=== PATIENT | female | born 1990 | race Caucasian/White ===

== ENCOUNTER 2020-04-03 21:16 | Emergency (ER) | payer OTHER, SELFPAY ==
[2020-04-03 21:38] VITALS: PULSE 126; RESP 16; TEMP 37.7; O2SAT 100; BMI 24.7
[2020-04-03] MEDS: Acetaminophen 325 MG TABLET 650 MG PO (23:06)
--- NOTE | 2020-04-03 23:13 | ED_ITS ---
HPI - Fever General Chief Complaint: Fever <VICTOR HUGO Shepherd Last Filed: 04/04/20 00:25> Stated Complaint: FLU LIKE SYMPTOMS <VICTOR HUGO Shepherd Last Filed: 04/04/20 00:25> Time Seen by Provider: 04/03/20 22:46 <VICTOR HUGO Shepherd Last Filed: 04/04/20 00:25> Source: patient <VICTOR HUGO Shepherd Last Filed: 04/04/20 00:25> Mode of arrival: ambulatory <VICTOR HUGO Shepherd Last Filed: 04/04/20 00:25> History of Present Illness HPI Narrative: 37-year-old female with past medical history of kidney stones presenting to ED complaining of fever T-max 101?, rhinorrhea, mild sore throat, myalgias, and nausea times few days. Denies CP /SOB, cough, vomiting, diarrhea, recent travel, sick contacts <VICTOR HUGO Shepherd Last Filed: 04/04/20 00:25> MD elicited complaint: fever and malaise <VICTOR HUGO Shepherd Last Filed: 04/04/20 00:25> Related Data Allergies/Adverse Reactions: Allergies Allergy/AdvReac Type Severity Reaction Status Date / Time hydrocodone [From VICODIN] Allergy Intermediate ITCHINESS Verified 04/03/20 23:05 morphine [MORPHINE] Allergy Intermediate BURNING IN Verified 04/03/20 23:05 CHEST, shortness of breath oxycodone [From PERCOCET] Allergy Intermediate ITCHINESS Verified 04/03/20 23:05 Vicodin Allergy Unknown rash, hives Verified 04/03/20 21:47 ibuprofen AdvReac Stomach Verified 04/03/20 21:47 Upset Morphine Allergy Unknown rash Uncoded 01/28/20 00:00 pumpkin Allergy Unknown itching Uncoded 02/21/20 00:00 <VICTOR HUGO Shepherd Last Filed: 04/04/20 00:25> Review of Systems Review of Systems: Constitutional: No Weight loss, + Fever, No Chills, +myalgias ENT/Mouth: No Ear Pain, + Nasal Congestion, No Sinus Pain, No Hoarseness, + sore throat, + Rhinorrhea Cardiovascular: No Chest Pain, No SOB Respiratory: No Cough, No Sputum, No Wheezing Gastrointestinal: + Nausea, No Vomiting, No Diarrhea, No Constipation, No Abdominal pain Musculoskeletal: No joint pain, +Myalgias, No Joint Swelling Skin: No Skin Lesions, No rash <VICTOR HUGO Shepherd - Last Filed: 04/04/20 00:25> Yes all other systems are reviewed and are negative <VICTOR HUGO Shepherd - Last Filed: 04/04/20 00:25> [facility] Past Medical History Attestation statement: The following information was validated with the patient. <VICTOR HUGO Shepherd - Last Filed: 04/04/20 00:25> Medical History: Medical History (Updated 04/03/20 @ 23:17 by VICTOR HUGO Shepherd) Kidney stones <VICTOR HUGO Shepherd - Last Filed: 04/04/20 00:25> Surgical History: Surgical History (Updated 04/03/20 @ 21:44 by Dolores Medina) Gastric bypass status for obesity <VICTOR HUGO Shepherd - Last Filed: 04/04/20 00:25> Social History Social History: Social History Advance Directives: No <VICTOR HUGO Shepherd - Last Filed: 04/04/20 00:25> Physical Exam Vital Signs: Vital Signs: Vital Signs Temp Pulse Resp Pulse Ox 04/04/20 00:41 113 H 100 04/04/20 00:22 99.8 F 104 H 20 99 04/03/20 23:48 99.9 F 115 H 20 100 04/03/20 21:38 99.8 F 126 H 16 100 Body Mass Index 24.7 <VICTOR HUGO Shepherd - Last Filed: 04/04/20 00:25> Vital Signs: Vital Signs Temp Pulse Resp Pulse Ox 04/04/20 00:41 113 H 100 04/04/20 00:22 99.8 F 104 H 20 99 04/03/20 23:48 99.9 F 115 H 20 100 04/03/20 21:38 99.8 F 126 H 16 100 Body Mass Index 24.7 <Marlena Medina MD - Last Filed: 04/04/20 21:00> Const: General: cooperative and healthy appearing <VICTOR HUGO Shepherd - Last Filed: 04/04/20 00:25> Orientation/consciousness: patient oriented x3 <VICTOR HUGO Shepherd - Last Filed: 04/04/20 00:25> Limitations: no limitations <Nichol Avilez CO - Last Filed: 04/04/20 00:25> HENMT: Head: Yes normal to inspection <VICTOR HUGO Shepherd - Last Filed: 04/04/20 00:25> Ears: hearing grossly normal bilaterally <VICTOR HUGO Shepherd - Last Filed: 04/04/20 00:25> General nose exam: Normal external nose present <VICTOR HUGO Shepherd - Last Filed: 04/04/20 00:25> Face and sinus: Yes normal facial exam <VICTOR HUGO Shepherd - Last Filed: 04/04/20 00:25> Eyes: General: appearance normal, both eyes and all related structures <VICTOR HUGO Shepherd - Last Filed: 04/04/20 00:25> EOM: EOMs intact bilaterally <VICTOR HUGO Shepherd - Last Filed: 04/04/20 00:25> Neck: Neck: Yes normal visual inspection <VICTOR HUGO Shepherd - Last Filed: 04/04/20 00:25> Resp: Effort & Inspection: normal respiratory effort <Nichol Avilez CO - Last Filed: 04/04/20 00:25> Auscultation: clear to auscultation bilaterally <VICTOR HUGO Shepherd - Last Filed: 04/04/20 00:25> Cardio: Rate: regular rate <VICTOR HUGO Shepherd - Last Filed: 04/04/20 00:25> Heart sounds: S1 normal heart sound present and S2 normal heart sound present <VICTOR HUGO Shepherd - Last Filed: 04/04/20 00:25> Skin: Rashes: no rashes <VICTOR HUGO Shepherd - Last Filed: 04/04/20 00:25> Wounds: no wounds <VICTOR HUGO Shepherd - Last Filed: 04/04/20 00:25> Neuro: General: patient oriented x3 <VICTOR HUGO Shepherd - Last Filed: 04/04/20 00:25> Extrem: General: Yes normal to inspection <VICTOR HUGO Shepherd - Last Filed: 04/04/20 00:25> Course Course Course Narrative: -0024-- tachycardia improved to 104 after Tylenol. Patient still with low-grade temp worrisome signs and symptoms and strict return precautions discussed. Patient verbalized understanding feel safe for discharge to follow-up with PCP <VICTOR HUGO Shepherd - Last Filed: 04/04/20 00:25> MDM - Fever MDM Narrative Medical decision making narrative: on exam low-grade temp 99.8?, tachycardic likely from fever, NAD/ nontoxic-appearing, lungs CTA. Concern for COVID-19/viral syndrome. Low concern for pneumonia/ACS <VICTOR HUGO Shepherd - Last Filed: 04/04/20 00:25> Discharge Plan Discharge Clinical Impression: Viral infection <VICTOR HUGO Shepherd Last Filed: 04/04/20 00:25> Patient Disposition: Home, Self-Care <VICTOR HUGO Shepherd Last Filed: 04/04/20 00:25> Instructions: Viral Syndrome (ED) <VICTOR HUGO Shepherd - Last Filed: 04/04/20 00:25> Additional Instructions: Based on your symptoms and history we have sent a COVID-19. Although your RESULT IS PENDING at this time. RESULTS should return within 72 hours. At this time you will be contacted with either NEGATIVE OR POSITIVE results. -Please wait until we contact you for your results. At this time you will be okay for discharge. Please plan for self quarantine for up to 14 days. Do not expose yourself to others. You may not go to work. If testing does come back negative you may return to activities as long as you are no longer having any symptoms for at least 3 days. Please continue to follow cold instructions and wash your hands frequently. You may take Tylenol as directed on the bottle for pain or fever. Patient seen in the emergency department on 12/13/2019 and should be excused from work until negative test results AND until 72 hours without any symptoms AND at least 10 days have passed since symptoms first appeared or since last exposure to COVID-19 positive patient CDC Guidelines for home isolation: - Stay away from others - WEAR A MASK if you are sick AND STAY HOME - Cover your mouth and nose with a tissue when you cough or sneeze. Dispose of tissues in a lined trash can and wash your hands immediately with soap and water for at least 20 seconds. If soap and water are not available, clean hands with alcohol-based hand critical care educator that contains at least 60% alcohol. - Clean your hands often with soap and water for at least 20 seconds - Avoid touching your eyes, nose and mouth with unwashed hands - Do not share dishes, drinking glasses, cups, eating utensils, towels, or bedd ing with other people in your home. After using these items, wash them thoroughly with soap and water or put in the perennial house manager. - Clean high-touch surfaces in your isolation area ( sick room and bathroom) every day; let a caregiver clean and disinfect high-touch surfaces in other areas of the home. Clean the area or item with soap and water or another detergent if it is dirty. Then, use a household disinfectant. - Limit contact with pets and animals: If you must care for a pet, wash your hands before and after interacting with them) <VICTOR HUGO Shepherd - Last Filed: 04/04/20 00:25> Stand Alone Forms: Work/School Release <VICTOR HUGO Shepherd - Last Filed: 04/04/20 00:25> Interventions: ED Discharge Assessment Last Done: 04/04/20 00:43 <VICTOR HUGO Shepherd - Last Filed: 04/04/20 00:25> Discharge Date/Time: 04/04/20 00:54 <VICTOR HUGO Shepherd - Last Filed: 04/04/20 00:25>
--- NOTE | 2020-04-03 23:31 | PC.NURSE ---
PT GIVEN TO CONSTANTIN LUCAS DO TO END OF SHIFT. PT AWARE VS WILL BE RECHECK IN 20N MINS.
[2020-04-03 23:48] VITALS: PULSE 115; RESP 20; TEMP 37.7; O2SAT 100
[2020-04-04 00:22] VITALS: PULSE 104; RESP 20; TEMP 37.7; O2SAT 99
[2020-04-04 00:41] VITALS: PULSE 113; O2SAT 100
== END 2020-04-04 00:54 | disposition home or self-care (01) ==
PROVIDERS: Emergency Provider Student in an Organized Health Care Education/Training Program
DX: B34.9 Viral infection, unspecified (principal); R11.0 Nausea; R05 Cough; Z20.828 Contact with and (suspected) exposure to other viral communicable diseases
CPT/HCPCS: 87635; 99283

== ENCOUNTER 2020-05-21 15:54 | Outpatient (REF) | payer OTHER, SELFPAY | END 2020-05-21 15:55 | disposition home or self-care (01) | LOC: HO.LAB 15:54 | PROVIDERS: Visit Provider Internal Medicine | DX: Z20.828 Contact with and (suspected) exposure to other viral communicable diseases (principal) | CPT/HCPCS: C9803; U0003 ==

== ENCOUNTER 2020-07-03 11:36 | Outpatient (REF) | payer OTHER, SELFPAY ==
[2020-07-03 13:36] LABS: MANUAL DIFF FLAG NO
[2020-07-03 13:48] LABS: Basophils Percent Auto 0.5 % (0-2); Eosinophils Absolute Auto 0.1 X10*3/uL (0.0-0.4); Eosinophils Percent Auto 1.4 % (0-4); Hematocrit 31.3 % (37-47); Hemoglobin 9.6 g/dl (12.0-16.0); Imm Gran Abs Auto 0.01 X10*3/uL (0.00-0.03); Imm Gran Pct Auto 0.2 % (0.0-0.4); Lymphocytes Absolute Auto 2.1 X10*3/uL (1.2-4.9); Lymphocytes Percent Auto 36.3 % (20-40); Mean Corpuscular HGB Conc 30.7 g/dl (31.0-35.0); Mean Corpuscular Hemoglobin 26.3 pg (27.0-33.0); Mean Corpuscular Volume 85.8 fL (80-98); Monocytes Absolute Auto 0.5 X10*3/uL (0.1-1.2); Monocytes Percent Auto 8.7 % (2-11); Neutrophils Absolute Auto 3.1 X10*3/uL (2.0-8.3); Neutrophils Percent Auto 52.9 % (45-73); Platelet Count 244 X10*3/uL (160-400); Red Blood Count 3.65 X10*6/uL (4.20-5.50); Red Cell Distribution Width 13.6 % (11.0-16.0); White Blood Count 5.8 X10*3/uL (4.8-10.8)
[2020-07-03 14:17] LABS: Iron 64 mcg/dL (30-160); Percent Iron Saturation 14 % (15-50); Total Iron Binding Capacity 446 mcg/dL (228-428); Unsaturated Iron Binding 382 ug/dL
[2020-07-03 14:41] LABS: Ferritin 5 ng/mL (10-122); TSH reflex Free T4 0.66 mIU/mL (0.32-4.0); Vitamin D 25-OH Total 12.5 ng/mL (>30)
[2020-07-03 14:44] LABS: Folate 13.1 ng/mL (> or = 4.0); Vitamin B12 147 pg/mL (200-900)
[2020-07-08 13:06] LABS: Vitamin B1 11 nmol/L (8-30)
[2020-07-08 22:08] LABS: Vitamin A 32 mcg/dL (38-98)
== END 2020-07-03 11:37 | disposition home or self-care (01) ==
LOC: HO.10HDL 11:36
PROVIDERS: Visit Provider Internal Medicine
DX: R53.82 Chronic fatigue, unspecified (principal); E53.8 Deficiency of other specified B group vitamins; E50.9 Vitamin A deficiency, unspecified; E51.9 Thiamine deficiency, unspecified; E55.9 Vitamin D deficiency, unspecified
CPT/HCPCS: 36415; 82306; 82607; 82728; 82746; 83540; 84425; 84443; 84590; 85025

== ENCOUNTER 2020-08-06 06:10 | Emergency (ER) | payer OTHER, SELFPAY ==
--- NOTE | ~2020-08-06 | CT_ITS ---
EXAMINATION: CT ABDOMEN AND PELVIS WITH CONTRAST CLINICAL INFORMATION: Right lower quadrant pain. COMPARISON: 06/28/2017 CT scan of the abdomen and pelvis. TECHNIQUE: Multidetector volumetric images were obtained from the superior aspect of the liver through the pubic symphysis following administration 85 mL of Omnipaque 350 intravenous contrast. Sagittal and coronal reformatted images were obtained on the technologist's workstation. Oral contrast: No This CT examination was performed using dose optimization techniques as appropriate, variously including the following: *Automated exposure control *Adjustment of mA and/or kV according to patient size (this includes techniques or standardized protocols for targeted exams where dose is matched to indication/reason for exam; i.e. extremities or head) *Use of iterative reconstruction technique DLP: 524 mGy-cm FINDINGS: LUNG BASES: The visualized lung bases are unremarkable. LIVER, GALLBLADDER, AND BILIARY TREE: Unremarkable. PANCREAS: Unremarkable. SPLEEN: Unremarkable. ADRENAL GLANDS: Unremarkable. KIDNEYS AND URETERS: Nonobstructing intrarenal calculi are seen bilaterally. An interpolar right intrarenal calculus measures 0.3 cm. A 0.3 cm calculus in the upper pole left kidney is seen as well. No hydroureteronephrosis. BLADDER: Unremarkable. GASTROINTESTINAL TRACT: Gastric and proximal small bowel post surgical changes are seen without abnormality. The remainder the small bowel, appendix and large bowel are unremarkable. ABDOMINAL WALL: No significant hernia is appreciated. LYMPH NODES: No lymphadenopathy. VASCULAR: Unremarkable. PELVIC VISCERA: An intramural uterine fibroid in the fundus measures 4.7 cm (image 33, series 7). An intramural/subserosal in the right inferior body measures 3.8 cm (image 66, series 3). A right ovarian cyst measures up to 4.2 cm (image 68, series 3). Mild adjacent fluid is seen. Small follicles are seen in the left ovary. OSSEOUS STRUCTURES: Unremarkable. CT/CT abdomen pelvis w con IMPRESSION: 1. Enlarged right ovarian cyst demonstrates overall benign features and is likely physiologic. Adjacent right adnexal fluid is likely physiologic as well suggesting cyst in evolution. If the patient's symptoms persist or worsen, short-term follow-up with pelvic ultrasound is recommended. 2. Enlarged fibroid uterus appears increased compared to the 2018 study. 3. Gastric/proximal small bowel bypass changes without associated abnormality.
--- NOTE | ~2020-08-06 | US_ITS ---
EXAMINATION: US PELVIS TRANSVAGINAL CLINICAL INFORMATION: Right pelvic pain with ovarian cyst. COMPARISON: CT scan of same day as well as pelvic ultrasound of January 21, 2020 TECHNIQUE: Transcutaneous and transvaginal pelvic ultrasound. Transvaginal scanning was performed after voiding to better evaluate the endometrium and adnexa. Real-time ultrasound and Doppler techniques (integrating B-mode 2D vascular images, Doppler spectral analysis and color flow Doppler imaging) were utilized to interrogate the ovarian vessels. FINDINGS: The uterus measures 10.2 x 4.1 x 5.1 cm. The uterus is anteverted. No suspicious abnormalities region of the cervix. Nabothian cysts present. The uterine contour is lobulated. The endometrium measures 1.3 cm. There are heterogeneous echotexture mass is present consistent with fibroids. Within the anterior lower uterine segment there is a 1.7 x 1.3 x 2.0 cm which is larger than on prior study where it measured 1.2 x 1.0 x 1.1 cm in size. About the right body of the uterus posteriorly there is a 4.1 x 3.0 x 3.4 cm fibroid which is essentially stable in size. About the fundus and upper uterine body there is again noted to be a 4.3 x 2.9 x 3.6 cm fibroid which previously measured 3.3 x 2.8 x 2.9 cm in size. The right ovary measures approximately 5.4 x 3.9 x 4.9 cm. The calculated right ovarian volume is approximately 53.2 mL. Normal vascular flow present. Within the right ovary there is a 4.2 x 3.1 x 4.1 cm heterogeneous echotexture mass without internal vascularity and with some rim vascularity present which may represent a hemorrhagic corpus luteal cyst. Follow-up study in 6 weeks would be of help in further evaluation. The left ovary measures 3.8 x 2.0 x 2.7 cm. The calculated left ovarian volume is approximately 10.7 mL. No abnormal left adnexal findings. Normal vascular flow present. No significant free pelvic fluid. US/US pelvic ovarian doppler IMPRESSION: Fibroid uterus. Right ovarian heterogeneous echotexture 4.2 cm in maximum dimension mass without internal vascular flow and with some peripheral vascularity consistent with corpus luteal cyst. Normal ovarian vascular flow bilaterally without evidence of ovarian torsion..
[2020-08-06 07:53] LABS: Appearance Urine HAZY; Color Urine YELLOW; Glucose Urine UA NEG (NEG); Leukocyte Esterase Urine 1+ (NEG); Nitrite Urine NEG (NEG); Specific Gravity - Urine 1.025 (1.005-1.025); UACC Culture Trigger YES; Urine Blood NEG (NEG); Urine Ketones NEG (NEG); Urine Protein NEG (NEG-TRACE)
[2020-08-06 07:54] LABS: UPreg QC Valid YES; Urine Pregnancy NEGATIVE (NEGATIVE)
[2020-08-06 08:01] LABS: Bacteria Urine 1+ /LPF; Mucus Urine 2+ /LPF; RBC Urine 0-2 /HPF (0); Squamous Epithelial Cell Urine 1+ /LPF
[2020-08-06 08:10] VITALS: BP 111/72; PULSE 76; RESP 18; TEMP 36.9; O2SAT 100; BMI 25.7
--- NOTE | 2020-08-06 08:20 | ED_ITS ---
HPI - Abdominal Pain General Chief Complaint: Abdominal Pain Stated Complaint: right flank pain Time Seen by Provider: 08/06/20 07:58 Source: patient Mode of arrival: ambulatory Limitations: no limitations History of Present Illness HPI narrative: 30 y/o female with history of left sided kidney stones, carpal tunnel syndrome, anemia who presents to the ED c/o worsening RLQ pain for the last 2-3 days and difficulty urinating. She contacted her PCP yesterday who was planning on doing urine and blood tests today but she woke up with worsening pain and nausea so she came to the ED for evaluation. She denies fever, chills, vomiting, diarrhea. LMP 07/20/2020. No vaginal discharge or bleeding. She reports having a hard time voiding fully and that she has to push it out. MD elicited complaint: abdominal pain Pertinent past history: kidney stones Onset (ago): day(s) (3) Pain Consistency: constant Location: RLQ Severity: severe Pain scale (0-10): 9 Quality: stabbing Radiation: R flank Migration to: R flank Exacerbating factors: movement Relieving factors: nothing Context: history of similar episodes Associated symptoms: nausea and dysuria Related Data Home Medications Medication Instructions Recorded Confirmed pantoprazole 40 mg tablet,delayed 40 mg PO DAILY 04/24/20 07/08/20 release Previous Rx's Medication Instructions Recorded sucralfate 100 mg/mL oral 10 ml PO BID #600 ml 04/28/20 suspension cyanocobalamin (vitamin B-12) 1,000 mcg IM DAILY 7 Days #7 ml 07/08/20 1,000 mcg/mL injection solution ergocalciferol (vitamin D2) 1,250 1,250 mcg PO QWEEK 30 Days #5 cap 07/08/20 mcg (50,000 unit) capsule ferrous sulfate 325 mg (65 mg 325 mg PO BID 30 Days #60 tab 07/08/20 iron) tablet,delayed release syringe with needle, safety 3 mL #1 ea 07/08/20 21 gauge x 1 1/2 cefuroxime axetil 250 mg PO BID 7 Days #14 tab 08/06/20 tramadol 50 mg PO Q6H PRN #10 tab 08/06/20 Allergies Allergy/AdvReac Type Severity Reaction Status Date / Time morphine [MORPHINE] Allergy Intermediate BURNING IN Verified 07/08/20 18:12 CHEST, shortness of breath oxycodone [From PERCOCET] Allergy Intermediate ITCHINESS Verified 07/08/20 18:12 Vicodin Allergy Unknown rash, hives Verified 07/08/20 18:12 ibuprofen AdvReac Stomach Verified 07/08/20 18:12 Upset pumpkin Allergy Unknown itching Uncoded 07/08/20 18:12 Review of Systems Review of Systems Constitutional: No Fever, No Chills ENT/Mouth: No sore throat, No Rhinorrhea, No Swallowing Difficulty Eyes: No Eye Pain, No Swelling, No Redness Cardiovascular: No Chest Pain, No SOB, No Orthopnea, No Edema Respiratory: No Cough, No Sputum, No Wheezing, No dyspnea Gastrointestinal: No Nausea, No Vomiting, No Diarrhea, No abdominal Pain, No Hematochezia, No Melena Genitourinary: No Dysuria, No Urinary Frequency, No Hematuria Musculoskeletal: No joint pain, No Myalgias Skin: No Skin Lesions, No rash Neuro: No Weakness, No Numbness, No Dizziness, No Headache Psych: No Anxiety/Panic, No Depression Heme/Lymph: No Bruising, No Lymphadenopathy Endocrine: No Polyuria, No Polydipsia Physical Exam Vital Signs: Vital Signs: Last Vital Signs Temp 98.4 F 08/06/20 08:10 Pulse 76 08/06/20 08:10 Resp 18 08/06/20 08:10 BP 111/72 08/06/20 08:10 Pulse Ox 100 08/06/20 08:10 Body Mass Index 25.7 Appearance: Alert. Oriented X3. No acute distress. Eyes: Pupils equal, round and reactive to light. ENT: Pharynx normal. Neck: Normal inspection. Neck supple. CVS: Normal heart rate and rhythm. Pulses normal. Respiratory: No respiratory distress. Breath sounds normal. Abdomen: Soft, flat with RLQ tenderness. +guarding but no rebound. normal +BS x4. Pelvic exam deferred. Skin: Skin warm and dry. Normal skin color. Normal skin turgor. No rashes. Extremities: No lower extremity edema. Neuro: Oriented X 3. No motor deficit. No sensory deficit. Course Course Course Narrative: 30 y/o female presenting with RLQ abdominal pain. LMP 2 weeks ago. No vaginal bleeding or discharge. +nausea today. +urinary symptoms. Concern for acute UTI, possible pyelonephritis and will need to r/o appendicitis as well. No history of ovarian cysts, doubt torsion. Will check urine test, ectopic remains a consideration as well however she reports recent menses. Will get labs and CT. Tramadol and tylenol ordered for pain. Will reassess. Reevaluation(s) Reevaluation #1: test is negative. UA shows + leukocyte esterase with some WBC. Will treat with IV rocephin. Labs are within normal limits. Not septic at this time. Afebrile without tachycardia. CT scan pending. Pain is improving. Reevaluation #2: CT scan showing enlarged right ovarian cyst, likely physiologic. Will get pelvic U/S to rule out torsion. Reevaluation #3: Pelvic U/S showing 4.2 cm right sided corpeus luteum cyst. No evidence of torsion. 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 Stable for d/c, patient agrees with plan. MDM - Abdominal Pain Lab Data Result diagrams: 08/06/20 08:21 08/06/20 08:22 Labs: Lab Results 08/06/20 08/06/20 08/06/20 Range/Units 07:42 08:21 08:21 WBC 5.1 (4.8-10.8) X10*3/uL RBC 3.72 L (4.20-5.50) X10*6/uL Hgb 9.9 L (12.0-16.0) g/dl Hct 31.4 L (37-47) % MCV 84.4 (80-98) fL MCH 26.6 L (27.0-33.0) pg MCHC 31.5 (31.0-35.0) g/dl RDW 13.7 (11.0-16.0) % Plt Count 238 (160-400) X10*3/uL MPV 9.9 (9.4-12.3) fL Immature Gran % (Auto) 0.2 (0.0-0.4) % Neut % (Auto) 44.0 L (45-73) % Lymph % (Auto) 40.8 H (20-40) % [place] % (Auto) 11.9 H (2-11) % Eos % (Auto) 2.1 (0-4) % Baso % (Auto) 1.0 (0-2) % Lymph # (Auto) 2.1 (1.2-4.9) X10*3/uL [place] # (Auto) 0.6 (0.1-1.2) X10*3/uL Eos # (Auto) 0.1 (0.0-0.4) X10*3/uL Baso # (Auto) 0.1 (0.0-0.2) X10*3/uL Abs Immat Gran (auto) 0.01 (0.00-0.03) X10*3/uL Absolute Neuts (auto) 2.3 (2.0-8.3) X10*3/uL Absolute Nucleated RBC 0.000 (0.0-0.012) X10*3/uL Nucleated RBC % (auto) 0.0 (0.0-0.2) /100WBC Hold Blue Top SEE NOTE Sodium (135-145) mmol/L Potassium (3.3-5.1) mmol/L Chloride (96-108) mmol/L Carbon Dioxide (22-29) mmol/L Anion Gap (12-20) BUN (9-16) mg/dL Creatinine (0.5-1.4) mg/dL Estim Creat Clear Calc Estimated GFR Random Glucose (60-115) mg/dL Lactic Acid (0.5-2.0) mmol/L Calcium (8.4-10.2) mg/dL Magnesium (1.6-2.6) mg/dL Total Bilirubin (0.0-1.0) mg/dL Direct Bilirubin (0.0-0.5) mg/dL AST (5-31) U/L ALT (0-31) U/L Alkaline Phosphatase (39-117) U/L Total Protein (6.5-8.0) g/dL Albumin (3.5-5.0) g/dL Urine Color YELLOW Urine Appearance HAZY Urine pH 6.0 (5.0-8.0) Ur Specific [place] 1.025 (1.005-1.025) Urine Protein NEG (NEG-TRACE) MG/DL Urine Glucose (UA) NEG (NEG) MG/DL Urine Ketones NEG (NEG) MG/DL Urine Blood NEG (NEG) Urine Nitrite NEG (NEG) Ur Leukocyte Esterase 1+ H (NEG) Urine RBC 0-2 (0) /HPF Urine WBC 5-9 H (0-4) /HPF Ur Squamous Epith Cells 1+ /LPF Urine Bacteria 1+ /LPF Urine Mucus 2+ /LPF Urine Test NEGATIVE (NEGATIVE) 08/06/20 08/06/20 Range/Units 08:21 08:22 WBC (4.8-10.8) X10*3/uL RBC (4.20-5.50) X10*6/uL Hgb (12.0-16.0) g/dl Hct (37-47) % MCV (80-98) fL MCH (27.0-33.0) pg MCHC (31.0-35.0) g/dl RDW (11.0-16.0) % Plt Count (160-400) X10*3/uL MPV (9.4-12.3) fL Immature Gran % (Auto) (0.0-0.4) % Neut % (Auto) (45-73) % Lymph % (Auto) (20-40) % [place] % (Auto) (2-11) % Eos % (Auto) (0-4) % Baso % (Auto) (0-2) % Lymph # (Auto) (1.2-4.9) X10*3/uL [place] # (Auto) (0.1-1.2) X10*3/uL Eos # (Auto) (0.0-0.4) X10*3/uL Baso # (Auto) (0.0-0.2) X10*3/uL Abs Immat Gran (auto) (0.00-0.03) X10*3/uL Absolute Neuts (auto) (2.0-8.3) X10*3/uL Absolute Nucleated RBC (0.0-0.012) X10*3/uL Nucleated RBC % (auto) (0.0-0.2) /100WBC Hold Blue Top Sodium 138 (135-145) mmol/L Potassium 4.4 (3.3-5.1) mmol/L Chloride 107 (96-108) mmol/L Carbon Dioxide 23 (22-29) mmol/L Anion Gap 12 (12-20) BUN 10 (9-16) mg/dL Creatinine 0.65 (0.5-1.4) mg/dL Estim Creat Clear Calc 114.5 Estimated GFR > 60 Random Glucose 90 (60-115) mg/dL Lactic Acid 1.4 (0.5-2.0) mmol/L Calcium 8.3 L (8.4-10.2) mg/dL Magnesium 2.1 (1.6-2.6) mg/dL Total Bilirubin 0.3 (0.0-1.0) mg/dL Direct Bilirubin < 0.2 (0.0-0.5) mg/dL AST 17 (5-31) U/L ALT 8 (0-31) U/L Alkaline Phosphatase 69 (39-117) U/L Total Protein 6.9 (6.5-8.0) g/dL Albumin 3.9 (3.5-5.0) g/dL Urine Color Urine Appearance Urine pH (5.0-8.0) Ur Specific [place] (1.005-1.025) Urine Protein (NEG-TRACE) MG/DL Urine Glucose (UA) (NEG) MG/DL Urine Ketones (NEG) MG/DL Urine Blood (NEG) Urine Nitrite (NEG) Ur Leukocyte Esterase (NEG) Urine RBC (0) /HPF Urine WBC (0-4) /HPF Ur Squamous Epith Cells /LPF Urine Bacteria /LPF Urine Mucus /LPF Urine Test (NEGATIVE) Discharge Plan Discharge Clinical Impression: UTI (urinary tract infection) Qualifiers: Urinary tract infection type: acute cystitis Hematuria presence: without hematuria Qualified Code(s): N30.00 - Acute cystitis without hematuria Ovarian cyst Qualifiers: Laterality: right Qualified Code(s): N83.201 - Unspecified ovarian cyst, right side Fibroid uterus Qualifiers: Uterine leiomyoma location: unspecified location Qualified Code(s): D25.9 - Leiomyoma of uterus, unspecified Patient Disposition: Home, Self-Care Instructions: Ovarian Cyst (ED), Urinary Tract Infection in Women (ED) Additional Instructions: Your urine test showed evidence of infection - take the prescribed antibiotic as directed. No sexual activity until all of your symptoms are completely resolved. Your CT scan showed an ovarian cyst on the right side. Ultrasound did not show any abnormal blood flow to your ovary. Pain is likely worsened from ovulation. Take the prescribed medication as needed for pain. Follow up with your Shoe Cutter for further management. If you have worsening pain come back to the ER for further evaluation. Prescriptions: New cefuroxime axetil 250 mg tablet 250 mg PO BID 7 Days Qty: 14 RF: 0 tramadol 50 mg tablet 50 mg PO Q6H PRN (Reason: pain) Qty: 10 RF: 0 No Action pantoprazole 40 mg tablet,delayed release (DR/EC) 40 mg PO DAILY RF: 0 sucralfate [Carafate] 100 mg/mL suspension 10 ml PO BID Qty: 600 RF: 9 ergocalciferol (vitamin D2) 1,250 mcg (50,000 unit) capsule 1,250 mcg PO QWEEK 30 Days Qty: 5 RF: 3 cyanocobalamin (vitamin B-12) 1,000 mcg/mL solution 1,000 mcg IM DAILY 7 Days Qty: 7 RF: 0 ferrous sulfate 325 mg (65 mg iron) tablet,delayed release (DR/EC) 325 mg PO BID 30 Days Qty: 60 RF: 6 (DME) BD Safety-Janee Detachable Needl 3 mL 21 gauge x 1 1/2 syringe See Rx Instructions .ROUTE .MEDSUPPLY Qty: 1 RF: 0 Referrals: Kwan Lauren MD [Physician] - 1 week (ovarian cyst) Stand Alone Forms: Work/School Release [facility] Past Medical History Medical History (Updated 08/06/20 @ 13:32 by VICTOR HUGO Ge) Anemia B12 deficiency Carpal tunnel syndrome Hypovitaminosis D Kidney stones Surgical History (Updated 06/26/20 @ 07:45 by JANICE Wallace) Gastric bypass status for obesity History of nasal surgery History of surgery History of wisdom tooth extraction Family History Family History (Updated 06/26/20 @ 08:00 by JANICE Wallace) Father High cholesterol Diabetes Mother Migraine Obesity Maternal Grandfather Stroke Sister In good health Brother In good health Social History Social History (Updated 07/08/20 @ 18:14 by Mariela Pathak MD) Smoking Status: Never smoker Tobacco Type: Cigarette Advance Directives: No Advance Directives Information Provided: Yes
[2020-08-06 08:39] LABS: MANUAL DIFF FLAG NO
[2020-08-06 08:41] LABS: Basophils Absolute Auto 0.1 X10*3/uL (0.0-0.2); Eosinophils Absolute Auto 0.1 X10*3/uL (0.0-0.4); Eosinophils Percent Auto 2.1 % (0-4); Hematocrit 31.4 % (37-47); Hemoglobin 9.9 g/dl (12.0-16.0); Imm Gran Abs Auto 0.01 X10*3/uL (0.00-0.03); Imm Gran Pct Auto 0.2 % (0.0-0.4); Lymphocytes Absolute Auto 2.1 X10*3/uL (1.2-4.9); Lymphocytes Percent Auto 40.8 % (20-40); Mean Corpuscular HGB Conc 31.5 g/dl (31.0-35.0); Mean Corpuscular Hemoglobin 26.6 pg (27.0-33.0); Mean Corpuscular Volume 84.4 fL (80-98); Mean Platelet Volume 9.9 fL (9.4-12.3); Monocytes Absolute Auto 0.6 X10*3/uL (0.1-1.2); Monocytes Percent Auto 11.9 % (2-11); Neutrophils Absolute Auto 2.3 X10*3/uL (2.0-8.3); Platelet Count 238 X10*3/uL (160-400); Red Blood Count 3.72 X10*6/uL (4.20-5.50); Red Cell Distribution Width 13.7 % (11.0-16.0); White Blood Count 5.1 X10*3/uL (4.8-10.8)
[2020-08-06] MEDS: cefTRIAXone sodium 1 GM in 0.9 % Sodium Chloride 50 ML IV (08:41)
[2020-08-06] MEDS: 0.9 % Sodium Chloride 1,000 ML 999 ML IVCONT (08:41)
[2020-08-06 09:01] LABS: Lactic Acid 1.4 mmol/L (0.5-2.0)
[2020-08-06 09:07] LABS: Alanine Aminotransferase 8 U/L (0-31); Albumin Level 3.9 g/dL (3.5-5.0); Alkaline Phosphatase 69 U/L (39-117); Anion Gap 12 (12-20); Aspartate Amino Transferase 17 U/L (5-31); Bilirubin Direct < 0.2 mg/dL (0.0-0.5); Bilirubin Total 0.3 mg/dL (0.0-1.0); Blood Urea Nitrogen 10 mg/dL (9-16); Calcium 8.3 mg/dL (8.4-10.2); Carbon Dioxide 23 mmol/L (22-29); Chloride 107 mmol/L (96-108); Creatinine Clr Calc Pharmacy 114.5; Estimated Glomerular Filt Rate > 60; Glucose Random 90 mg/dL (60-115); Magnesium 2.1 mg/dL (1.6-2.6); Potassium 4.4 mmol/L (3.3-5.1); Sodium 138 mmol/L (135-145); Total Protein 6.9 g/dL (6.5-8.0)
[2020-08-06] MEDS: traMADoL HCL 50 MG TABLET 25 MG PO ×2 (09:11→13:51)
[2020-08-06] MEDS: ondansetron HCL 4 MG/2 ML VIAL IVPUSH (09:11)
[2020-08-06] MEDS: Acetaminophen 325 MG TABLET 650 MG PO (09:12)
[2020-08-06] MEDS: iohexoL 350 MG/ML 100 ML INFUS..BTL 85 ML IV (09:50)
[2020-08-06] MEDS: Phenazopyridine HCL 200 MG TABLET PO (13:51)
== END 2020-08-06 13:55 | disposition home or self-care (01) ==
PROVIDERS: Physician Assistant; Emergency Provider Emergency Medicine; PCP Internal Medicine
DX: N30.00 Acute cystitis without hematuria (principal); D25.9 Leiomyoma of uterus, unspecified; N83.11 Corpus luteum cyst of right ovary; Z87.442 Personal history of urinary calculi
CPT/HCPCS: 36415; 51798; 74177; 76830; 76856; 80048; 80076; 81001; 81003; 81025; 83605; 83735; 85025; 87086; 93975; 96361; 96365; 96375; 99283; 99284; J0696; J2405; Q9967

== ENCOUNTER → 2020-08-07 12:47 | Outpatient (BNV) | payer OTHER, SELFPAY | PROVIDERS: PCP Internal Medicine; Referring Provider Internal Medicine; Visit Provider Internal Medicine | DX: D64.9 Anemia, unspecified (principal) | CPT/HCPCS: 99203; 99213; 99214 ==

== ENCOUNTER 2020-08-10 14:30 | Outpatient (REF) | payer OTHER, SELFPAY ==
[2020-08-11 08:21] LABS: CA-125 10 U/mL (<35)
[2020-08-11 15:32] LABS: C. trachomatis RNA TMA NOT DETECTED (NOT DETECTED); N. gonorrhoeae RNA TMA NOT DETECTED (NOT DETECTED)
== END 2020-08-10 14:31 | disposition home or self-care (01) ==
LOC: HO.LAB 14:30
PROVIDERS: PCP Internal Medicine; Visit Provider Obstetrics & Gynecology
DX: N92.0 Excessive and frequent menstruation with regular cycle (principal); D21.9 Benign neoplasm of connective and other soft tissue, unspecified; N83.299 Other ovarian cyst, unspecified side; D64.9 Anemia, unspecified; E53.8 Deficiency of other specified B group vitamins; E55.9 Vitamin D deficiency, unspecified; Z11.8 Encounter for screening for other infectious and parasitic diseases; Z11.3 Encounter for screening for infections with a predominantly sexual mode of transmission; Z88.5 Allergy status to narcotic agent; Z91.018 Allergy to other foods; Z98.84 Bariatric surgery status
CPT/HCPCS: 36415; 81025; 86304; 87491; 87591; 99212

== ENCOUNTER 2020-08-19 10:10 | Outpatient (REF) | payer OTHER, SELFPAY ==
--- NOTE | 2020-08-19 10:13 | EMG_ITS ---
HISTORY OF PRESENT ILLNESS: This is a 30-year-old woman with 8-year history of bilateral upper extremity pain, numbness, and tingling with the right being worse than the left. She is currently on no medications. PHYSICAL EXAMINATION: NEUROLOGICAL EXAMINATION: Cranial nerves II through XII normal. Muscle tone and strength are normal in all 4 extremities. Deep tendon reflexes symmetrical. Plantar responses are flexor. No Tinel or Phalen sign. IMPRESSION: Rule out carpal tunnel syndrome. Nerve conduction EMG study: Normal electrodiagnostic study of both upper extremities with no evidence of carpal tunnel syndrome. Normal EMG of the right C5 through T1 innervated muscles. MD CHANTALE Shine/ELIO / [id number]
== END 2020-08-19 10:11 | disposition home or self-care (01) ==
LOC: HO.NEURO 10:10
PROVIDERS: Visit Provider Internal Medicine
DX: G56.00 Carpal tunnel syndrome, unspecified upper limb (principal)
CPT/HCPCS: 95885; 95913

== ENCOUNTER 2020-08-24 13:49 | Outpatient (REF) | payer OTHER, SELFPAY ==
--- NOTE | ~2020-08-24 | XR_ITS ---
EXAMINATION: XR ABDOMEN KUB CLINICAL INDICATION: Nephrolithiasis. COMPARISON: CT 08/06/2020 TECHNIQUE: AP view of the abdomen. FINDINGS: Left sacroiliac joint fixation. No suspicious calcifications are seen overlying the expected position of either kidney or ureter. Surgical clips overlie the abdomen with multiple suture lines. Nonobstructive bowel gas pattern. The lung bases are clear. XR/XR KUB IMPRESSION: No suspicious calcifications overlying the expected position of either kidney or ureter.
== END 2020-08-24 13:50 | disposition home or self-care (01) ==
LOC: HO.XRAY 13:49
PROVIDERS: PCP Internal Medicine; Visit Provider Urology
DX: N20.0 Calculus of kidney (principal)
CPT/HCPCS: 74018

== ENCOUNTER → 2020-08-26 13:33 | Outpatient (BNVA) | payer OTHER, SELFPAY | PROVIDERS: Visit Provider Urology ==

== ENCOUNTER 2020-10-14 08:58 | Outpatient (REF) | payer OTHER, SELFPAY ==
--- NOTE | ~2020-10-14 | MM_ITS ---
EXAMINATION: BONE DENSITOMETRY CLINICAL INDICATION: Vitamin D deficiency, unspecified. COMPARISON: This is the patient's baseline examination. TECHNIQUE: Using a [employer] DXA System (software version: 13.1) manufactured by [employer], dual-energy x-ray absorptiometry was performed of the lumbar spine and left hip. The images are of good technical quality. Based on ISCD (International Society for Clinical Densitometry) standards of reporting, Z-scores instead of T-scores are reported in this premenopausal woman. Summary results are attached. FINDINGS: AP SPINE L1-L3 (excluding L4): The data of L1-L4 has been changed to exclude the L4 vertebral body, because belly button ring at this level may cause overestimation of lumbar spine density. BMD 1.190 g/cm2, T-score 0.2, Z-score 0.1, Z-score within expected range for age. LEFT FEMUR, NECK: BMD 0.838 g/cm2, T-score -1.4, Z-score -1.3, Z-score within expected range for age. LEFT FEMUR, TOTAL: BMD 0.834 g/cm2, T-score -1.4, Z-score -1.3, Z-score within expected range for age. IDENTIFIED RISK FACTORS: Low calcium intake, secondary osteoporosis. HISTORY OF FRACTURE: None listed. MEDICATIONS: Calcium supplements or multivitamin, vitamin D. MM/XR DEXA axial skeleton IMPRESSION: 1. DIAGNOSIS: Based on the lowest Z-score value of -1.3 in the femoral neck and total femur, the patient's bone density is within the expected range for age. 2. 10-YEAR FRACTURE RISK PREDICTION, FRAX: Not performed in this patient outside the age range of 40-90 years. 3. Treatment Recommendations: NOF guidelines recommend consideration for treatment in postmenopausal women and men age 50 and older presenting with the following: -A hip or vertebral (clinical or morphometric) fracture. -T-score less than or equal to -2.5 at the femoral neck or spine after appropriate evaluation to exclude secondary causes. -Low bone mass at the hip or spine and a 10-year fracture probability by FRAX of greater than or equal to 3% for hip fracture or greater than or equal to 20% for major osteoporotic fracture based on the [place] adapted WHO algorithm. 4. Other Recommendations: All treatment decisions require clinical judgment and consideration of individual patient factors, including patient preferences, comorbidities, previous drug use, risk factors not captured in the FRAX model (e.g. frailty, falls, vitamin D deficiency, increased bone turnover, interval significant decline in bone density) and possible under or overestimation of fracture risk by FRAX. FUTURE SCAN RECOMMENDATION: People with diagnosed cases of osteoporosis or at high risk for fracture should have regular bone mineral density tests. For patients eligible for Medicare, routine testing is allowed once every 2 years. The testing frequency can be increased to one year for patients who have rapidly progressing disease, those who are receiving or discontinuing medical therapy to restore bone mass, or have additional risk factors.
== END 2020-10-14 08:59 | disposition home or self-care (01) ==
LOC: HO.MAMMO 08:58
PROVIDERS: PCP Internal Medicine; Visit Provider Internal Medicine
DX: M81.0 Age-related osteoporosis without current pathological fracture (principal); E55.9 Vitamin D deficiency, unspecified; E58 Dietary calcium deficiency
CPT/HCPCS: 77080

== ENCOUNTER 2020-10-21 08:09 | Outpatient (REF) | payer OTHER, SELFPAY | END 2020-10-21 08:10 | disposition home or self-care (01) | LOC: HO.MDS 08:09 | PROVIDERS: PCP Internal Medicine; Visit Provider Internal Medicine | DX: D50.9 Iron deficiency anemia, unspecified (principal) | CPT/HCPCS: 96365; 96366; J1200; J1750; Q0163 ==

== ENCOUNTER → 2020-11-18 14:06 | Outpatient (BNVA) | payer OTHER, SELFPAY | PROVIDERS: PCP Internal Medicine; Visit Provider Obstetrics & Gynecology | DX: Z34.90 Encounter for supervision of normal pregnancy, unspecified, unspecified trimester (principal); N83.299 Other ovarian cyst, unspecified side; D21.9 Benign neoplasm of connective and other soft tissue, unspecified; D50.0 Iron deficiency anemia secondary to blood loss (chronic); Q74.2 Other congenital malformations of lower limb(s), including pelvic girdle | CPT/HCPCS: 81025; 99212 ==

== ENCOUNTER 2020-11-20 09:54 | Outpatient (REF) | payer OTHER, SELFPAY ==
--- NOTE | ~2020-11-20 | US_ITS ---
EXAMINATION: US OBSTETRICAL ULTRASOUND CLINICAL INFORMATION: Dating. COMPARISON: None during this . Pelvic ultrasound dated 08/06/2020. LMP: 10/13/2020. Gestational age by maternal dates is 5 weeks, 3 days. Estimated date of delivery by maternal dates is 07/20/2021. TECHNIQUE: Ultrasound of the maternal pelvis is performed using transabdominal and transvaginal transducers. Transvaginal imaging is performed due to inadequate visualization transabdominally. M-mode Doppler is also performed. FINDINGS: There is a single intrauterine gestational sac with visible yolk sac. Mean sac diameter 4.5 mm corresponds to gestational age of 5 weeks, 0 days. No pole or cardiac activity detected. There is no significant subchorionic hemorrhage or hematoma. ASAEL (estimated date of delivery): 07/23/2021 +/- 4 days. Multiple uterine fibroids redemonstrated, as fully characterized on the previous ultrasound. MATERNAL ADNEXA: The right maternal ovary measures 2.6 x 1.9 x 2.0 cm. The left maternal ovary measures 3.8 x 2.5 x 3.6 cm. There is no significant maternal adnexal mass. No maternal pelvic ascites. US/US OB <= 14 weeks fetus IMPRESSION: 1. Single intrauterine gestation with ultrasound gestational age of 5 weeks, 0 days +/- 4 days. 2. Estimated date of delivery is 07/23/2021 +/- 4 days. 3. No maternal adnexal mass or pelvic ascites. 4. Multiple uterine fibroids.
--- NOTE | ~2020-11-20 | US_ITS ---
EXAMINATION: US OBSTETRICAL ULTRASOUND CLINICAL INFORMATION: Dating. COMPARISON: None during this . Pelvic ultrasound dated 08/06/2020. LMP: 10/13/2020. Gestational age by maternal dates is 5 weeks, 3 days. Estimated date of delivery by maternal dates is 07/20/2021. TECHNIQUE: Ultrasound of the maternal pelvis is performed using transabdominal and transvaginal transducers. Transvaginal imaging is performed due to inadequate visualization transabdominally. M-mode Doppler is also performed. FINDINGS: There is a single intrauterine gestational sac with visible yolk sac. Mean sac diameter 4.5 mm corresponds to gestational age of 5 weeks, 0 days. No pole or cardiac activity detected. There is no significant subchorionic hemorrhage or hematoma. ASAEL (estimated date of delivery): 07/23/2021 +/- 4 days. Multiple uterine fibroids redemonstrated, as fully characterized on the previous ultrasound. MATERNAL ADNEXA: The right maternal ovary measures 2.6 x 1.9 x 2.0 cm. The left maternal ovary measures 3.8 x 2.5 x 3.6 cm. There is no significant maternal adnexal mass. No maternal pelvic ascites. US/US OB transvaginal IMPRESSION: 1. Single intrauterine gestation with ultrasound gestational age of 5 weeks, 0 days +/- 4 days. 2. Estimated date of delivery is 07/23/2021 +/- 4 days. 3. No maternal adnexal mass or pelvic ascites. 4. Multiple uterine fibroids.
== END 2020-11-20 09:55 | disposition home or self-care (01) ==
LOC: HO.US 09:54
PROVIDERS: PCP Internal Medicine; Visit Provider Obstetrics & Gynecology
DX: Z34.91 Encounter for supervision of normal pregnancy, unspecified, first trimester (principal); Z36.87 Encounter for antenatal screening for uncertain dates
CPT/HCPCS: 76801; 76817

== ENCOUNTER 2020-11-27 10:18 | Outpatient (REF) | payer OTHER, SELFPAY ==
[2020-11-27 11:04] LABS: MANUAL DIFF FLAG NO
[2020-11-27 11:19] LABS: Basophils Percent Auto 0.7 % (0-2); Eosinophils Absolute Auto 0.1 X10*3/uL (0.0-0.4); Eosinophils Percent Auto 1.4 % (0-4); Hematocrit 33.3 % (37-47); Hemoglobin 10.6 g/dl (12.0-16.0); Imm Gran Abs Auto 0.01 X10*3/uL (0.00-0.03); Imm Gran Pct Auto 0.2 % (0.0-0.4); Lymphocytes Absolute Auto 1.7 X10*3/uL (1.2-4.9); Lymphocytes Percent Auto 29.3 % (20-40); Mean Corpuscular HGB Conc 31.8 g/dl (31.0-35.0); Mean Corpuscular Hemoglobin 27.8 pg (27.0-33.0); Mean Corpuscular Volume 87.4 fL (80-98); Mean Platelet Volume 9.5 fL (9.4-12.3); Monocytes Absolute Auto 0.6 X10*3/uL (0.1-1.2); Monocytes Percent Auto 9.6 % (2-11); Neutrophils Absolute Auto 3.4 X10*3/uL (2.0-8.3); Neutrophils Percent Auto 58.8 % (45-73); Platelet Count 220 X10*3/uL (160-400); Red Blood Count 3.81 X10*6/uL (4.20-5.50); Red Cell Distribution Width 16.6 % (11.0-16.0); White Blood Count 5.7 X10*3/uL (4.8-10.8)
[2020-11-27 11:40] LABS: Glucose Urine UA NEG (NEG); Leukocyte Esterase Urine NEG (NEG); Nitrite Urine NEG (NEG); Specific Gravity - Urine 1.015 (1.005-1.025); Urine Blood NEG (NEG); Urine Ketones NEG (NEG); Urine Protein NEG (NEG-TRACE)
[2020-11-27 11:44] LABS: Appearance Urine CLEAR; Color Urine YELLOW
[2020-11-27 12:19] LABS: Alanine Aminotransferase < 6 U/L (0-31); Albumin Level 3.9 g/dL (3.5-5.0); Alkaline Phosphatase 65 U/L (39-117); Anion Gap 11 (12-20); Aspartate Amino Transferase 13 U/L (5-31); Bilirubin Total 0.4 mg/dL (0.0-1.0); Blood Urea Nitrogen 7 mg/dL (9-16); C Reactive Protein 0.05 mg/dL (< or = 0.50); Calcium 8.5 mg/dL (8.4-10.2); Carbon Dioxide 23 mmol/L (22-29); Chloride 106 mmol/L (96-108); Estimated Glomerular Filt Rate > 60; Glucose Random 107 mg/dL (60-115); Potassium 4.2 mmol/L (3.3-5.1); Sodium 136 mmol/L (135-145); Total Protein 6.3 g/dL (6.5-8.0)
[2020-12-01 12:01] LABS: Parietal Cell Antibody <=20.0 Unit (<=20.0)
[2020-12-02 16:22] LABS: Methylmalonic Acid 107 nmol/L (87-318)
[2020-12-05 18:57] LABS: Intrinsic Factor Antibodies Positive (Negative)
== END 2020-11-27 10:19 | disposition home or self-care (01) ==
LOC: HO.LAB 10:18
PROVIDERS: Internal Medicine; Surgery; PCP Internal Medicine; Visit Provider Internal Medicine
DX: R10.9 Unspecified abdominal pain (principal); R30.0 Dysuria; D64.9 Anemia, unspecified
CPT/HCPCS: 36415; 80053; 81003; 83516; 83921; 85025; 86140; 86340

== ENCOUNTER 2020-12-02 12:25 | Outpatient (REF) | payer OTHER, SELFPAY ==
--- NOTE | ~2020-12-02 | US_ITS ---
EXAMINATION: US OBSTETRICAL ULTRASOUND CLINICAL INFORMATION: Encounter for supervision. Vision abnormal COMPARISON: Previous exam 11/20/2020. LMP: 10/13/2020. Gestational age by maternal dates is 7 weeks 1 day. Estimated date of delivery by maternal dates is 07/20/2021. TECHNIQUE: Transabdominal first trimester OB ultrasound FINDINGS: There is a single intrauterine gestational sac with visible yolk sac, embryo/fetus, and cardiac activity. There is no significant subchorionic hemorrhage or hematoma. HR: 133 beats per minute. CRL (crown rump length): 0.4 cm (6 weeks 1 day +/- 4 days). ASAEL (estimated date of delivery): 07/27/2021 +/- 4 days. There are multiple uterine fibroids. The largest measures approximately 4 x 5 cm right uterine body. MATERNAL ADNEXA: The right maternal ovary is not seen. The left maternal ovary measures 3.2 x 1.9 x 3 cm. There is no significant maternal adnexal mass. No maternal pelvic ascites. US/US OB <= 14 weeks fetus IMPRESSION: 1. Single intrauterine gestation with ultrasound gestational age of 6 weeks 1 day +/- 4 days. 2. Estimated date of delivery is 07/27/2021 +/- 4 days. 3. Multiple uterine fibroids.
== END 2020-12-02 12:26 | disposition home or self-care (01) ==
LOC: HO.US 12:25
PROVIDERS: Visit Provider Obstetrics & Gynecology
DX: Z34.91 Encounter for supervision of normal pregnancy, unspecified, first trimester (principal)
CPT/HCPCS: 76801

== ENCOUNTER → 2020-12-07 12:00 | Outpatient (BNVA) | payer OTHER, SELFPAY | PROVIDERS: PCP Internal Medicine; Visit Provider Obstetrics & Gynecology ==

== ENCOUNTER 2020-12-23 17:52 | Emergency (ER) | payer OTHER, SELFPAY ==
--- NOTE | ~2020-12-23 | US_ITS ---
EXAMINATION: US OBSTETRICAL ULTRASOUND CLINICAL INFORMATION: Vaginal spotting. Nausea and vomiting. Lower abdominal pain. 10 weeks . COMPARISON: 12/02/2020. LMP: 10/13/2020. Gestational age by maternal dates is 10 weeks 1 day. Estimated date of delivery by maternal dates is 07/20/2021. TECHNIQUE: Transabdominal sonographic evaluation of the pelvis. FINDINGS: There is a single intrauterine gestational sac with visible yolk sac, embryo/fetus, and cardiac activity. There is no significant subchorionic hemorrhage or hematoma. HR: 185 beats per minute. CRL (crown rump length): 2.44 cm (9 weeks 2 days +/- 4 days). ASAEL (estimated date of delivery): 07/26/2021 +/- 4 days. MATERNAL ADNEXA: The right maternal ovary measures 2.1 x 1.4 x 1.2 cm. The left maternal ovary measures 3.7 x 2 x 3.7 cm. Corpus luteal cyst measures 1.4 cm. There is no significant maternal adnexal mass. No maternal pelvic ascites. Multiple uterine fibroids are again noted. The dominant fibroid measures up to 4.7 cm. This is in the body region. There are also myometrial fibroids measuring up to 2.8 cm and 2.4 cm. There is a uterine body myometrial fibroid measuring up to 1.8 cm. US/US OB <= 14 weeks fetus IMPRESSION: 1. Single intrauterine gestation with ultrasound gestational age of 9 weeks 2 days +/- 4 days. 2. Estimated date of delivery is 07/26/2021 +/- 4 days. 3. Multiple uterine fibroids are noted.
[2020-12-23 18:33] VITALS: BP 108/56; PULSE 68; RESP 18; TEMP 36.9; O2SAT 100; BMI 25.5
--- NOTE | 2020-12-23 19:45 | PC.NURSE ---
IV PLACED, LABS DRAWN TO LAB AND PT MEDICATED PER EMAR. PT AWAITING FOR PELVIC EXAM. WILL CONTINUE TO MONITOR PT.
[2020-12-23 20:00] VITALS: BP 102/49; PULSE 69; RESP 16; TEMP 37; O2SAT 99
[2020-12-23 20:24] LABS: MANUAL DIFF FLAG NO
[2020-12-23 20:26] LABS: Glucose Urine UA NEG (NEG); Leukocyte Esterase Urine TRACE (NEG); Nitrite Urine NEG (NEG); UACC Culture Trigger YES; Urine Blood NEG (NEG); Urine Ketones >=80 MG/DL (NEG); Urine Protein NEG (NEG-TRACE)
[2020-12-23 20:26] LABS: Basophils Absolute Auto 0.1 X10*3/uL (0.0-0.2); Basophils Percent Auto 0.5 % (0-2); Eosinophils Absolute Auto 0.1 X10*3/uL (0.0-0.4); Eosinophils Percent Auto 0.5 % (0-4); Hematocrit 32.3 % (37-47); Hemoglobin 10.9 g/dl (12.0-16.0); Imm Gran Abs Auto 0.03 X10*3/uL (0.00-0.03); Imm Gran Pct Auto 0.3 % (0.0-0.4); Lymphocytes Absolute Auto 2.5 X10*3/uL (1.2-4.9); Lymphocytes Percent Auto 22.8 % (20-40); Mean Corpuscular HGB Conc 33.7 g/dl (31.0-35.0); Mean Corpuscular Hemoglobin 29.3 pg (27.0-33.0); Mean Corpuscular Volume 86.8 fL (80-98); Mean Platelet Volume 9.2 fL (9.4-12.3); Monocytes Absolute Auto 1.1 X10*3/uL (0.1-1.2); Monocytes Percent Auto 9.7 % (2-11); Neutrophils Absolute Auto 7.3 X10*3/uL (2.0-8.3); Neutrophils Percent Auto 66.2 % (45-73); Platelet Count 271 X10*3/uL (160-400); Red Blood Count 3.72 X10*6/uL (4.20-5.50)
[2020-12-23 20:28] LABS: Appearance Urine CLEAR; Color Urine YELLOW
[2020-12-23] MEDS: diphenhydrAMINE HCL 50 MG/ML VIAL 12.5 MG IVPUSH (20:32)
[2020-12-23] MEDS: 0.9 % Sodium Chloride 1,000 ML 999 ML IVCONT ×2 (20:32→20:33)
[2020-12-23] MEDS: Pyridoxine HCl (Vitamin B6) 50 MG TABLET 25 MG PO (20:35)
[2020-12-23 20:38] LABS: Bacteria Urine TRACE /LPF; Mucus Urine 1+ /LPF; Squamous Epithelial Cell Urine 1+ /LPF
[2020-12-23 20:51] LABS: Alanine Aminotransferase 7 U/L (0-31); Albumin Level 4.3 g/dL (3.5-5.0); Alkaline Phosphatase 50 U/L (39-117); Anion Gap 13 (12-20); Aspartate Amino Transferase 11 U/L (5-31); Bilirubin Direct 0.2 mg/dL (0.0-0.5); Bilirubin Total 0.4 mg/dL (0.0-1.0); Blood Urea Nitrogen 7 mg/dL (9-16); Calcium 9.3 mg/dL (8.4-10.2); Carbon Dioxide 22 mmol/L (22-29); Chloride 106 mmol/L (96-108); Creatinine Clr Calc Pharmacy 124.2; Estimated Glomerular Filt Rate > 60; Glucose Random 86 mg/dL (60-115); Lipase 27 U/L (8-78); Magnesium 1.9 mg/dL (1.6-2.6); Potassium 4.2 mmol/L (3.3-5.1); Sodium 137 mmol/L (135-145); Total Protein 7.1 g/dL (6.5-8.0)
--- NOTE | 2020-12-23 21:30 | ED_ITS ---
HPI - Female Genitourinary General Chief complaint: Vaginal Bleeding Stated complaint: 10 Weeks cramping, spotting, n/v Time Seen by Provider: 12/23/20 19:37 Source: patient Mode of arrival: ambulatory History of Present Illness HPI Narrative: 30-year-old female with a past medical history of anemia, B12 deficiency, gastric bypass, renal stones, at about 10 weeks gestation, presenting to the ED complaining of epigastric /LLQ abdominal pain, nausea, vomiting, and slight vaginal spotting x today. Admits has been unable to tolerate p.o. since 9:00 a.m. Denies fever, chills, diarrhea/constipation, vaginal discharge, concern for STI, dysuria, hematuria Related Data Home Medications Medication Instructions Recorded Confirmed pantoprazole 40 mg tablet,delayed 40 mg PO DAILY PRN 04/24/20 08/07/20 release sucralfate [Carafate] 10 ml PO BID PRN 08/07/20 08/07/20 ferrous sulfate 325 mg (65 mg 325 mg PO BID 08/26/20 10/07/20 iron) tablet vit 55-iron fum,bisgly 28 1 tab PO DAILY 11/18/20 mg iron-folic acid 1 mg chew tablet Previous Rx's Medication Instructions Recorded ergocalciferol (vitamin D2) 1,250 1,250 mcg PO QWEEK 30 Days #5 cap 07/08/20 mcg (50,000 unit) capsule ferrous sulfate 325 mg (65 mg 325 mg PO BID 30 Days #60 tab 07/08/20 iron) tablet,delayed release syringe with needle, safety 3 mL #1 ea 07/08/20 21 gauge x 1 1/2 cyanocobalamin (vitamin B-12) 1,000 mcg IM DAILY 30 Days #3 vial 08/24/20 1,000 mcg/mL injection solution doxylamine succinate 25 mg tablet 12.5 mg PO BEDTIME 30 Days #15 tab 12/01/20 pyridoxine (vitamin B6) 25 mg 25 mg PO TID 30 Days #90 tab 12/01/20 tablet cephalexin 500 mg PO QID 5 Days #20 cap 12/23/20 Allergies Allergy/AdvReac Type Severity Reaction Status Date / Time morphine [MORPHINE] Allergy Intermediate BURNING IN Verified 12/23/20 18:33 CHEST, shortness of breath oxycodone [From PERCOCET] Allergy Intermediate ITCHINESS Verified 12/23/20 18:33 Vicodin Allergy Intermediate rash, hives Verified 12/23/20 18:33 ibuprofen AdvReac Intermediate Stomach Verified 12/23/20 18:33 Upset pumpkin Allergy Unknown itching Uncoded 11/18/20 14:34 Review of Systems Review of Systems: Constitutional: No Fever, No Chills, No Night Sweats, No Fatigue, No Malaise Cardiovascular: No Chest Pain, No SOB Respiratory: No Cough, No Dyspnea Gastrointestinal: + Nausea, + Vomiting, No Diarrhea, No Constipation, + Abdominal pain, Genitourinary: + irregular bleeding, No Dysuria, No Hematuria, No Flank Pain, No discharge Musculoskeletal: No joint pain, No Myalgias, No Joint Swelling Skin: No Skin Lesions, No rash Neuro: No Weakness, No Dizziness, No Headache Yes all other systems are reviewed and are negative [facility] Past Medical History Attestation statement: The following information was validated with the patient. Medical History Anemia B12 deficiency Carpal tunnel syndrome Hypovitaminosis D Kidney stones Surgical History Gastric bypass status for obesity History of nasal surgery History of surgery History of wisdom tooth extraction Family History Family History Father High cholesterol Diabetes Mother Migraine Obesity Maternal Grandfather Stroke Sister In good health Brother In good health Social History Social History Alcohol intake: current Alcohol intake frequency: holidays/special occasions only Advance Directives: No Advance Directives Information Provided: No Patient : Yes Physical Exam Vital Signs: Vital Signs: Last Vital Signs Temp 98.6 F 12/23/20 20:00 Pulse 69 12/23/20 20:00 Resp 16 12/23/20 20:00 BP 102/49 L 12/23/20 20:00 Pulse Ox 99 12/23/20 20:00 Body Mass Index 25.5 Const: General: cooperative, healthy appearing and no acute distress Orientation/consciousness: patient oriented x3 Limitations: no limitations HENMT: Head: Yes normal to inspection Ears: hearing grossly normal bilaterally General nose exam: Normal external nose present Face and sinus: Yes normal facial exam Eyes: General: appearance normal, both eyes and all related structures EOM: EOMs intact bilaterally Neck: Neck: Yes normal visual inspection and Yes no meningeal signs Resp: Effort & Inspection: normal respiratory effort Auscultation: clear to auscultation bilaterally Cardio: Rate: regular rate Heart sounds: S1 normal heart sound present and S2 normal heart sound present GI: Inspection: Yes normal to inspection Palpation (GI): Soft to palpation, Tenderness to palpation present (GI) (suprapubic region) in the LLQ; with no rebound tenderness, no guarding and not rigid : Other: Slight clear/whitish vaginal discharge noted on exam. No appreciable vaginal bleeding. +L adnexal ttp. +Palpable uterine fibroid. No CMT tenderness General: Yes no CVA tenderness Back/Spine/Pelvis: Back: no CVA tenderness Skin: Rashes: no rashes Wounds: no wounds Neuro: General: patient oriented x3 and no meningeal signs Gait exam (Neuro): Normal gait present Extrem: General: Yes normal to inspection Course Course Course Narrative: - mild leukocytosis of 11 likely from nausea/vomiting, H&H stable, labs otherwise unremarkable - Beta quant greater than 149,000 - UA with trace leuk esterase and bacteria will treat for UTI >> 1st dose p.o. Keflex given in the ED US OB <= 14 weeks fetus IMPRESSION: 1. Single intrauterine gestation with ultrasound gestational age of 9 weeks 2 days +/- 4 days. 2. Estimated date of delivery is 07/26/2021 +/- 4 days. 3. Multiple uterine fibroids are noted. >> case discussed with OBGYN doctors are be after pelvic performed with notable left adnexal tenderness /discharge who recommended waiting for culture results prior to treatment for STIs and OBGYN follow-up I would wait for the culture results -[id number]-- patient was able to tolerate p.o. ice chips, Lavonne Loida, and crackers in the ED without nausea or vomiting. Worrisome signs and symptoms and strict return precautions discussed including abdominal pain, vaginal bleeding, vaginal discharge, persistent nausea or vomiting to return to the ED immediately, discussed close follow-up with OBGYN, she verbalized understanding feel safe for discharge MDM - Female Genitourinary MDM Narrative Medical decision making narrative: 30-year-old female with a past medical history of anemia, B12 deficiency, gastric bypass, renal stones, at about 10 weeks gestation, presenting to the ED complaining of epigastric /LLQ abdominal pain, nausea, vomiting, and slight vaginal spotting x today. On exam VSS, NAD, nontoxic appearing, abdomen soft with LLQ/ suprapubic TTP, exam as above with notable discharge/left adnexal tenderness, No CMT. No appreciable vaginal bleeding. Concern for uterine fibroids/cyst vs ectopic vs SAB/threatened vs ?STI vs dehydration/hyperemesis plan: Labs, UA, STI testing, IVF, symptomatic treatment, p.o. challenge from reassess Medical Records Attestation: I reviewed the patient's medical records. Lab Data Attestation: I reviewed the patient's lab results. Result diagrams: 12/23/20 20:07 12/23/20 20:07 Labs: Lab Results 12/23/20 12/23/20 12/23/20 Range/Units 20:07 20:07 20:07 WBC 11.0 H (4.8-10.8) X10*3/uL RBC 3.72 L (4.20-5.50) X10*6/uL Hgb 10.9 L (12.0-16.0) g/dl Hct 32.3 L (37-47) % MCV 86.8 (80-98) fL MCH 29.3 (27.0-33.0) pg MCHC 33.7 (31.0-35.0) g/dl RDW 16.0 (11.0-16.0) % Plt Count 271 (160-400) X10*3/uL MPV 9.2 L (9.4-12.3) fL Immature Gran % (Auto) 0.3 (0.0-0.4) % Neut % (Auto) 66.2 (45-73) % Lymph % (Auto) 22.8 (20-40) % [place] % (Auto) 9.7 (2-11) % Eos % (Auto) 0.5 (0-4) % Baso % (Auto) 0.5 (0-2) % Lymph # (Auto) 2.5 (1.2-4.9) X10*3/uL [place] # (Auto) 1.1 (0.1-1.2) X10*3/uL Eos # (Auto) 0.1 (0.0-0.4) X10*3/uL Baso # (Auto) 0.1 (0.0-0.2) X10*3/uL Abs Immat Gran (auto) 0.03 (0.00-0.03) X10*3/uL Absolute Neuts (auto) 7.3 (2.0-8.3) X10*3/uL Absolute Nucleated RBC 0.000 (0.0-0.012) X10*3/uL Nucleated RBC % (auto) 0.0 (0.0-0.2) /100WBC Sodium 137 (135-145) mmol/L Potassium 4.2 (3.3-5.1) mmol/L Chloride 106 (96-108) mmol/L Carbon Dioxide 22 (22-29) mmol/L Anion Gap 13 (12-20) BUN 7 L (9-16) mg/dL Creatinine 0.62 (0.5-1.4) mg/dL Estim Creat Clear Calc 124.2 Estimated GFR > 60 Random Glucose 86 (60-115) mg/dL Calcium 9.3 D (8.4-10.2) mg/dL Magnesium 1.9 (1.6-2.6) mg/dL Total Bilirubin 0.4 (0.0-1.0) mg/dL Direct Bilirubin 0.2 (0.0-0.5) mg/dL AST 11 (5-31) U/L ALT 7 (0-31) U/L Alkaline Phosphatase 50 D (39-117) U/L Total Protein 7.1 (6.5-8.0) g/dL Albumin 4.3 (3.5-5.0) g/dL Lipase 27 (8-78) U/L Beta HCG, Quant [id number] mIU/mL Urine Color Urine Appearance Urine pH (5.0-8.0) Ur Specific [place] (1.005-1.025) Urine Protein (NEG-TRACE) MG/DL Urine Glucose (UA) (NEG) MG/DL Urine Ketones (NEG) MG/DL Urine Blood (NEG) Urine Nitrite (NEG) Ur Leukocyte Esterase (NEG) Urine RBC (0) /HPF Urine WBC (0-4) /HPF Ur Squamous Epith Cells /LPF Urine Bacteria /LPF Urine Mucus /LPF Blood Type 12/23/20 12/23/20 Range/Units 20:18 20:18 WBC (4.8-10.8) X10*3/uL RBC (4.20-5.50) X10*6/uL Hgb (12.0-16.0) g/dl Hct (37-47) % MCV (80-98) fL MCH (27.0-33.0) pg MCHC (31.0-35.0) g/dl RDW (11.0-16.0) % Plt Count (160-400) X10*3/uL MPV (9.4-12.3) fL Immature Gran % (Auto) (0.0-0.4) % Neut % (Auto) (45-73) % Lymph % (Auto) (20-40) % [place] % (Auto) (2-11) % Eos % (Auto) (0-4) % Baso % (Auto) (0-2) % Lymph # (Auto) (1.2-4.9) X10*3/uL [place] # (Auto) (0.1-1.2) X10*3/uL Eos # (Auto) (0.0-0.4) X10*3/uL Baso # (Auto) (0.0-0.2) X10*3/uL Abs Immat Gran (auto) (0.00-0.03) X10*3/uL Absolute Neuts (auto) (2.0-8.3) X10*3/uL Absolute Nucleated RBC (0.0-0.012) X10*3/uL Nucleated RBC % (auto) (0.0-0.2) /100WBC Sodium (135-145) mmol/L Potassium (3.3-5.1) mmol/L Chloride (96-108) mmol/L Carbon Dioxide (22-29) mmol/L Anion Gap (12-20) BUN (9-16) mg/dL Creatinine (0.5-1.4) mg/dL Estim Creat Clear Calc Estimated GFR Random Glucose (60-115) mg/dL Calcium (8.4-10.2) mg/dL Magnesium (1.6-2.6) mg/dL Total Bilirubin (0.0-1.0) mg/dL Direct Bilirubin (0.0-0.5) mg/dL AST (5-31) U/L ALT (0-31) U/L Alkaline Phosphatase (39-117) U/L Total Protein (6.5-8.0) g/dL Albumin (3.5-5.0) g/dL Lipase (8-78) U/L Beta HCG, Quant mIU/mL Urine Color YELLOW Urine Appearance CLEAR Urine pH 6.0 (5.0-8.0) Ur Specific [place] 1.020 (1.005-1.025) Urine Protein NEG (NEG-TRACE) MG/DL Urine Glucose (UA) NEG (NEG) MG/DL Urine Ketones >=80 (NEG) MG/DL Urine Blood NEG (NEG) Urine Nitrite NEG (NEG) Ur Leukocyte Esterase TRACE H (NEG) Urine RBC 1-4 (0) /HPF Urine WBC 1-4 (0-4) /HPF Ur Squamous Epith Cells 1+ /LPF Urine Bacteria TRACE /LPF Urine Mucus 1+ /LPF Blood Type A Positive Discharge Plan Discharge Clinical Impression: UTI (urinary tract infection) during Abdominal pain during Qualifiers: Trimester: first trimester Qualified Code(s): O26.891 - Other specified related conditions, first trimester Patient Disposition: Home, Self-Care Instructions: Abdominal Pain in (ED), Urinary Tract Infection in (ED) Additional Instructions: your ultrasound showed a single intrauterine gestation at 9 weeks 2 days, however due to your symptoms you are at risk / this could possibly be an early miscarriage. You should follow-up with your OBGYN in 2 days your blood work was reassuring however you do have a urinary tract infection, Keflex as an antibiotic, take as prescribed Continue taking previously prescribed antibiotics given by your OBGYN It is important that youre staying hydrated If your symptoms persist or worsen, you develop constant worsening abdominal pain, vaginal bleeding, vaginal discharge, persistent nausea or vomiting please return to the ED immediately Please call your OBGYN for close follow-up Prescriptions: New cephalexin 500 mg capsule 500 mg PO QID 5 Days Qty: 20 RF: 0 No Action pantoprazole 40 mg tablet,delayed release (DR/EC) 40 mg PO DAILY PRN (Reason: indegstion) RF: 0 pyridoxine (vitamin B6) 25 mg tablet 25 mg PO TID 30 Days Qty: 90 RF: 1 Unisom (doxylamine) 25 mg tablet 12.5 mg PO BEDTIME 30 Days Qty: 15 RF: 1 sucralfate [Carafate] 100 mg/mL suspension 10 ml PO BID PRN (Reason: Indigestion) RF: 0 ergocalciferol (vitamin D2) 1,250 mcg (50,000 unit) capsule 1,250 mcg PO QWEEK 30 Days Qty: 5 RF: 3 ferrous sulfate 325 mg (65 mg iron) tablet,delayed release (DR/EC) 325 mg PO BID 30 Days Qty: 60 RF: 6 (DME) BD Safety-Janee Detachable Needl 3 mL 21 gauge x 1 1/2 syringe See Rx Instructions .ROUTE .MEDSUPPLY Qty: 1 RF: 0 cyanocobalamin (vitamin B-12) 1,000 mcg/mL solution 1,000 mcg IM DAILY 30 Days Qty: 3 RF: 3 PNV 55-iron fum,b-g-folic acid 28 mg iron -1 mg tablet,chewable 1 tab PO DAILY RF: 0 Referrals: Kwan Lauren MD [Physician] - 2 days Interventions: ED Discharge Assessment Last Done: 12/24/20 00:11 Discharge Date/Time: 12/24/20 00:20
[2020-12-23] MEDS: Metoclopramide HCl 10 MG/2 ML VIAL IVPUSH (22:50)
[2020-12-23] MEDS: Famotidine/PF 20 MG/2 ML VIAL IVPUSH (22:50)
[2020-12-24] MEDS: cephALEXin 500 MG CAPSULE PO (00:20)
[2020-12-24 02:32] LABS: CT PCR NOT DETECTED (Not Detect.); NG PCR NOT DETECTED (Not Detect.)
[2020-12-24 08:51] LABS: BV Int Neg Control Negative (Negative); BV Int Pos Control Positive (Positive)
== END 2020-12-24 00:20 | disposition home or self-care (01) ==
PROVIDERS: Physician Assistant; Emergency Provider Emergency Medicine; PCP Internal Medicine
DX: O23.41 Unspecified infection of urinary tract in pregnancy, first trimester (principal); O99.011 Anemia complicating pregnancy, first trimester; D64.9 Anemia, unspecified; O99.841 Bariatric surgery status complicating pregnancy, first trimester; Z3A.10 10 weeks gestation of pregnancy; Z79.899 Other long term (current) drug therapy; Z87.442 Personal history of urinary calculi
CPT/HCPCS: 36415; 76801; 80048; 80076; 81001; 81003; 83690; 83735; 84702; 85025; 86900; 86901; 87086; 87480; 87491; 87510; 87591; 87660; 96361; 96374; 96375; 99283; 99284; J1200; J2765

== ENCOUNTER 2021-01-16 19:45 | Emergency (ER) | payer OTHER, SELFPAY ==
[2021-01-16 19:47] VITALS: BP 112/69; PULSE 86; RESP 18; TEMP 37.1; O2SAT 98; BMI 25.9
--- NOTE | 2021-01-16 20:57 | ED.GENADULT ---
HPI - General Adult General Chief complaint: General Medical Stated complaint: mouthsores, vomiting Time Seen by Provider: 01/16/21 20:48 Source: patient Mode of arrival: ambulatory Limitations: no limitations History of Present Illness HPI narrative: Patient comes to emergency room complaining mouth sores, nausea and vomiting. Patient states that she saw her PCP for the source, she was given mouthwash for 5 days, states that the mouth sores have not gone away. They are on the inside of her oral mucosa. Patient states she has been vomiting for last 4 days and unable to keep anything down. Patient has tried david and vitamin B6. Patient complaining of fever chills, denies fever, denies UTI symptoms. Patient is currently at 13 weeks of gestational age, denies abdominal cramping, no vaginal bleeding, spotting, or fluid leakage. Related Data Home Medications Medication Instructions Recorded Confirmed ferrous sulfate 325 mg (65 mg 325 mg PO BID 08/26/20 01/12/21 iron) tablet vit 55-iron fum,bisgly 28 1 tab PO DAILY 11/18/20 01/12/21 mg iron-folic acid 1 mg chew tablet cyanocobalamin (vitamin B-12) 1,000 mcg IM .monthly ml 01/12/21 01/12/21 1,000 mcg/mL injection solution famotidine 20 mg tablet (Pepcid) 20 mg PO DAILY 01/12/21 01/12/21 metoclopramide HCl 5 mg tablet 5 mg PO QID PRN tab 01/12/21 01/12/21 (Reglan) Previous Rx's Medication Instructions Recorded ergocalciferol (vitamin D2) 1,250 1,250 mcg PO QWEEK 30 Days #5 cap 07/08/20 mcg (50,000 unit) capsule syringe with needle, safety 3 mL #1 ea 07/08/20 21 gauge x 1 1/2 (BD Safety-Janee Detachable Needle syringe) pyridoxine (vitamin B6) 25 mg 25 mg PO TID 30 Days #90 tab 12/01/20 tablet Magic Mouthwash 5 ml PO .q6hrs PRN 5 Days #240 ml 01/12/21 Diphen/Lido/Antacid 1:1:1 240 mL suspension metoclopramide HCl 5 mg tablet 5 mg PO DAILY PRN #10 tab 01/16/21 (Reglan) Allergies Allergy/AdvReac Type Severity Reaction Status Date / Time morphine [MORPHINE] Allergy Intermediate BURNING IN Verified 01/16/21 19:47 CHEST, shortness of breath oxycodone [From PERCOCET] Allergy Intermediate ITCHINESS Verified 01/16/21 19:47 Vicodin Allergy Intermediate rash, hives Verified 01/16/21 19:47 ibuprofen AdvReac Intermediate Stomach Verified 01/16/21 19:47 Upset pumpkin Allergy Unknown itching Uncoded 01/12/21 16:37 Review of Systems Review of Systems: Constitutional : No Weight loss, No Fever, complaining of chills, generalized malaise ENT/Mouth : No Hearing loss, No Ear Pain, No Nasal Congestion, No Sinus Pain, No Hoarseness, complaining of sores in the oral mucosa, No Rhinorrhea, No Swallowing Difficulty Eyes: No Eye Pain, No Swelling, No Redness, No Foreign Body, No Discharge, No Vision Changes Cardiovascular : No Chest Pain, No SOB, No Dyspnea on Exertion, No Orthopnea, No Edema, No Palpitations Respiratory : No Cough, No Sputum, No Wheezing, No Smoke Exposure, No Dyspnea Gastrointestinal : Blunting of nausea vomiting, No Diarrhea, No Constipation, No abdominal Pain, No Hematochezia, No Melena Genitourinary : no irregular bleeding, No Dysuria, No Urinary Frequency, No Hematuria, No Urinary Incontinence, No Urgency, No Flank Pain, No Urinary Flow Changes, No Hesitancy Musculoskeletal : No joint pain, No Myalgias, No Joint Swelling Skin : No Skin Lesions, No rash Neuro : No Weakness, No Numbness, No Paresthesias, No Loss of Consciousness, No Dizziness, No Headache Psych : No Anxiety/Panic, No Depression, No SI/HI/AH/VH, No Social Issues, Heme/Lymph: No Bruising, No Bleeding,No Lymphadenopathy Endocrine : No Polyuria, No Polydipsia, No Temperature Intolerance [facility] Past Medical History Medical History Anemia B12 deficiency Carpal tunnel syndrome Hypovitaminosis D Kidney stones Surgical History Gastric bypass status for obesity History of nasal surgery History of surgery History of wisdom tooth extraction Family History Family History Father High cholesterol Diabetes Mother Migraine Obesity Maternal Grandfather Stroke Sister In good health Brother In good health Social History Social History Housing: House Alcohol intake: never Patient Tobacco Use Status: Never used Tobacco Use of substances other than those prescribed or required for medical reasons: No Advance Directives: No Advance Directives Information Provided: Yes Patient : Yes (pt 13 wks ) service: No Current occupational status: employed Physical Exam Vital Signs: Vital Signs: Last Vital Signs Temp 98.7 F 01/16/21 22:00 Pulse 85 01/16/21 22:00 Resp 18 01/16/21 22:00 BP 101/62 01/16/21 22:00 Pulse Ox 100 01/16/21 22:00 Body Mass Index 25.9 Const: Other: Appearance: Alert. Oriented X3. No acute distress. Eyes: Pupils equal, round and reactive to light. ENT: Patient has multiple sores in the oral mucosa, no visible absceces Neck: Normal inspection. Neck supple. No lymph nodes noted. No crepitus CVS: Normal heart rate and rhythm. Pulses normal. Normal S1 and S2 Respiratory: No respiratory distress. Breath sounds normal. No Wheezing. No rales Abdomen: Soft and nontender. No rigidity. No distention. good BS x4 Skin: Skin warm and dry. Normal skin color. Normal skin turgor. No vesicles or skin lesions in hands or feet Extremities: No lower extremity edema. No lower extremity edema. No Lacerations. No Rash Neuro: Oriented X 3. No motor deficit. No sensory deficit. Moving all extermities. No slurred speech. Course Course Course Narrative: I discussed with patient that her oral sores are consistent with herpangina. , I discussed with the patient that her hCG levels on December 23 were 149,809, today the levels were 86,098. Patient instructed to follow-up with her OBGYN, needs an hCG level in 2 days Patient no longer vomiting or nauseous. Medical Decision Making Lab Data Result diagrams: 01/16/21 21:25 01/16/21 21:25 Labs: Lab Results 01/16/21 01/16/21 01/16/21 Range/Units 21:25 21:25 21:25 WBC 9.2 (4.8-10.8) X10*3/uL RBC 3.27 L (4.20-5.50) X10*6/uL Hgb 9.7 L (12.0-16.0) g/dl Hct 28.4 L (37-47) % MCV 86.9 (80-98) fL MCH 29.7 (27.0-33.0) pg MCHC 34.2 (31.0-35.0) g/dl RDW 14.6 (11.0-16.0) % Plt Count 204 (160-400) X10*3/uL MPV 8.8 L (9.4-12.3) fL Immature Gran % (Auto) 0.4 (0.0-0.4) % Neut % (Auto) 68.6 (45-73) % Lymph % (Auto) 19.2 L (20-40) % [place] % (Auto) 11.2 H (2-11) % Eos % (Auto) 0.5 (0-4) % Baso % (Auto) 0.1 (0-2) % Lymph # (Auto) 1.8 (1.2-4.9) X10*3/uL [place] # (Auto) 1.0 (0.1-1.2) X10*3/uL Eos # (Auto) 0.1 (0.0-0.4) X10*3/uL Baso # (Auto) 0.0 (0.0-0.2) X10*3/uL Abs Immat Gran (auto) 0.04 H (0.00-0.03) X10*3/uL Absolute Neuts (auto) 6.3 (2.0-8.3) X10*3/uL Absolute Nucleated RBC 0.000 (0.0-0.012) X10*3/uL Nucleated RBC % (auto) 0.0 (0.0-0.2) /100WBC Sodium 135 (135-145) mmol/L Potassium 4.0 (3.3-5.1) mmol/L Chloride 106 (96-108) mmol/L Carbon Dioxide 20 L (22-29) mmol/L Anion Gap 13 (12-20) BUN 10 (9-16) mg/dL Creatinine 0.60 (0.5-1.4) mg/dL Estim Creat Clear Calc 129.1 Estimated GFR > 60 Random Glucose 84 (60-115) mg/dL Calcium 8.4 D (8.4-10.2) mg/dL Total Bilirubin 0.2 (0.0-1.0) mg/dL Direct Bilirubin < 0.2 (0.0-0.5) mg/dL AST 12 (5-31) U/L ALT 7 (0-31) U/L Alkaline Phosphatase 52 (39-117) U/L Total Protein 6.3 L (6.5-8.0) g/dL Albumin 3.6 (3.5-5.0) g/dL Beta HCG, Quant 32608 mIU/mL Urine Color YELLOW Urine Appearance CLEAR Urine pH 6.0 (5.0-8.0) Ur Specific [place] 1.020 (1.005-1.025) Urine Protein NEG (NEG-TRACE) MG/DL Urine Glucose (UA) NEG (NEG) MG/DL Urine Ketones NEG (NEG) MG/DL Urine Blood NEG (NEG) Urine Nitrite NEG (NEG) Ur Leukocyte Esterase NEG (NEG) Discharge Plan Discharge Clinical Impression: Herpangina Vomiting Qualifiers: Vomiting type: unspecified Vomiting Intractability: unspecified Nausea presence: unspecified Qualified Code(s): R11.10 - Vomiting, unspecified Patient Disposition: Home, Self-Care Instructions: Nausea and Vomiting in (ED) Additional Instructions: your hormone level (hCG) on December 23 was 149,809, today the levels was 86,098. Please call your primary care physician tomorrow or your OBGYN, you may need to have labs repeated in 2 days Prescriptions: New metoclopramide HCl [Reglan] 5 mg tablet 5 mg PO DAILY PRN (Reason: nausea and vomiting) Qty: 10 RF: 0 No Action pyridoxine (vitamin B6) 25 mg tablet 25 mg PO TID 30 Days Qty: 90 RF: 1 ergocalciferol (vitamin D2) 1,250 mcg (50,000 unit) capsule 1,250 mcg PO QWEEK 30 Days Qty: 5 RF: 3 (DME) BD Safety-Janee Detachable Needl 3 mL 21 gauge x 1 1/2 syringe See Rx Instructions .ROUTE .MEDSUPPLY Qty: 1 RF: 0 cyanocobalamin (vitamin B-12) 1,000 mcg/mL solution 1,000 mcg IM .monthly RF: 0 famotidine [Pepcid] 20 mg tablet 20 mg PO DAILY RF: 0 metoclopramide HCl [Reglan] 5 mg tablet 5 mg PO QID PRN (Reason: nausea and vomiting) RF: 0 Magic Mouthwash Diphen/Lido/Antacid 1:1:1 240 mL suspension 5 ml PO .q6hrs PRN (Reason: mouth irritation) 5 Days Qty: 240 RF: 0 ferrous sulfate 325 mg (65 mg iron) tablet 325 mg PO BID RF: 0 PNV 55-iron fum,b-g-folic acid 28 mg iron -1 mg tablet,chewable 1 tab PO DAILY RF: 0
[2021-01-16 21:26] VITALS: BP 118/62; PULSE 87; RESP 18; O2SAT 100
[2021-01-16] MEDS: Mag&Al/Sim/Diphenhyd/Lidocaine 10 ML ORAL.SUSP PO (21:28)
[2021-01-16] MEDS: 0.9 % Sodium Chloride 1,000 ML 999 ML IVCONT (21:29)
[2021-01-16 21:38] LABS: MANUAL DIFF FLAG NO
[2021-01-16 21:43] LABS: Basophils Percent Auto 0.1 % (0-2); Eosinophils Absolute Auto 0.1 X10*3/uL (0.0-0.4); Eosinophils Percent Auto 0.5 % (0-4); Hematocrit 28.4 % (37-47); Hemoglobin 9.7 g/dl (12.0-16.0); Imm Gran Abs Auto 0.04 X10*3/uL (0.00-0.03); Imm Gran Pct Auto 0.4 % (0.0-0.4); Lymphocytes Absolute Auto 1.8 X10*3/uL (1.2-4.9); Lymphocytes Percent Auto 19.2 % (20-40); Mean Corpuscular HGB Conc 34.2 g/dl (31.0-35.0); Mean Corpuscular Hemoglobin 29.7 pg (27.0-33.0); Mean Corpuscular Volume 86.9 fL (80-98); Mean Platelet Volume 8.8 fL (9.4-12.3); Monocytes Percent Auto 11.2 % (2-11); Neutrophils Absolute Auto 6.3 X10*3/uL (2.0-8.3); Neutrophils Percent Auto 68.6 % (45-73); Platelet Count 204 X10*3/uL (160-400); Red Blood Count 3.27 X10*6/uL (4.20-5.50); Red Cell Distribution Width 14.6 % (11.0-16.0); White Blood Count 9.2 X10*3/uL (4.8-10.8)
[2021-01-16 21:44] LABS: Glucose Urine UA NEG (NEG); Leukocyte Esterase Urine NEG (NEG); Nitrite Urine NEG (NEG); Urine Blood NEG (NEG); Urine Ketones NEG (NEG); Urine Protein NEG (NEG-TRACE)
[2021-01-16 21:53] LABS: Appearance Urine CLEAR; Color Urine YELLOW
[2021-01-16 22:00] VITALS: BP 101/62; PULSE 85; RESP 18; TEMP 37.1; O2SAT 100
[2021-01-16 22:12] LABS: Alanine Aminotransferase 7 U/L (0-31); Albumin Level 3.6 g/dL (3.5-5.0); Alkaline Phosphatase 52 U/L (39-117); Anion Gap 13 (12-20); Aspartate Amino Transferase 12 U/L (5-31); Bilirubin Direct < 0.2 mg/dL (0.0-0.5); Bilirubin Total 0.2 mg/dL (0.0-1.0); Blood Urea Nitrogen 10 mg/dL (9-16); Calcium 8.4 mg/dL (8.4-10.2); Carbon Dioxide 20 mmol/L (22-29); Chloride 106 mmol/L (96-108); Creatinine Clr Calc Pharmacy 129.1; Estimated Glomerular Filt Rate > 60; Glucose Random 84 mg/dL (60-115); Sodium 135 mmol/L (135-145); Total Protein 6.3 g/dL (6.5-8.0)
[2021-01-16 22:51] LABS: HCG Quantitative 86098 mIU/mL
== END 2021-01-16 23:19 | disposition home or self-care (01) ==
PROVIDERS: Emergency Provider Emergency Medicine; PCP Internal Medicine
DX: O26.891 Other specified pregnancy related conditions, first trimester (principal); B08.5 Enteroviral vesicular pharyngitis; R11.10 Vomiting, unspecified; Z3A.13 13 weeks gestation of pregnancy
CPT/HCPCS: 36415; 80048; 80076; 81003; 84702; 85025; 96361; 96374; 99284; J2550

== ENCOUNTER 2021-02-04 11:55 | Emergency (ER) | payer OTHER, SELFPAY ==
--- NOTE | ~2021-02-04 | US_ITS ---
EXAMINATION: US RETROPERITONEAL LIMITED (RENAL ONLY) CLINICAL INFORMATION: Right flank pain.. COMPARISON: CT abdomen and pelvis dated 08/06/2020. TECHNIQUE: Real-time imaging of the kidneys. FINDINGS: RIGHT KIDNEY: 11.1 x 5.6 x 6.9 cm (SAG x AP x TRV). The kidney is normal in size, contour, and echogenicity. Renal cortical thickness is normal. No calculi or focal parenchymal lesions. There is mild hydronephrosis. Of note, no right ureteric jet is seen. LEFT KIDNEY: 11.2 x 5.8 x 6.0 cm (SAG x AP x TRV). The kidney is normal in size, contour, and echogenicity. Renal cortical thickness is normal. No focal parenchymal lesions. A 2 mm hyperechoic focus is seen at the left renal lower pole, which does not meet formal ultrasound criteria for a calculus. No hydronephrosis. OTHER: A single, viable intrauterine is seen with heart rate of 152 bpm. US/US renal BI IMPRESSION: 1. There is mild right hydronephrosis. No right ureteric jet is seen. There is no left hydronephrosis. 2. No definite renal calculus is seen bilaterally. 3. A single, viable intrauterine is redemonstrated, incompletely evaluated.
[2021-02-04 12:14] VITALS: BP 111/44; PULSE 75; RESP 22; TEMP 36.8; O2SAT 100; BMI 25.7
[2021-02-04 14:23] LABS: MANUAL DIFF FLAG NO
[2021-02-04 14:28] LABS: Glucose Urine UA NEG (NEG); Leukocyte Esterase Urine NEG (NEG); Nitrite Urine NEG (NEG); Specific Gravity - Urine 1.025 (1.005-1.025); Urine Blood 3+ (NEG); Urine Ketones 40 MG/DL (NEG); Urine Protein TRACE MG/DL (NEG-TRACE)
[2021-02-04 14:31] LABS: Basophils Absolute Auto 0.1 X10*3/uL (0.0-0.2); Basophils Percent Auto 0.4 % (0-2); Eosinophils Percent Auto 0.1 % (0-4); Hematocrit 30.4 % (37-47); Hemoglobin 10.3 g/dl (12.0-16.0); Imm Gran Abs Auto 0.09 X10*3/uL (0.00-0.03); Imm Gran Pct Auto 0.7 % (0.0-0.4); Lymphocytes Absolute Auto 0.9 X10*3/uL (1.2-4.9); Lymphocytes Percent Auto 6.6 % (20-40); Mean Corpuscular HGB Conc 33.9 g/dl (31.0-35.0); Mean Corpuscular Hemoglobin 30.4 pg (27.0-33.0); Mean Corpuscular Volume 89.7 fL (80-98); Mean Platelet Volume 9.2 fL (9.4-12.3); Monocytes Absolute Auto 0.8 X10*3/uL (0.1-1.2); Neutrophils Absolute Auto 11.7 X10*3/uL (2.0-8.3); Neutrophils Percent Auto 86.2 % (45-73); Platelet Count 286 X10*3/uL (160-400); Red Blood Count 3.39 X10*6/uL (4.20-5.50); Red Cell Distribution Width 13.4 % (11.0-16.0); White Blood Count 13.6 X10*3/uL (4.8-10.8)
[2021-02-04 14:32] LABS: Appearance Urine CLEAR; Color Urine YELLOW
[2021-02-04 14:42] LABS: RBC Urine 50-75 /HPF (0); Squamous Epithelial Cell Urine TRACE /LPF; WBC Urine 0-2 /HPF (0-4)
[2021-02-04 14:57] LABS: Anion Gap 13 (12-20); Blood Urea Nitrogen 11 mg/dL (9-16); Calcium 9.2 mg/dL (8.4-10.2); Carbon Dioxide 21 mmol/L (22-29); Chloride 106 mmol/L (96-108); Creatinine Clr Calc Pharmacy 95.4; Estimated Glomerular Filt Rate > 60; Glucose Random 101 mg/dL (60-115); Potassium 4.6 mmol/L (3.3-5.1); Sodium 135 mmol/L (135-145)
--- NOTE | 2021-02-04 15:14 | ED.ABDPAIN ---
HPI - Abdominal Pain General Chief Complaint: Abdominal Pain Stated Complaint: 16 wks , excruciating pain Time Seen by Provider: 02/04/21 15:14 Source: patient Mode of arrival: ambulatory Limitations: no limitations History of Present Illness HPI narrative: Patient states at 9am she had flank pain radiating to the front with nausea and vomiting. States she is having difficulty urinating but has noticed no blood. Patient is 16 weeks denies vaginal bleeding. MD elicited complaint: flank pain Pertinent past history: kidney stones Onset (ago): hour(s) Pain Consistency: constant Location: R flank Severity: severe Quality: stabbing Radiation: RLQ Exacerbating factors: nothing Relieving factors: nothing Associated symptoms: nausea and vomiting Related Data Home Medications Medication Instructions Recorded Confirmed ferrous sulfate 325 mg (65 mg 325 mg PO BID 08/26/20 01/12/21 iron) tablet vit 55-iron fum,bisgly 28 1 tab PO DAILY 11/18/20 01/12/21 mg iron-folic acid 1 mg chew tablet cyanocobalamin (vitamin B-12) 1,000 mcg IM .monthly ml 01/12/21 01/12/21 1,000 mcg/mL injection solution famotidine 20 mg tablet (Pepcid) 20 mg PO DAILY 01/12/21 01/12/21 metoclopramide HCl 5 mg tablet 5 mg PO QID PRN tab 01/12/21 01/12/21 (Reglan) Previous Rx's Medication Instructions Recorded ergocalciferol (vitamin D2) 1,250 1,250 mcg PO QWEEK 30 Days #5 cap 07/08/20 mcg (50,000 unit) capsule syringe with needle, safety 3 mL #1 ea 07/08/20 21 gauge x 1 1/2 (BD Safety-Janee Detachable Needle syringe) Magic Mouthwash 5 ml PO .q6hrs PRN 5 Days #240 ml 01/12/21 Diphen/Lido/Antacid 1:1:1 240 mL suspension metoclopramide HCl 5 mg tablet 5 mg PO DAILY PRN #10 tab 01/16/21 (Reglan) pyridoxine (vitamin B6) 25 mg 25 mg PO TID #90 tab 01/25/21 tablet (Vitamin B-6) hydromorphone 2 mg tablet 2 mg PO Q6H PRN #10 tab 02/04/21 (Dilaudid) Allergies Allergy/AdvReac Type Severity Reaction Status Date / Time morphine [MORPHINE] Allergy Intermediate BURNING IN Verified 02/04/21 12:20 CHEST, shortness of breath oxycodone [From PERCOCET] Allergy Intermediate ITCHINESS Verified 02/04/21 12:20 Vicodin Allergy Intermediate rash, hives Verified 02/04/21 12:20 ibuprofen AdvReac Intermediate Stomach Verified 02/04/21 12:20 Upset pumpkin Allergy Unknown itching Uncoded 02/04/21 12:20 Review of Systems Constitutional: Reports no additional constitutional complaints Eyes: Reports no additional eye complaints Denies dizziness Cardiovascular: Reports no additional cardiovascular complaints Respiratory: Reports as per HPI Gastrointestinal: Reports no additional gastrointestinal complaints Genitourinary: Reports no additional female genitourinary complaints Musculoskeletal: Reports no additional musculoskeletal complaints Skin/Breast: Denies rash Reports system reviewed and no additional complaints, except as documented, Denies dizziness and Denies Sensory deficit (Neuro) Psychiatric: Denies anxiety Physical Exam Vital Signs: Vital Signs: Last Vital Signs Temp 98.6 F 02/04/21 16:49 Pulse 81 02/04/21 16:49 Resp 16 02/04/21 16:49 BP 118/52 L 02/04/21 16:49 Pulse Ox 100 02/04/21 16:49 Body Mass Index 25.7 Const: General: healthy appearing Nutritional Appearance: average body habitus Orientation/consciousness: oriented to person and patient oriented x3 Limitations: no limitations HENMT: Head: Yes normal to inspection Ears: external ears normal General nose exam: Normal external nose present Mouth: Normal oral and palatal mucosa present and oropharynx normal Throat: Yes posterior oropharynx normal Eyes: General: appearance normal, both eyes and all related structures Neck: Other: supple Neck: Yes normal visual inspection Chest: Chest palpation & inspection: normal inspection of the chest Resp: Auscultation: clear to auscultation bilaterally Cardio: Jugular venous distension: no JVD Rate: regular rate Rhythm: regular rhythm Heart sounds: S1 normal heart sound present and S2 normal heart sound present GI: Inspection: Yes normal to inspection Palpation (GI): Soft to palpation, nontender and No hepatosplenomegaly present Auscultation: normal bowel sounds Back/Spine/Pelvis: Other: right CVAT Skin: General skin exam: no rashes or lesions noted Neuro: General: oriented to person and patient oriented x3 Cranial nerves: Yes CN's II-XII intact bilaterally Motor exam (neuro): 5/5 motor strength present throughout Sensory Exam: No Sensory deficit (Neuro) Extrem: General: Yes normal to inspection Psych: Appearance: grossly normal Course Course Course Narrative: bedside ultrasound shows good heart Reevaluation(s) Reevaluation #1: patient with history and physical consistent with renal colic, Ua with blood, Renal US with right sided hydro and not ureteral jet will dc with renal colic Time: 17:35 MDM - Abdominal Pain Lab Data Result diagrams: 02/04/21 14:18 02/04/21 14:18 Labs: Lab Results 02/04/21 02/04/21 02/04/21 Range/Units 14:18 14:18 14:18 WBC 13.6 H (4.8-10.8) X10*3/uL RBC 3.39 L (4.20-5.50) X10*6/uL Hgb 10.3 L (12.0-16.0) g/dl Hct 30.4 L (37-47) % MCV 89.7 (80-98) fL MCH 30.4 (27.0-33.0) pg MCHC 33.9 (31.0-35.0) g/dl RDW 13.4 (11.0-16.0) % Plt Count 286 D (160-400) X10*3/uL MPV 9.2 L (9.4-12.3) fL Immature Gran % (Auto) 0.7 H (0.0-0.4) % Neut % (Auto) 86.2 H (45-73) % Lymph % (Auto) 6.6 L (20-40) % [place] % (Auto) 6.0 (2-11) % Eos % (Auto) 0.1 (0-4) % Baso % (Auto) 0.4 (0-2) % Lymph # (Auto) 0.9 L (1.2-4.9) X10*3/uL [place] # (Auto) 0.8 (0.1-1.2) X10*3/uL Eos # (Auto) 0.0 (0.0-0.4) X10*3/uL Baso # (Auto) 0.1 (0.0-0.2) X10*3/uL Abs Immat Gran (auto) 0.09 H (0.00-0.03) X10*3/uL Absolute Neuts (auto) 11.7 H (2.0-8.3) X10*3/uL Absolute Nucleated RBC 0.000 (0.0-0.012) X10*3/uL Nucleated RBC % (auto) 0.0 (0.0-0.2) /100WBC Sodium 135 (135-145) mmol/L Potassium 4.6 (3.3-5.1) mmol/L Chloride 106 (96-108) mmol/L Carbon Dioxide 21 L (22-29) mmol/L Anion Gap 13 (12-20) BUN 11 (9-16) mg/dL Creatinine 0.81 (0.5-1.4) mg/dL Estim Creat Clear Calc 95.4 Estimated GFR > 60 Random Glucose 101 (60-115) mg/dL Calcium 9.2 D (8.4-10.2) mg/dL Beta HCG, Quant 60985 mIU/mL Urine Color Urine Appearance Urine pH (5.0-8.0) Ur Specific [place] (1.005-1.025) Urine Protein (NEG-TRACE) MG/DL Urine Glucose (UA) (NEG) MG/DL Urine Ketones (NEG) MG/DL Urine Blood (NEG) Urine Nitrite (NEG) Ur Leukocyte Esterase (NEG) Urine RBC (0) /HPF Urine WBC (0-4) /HPF Ur Squamous Epith Cells /LPF Urine Bacteria /LPF 02/04/21 Range/Units 14:18 WBC (4.8-10.8) X10*3/uL RBC (4.20-5.50) X10*6/uL Hgb (12.0-16.0) g/dl Hct (37-47) % MCV (80-98) fL MCH (27.0-33.0) pg MCHC (31.0-35.0) g/dl RDW (11.0-16.0) % Plt Count (160-400) X10*3/uL MPV (9.4-12.3) fL Immature Gran % (Auto) (0.0-0.4) % Neut % (Auto) (45-73) % Lymph % (Auto) (20-40) % [place] % (Auto) (2-11) % Eos % (Auto) (0-4) % Baso % (Auto) (0-2) % Lymph # (Auto) (1.2-4.9) X10*3/uL [place] # (Auto) (0.1-1.2) X10*3/uL Eos # (Auto) (0.0-0.4) X10*3/uL Baso # (Auto) (0.0-0.2) X10*3/uL Abs Immat Gran (auto) (0.00-0.03) X10*3/uL Absolute Neuts (auto) (2.0-8.3) X10*3/uL Absolute Nucleated RBC (0.0-0.012) X10*3/uL Nucleated RBC % (auto) (0.0-0.2) /100WBC Sodium (135-145) mmol/L Potassium (3.3-5.1) mmol/L Chloride (96-108) mmol/L Carbon Dioxide (22-29) mmol/L Anion Gap (12-20) BUN (9-16) mg/dL Creatinine (0.5-1.4) mg/dL Estim Creat Clear Calc Estimated GFR Random Glucose (60-115) mg/dL Calcium (8.4-10.2) mg/dL Beta HCG, Quant mIU/mL Urine Color YELLOW Urine Appearance CLEAR Urine pH 6.0 (5.0-8.0) Ur Specific [place] 1.025 (1.005-1.025) Urine Protein TRACE (NEG-TRACE) MG/DL Urine Glucose (UA) NEG (NEG) MG/DL Urine Ketones 40 (NEG) MG/DL Urine Blood 3+ H (NEG) Urine Nitrite NEG (NEG) Ur Leukocyte Esterase NEG (NEG) Urine RBC 50-75 H (0) /HPF Urine WBC 0-2 (0-4) /HPF Ur Squamous Epith Cells TRACE /LPF Urine Bacteria NONE /LPF Imaging Data renal US: Radiologist's impression: IMPRESSION: ? 1. There is mild right hydronephrosis. No right ureteric jet is seen. There is no left hydronephrosis. ? 2. No definite renal calculus is seen bilaterally. ? 3. A single, viable intrauterine is redemonstrated, incompletely evaluated. Discharge Plan Discharge Clinical Impression: Renal calculus, right, Renal colic on right side Patient Disposition: Home, Self-Care Instructions: Renal Colic (ED) Additional Instructions: strain urine for stone, follow up with your OB Prescriptions: New hydromorphone [Dilaudid] 2 mg tablet 2 mg PO Q6H PRN (Reason: pain) Qty: 10 RF: 0 No Action pyridoxine (vitamin B6) [Vitamin B-6] 25 mg tablet 25 mg PO TID Qty: 90 RF: 0 metoclopramide HCl [Reglan] 5 mg tablet 5 mg PO DAILY PRN (Reason: nausea and vomiting) Qty: 10 RF: 0 ergocalciferol (vitamin D2) 1,250 mcg (50,000 unit) capsule 1,250 mcg PO QWEEK 30 Days Qty: 5 RF: 3 (DME) BD Safety-Janee Detachable Needl 3 mL 21 gauge x 1 1/2 syringe See Rx Instructions .ROUTE .MEDSUPPLY Qty: 1 RF: 0 cyanocobalamin (vitamin B-12) 1,000 mcg/mL solution 1,000 mcg IM .monthly RF: 0 famotidine [Pepcid] 20 mg tablet 20 mg PO DAILY RF: 0 metoclopramide HCl [Reglan] 5 mg tablet 5 mg PO QID PRN (Reason: nausea and vomiting) RF: 0 Magic Mouthwash Diphen/Lido/Antacid 1:1:1 240 mL suspension 5 ml PO .q6hrs PRN (Reason: mouth irritation) 5 Days Qty: 240 RF: 0 ferrous sulfate 325 mg (65 mg iron) tablet 325 mg PO BID RF: 0 PNV 55-iron fum,b-g-folic acid 28 mg iron -1 mg tablet,chewable 1 tab PO DAILY RF: 0 Referrals: Mariela Peralta MD [Primary Care Provider] - 5 days PMF Past Medical History Medical History Anemia B12 deficiency Carpal tunnel syndrome Hypovitaminosis D Kidney stones Surgical History Gastric bypass status for obesity History of nasal surgery History of surgery History of wisdom tooth extraction Family History Family History Father High cholesterol Diabetes Mother Migraine Obesity Maternal Grandfather Stroke Sister In good health Brother In good health Social History Social History Housing: House Alcohol intake: never Patient Tobacco Use Status: Never used Tobacco Use of substances other than those prescribed or required for medical reasons: No Advance Directives: Yes Advance Directives Information Provided: Yes Advance Directives on File: No Patient : Yes service: No Current occupational status: employed
[2021-02-04] MEDS: diphenhydrAMINE HCL 50 MG/ML VIAL 25 MG IVPUSH (15:34)
[2021-02-04] MEDS: ondansetron HCL 4 MG/2 ML VIAL IVPUSH (15:34)
[2021-02-04] MEDS: 0.9 % Sodium Chloride 1,000 ML 999 ML IVCONT ×2 (15:34→17:05)
[2021-02-04] MEDS: Morphine Sulfate 4 MG/ML CARTRIDGE IVPUSH (15:34)
[2021-02-04 15:41] VITALS: BP 108/60; PULSE 72; RESP 20; O2SAT 100
--- NOTE | 2021-02-04 15:43 | PC.NURSE ---
Addendum entered by Tamika Coe 02/04/21 16:56: correction right flank Original Note: pt alert and oriented, skin appropriate for ethnicity, respirations even and unlabored, pt reports left flank pain with nausea, hx of kidney stones. pt is also 16 weeks preg, no bleeding at this time.
[2021-02-04 16:49] VITALS: BP 118/52; PULSE 81; RESP 16; TEMP 37; O2SAT 100
--- NOTE | 2021-02-04 16:57 | PC.NURSE ---
pt reports feeling a little better after the morphine, pain at 8/10
== END 2021-02-04 18:06 | disposition home or self-care (01) ==
PROVIDERS: Emergency Provider Emergency Medicine; PCP Internal Medicine
DX: O26.92 Pregnancy related conditions, unspecified, second trimester (principal); N20.0 Calculus of kidney; Z3A.16 16 weeks gestation of pregnancy
CPT/HCPCS: 36415; 76775; 80048; 81001; 84702; 85025; 96361; 96374; 96375; 99284; J1200; J2270; J2405

== ENCOUNTER 2021-02-08 10:44 | Outpatient (REF) | payer OTHER, SELFPAY | END 2021-02-08 10:45 | disposition home or self-care (01) | LOC: HO.HMGCLDS 10:44 | PROVIDERS: PCP Internal Medicine; Visit Provider Internal Medicine | DX: Z20.822 Contact with and (suspected) exposure to COVID-19 (principal) | CPT/HCPCS: C9803; U0003; U0005 ==

== ENCOUNTER → 2021-03-11 13:48 | Outpatient (BNVA) | payer OTHER, SELFPAY | PROVIDERS: PCP Internal Medicine; Visit Provider Urology ==

== ENCOUNTER → 2021-06-10 11:12 | Outpatient (BNVA) | payer SELFPAY | PROVIDERS: PCP Internal Medicine | DX: Z02.1 Encounter for pre-employment examination (principal) ==

== ENCOUNTER 2021-09-15 10:19 | Outpatient (REF) | payer OTHER, SELFPAY ==
--- NOTE | ~2021-09-15 | US_ITS ---
EXAMINATION: US RETROPERITONEAL LIMITED (RENAL ONLY) CLINICAL INFORMATION: Calculus of kidney. COMPARISON: Ultrasound kidneys 02/04/2021. TECHNIQUE: Routine retroperitoneal imaging of kidneys is performed. FINDINGS: RIGHT KIDNEY: 10.3 x 4.3 x 6.0 cm (SAG x AP x TRV). The kidney is normal in size, contour, and echogenicity. Renal cortical thickness is normal. No calculi or focal parenchymal lesions. No hydronephrosis. LEFT KIDNEY: 10.9 x 6.2 x 5.4 cm (SAG x AP x TRV). The kidney is normal in size, contour, and echogenicity. Renal cortical thickness is normal. There is an echogenic stone in the upper pole measuring 0.4 cm and midpole measuring 0.3 cm. There is no caliectasis or hydronephrosis. US/US renal BI IMPRESSION: Nonobstructive echogenic left renal calculi. Unremarkable right kidney. Previously seen right hydronephrosis is not visualized at this time.
== END 2021-09-15 10:20 | disposition home or self-care (01) ==
LOC: HO.US 10:19
PROVIDERS: Visit Provider Urology
DX: N20.0 Calculus of kidney (principal)
CPT/HCPCS: 76775

== ENCOUNTER → 2021-09-21 12:19 | Outpatient (BNVA) | payer OTHER, SELFPAY | PROVIDERS: PCP Internal Medicine; Visit Provider Urology | DX: N20.0 Calculus of kidney (principal) | CPT/HCPCS: Q3014 ==

== ENCOUNTER 2021-11-25 08:31 | Outpatient (REF) | payer OTHER, SELFPAY | END 2021-11-25 08:32 | disposition home or self-care (01) | LOC: HO.MDS 08:31 | PROVIDERS: Visit Provider Internal Medicine | DX: D50.9 Iron deficiency anemia, unspecified (principal); E53.8 Deficiency of other specified B group vitamins | CPT/HCPCS: 96365; 96366; J1200; J1750; Q0163 ==

== ENCOUNTER 2021-12-16 11:39 | Outpatient (REF) | payer OTHER, SELFPAY ==
[2021-12-16 12:36] LABS: Anion Gap 11 (12-20); Blood Urea Nitrogen 10 mg/dL (9-16); Calcium 8.8 mg/dL (8.4-10.2); Carbon Dioxide 25 mmol/L (22-29); Chloride 106 mmol/L (96-108); Estimated Glomerular Filt Rate > 60; Glucose Random 102 mg/dL (60-115); Potassium 4.1 mmol/L (3.3-5.1); Sodium 138 mmol/L (135-145)
[2021-12-16 13:21] LABS: Appearance Urine HAZY; Color Urine YELLOW; Glucose Urine UA NEG (NEG); Leukocyte Esterase Urine NEG (NEG); Nitrite Urine NEG (NEG); Specific Gravity - Urine 1.025 (1.005-1.025); Urine Blood NEG (NEG); Urine Ketones NEG (NEG); Urine Protein NEG (NEG-TRACE)
== END 2021-12-16 11:40 | disposition home or self-care (01) ==
LOC: HO.LAB 11:39
PROVIDERS: PCP Internal Medicine; Visit Provider Nurse Practitioner Family
DX: R10.9 Unspecified abdominal pain (principal)
CPT/HCPCS: 36415; 80048; 81003

== ENCOUNTER 2022-03-16 15:04 | Outpatient (REF) | payer OTHER, SELFPAY ==
[2022-03-16 15:30] LABS: Appearance Urine Clear; Color Urine Yellow; Glucose Urine UA Negative (Negative); Leukocyte Esterase Urine Moderate (2+) (Negative); Nitrite Urine Positive (Negative); Specific Gravity - Urine 1.015 (1.005-1.025); UMIC TRIGGER UACC YES; Urine Blood Moderate (2+) (Negative); Urine Ketones Negative (Negative); Urine Protein Negative (Neg-Trace)
[2022-03-16 15:38] LABS: Bacteria Urine 4+ (None Seen); Hyaline Casts Urine 0-2 /LPF (0-2); Squamous Epithelial Cell Urine 0-2 /HPF (0-2); UACC Culture Trigger YES; WBC Urine 21-50 /HPF (0-5)
== END 2022-03-16 15:05 | disposition home or self-care (01) ==
LOC: HO.LAB 15:04
PROVIDERS: PCP Internal Medicine; Visit Provider Internal Medicine
DX: R30.0 Dysuria (principal)
CPT/HCPCS: 81001; 87086; 87088; 87186

== ENCOUNTER 2022-05-20 14:51 | Outpatient (REF) | payer OTHER, SELFPAY ==
--- NOTE | ~2022-05-20 | US_ITS ---
EXAMINATION: US RETROPERITONEAL LIMITED (RENAL ONLY) CLINICAL INFORMATION: Hematuria. COMPARISON: Previous renal ultrasound most recent August 2021, K[facility] August [address] of the abdomen and pelvis July 2020 TECHNIQUE: Grayscale and color imaging of the kidneys FINDINGS: RIGHT KIDNEY: 11 x 6 x 6 cm (SAG x AP x TRV). The kidney is normal in size, contour, and echogenicity. Renal cortical thickness is normal. There is a 2 mm echogenic focus in the midpole questionable for a stone. No focal parenchymal lesions. No hydronephrosis. LEFT KIDNEY: 11 x 5 x 5 cm (SAG x AP x TRV). The kidney is normal in size, contour, and echogenicity. Renal cortical thickness is normal. There are 2 mm echogenic foci in the upper and lower pole questionable for small stones. No focal parenchymal lesions. No hydronephrosis. US/US renal BI IMPRESSION: Question small bilateral renal stones. No hydronephrosis.
== END 2022-05-20 14:52 | disposition home or self-care (01) ==
LOC: HO.US 14:51
PROVIDERS: Visit Provider Internal Medicine
DX: R31.9 Hematuria, unspecified (principal)
CPT/HCPCS: 76775

== ENCOUNTER 2022-07-21 12:12 | Outpatient (REF) | payer OTHER, SELFPAY ==
[2022-07-21 14:56] LABS: Influenza A PCR NEGATIVE (Negative); Influenza B PCR NEGATIVE (Negative); Resp Syncy Virus RNA Qual PCR NEGATIVE (Negative); SARS COV2 PCR INHOUSE NEGATIVE (Negative)
== END 2022-07-21 12:13 | disposition home or self-care (01) ==
LOC: HO.LNP 12:12
PROVIDERS: Visit Provider Nurse Practitioner Family
DX: Z20.822 Contact with and (suspected) exposure to COVID-19 (principal); R09.89 Other specified symptoms and signs involving the circulatory and respiratory systems
CPT/HCPCS: 0241U

== ENCOUNTER 2022-08-04 16:26 | Outpatient (REF) | payer OTHER, SELFPAY ==
[2022-08-04 17:40] LABS: Influenza A PCR NEGATIVE (Negative); Influenza B PCR NEGATIVE (Negative); Resp Syncy Virus RNA Qual PCR NEGATIVE (Negative); SARS COV2 PCR INHOUSE NEGATIVE (Negative)
== END 2022-08-04 16:27 | disposition home or self-care (01) ==
LOC: HO.LNP 16:26
PROVIDERS: Visit Provider Physician Assistant Medical
DX: J02.9 Acute pharyngitis, unspecified (principal); R05.9 Cough, unspecified; Z20.822 Contact with and (suspected) exposure to COVID-19
CPT/HCPCS: 0241U; 87070; 87147

== ENCOUNTER → 2022-08-09 14:52 | Outpatient (BNVA) | payer OTHER, SELFPAY | PROVIDERS: PCP Internal Medicine; Visit Provider Orthopaedic Surgery | DX: R20.0 Anesthesia of skin (principal) | CPT/HCPCS: 99202 ==

== ENCOUNTER 2022-09-05 15:15 | Outpatient (REF) | payer OTHER, SELFPAY ==
--- NOTE | ~2022-09-05 | US_ITS ---
EXAMINATION: US RETROPERITONEAL LIMITED (RENAL ONLY) CLINICAL INFORMATION: Kidney stone follow up. COMPARISON: Ultrasound retroperitoneal limited (renal only) 05/20/2022 and 09/15/2021. X-ray abdomen KUB 08/24/2020. CT abdomen and pelvis with contrast 08/06/2020. TECHNIQUE: Real-time imaging of the kidneys. FINDINGS: RIGHT KIDNEY: 10.3 x 6.2 x 6.6 cm (SAG x AP x TRV). The kidney is normal in size, contour, and echogenicity. Renal cortical thickness is normal. No focal parenchymal lesions or hydronephrosis. Multiple sub-3 mm echogenic foci with no twinkle or shadowing. LEFT KIDNEY: 11.0 x 6.5 x 5.7 cm (SAG x AP x TRV). The kidney is normal in size, contour, and echogenicity. Renal cortical thickness is normal. No focal parenchymal lesions or hydronephrosis. Multiple sub-3 mm echogenic foci with no twinkle or shadowing. US/US renal BI IMPRESSION: 1. Multiple sub-3 mm echogenic foci in both kidneys without twinkle or shadowing. These could represent tiny calculi versus vascular calcifications. 2. No hydronephrosis.
== END 2022-09-05 15:16 | disposition home or self-care (01) ==
LOC: HO.US 15:15
PROVIDERS: PCP Internal Medicine; Visit Provider Urology
DX: N20.0 Calculus of kidney (principal)
CPT/HCPCS: 76775

== ENCOUNTER → 2022-09-21 13:26 | Outpatient (BNVA) | payer OTHER, SELFPAY | PROVIDERS: PCP Internal Medicine; Visit Provider Urology | DX: N20.0 Calculus of kidney (principal) | CPT/HCPCS: 99212 ==

== ENCOUNTER 2022-10-03 07:48 | Outpatient (REF) | payer OTHER, SELFPAY ==
[2022-10-03 08:43] LABS: Alanine Aminotransferase 8 U/L (0-31); Albumin Level 3.8 g/dL (3.5-5.0); Alkaline Phosphatase 98 U/L (39-117); Anion Gap 9 (12-20); Aspartate Amino Transferase 13 U/L (5-31); Bilirubin Total 0.4 mg/dL (0.0-1.0); Blood Urea Nitrogen 10 mg/dL (9-16); Calcium 8.7 mg/dL (8.4-10.2); Carbon Dioxide 25 mmol/L (22-29); Chloride 110 mmol/L (96-108); Cholesterol 166 mg/dL; Estimated Glomerular Filt Rate > 60; Glucose Fasting 96 mg/dL (60-99); HDL Cholesterol 64 mg/dL; LDL Cholesterol Calculated 94 mg/dl; Potassium 4.4 mmol/L (3.3-5.1); Sodium 140 mmol/L (135-145); Total Protein 6.4 g/dL (6.5-8.0); Triglycerides 42 mg/dL
[2022-10-03 08:57] LABS: HBS Num1 33.85 mIU/mL (0-7.99); ~Hepatitis B Surface Antibody REACTIVE (Nonreactive)
[2022-10-03 08:58] LABS: Vitamin D 25-OH Total 6.2 ng/mL (>30)
[2022-10-03 09:28] LABS: Appearance Urine Clear; Color Urine Dark Yellow; Glucose Urine UA Negative (Negative); Leukocyte Esterase Urine Negative (Negative); Nitrite Urine Negative (Negative); Specific Gravity - Urine 1.025 (1.005-1.025); Urine Blood Negative (Negative); Urine Ketones Negative (Negative); Urine Protein Negative (Neg-Trace)
== END 2022-10-03 07:49 | disposition home or self-care (01) ==
LOC: HO.LAB 07:48
PROVIDERS: PCP Internal Medicine; Visit Provider Internal Medicine
DX: Z00.00 Encounter for general adult medical examination without abnormal findings (principal); R30.0 Dysuria; E55.9 Vitamin D deficiency, unspecified; J06.9 Acute upper respiratory infection, unspecified
CPT/HCPCS: 36415; 80053; 80061; 81003; 82306; 86706

== ENCOUNTER 2022-10-13 12:03 | Outpatient (REF) | payer OTHER, SELFPAY ==
--- NOTE | 2022-10-13 09:30 | EMG_ITS ---
Bilateral median and ulnar motor and sensory studies were performed. Bilateral radial sensory studies were performed and paraspinal muscles were tested with a needle. 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 Otherwise no significant abnormality was noted. MD LUCIANA Green/ELIO / [phone]
== END 2022-10-13 12:04 | disposition home or self-care (01) ==
LOC: HO.NEURO 12:03
PROVIDERS: PCP Internal Medicine; Visit Provider Orthopaedic Surgery
DX: R20.2 Paresthesia of skin (principal); R20.0 Anesthesia of skin
CPT/HCPCS: 95886; 95911

== ENCOUNTER 2022-11-07 14:12 | Outpatient (REF) | payer OTHER, SELFPAY ==
[2022-11-07 15:53] LABS: Appearance Urine Clear; Color Urine Yellow; Glucose Urine UA Negative (Negative); Leukocyte Esterase Urine Negative (Negative); Nitrite Urine Negative (Negative); PH 5.5 (5.0-9.0); Specific Gravity - Urine 1.025 (1.005-1.025); Urine Blood Negative (Negative); Urine Ketones Negative (Negative); Urine Protein Negative (Neg-Trace)
== END 2022-11-07 14:13 | disposition home or self-care (01) ==
LOC: HO.LAB 14:12
PROVIDERS: PCP Internal Medicine; Visit Provider Internal Medicine
DX: R30.0 Dysuria (principal)
CPT/HCPCS: 81003

== ENCOUNTER → 2022-12-13 08:42 | Outpatient (BNVA) | payer OTHER, SELFPAY | PROVIDERS: Visit Provider Orthopaedic Surgery | DX: M79.644 Pain in right finger(s) (principal); R20.0 Anesthesia of skin; R20.2 Paresthesia of skin; G56.01 Carpal tunnel syndrome, right upper limb | CPT/HCPCS: 99212 ==

== ENCOUNTER → 2023-01-17 11:11 | Outpatient (BNVA) | payer SELFPAY | PROVIDERS: PCP Internal Medicine | DX: Z04.9 Encounter for examination and observation for unspecified reason (principal) ==

== ENCOUNTER 2023-01-20 13:05 | Outpatient (AMB) | payer OTHER, SELFPAY ==
--- NOTE | 2023-01-20 13:15 | A.OFFVIS_ITS ---
Intake VS Expanded 01/20/23 13:23 Height 5 ft 4 in Weight 186 lb 12.8 oz BMI 32.1 BP 133/62 Blood Pressure Location Rt brachial Blood Pressure Position Sitting Pulse 85 Pulse Source Pulse Oximeter Temp 98.4 F Temperature Source Temporal Artery Scan Pulse Oximetry 100 Oxygen Delivery Method Room Air Body Fat 73.8 Body Fat Percentage 39.6 Free Fat Mass 112.8 Muscle Mass 107.2 Visceral Mass 7.0 Water Mass 81.0 Intake Visit Reasons: (OV) PO GBP 09/17/15 Television Picture Tube Rebuilder Required: No Allergies acetaminophen [From Vicodin] Allergy (Intermediate, Verified 01/20/23 13:21) Rash, Hives hydrocodone [From Vicodin] Allergy (Intermediate, Verified 01/20/23 13:21) Rash, Hives morphine [MORPHINE] Allergy (Intermediate, Verified 01/20/23 13:21) BURNING IN CHEST, shortness of breath oxycodone [From PERCOCET] Allergy (Intermediate, Verified 01/20/23 13:21) ITCHINESS pumpkin Allergy (Intermediate, Verified 01/20/23 13:21) Itching ibuprofen Adverse Reaction (Intermediate, Verified 01/20/23 13:21) Stomach Upset Medication List - Last Reconciled 01/20/23 by VICTOR HUGO Ortiz cyanocobalamin (vitamin B-12) 1,000 mcg subcut QWEEK [Multi Vitamin ] syringe with needle (Syringe) As Directed HPI HPI Comments History of Present Illness Details 32 yo female s/p GBP by Dr Bobo on 09/17/15, presents for follow up. Not seen in the office since EGD 01/06/20 for complaints of abdominal pain, N, V She states she has not followed up in several years due to covid and then having a baby. She had gained 30 pounds during her and then lost 20. She states over the last 2-3 weeks she has had persistent vomiting. She vomits both solids and liquids 2-3 x per week. 4-5 x per week, positive nausea but no vomiting. She is unable to identify a pattern She states she has been eating later at night and drinking soda and eating once per day, not eating until later in the day or evening and then binge eating, constantly picking at things thoughout the night. Junk food (chips, crackers, cheese). Only taking tylenol if needed, no smoking, etoh, nsaids. At her meal she is eating a dinner size plate and eating 1/4 of it and then go back for more 45 minutes later, another 1/4. She would then vomit during or after her second portion. She would not eat until later in the day 4 days out of the week. On the days she eats during the day she could have a sandwich or scrambled eggs without vomiting. Drinking 64 oz of water daily. Exercise plan: nothing PFSH Medical History Anemia B12 deficiency Carpal tunnel syndrome GERD (gastroesophageal reflux disease) Hypovitaminosis D Kidney stones Surgical History Gastric bypass status for obesity History of delivery History of nasal surgery History of surgery History of wisdom tooth extraction Family History Father High cholesterol Diabetes Mother Migraine Obesity Maternal Grandfather Stroke Sister In good health Brother In good health Social History Household Members: Spouse Housing: House Alcohol intake: current Alcohol intake frequency: holidays/special occasions only Patient Tobacco Use Status: Never used Tobacco e-Cigarette/Vaping Use: Never Used Second Hand Smoke Exposure: No service: No Current occupational status: employed 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 Current occupational exposures/hazards: No Cognitive needs: No Hearing needs: No Vision needs: Yes (glasses) Female Reproductive History Menstrual Age of Menarche: 8 Physical Exam Const General: cooperative and no acute distress Orientation/consciousness: patient oriented x3 Resp Effort & Inspection: normal respiratory effort Auscultation: clear to auscultation bilaterally Cardio Rate: regular rate Rhythm: regular rhythm GI Inspection: Yes normal to inspection and Yes incision (well healed) Palpation (GI): Soft to palpation and no masses Neuro General: patient oriented x3 Assessment & Plan Assessment & Plan (1) Gastric bypass status for obesity: Comment: 08/2015 Code(s): Z98.84 - Bariatric surgery status Plan: N/V is behavorial BH f/u meal plan: Pure protein shake 1 scoop in 8 oz unsweetened almond milk over 2 hours 3 small meals 4 forks protein and 2-4 forks veg no soda continue MVI no Tomy due to calcimosis of the kidney per urology exercise daily 300 calories scheduled for EGD w Dr Ramirez 02/02/23 then f/u with him check yearly labs Orders: Orders Vitamin B12 and Folate Today Z98.84 - Bariatric surgery status Comprehensive Met. Panel Today Z98.84 - Bariatric surgery status C Reactive Protein Today Z98.84 - Bariatric surgery status Ferritin Today Z98.84 - Bariatric surgery status Hemoglobin A1c Today Z98.84 - Bariatric surgery status Insulin Today Z98.84 - Bariatric surgery status IRON PROFILE Today Z98.84 - Bariatric surgery status Lipid Panel Today Z98.84 - Bariatric surgery status PTHI Today Z98.84 - Bariatric surgery status TSH reflex Free T4 Today Z98.84 - Bariatric surgery status Vitamin A Today Z98.84 - Bariatric surgery status Vitamin B1 Today Z98.84 - Bariatric surgery status Vitamin D 25-OH Total Today Z98.84 - Bariatric surgery status Zinc Today Z98.84 - Bariatric surgery status Complete Blood Count Auto Diff Today Z98.84 - Bariatric surgery status Coding Level of Care Code Est Pt Level 4 (30293) Diagnoses Gastric bypass status for obesity Z98.84 Time Spent (min) 40
[2023-01-20 13:23] VITALS: BP 133/62; PULSE 85; TEMP 36.9; O2SAT 100; BMI 32.1
== END 2023-01-20 13:57 | disposition home or self-care (01) ==
PROVIDERS: PCP Internal Medicine; Visit Provider Physician Assistant Surgical
DX: E66.3 Overweight (principal); Z68.23 Body mass index [BMI] 23.0-23.9, adult; Z90.3 Acquired absence of stomach [part of]; Z98.84 Bariatric surgery status
CPT/HCPCS: 99214

== ENCOUNTER → 2023-01-20 13:05 | Outpatient (BNVA) | payer OTHER, SELFPAY | PROVIDERS: PCP Internal Medicine; Visit Provider Physician Assistant Surgical | DX: Z98.84 Bariatric surgery status (principal) | CPT/HCPCS: 99212 ==

== ENCOUNTER 2023-01-31 16:05 | Outpatient (AMB) | payer OTHER, SELFPAY ==
--- NOTE | 2023-01-31 16:42 | A.OFFWM_ITS ---
Intake Intake Visit Reasons: VIDEO PO GBP 09/17/15 Allergies acetaminophen [From Vicodin] Allergy (Intermediate, Verified 01/20/23 13:21) Rash, Hives hydrocodone [From Vicodin] Allergy (Intermediate, Verified 01/20/23 13:21) Rash, Hives morphine [MORPHINE] Allergy (Intermediate, Verified 01/20/23 13:21) BURNING IN CHEST, shortness of breath oxycodone [From PERCOCET] Allergy (Intermediate, Verified 01/20/23 13:21) ITCHINESS pumpkin Allergy (Intermediate, Verified 01/20/23 13:21) Itching ibuprofen Adverse Reaction (Intermediate, Verified 01/20/23 13:21) Stomach Upset PFSH Medical History Anemia B12 deficiency Carpal tunnel syndrome GERD (gastroesophageal reflux disease) Hypovitaminosis D Kidney stones Surgical History Gastric bypass status for obesity History of delivery History of nasal surgery History of surgery History of wisdom tooth extraction Family History Father High cholesterol Diabetes Mother Migraine Obesity Maternal Grandfather Stroke Sister In good health Brother In good health Social History Household Members: Spouse Housing: House Alcohol intake: current Alcohol intake frequency: holidays/special occasions only Patient Tobacco Use Status: Never used Tobacco e-Cigarette/Vaping Use: Never Used Second Hand Smoke Exposure: No service: No Current occupational status: employed 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 She reported some weight g ain since having her daughter who is now 1/5 years old. Pt reported she sees some old habits returning such as skipping meals during the day and then snacking/grazing throughout the evening. Also having some vomiting. She reported negative thoughts about her body and how she looks. Presenting Concerns Referral Source self/provider Reason for referral anxiety Precipitating Event emotional eating/skipping meals Assessment & Plan Assessment & Plan (1) Adjustment disorder, unspecified: Code(s): F43.20 - Adjustment disorder, unspecified (2) Gastric bypass status for obesity: Comment: 08/2015 Code(s): Z98.84 - Bariatric surgery status Plan Pt is 7 years post GBP. She is recently experiencing some negative thoughts about herself and her body. Also skipping meals, vomiting, and some weight gain. Also grazes into the evening. Pt will work on cognitive restructuring, coping skills training, mindfulness, and other lifestyle changes in therapy. Also group therapy would be beneficial for her. Telehealth Telehealth Location of provider rendering services: other Location of patient: address on file Patient Identification confirmed using: Name, : Yes Telehealth method: video Patient verbally consented to treatment: Yes Patient verbally consented to billing insurance company: Yes Patient informed of any privacy concerns related to visit: Yes Minutes spent on Phone/Video with Pt.: 40 Coding Level of Care Code Tele Psytx 45 mins (88145) Diagnoses Adjustment disorder, unspecified F43.20 Gastric bypass status for obesity Z98.84 Time Spent (min) 40
== END 2023-01-31 16:41 | disposition home or self-care (01) ==
LOC: HO.HBST 16:05
PROVIDERS: PCP Internal Medicine; Visit Provider Counselor Mental Health
DX: F43.20 Adjustment disorder, unspecified (principal); Z98.84 Bariatric surgery status
CPT/HCPCS: 90834

== ENCOUNTER → 2023-01-31 16:05 | Outpatient (BNVA) | payer OTHER, SELFPAY | PROVIDERS: PCP Internal Medicine; Visit Provider Counselor Mental Health ==

== ENCOUNTER 2023-02-02 06:05 | Day surgery (SDC) | payer OTHER, SELFPAY ==
[2023-01-30 16:31] VITALS: BMI 32.1
--- NOTE | 2023-02-01 08:24 | P.CONAN_ITS ---
Documented by User: Leilani Herrera NP 02/01/23 08:25 HPI - Anesthesia Eval Consult details Narrative: 32yo F for Upper Endoscopy PMFSH Active Problems Active Problems: All Active Problems (Updated 01/31/23 @ 16:45 by Carina Dominguez) Adjustment disorder, unspecified (Acute) Gastric bypass status for obesity (Acute) Carpal tunnel syndrome of right wrist (Acute) Numbness and tingling of right arm (Acute) Numbness and tingling in left arm (Acute) Pain in right finger(s) (Acute) Coccyalgia (Acute) Immunization due (Acute) Bilateral hand numbness (Acute) Physical exam (Acute) URI (upper respiratory infection) (Acute) Earache on left (Acute) Hematuria (Acute) Left flank pain (Acute) Anemia (Acute) B12 deficiency (Acute) Physical exam (Acute ~06/17/21) GERD (gastroesophageal reflux disease) (Acute) Mouth ulcers (Acute) Fusion congenital, sacroiliac joint (Acute) Early stage of (Acute) Kidney stones (Acute) Complex ovarian cyst (Acute) Myoma (Acute) Menorrhagia (Acute) Right flank pain (Acute) Carpal tunnel syndrome (Acute) Hypovitaminosis D (Acute) B12 deficiency (Acute) Anemia (Chronic) Past Medical History Medical History Anemia B12 deficiency Carpal tunnel syndrome GERD (gastroesophageal reflux disease) Hypovitaminosis D Kidney stones Family History Family History Father High cholesterol Diabetes Mother Migraine Obesity Maternal Grandfather Stroke Sister In good health Brother In good health Surgical History Surgical History Gastric bypass status for obesity History of delivery History of nasal surgery History of surgery History of wisdom tooth extraction Social History Household Members: Spouse Housing: House Alcohol intake: current Alcohol intake frequency: holidays/special occasions only Patient Tobacco Use Status: Never used Tobacco e-Cigarette/Vaping Use: Never Used Second Hand Smoke Exposure: No Advance Directives: No Advance Directives Information Provided: No service: No Current occupational status: employed 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 Current occupational exposures/hazards: No Cognitive needs: No Hearing needs: No Vision needs: Yes (glasses) Meds Allergies Allergy/AdvReac Type Severity Reaction Status Date / Time acetaminophen [From Vicodin] Allergy Intermediate Rash, Hives Verified 01/20/23 13:21 hydrocodone [From Vicodin] Allergy Intermediate Rash, Hives Verified 01/20/23 13:21 morphine [MORPHINE] Allergy Intermediate BURNING IN Verified 01/20/23 13:21 CHEST, shortness of breath oxycodone [From PERCOCET] Allergy Intermediate ITCHINESS Verified 01/20/23 13:21 pumpkin Allergy Intermediate Itching Verified 01/20/23 13:21 ibuprofen AdvReac Intermediate Stomach Verified 01/20/23 13:21 Upset Home Medications Medication Instructions Recorded Confirmed Last Taken Type Multi Vitamin 1 tab PO DAILY 11/16/21 01/20/23 Unknown History cyanocobalamin (vitamin B-12) 1,000 mcg subcut QMONTH 02/02/23 02/02/23 Unknown History 1,000 mcg/mL injection solution Exam Exam Date and Time: February 01, 2023 0824 Height,Weight and Vital Signs: Height 5 ft 4 in Weight 84.708 kg Assessment and Plan Assessment Anesthesia Assessment: Chart Reviewed Documented by User: Allen Bhatti MD 05/11/23 23:13 [facility] Past Medical History Medical History Anemia B12 deficiency Carpal tunnel syndrome GERD (gastroesophageal reflux disease) Hypovitaminosis D Kidney stones Functional capacity: independent ambulation Family History Family History Father High cholesterol Diabetes Mother Migraine Obesity Maternal Grandfather Stroke Sister In good health Brother In good health Family history of problems with anesthesia: No Surgical History Surgical History Gastric bypass status for obesity History of delivery History of nasal surgery History of surgery History of wisdom tooth extraction History of Problems with Anesthesia: No Social History Household Members: Spouse Housing: House Alcohol intake: current Alcohol intake frequency: holidays/special occasions only Patient Tobacco Use Status: Never used Tobacco e-Cigarette/Vaping Use: Never Used Second Hand Smoke Exposure: No Advance Directives: No Advance Directives Information Provided: No service: No Current occupational status: employed 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 Current occupational exposures/hazards: No Cognitive needs: No Hearing needs: No Vision needs: Yes (glasses) Meds Allergies Allergy/AdvReac Type Severity Reaction Status Date / Time acetaminophen [From Vicodin] Allergy Intermediate Rash, Hives Verified 01/20/23 13:21 hydrocodone [From Vicodin] Allergy Intermediate Rash, Hives Verified 01/20/23 13:21 morphine [MORPHINE] Allergy Intermediate BURNING IN Verified 01/20/23 13:21 CHEST, shortness of breath oxycodone [From PERCOCET] Allergy Intermediate ITCHINESS Verified 01/20/23 13:21 pumpkin Allergy Intermediate Itching Verified 01/20/23 13:21 ibuprofen AdvReac Intermediate Stomach Verified 01/20/23 13:21 Upset Home Medications Medication Instructions Recorded Confirmed Last Taken Type Multi Vitamin 1 tab PO DAILY 11/16/21 01/20/23 Unknown History cyanocobalamin (vitamin B-12) 1,000 mcg subcut QMONTH 02/02/23 02/02/23 Unknown History 1,000 mcg/mL injection solution Exam Airway Mallampati Class: III Neck ROM: Full Loose/Missing/Broken Teeth: Yes (crowns ) Assessment and Plan Assessment Anesthesia Assessment: Anesthesia Plan Discussed Final Anesthetic Review Family History of Problems with Anesthesia: No History of Problems with Anesthesia: No NPO: Yes ASA Class: III Final Preanesthetic Review: Meds/Allgs Chart Reviewed, Consent Obtained/Reviewed and Anes Risks/Benef Reviewed Patient Risk: Intermediate Procedure Risk: Intermediate Anesthetic Plan Anesthetic Plan: MAC: and Agree w/ Assess. and Plan Disposition: Standard PACU
--- NOTE | 2023-02-01 20:42 | MHC.SHP ---
Pre-Procedural Eval Section A Date of Service: 02/01/23 The patient is an INPATIENT: No The History & Physical has been completed within 30 days and I have reviewed it.: Yes Section B Chief Complaint: abdominal pain Relevant Family History (Specify if Yes): No Relevant Social History: None Present Medications: None Medical History: No relevant PMH History of Previous Operations: Relevant previous surgery/procedure and date(s) (laparoscopic gastric bypass) Allergies: Allergies Allergy/AdvReac Type Severity Reaction Status Date / Time acetaminophen [From Vicodin] Allergy Intermediate Rash, Hives Verified 01/20/23 13:21 hydrocodone [From Vicodin] Allergy Intermediate Rash, Hives Verified 01/20/23 13:21 morphine [MORPHINE] Allergy Intermediate BURNING IN Verified 01/20/23 13:21 CHEST, shortness of breath oxycodone [From PERCOCET] Allergy Intermediate ITCHINESS Verified 01/20/23 13:21 pumpkin Allergy Intermediate Itching Verified 01/20/23 13:21 ibuprofen AdvReac Intermediate Stomach Verified 01/20/23 13:21 Upset Review of Systems Sugical H&P ROS: Negative: Constitution, Cardiovascular, Respiratory, Neurological, Psychiatric, Hem-Onc, Allergic/Immunologic, Gastrointestinal, Genitourinary, Musculoskeletal, Integumentary, Endocrine and Eyes/Ears/Nose/Throat Exam Surgical H&P Exam: Normal: HEENT, Normal: Heart, Normal: Lungs, Normal: Extremities, Normal: Abdomen, Normal: Skin and Normal: Neurological Plan Diagnosis/Plan: Unchanged (EGD to assess for abdominal pain. Risks for perforation and bleeding were discussed with patient. She is in agreement with the plan) I have reviewed the history and physical and performed a pertinent physical examination on my patient. No changes have occurred unless specified. Time Spent With Patient Time: Total time managing care of this patient today ____ minutes.
[2023-02-02 06:21] VITALS: BMI 31.9
[2023-02-02 06:23] LABS: UPreg QC Valid YES; Urine Pregnancy NEGATIVE (NEGATIVE)
[2023-02-02 06:30] VITALS: BP 122/71; PULSE 83; RESP 18; TEMP 36.9; O2SAT 100; BMI 23.5
[2023-02-02] MEDS: Lactated Ringers 1,000 ML 100 ML IVCONT (07:39)
--- NOTE | 2023-02-02 07:58 | PC.NURSE ---
pt reported poor stick, iv attempt x 2 rn's without success. anesthesi[address]. Winters x2 attempt with ultrasound with success.
--- NOTE | 2023-02-02 08:11 | PM.OP ---
Brief Operative Note Date of Service: 02/02/23 Pre-op diagnosis: Abdominal pain Post-op diagnosis: same (Normal post gastric bypass endoscopy) Procedure: PROCEDURE DATE: ?02/02/2023 PREOPERATIVE DIAGNOSIS: Abdominal pain, s/p gastric bypass POSTOPERATIVE DIAGNOSIS: Olive; PROCEDURE: [id number] with biopsy Surgeon: ?Jean Paul Bobo M.D.. Ph.D. Quality Technician Fiberglass: ?None ? Anesthesia: IV sedation Estimated blood loss: ?Minimal FINDINGS AND PROCEDURE: ? OPERATIVE INDICATIONS: ?The patient is a 32 year old female known to me who underwent a laparoscopic gastric bypass by me. The patient had very good weight loss. Patient has been recently experiencing an epigastric abdominal pain. Based on this information I recommended an upper endoscopy to evaluate the patient's symptoms.? Risks and complications of the surgery were discussed with the patient in advance particularly the possibility of perforation or bleeding that may require surgical intervention. The patient understood the risks and was in agreement with the plan. ? PROCEDURE: After informed consent was obtained by the patient, the patient was ?transferred to the Operating Room and was placed in the supine position.? After successful induction of IV sedation, a mouth block was placed and the patient was placed in the left lateral decubitus position. An upper endoscopy was performed next, the oropharynx and esophagus appeared within the normal limits. There was no hiatal hernia.? The z-line was smooth. The small pouch was entered, appeared to be of normal size. There was no gastritis and the gastrojejunostomy was patent. A biopsy was obtained from the gastric pouch. No significant bleeding was noted from any of the biopsy sites. There was no anastomotic ulcer.? At that point the scope was advanced into the proximal small intestine (proximal Beth limb) which appeared to be normal as well. The Beth limb and the pouch were decompressed and the scope was withdrawn from the patient's mouth. The patient was awaken and was transferred in stable condition to the Recovery Room for further care. I was present and performed all steps of the procedure. There were no residents to assist with this case. Jean Paul Bobo M.D., Ph.D. Surgeon: Neto Bobo MD Anesthesia: MAC Was an Quality Technician Fiberglass used for this Procedure?: No Estimated blood loss (mL): 0 IV fluids (mL): 400 Urine output (mL): 0 (No Dunn to record output) Pathology: other (Gastric pouch x1) Condition: stable Disposition: PACU
[2023-02-02 08:14] VITALS: BP 98/62; PULSE 85; RESP 16; TEMP 36.6; O2SAT 100
[2023-02-02 08:29] VITALS: BP 108/70; PULSE 83; RESP 16; TEMP 36.6; O2SAT 100
== END 2023-02-02 08:48 | disposition home or self-care (01) ==
PROVIDERS: Nurse Practitioner; PCP Internal Medicine; Visit Provider Surgery
PROC: 0DJ08ZZ Inspection of Upper Intestinal Tract, Via Natural or Artificial Opening Endoscopic (ICD-10-PCS; CPT 43235; principal; 2023-02-02 07:30)
DX: R10.13 Epigastric pain (principal); R11.2 Nausea with vomiting, unspecified; Z98.84 Bariatric surgery status; D64.9 Anemia, unspecified; E53.8 Deficiency of other specified B group vitamins; E55.9 Vitamin D deficiency, unspecified; K21.9 Gastro-esophageal reflux disease without esophagitis; N20.0 Calculus of kidney; Z88.8 Allergy status to other drugs, medicaments and biological substances; Z79.899 Other long term (current) drug therapy
CPT/HCPCS: 43239; 81025; 88305; 88342; J2250

== ENCOUNTER → 2023-02-02 06:05 | Outpatient (BNV) | payer OTHER, SELFPAY | PROVIDERS: PCP Internal Medicine; Visit Provider Surgery | DX: R10.9 Unspecified abdominal pain (principal); Z90.3 Acquired absence of stomach [part of]; Z98.84 Bariatric surgery status | CPT/HCPCS: 43239 ==

== ENCOUNTER 2023-02-13 08:36 | Outpatient (AMB) | payer OTHER, SELFPAY ==
--- NOTE | 2023-02-13 14:11 | A.OFFVIS_ITS ---
Intake VS Expanded 02/13/23 14:14 Height 5 ft 4 in Weight 184 lb BMI 31.6 Intake Visit Reasons: TV EGD Results Allergies acetaminophen [From Vicodin] Allergy (Intermediate, Verified 01/20/23 13:21) Rash, Hives hydrocodone [From Vicodin] Allergy (Intermediate, Verified 01/20/23 13:21) Rash, Hives morphine [MORPHINE] Allergy (Intermediate, Verified 01/20/23 13:21) BURNING IN CHEST, shortness of breath oxycodone [From PERCOCET] Allergy (Intermediate, Verified 01/20/23 13:21) ITCHINESS pumpkin Allergy (Intermediate, Verified 01/20/23 13:21) Itching ibuprofen Adverse Reaction (Intermediate, Verified 01/20/23 13:21) Stomach Upset HPI TV EGD Results HPI Details Start time: 2.07pm, End time: 2.27pm ?I spent 15 minutes speaking with the patient on the phone plus an additional 5 minutes reviewing and updating records for a total of 20 minutes HPI Comments History of Present Illness Details Feels better with new nutritional plan and by discontinuiung the regular coke EGD was normal. Path: mild chronic inflammation with H pylori negative Is doing one powdered Premier protein shake (1 scoop in 8oz 1 % milk) and 2 meals (no portions) Exercise: none due to a toe fracture [facility] Medical History Anemia B12 deficiency Carpal tunnel syndrome GERD (gastroesophageal reflux disease) Hypovitaminosis D Kidney stones Surgical History Gastric bypass status for obesity History of delivery History of nasal surgery History of surgery History of wisdom tooth extraction Family History Father High cholesterol Diabetes Mother Migraine Obesity Maternal Grandfather Stroke Sister In good health Brother In good health Social History Household Members: Spouse Housing: House Alcohol intake: current Alcohol intake frequency: holidays/special occasions only Patient Tobacco Use Status: Never used Tobacco e-Cigarette/Vaping Use: Never Used Second Hand Smoke Exposure: No service: No Current occupational status: employed 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 Change nutritional plan to one powdered Premier protein shake (HALF scoop in 8oz 1 % milk) at 9am-11am, lunch at 12-1pm (6 forks of meat and 6 forks of salad or vegetables), dinner at 6pm (6 forks of meat and 6 forks of salad or vegetables) and one more powdered Premier protein shake (HALF scoop in 8oz 1 % milk)at 9pm-11pm 2. Continue to follow in the practice regularly 3. Start stationary bike when your toe fracture heals with a goal of burning 2000 calories per week 4. Please let me know if pain recurs or no weight loss is achieved (2) BMI 31.0-31.9,adult: Code(s): Z68.31 - Body mass index [BMI] 31.0-31.9, adult Medications: Discontinued cyanocobalamin (vitamin B-12) 1,000 mcg subcut QWEEK 10 mL 0RF Telehealth Telehealth Location of provider rendering services: practice address Location of patient: address on file Patient Identification confirmed using: Name, : Yes Telehealth method: voice only Patient verbally consented to treatment: Yes Patient verbally consented to billing insurance company: Yes Patient informed of any privacy concerns related to visit: Yes Minutes spent on Phone/Video with Pt.: 20 Coding Level of Care Code Tele Est Pt Level 3 (68517) Diagnoses Obesity E66.9 BMI 31.0-31.9,adult Z68.31 Time Spent (min) 20
[2023-02-13 14:14] VITALS: BMI 31.6
== END 2023-02-13 14:28 | disposition home or self-care (01) ==
LOC: HO.HBS 08:36
PROVIDERS: PCP Internal Medicine; Visit Provider Surgery
DX: E66.9 Obesity, unspecified (principal); Z68.31 Body mass index [BMI] 31.0-31.9, adult
CPT/HCPCS: 99213

== ENCOUNTER → 2023-02-13 08:36 | Outpatient (BNVA) | payer OTHER, SELFPAY | PROVIDERS: PCP Internal Medicine; Visit Provider Surgery ==

== ENCOUNTER 2023-02-16 15:22 | Outpatient (AMB) | payer OTHER, SELFPAY ==
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
== END 2023-02-28 15:10 | disposition home or self-care (01) ==
LOC: HO.HBST 15:22
PROVIDERS: PCP Internal Medicine; Visit Provider Counselor Mental Health
DX: F43.20 Adjustment disorder, unspecified (principal); Z98.84 Bariatric surgery status
CPT/HCPCS: 90834

== ENCOUNTER → 2023-02-16 15:22 | Outpatient (BNVA) | payer OTHER, SELFPAY | PROVIDERS: PCP Internal Medicine; Visit Provider Counselor Mental Health ==

== ENCOUNTER → 2023-03-09 16:12 | Outpatient (BNVA) | payer OTHER, SELFPAY | PROVIDERS: PCP Internal Medicine; Visit Provider Counselor Mental Health ==

== ENCOUNTER 2023-04-04 08:40 | Emergency (ER) | payer OTHER, SELFPAY ==
--- NOTE | ~2023-04-04 | XR_ITS ---
EXAMINATION: XR CHEST CLINICAL INFORMATION: Cough COMPARISON: 09/09/2018 TECHNIQUE: 2 views of the chest were obtained. FINDINGS: No significant abnormality is noted involving the heart, lungs, mediastinum, bony thorax or soft tissues. XR/XR chest 2V IMPRESSION: Unremarkable examination.
[2023-04-04 08:48] VITALS: BP 126/78; PULSE 91; RESP 18; TEMP 36.8; O2SAT 100; BMI 33.6
--- NOTE | 2023-04-04 09:19 | ED_ITS ---
HPI - URI/Sore Throat General Chief Complaint: Upper Respiratory Symptoms Stated Complaint: Chest pain/SOB/Cough 1 week Time Seen by Provider: 04/04/23 09:03 Source: patient Mode of arrival: ambulatory Limitations: no limitations History of Present Illness HPI Narrative: 32yo female with a PMH of GERD presents to the ED with a 1 week history of MCCABE, cough, nasal congestion, and chills not relieved by OTC robitussin. She saw urgent care 5 days ago who confirmed no fever and clear lungs. Since then her cough has been progressively worsening and is exacerbated with deep inspirations. The cough causes slight burning of the chest and mild SOB, also has been causing sleep difficulty. Patient denies N/V, dizziness, abdominal pain, diarrhea. 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 MD elicited complaint: cough and nasal congestion Onset (ago): week(s) (1) Consistency: constant Severity: mild Description of mucous: clear Able to tolerate fluids by mouth: Yes Exacerbating factors: speaking, deep breaths and supine positioning Relieving factors: nothing Associated symptoms: chills and nasal congestion Treatments prior to arrival: none Related Data Home Medications Medication Instructions Recorded Confirmed Multi Vitamin 1 tab PO DAILY 11/16/21 01/20/23 cyanocobalamin (vitamin B-12) 1,000 mcg subcut QMONTH 02/02/23 02/02/23 1,000 mcg/mL injection solution Previous Rx's Medication Instructions Recorded syringe with needle 3 mL 25 gauge #90 ea 05/20/22 x 1 (Syringe) albuterol sulfate 90 mcg/actuation 2 puff inhalation QID PRN 04/04/23 aerosol inhaler shortness of breath or wheezing #6.7 grams benzonatate 100 mg capsule 100 mg PO TID PRN cough #30 caps 04/04/23 prednisone 20 mg tablet 40 mg (2 x 20 mg) PO DAILY #10 tabs 04/04/23 Allergies Allergy/AdvReac Type Severity Reaction Status Date / Time acetaminophen [From Vicodin] Allergy Intermediate Rash, Hives Verified 01/20/23 13:21 hydrocodone [From Vicodin] Allergy Intermediate Rash, Hives Verified 01/20/23 13:21 morphine [MORPHINE] Allergy Intermediate BURNING IN Verified 01/20/23 13:21 CHEST, shortness of breath oxycodone [From PERCOCET] Allergy Intermediate ITCHINESS Verified 01/20/23 13:21 pumpkin Allergy Intermediate Itching Verified 01/20/23 13:21 ibuprofen AdvReac Intermediate Stomach Verified 01/20/23 13:21 Upset Review of Systems Review of Systems: Constitutional: No Fever, +Chills ENT/Mouth: No sore throat, +Rhinorrhea, No Swallowing Difficulty Eyes: No Eye Pain, No Swelling, No Redness Cardiovascular: +burning chest pain secondary to cough, +SOB secondary to cough, No Orthopnea, No Edema Respiratory: +worsening cough, No Sputum, No Wheezing, No dyspnea Gastrointestinal: No Nausea, No Vomiting, No Diarrhea, No abdominal Pain, No Hematochezia, No Melena Genitourinary: No Dysuria, No Urinary Frequency, No Hematuria Musculoskeletal: No joint pain, +Myalgias Skin: No Skin Lesions, No rash Neuro: No Weakness, No Numbness, No Dizziness, +Headache Psych: No Anxiety/Panic, No Depression Heme/Lymph: No Bruising, No Lymphadenopathy Endocrine: No Polyuria, No Polydipsia PMFSH Past Medical History Medical History Anemia B12 deficiency Carpal tunnel syndrome GERD (gastroesophageal reflux disease) Hypovitaminosis D Kidney stones Surgical History Gastric bypass status for obesity History of delivery History of nasal surgery History of surgery History of wisdom tooth extraction Family History Family History Father High cholesterol Diabetes Mother Migraine Obesity Maternal Grandfather Stroke Sister In good health Brother In good health Social History Social History Household Members: Spouse Housing: House Alcohol intake: current Alcohol intake frequency: holidays/special occasions only Patient Tobacco Use Status: Never used Tobacco e-Cigarette/Vaping Use: Never Used Second Hand Smoke Exposure: No Advance Directives: No Advance Directives Information Provided: No service: No Current occupational status: employed 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 Oriented X3. No acute distress. Head: normocephalic, atraumatic. Eyes: Pupils equal, round and reactive to light. ENT: Pharynx normal. No tonsillar swelling or exudate. Patient exhibiting frequent dry cough during exam, exacerbated with deep inspiration. Neck: Normal inspection. Neck supple. CVS: Normal heart rate and rhythm. Pulses normal. Respiratory: No respiratory distress. Very mild expiratory wheezing appreciated in the upper/middle lung field. No rales, rhonchi, or crackles on auscultation. Abdomen: Soft and nontender. +BS x4 Skin: Skin warm and dry. Normal skin color. Normal skin turgor. No rashes. Extremities: No lower extremity edema. No joint swelling. Neuro/psych: Oriented X 3. No motor deficit. No sensory deficit. CN II-XII intact. Normal speech and cognition. Medications Administered Discontinued Medications Generic Name Dose Route Start Last Admin Trade Name Freq PRN Reason Stop Dose Admin Benzonatate 200 mg 04/04/23 09:32 04/04/23 09:57 Benzonatate 100 Mg Capsule PO 04/04/23 09:33 200 mg ONCE ONE Administration Medical Decision Making Medical Decision Making [facility] Narrative: 32yo female with a PMH of GERD presents to the ED with a 1 week history of MCCABE, cough, nasal congestion, and chills not relieved by OTC robitussin. She saw urgent care 5 days ago who confirmed no fever and lungs CTA. Vitals are stable. Some mild expiratory wheezing of the upper/middle lung field on PE w/o rales, rhonchi, or crackles. Patient exhibited frequent dry cough exacerbated by deep inspirations. Chest Xray unremarkable. Covid and influenza negative. Patient's clinical presentation, labs, and unremarkable xray are consistent with a viral bronchitis. Patient was given 200mg Tessalon at the ED. Patient will be discharged on Prednisone x5 days and Tessalon and was encourages to rest and hydrate. Patient was instructed to return to the ED if symptoms persist or get worse. Differential Diagnosis Differential Diagnoses: The differential diagnosis associated with the presentation includes COVID, RSV, Influenza, acute bronchitis, other viral URI. Less concern for pneumonia, acute respiratory distress syndrome. Lab Data MDM Lab Attestation statement: I reviewed the patient's lab results. Labs: Lab Results 04/04/23 Range/Units 08:58 COVID-19 (KATARZYNA) Negative (Negative) COVID-19 Clin Com See Note Influenza Type A (ELIZABETH) Negative (Negative) Influenza Type B (ELIZABETH) Negative (Negative) Influenza A & B Note See Note Independent Interpretation I performed an independent interpretation of an: Plain X-Ray Interpretation: clear lungs, no focal infiltrate to suggest PNA Radiology Impression Discussion of test interpretation with radiology: I have reviewed the radiologist's reading. Radiologist Impression: EXAMINATION: XR CHEST CLINICAL INFORMATION: Cough COMPARISON: 09/09/2018 TECHNIQUE: 2 views of the chest were obtained. FINDINGS: No significant abnormality is noted involving the heart, lungs, mediastinum, bony thorax or soft tissues. XR/XR chest 2V IMPRESSION: Unremarkable examination. External Record Review External record reviewed: Prior outpatient labs and Prior outpatient radiology Prescription Management I considered prescription management with: Antibiotic and Other (antitussive) Critical Care Time Critical Care Time Critical Care Time: No Discharge Plan Discharge Clinical Impression: Bronchitis Patient Disposition: Home, Self-Care Instructions: Acute Bronchitis (ED) Additional Instructions: You tested negative for COVID and Flu Your chest x-ray was normal Take the prescribed prednisone to help with cough and inflammation in your lungs Recommend over the counter Mucinex 49183 mg two times per day for the next 4-5 days Rest and drink plenty of fluids Take the prescribed cough medication as needed Use the inhaler as needed for wheezing and shortness of breath If you develop new or worsening symptoms call 911 or come back to the ER for further evaluation. Prescriptions: New prednisone 20 mg tablet 40 mg PO DAILY Qty: 10 0RF benzonatate 100 mg capsule 100 mg PO TID PRN (Reason: cough) Qty: 30 0RF albuterol sulfate 90 mcg/actuation HFA aerosol inhaler 2 puff inhalation QID PRN (Reason: shortness of breath or wheezing) Qty: 6.7 0RF No Action Multi Vitamin 1 tab PO DAILY (DME) Syringe 3cc/25Gx1 3 mL 25 gauge x 1 Syringe Qty: 90 3RF Rx Instructions: As Directed cyanocobalamin (vitamin B-12) 1,000 mcg/mL solution 1,000 mcg SUBCUT QMONTH Referrals: Mariela Peralta MD [Primary Care Provider] - Stand Alone Forms: Work/School Release
[2023-04-04 09:51] LABS: COVID-19 Test Negative (Negative); IDNOW Serial# 08D9AD1C; IDNOW Serial# BCCEAD1C; Influenza A Negative (Negative); Influenza B2 Negative (Negative)
[2023-04-04] MEDS: Benzonatate 100 MG CAPSULE 200 MG PO (09:57)
== END 2023-04-04 10:06 | disposition home or self-care (01) ==
PROVIDERS: Emergency Provider Emergency Medicine Emergency Medical Services; PCP Internal Medicine
DX: J40 Bronchitis, not specified as acute or chronic (principal); Z11.52 Encounter for screening for COVID-19
CPT/HCPCS: 71046; 87502; 87635; 99282; 99283

== ENCOUNTER 2023-07-06 08:48 | Outpatient (AMB) | payer OTHER, SELFPAY ==
--- NOTE | 2023-07-06 08:50 | MHC.OFFVIS ---
Intake Vital Signs 07/06/23 09:03 Height 5 ft 4 in Weight 194 lb 8 oz BMI 33.4 BP 126/78 Blood Pressure Location Rt brachial Position Sitting Respiration 17 Pulse 102 H Pulse Source Pulse Oximeter Pulse Oximetry (%) 100 Oxygen Delivery Method Room Air Intake Visit Reasons: Sacrococcygeal disorders Allergies acetaminophen [From Vicodin] Allergy (Intermediate, Verified 07/06/23 09:04) Rash, Hives hydrocodone [From Vicodin] Allergy (Intermediate, Verified 07/06/23 09:04) Rash, Hives morphine [MORPHINE] Allergy (Intermediate, Verified 07/06/23 09:04) BURNING IN CHEST, shortness of breath oxycodone [From PERCOCET] Allergy (Intermediate, Verified 07/06/23 09:04) ITCHINESS pumpkin Allergy (Intermediate, Verified 07/06/23 09:04) Itching ibuprofen Adverse Reaction (Intermediate, Verified 07/06/23 09:04) Stomach Upset HPI HPI Comments History of Present Illness Details Farshad is a very pleasant 32 year old female who presents to the office today for evaluation and management of her left lower back pain. Patient had diagnostic left SIJ injection with Dr Lewis at [facility] 06/2022 with at least 80% pain relief in the hours after the procedure, she was referred here for further treatment. HX of Ifusion for left sacroiliitis 11/2019, states pain resolved for 1 year but returned after childbirth. Pain today is rated as 5/10, constant but worse in the evenings. Pain over left PSIS with radiation to left groin and into left thigh, burning pain. At times pain to the left ankle. Pain is worse with sitting or standing for extended periods of time, she is unable to lie on her left side. Unable to take NSAIDs d/t history of gastric bypass surgery, she has been taking Tylenol for the pain with minimal relief. Patient has completed PT in the past but pain persists. Patient denies recent imaging of her SIJ. Her original surgery was performed in [place] but she was told the only place that does revisions is in [place] and her insurance does not cover out of states providers. In terms of muscle damage condition is described as aching, shooting, hot, burning, stabbing and sharp. Pain is negatively impacting patient's general activity, normal work, sleep, walking [facility] Medical History (Updated 07/06/23 @ 09:27 by Wendy Castillo APRN, ENGINEERING PATTERNMAKER) GERD (gastroesophageal reflux disease) Carpal tunnel syndrome Hypovitaminosis D B12 deficiency Anemia Kidney stones Surgical History (Updated 07/06/23 @ 09:27 by Wendy Castillo APRN, ENGINEERING PATTERNMAKER) S/P fusion of sacroiliac joint History of delivery History of surgery History of nasal surgery History of wisdom tooth extraction Gastric bypass status for obesity Family History Father High cholesterol Diabetes Mother Migraine Obesity Maternal Grandfather Stroke Sister In good health Brother In good health Social History Household Members: Spouse Housing: House Alcohol intake: current Alcohol intake frequency: holidays/special occasions only Patient Tobacco Use Status: Never used Tobacco e-Cigarette/Vaping Use: Never Used Second Hand Smoke Exposure: No service: No Current occupational status: employed 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 Answers questions appropriately. Fully engaged in examination. Skin: warm, dry, intact HEENT: Normocephalic. Hearing intact. Cardiac: External chest normal in appearance. Respiratory: No cough, audible wheezing or stridor. Abdomen: without gross distension. MS: No obvious swelling or deformities. Able to stand on bilateral tiptoes and bilateral heels.? Able to transition from sit to stand unassisted. Ambulates with bilaterally normal heel strike and toe off tender to palpation over left PSIS Douglas positive left SLR neg bilaterally Thigh thrust positive left Gaenslen positive left Neurological: Oriented to person, place, time and situation. Thought process intact. No gait abnormalities appreciated. Psychiatric: Appropriate mood and affect. Good judgment and insight. Assessment & Plan Assessment & Plan (1) Sacroiliac joint dysfunction of left side: Code(s): M53.3 - Sacrococcygeal disorders, not elsewhere classified Plan Farshad is a very pleasant 32 year old female who presented to the office today for evaluation and management of her left sacroiliac joint dysfunction. MRI SI bilateral WO contrast ordered, patient 3 years s/p fusion, concern for hardware disruption after childbirth. Amitriptyline 25mg po qhs Diclofenac 3% topical, apply twice daily as needed Lidocaine 5% patches, apply to most painful area once daily. on for 12 hours, off for 12 hours. Patient will follow up in the office after MRI to review results and discuss care plan. All questions and concerns were addressed, patient agrees to the plan. Follow up sooner if needed. Orders: Orders MR sacroiliac joint MENDEZ wo con Today M53.3 - Sacrococcygeal disorders, not elsewhere classified, Z98.1 - Arthrodesis status Medications: New amitriptyline 25 mg PO BEDTIME 30 tabs 1RF diclofenac sodium 3% apply to most painful area twice daily as needed for pain 1 appl topical BID PRN 100 grams 0RF pain, moderate lidocaine 5% leave on most painful area for up to 12 hrs 1 patch topical DAILY 30 ea 3RF Coding Level of Care Code New Pt Level 4 (93046) Diagnoses Sacroiliac joint dysfunction of left side M53.3
[2023-07-06 09:03] VITALS: BP 126/78; PULSE 102; RESP 17; O2SAT 100; BMI 33.4
== END 2023-07-06 09:21 | disposition home or self-care (01) ==
PROVIDERS: PCP Internal Medicine; Visit Provider Registered Nurse Emergency
DX: M46.1 Sacroiliitis, not elsewhere classified (principal); M51.36 Other intervertebral disc degeneration, lumbar region; M47.816 Spondylosis without myelopathy or radiculopathy, lumbar region; M54.16 Radiculopathy, lumbar region
CPT/HCPCS: 99204; 99214

== ENCOUNTER → 2023-07-06 08:48 | Outpatient (BNVA) | payer OTHER, SELFPAY | PROVIDERS: PCP Internal Medicine; Visit Provider Registered Nurse Emergency | DX: M53.3 Sacrococcygeal disorders, not elsewhere classified (principal) | CPT/HCPCS: 99202; 99212 ==

== ENCOUNTER 2023-07-28 12:53 | Outpatient (REF) | payer OTHER, SELFPAY ==
--- NOTE | ~2023-07-28 | XR_ITS ---
EXAMINATION: XR SACROILIAC JOINTS CLINICAL INFORMATION: Arthrodesis status. COMPARISON: KUB of 08/24/2020. TECHNIQUE: 3 views of the sacroiliac joints FINDINGS: Redemonstration of hardware overlying the left sacroiliac joint. Hardware appears intact. Mild degenerative changes with hypertrophic change in the right sacroiliac joint. Visualization of the sacrum is limited due to overlying bowel. XR/XR sacroiliac joint min 3V IMPRESSION: Redemonstration of hardware overlying the left sacroiliac joint. Hardware appears intact. Mild degenerative changes with hypertrophic change in the right sacroiliac joint.
== END 2023-07-28 12:54 | disposition home or self-care (01) ==
LOC: HO.XRAY 12:53
PROVIDERS: PCP Internal Medicine; Visit Provider Registered Nurse Emergency
DX: M53.3 Sacrococcygeal disorders, not elsewhere classified (principal); Z98.1 Arthrodesis status
CPT/HCPCS: 72202

== ENCOUNTER 2023-08-03 14:14 | Outpatient (AMB) | payer OTHER, SELFPAY ==
[2023-08-03 14:23] VITALS: BP 112/68; BMI 34.7
--- NOTE | 2023-08-03 14:23 | A.OFFPC_ITS ---
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 Accompanied by: Self / Same As Patient Allergies acetaminophen [From Vicodin] Allergy (Intermediate, Verified 08/03/23 14:48) Rash, Hives hydrocodone [From Vicodin] Allergy (Intermediate, Verified 08/03/23 14:48) Rash, Hives morphine [MORPHINE] Allergy (Intermediate, Verified 08/03/23 14:48) BURNING IN CHEST, shortness of breath oxycodone [From PERCOCET] Allergy (Intermediate, Verified 08/03/23 14:48) ITCHINESS pumpkin Allergy (Intermediate, Verified 08/03/23 14:48) Itching ibuprofen Adverse Reaction (Intermediate, Verified 08/03/23 14:48) Stomach Upset Medication List - Last Reconciled 08/03/23 by Mariela Pathak MD amitriptyline 25 mg PO BEDTIME cyanocobalamin (vitamin B-12) 1,000 mcg subcut QMONTH 30 days diclofenac sodium 3% 1 appl topical BID PRN lidocaine 5% 1 patch topical DAILY [Multi Vitamin 1 tab PO DAILY] syringe with needle (Syringe) As Directed Tobacco use date assessed: 08/03/23 Dental Screening Dental Screen Date: 08/03/23 Did you have a dental visit in the last 12 months?: Yes Did you have a dental problem in the last 6 months where you did not have access to dental care?: No Was dental information given to patient?: Patient has dentist HPI HPI Comments History of Present Illness Details This is a 33-year-old female that comes for her physical exam. Last Pap smear was 2020. No chest pain or shortness of breath. [facility] Medical History GERD (gastroesophageal reflux disease) Carpal tunnel syndrome Hypovitaminosis D B12 deficiency Anemia Kidney stones Surgical History S/P fusion of sacroiliac joint History of delivery History of surgery History of nasal surgery History of wisdom tooth extraction Gastric bypass status for obesity Family History (Updated 08/03/23 @ 14:53 by Mariela Pathak MD) Father High cholesterol Diabetes Mother Migraine Obesity Bipolar disorder Mental health disorder Maternal Grandfather Stroke Sister In good health Brother In good health Social History Household Members: Spouse Housing: House Alcohol intake: current Alcohol intake frequency: holidays/special occasions only Patient Tobacco Use Status: Never used Tobacco e-Cigarette/Vaping Use: Never Used Second Hand Smoke Exposure: No service: No Current occupational status: employed 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 1. Little interest or pleasure in doing things: not at all 2. Feeling down, depressed, or hopeless: not at all 3. Trouble falling or staying asleep, or sleeping too much: not at all 4. Feeling tired or having little energy: not at all 5. Poor appetite or overeating: not at all 6. Feeling bad about yourself - or that you are a failure or have let yourself or your family down: not at all 7. Trouble concentrating on things, such as reading the newspaper or watching television: not at all 8. Moving or speaking so slowly that other people could have noticed. Or the opposite - being so fidgety or restless that you have been moving around a lot more than usual: not at all 9. Thoughts that you would be better off or of hurting yourself in some way: not at all Total score: 0 Depression Screening Interpretation: Negative Depression Screening Done: Yes 17757 - PHQ-9 Billing: Yes Source: Developed by Drs. Bassam Feldman, Steph Nichole, Rian Nunez and colleagues, with an educational christian from [employer]. Thrive Questionnaire Date Thrive assessed: 08/03/23 I am a: Patient What is your living situation today?: I have a steady place to live Within the past 12 months, did the food you bought not last and you didn't have the money to get more?: Never true Within the past 12 months, did you worry whether your food would run out before you got money to buy more?: Never true Do you have trouble paying for medicines?: No Do you have trouble getting transportation to medical appointments?: No Do you have trouble paying your heating and electricity bill?: No Do you have trouble taking care of your child, family member or friend?: No Do you have trouble with day-to-day activities such as bathing, preparing meals, shopping, managing finances, etc.?: No Are you currently unemployed and looking for a job?: No Are you interested in more education?: No Please select the resources that you would like help with: None Currently or been in a relationship where the following occur: no concerns reported THRIVE Score: 0 AUDIT C Alcohol Use Questionnaire (AUDIT-C) 1. How often do you have a drink containing alcohol?: Monthly or less 2. How many drinks containing alcohol do you have on a typical day when you are drinking?: 1 or 2 3. How often do you have six or more drinks on one occasion?: Never Total Score: 1 Score Reviewed/Action Taken: No ESME-7 AMB Questionnaire ESME-7 Date ESME - 7 assessed: 08/03/23 Feeling nervous, anxious, or on edge: 0 = Not at all Not being able to stop or control worryin = Not at all Worrying too much about different things: 0 = Not at all Trouble relaxin = Not at all Being so restless that it is hard to sit still: 0 = Not at all Becoming easily annoyed or irritable: 0 = Not at all Feeling afraid as if something awful might happen: 0 = Not at all Total ESME-7 score (0-4 normal; 5-9 mild; 10-14 moderate; 15-21 severe): 0 Source: Developed by Drs. Bassam Feldman, Steph Nichole, Rian Nunez and colleagues, with an educational christian from [employer]. ESME-7 Assessment Billing ESME-7 Assessment Tool: ESME-7 Assessment 70693 Review of Systems Const All systems reviewed & are unremarkable except as noted in HPI and below Eyes Reports no additional complaints, Denies change in vision and Denies other visual disturbances Card Denies chest pain at rest, Denies chest pain with activity, Denies edema, Denies irregular heart rhythm, Denies claudication, Denies dyspnea, Denies dyspnea on exertion, Denies orthopnea, Denies paroxysmal nocturnal dyspnea and Denies slow heart rate Resp Denies cough, Denies dyspnea and Denies dyspnea on exertion GI Denies abdominal pain, Denies change in bowel habits, Denies excessive flatus, Denies nausea and Denies vomiting Denies urinary incontinence, Denies urinary hesitancy and Denies urinary urgency Musc Denies abnormal gait, Denies atrophy, Denies deformity and Denies limited range of motion Skin/Breast Denies bleeding lesions, Denies changing lesions and Denies rash Neuro Denies abnormal gait, Denies behavioral changes, Denies confusion and Denies lack of coordination Psych Denies behavioral changes and Denies confusion Physical exam (Primary Care) Vital Signs: Last Vital Signs BP 112/68 08/03/23 14:23 BMI result Body Mass Index 34.7 Tobacco/Smoking Status: Tobacco use Status Tobacco use date assessed 08/03/23 08/03/23 14:29 Patient Tobacco Use Status Never used Tobacco 08/03/23 14:29 e-Cigarette/Vaping Use Never Used 08/03/23 14:29 PHQ-9: PHQ-9 Score PHQ-9: Total score 0 08/03/23 14:55 Depression Screening Interpretation: Negative Thrive Assessment: Date of Thrive Assessment Date Thrive assessed 08/03/23 08/03/23 14:32 Currently or been in a relationship where the following occur: no concerns reported Const General: No confusion Orientation/consciousness: patient oriented x3 and No confusion HENMT Head: Yes normal to inspection, Yes normocephalic and Yes atraumatic Ears: external ears normal Eyes General: appearance normal, both eyes and all related structures Eyelids: Yes eyelids normal Conjunctivae: conjunctivae normal Neck Neck: Yes normal visual inspection and Yes supple Resp Effort & Inspection: normal respiratory effort Auscultation: clear to auscultation bilaterally Cardio Jugular venous distension: no JVD Rate: regular rate Rhythm: regular rhythm Heart sounds: S1 normal heart sound present and S2 normal heart sound present GI Inspection: Yes normal to inspection Palpation (GI): Soft to palpation and nontender Auscultation: normal bowel sounds Skin General skin exam: no rashes or lesions noted Neuro General: patient oriented x3, no focal motor deficits and No confusion Extrem General: Yes full ROM Psych Appearance: grossly normal Assessment and Plan Assessment & Plan (1) Physical exam: Code(s): Z00.00 - Encounter for general adult medical examination without abnormal findings Plan: Repeat in a year Orders: Orders Comprehensive [place]. Panel Fast Today Z00.00 - Encounter for general adult medical examination without abnormal findings Vitamin D 25-OH Total Today E55.9 - Vitamin D deficiency, unspecified Lipid Panel Today Z00.00 - Encounter for general adult medical examination without abnormal findings Coding Level of Care Code Est Pt Prev Care 18-39y(86477) Diagnoses Physical exam Z00.00 Additional Codes ESME-7 Assessment Billing - ESME-7 Assessment Tool: ESME-7 Assessment 52787 ([id number]) Time Spent (min) 33
== END 2023-08-03 15:32 | disposition home or self-care (01) ==
PROVIDERS: Visit Provider Internal Medicine
DX: Z00.00 Encounter for general adult medical examination without abnormal findings (principal)
CPT/HCPCS: 99395

== ENCOUNTER 2023-09-08 11:08 | Outpatient (REF) | payer OTHER, SELFPAY ==
--- NOTE | ~2023-09-08 | XR_ITS ---
EXAMINATION: XR THORACOLUMBAR SPINE CLINICAL INFORMATION: Mid back pain, history of scoliosis. COMPARISON: Chest radiograph of 04/04/2023. TECHNIQUE: 4 views of the thoracic spine. 3 views of the cervical spine. FINDINGS: Thoracic Spine: Surgical clips in the upper abdomen. Mild multilevel degenerative changes in the thoracic spine. Slight leftward curvature of the thoracic spine. Slight rightward curvature of the imaged upper lumbar spine Mild anterior loss of height of several lower thoracic vertebral bodies possibly present on the prior exam. Degenerative changes on very limited images of the cervical spine could be evaluated with dedicated cervical spine radiographs. XR/XR thoracic spine 2V IMPRESSION: 1. Mild multilevel degenerative changes in the thoracic spine. 2. Mild anterior loss of height of several lower thoracic vertebral bodies possibly present on the prior exam. 3. Slight thoracolumbar scoliosis.
[2023-09-08 13:42] LABS: Alanine Aminotransferase 10 U/L (0-31); Albumin Level 3.8 g/dL (3.5-5.0); Alkaline Phosphatase 94 U/L (39-117); Anion Gap 11 (12-20); Aspartate Amino Transferase 13 U/L (5-31); Bilirubin Total 0.5 mg/dL (0.0-1.0); Blood Urea Nitrogen 9 mg/dL (9-16); Calcium 8.5 mg/dL (8.4-10.2); Carbon Dioxide 23 mmol/L (22-29); Chloride 108 mmol/L (96-108); Cholesterol 144 mg/dL (<200); Estimated Glomerular Filt Rate > 60; Glucose Fasting 77 mg/dL (60-99); HDL Cholesterol 59 mg/dL (>40); LDL Cholesterol Calculated 75 mg/dL (<100); Potassium 3.9 mmol/L (3.3-5.1); Sodium 138 mmol/L (135-145); Triglycerides 50 mg/dL (<150)
[2023-09-08 13:56] LABS: Vitamin D 25-OH Total 6.7 ng/mL (>30)
== END 2023-09-08 11:09 | disposition home or self-care (01) ==
LOC: HO.LAB 11:08
PROVIDERS: PCP Internal Medicine; Visit Provider Internal Medicine
DX: Z00.00 Encounter for general adult medical examination without abnormal findings (principal); M54.6 Pain in thoracic spine; E55.9 Vitamin D deficiency, unspecified
CPT/HCPCS: 36415; 72070; 80053; 80061; 82306

== ENCOUNTER 2023-09-25 14:55 | Outpatient (REF) | payer OTHER, SELFPAY ==
--- NOTE | ~2023-09-25 | US_ITS ---
EXAMINATION: US RETROPERITONEAL LIMITED (RENAL ONLY) CLINICAL INFORMATION: Calculus of kidney. COMPARISON: Renal ultrasound 09/05/2022 and 05/20/2022. X-ray abdomen KUB 08/24/2020. CT abdomen and pelvis 08/06/2020. TECHNIQUE: Real-time imaging of the kidneys. FINDINGS: RIGHT KIDNEY: 9.9 x 4.6 x 6.0 cm (SAG x AP x TRV). The kidney is normal in size, contour, and echogenicity. Renal cortical thickness is normal. No calculi or focal parenchymal lesions. No hydronephrosis. LEFT KIDNEY: 10.8 x 4.9 x 5.1 cm (SAG x AP x TRV). The kidney is normal in size, contour, and echogenicity. Renal cortical thickness is normal. No calculi or focal parenchymal lesions. No hydronephrosis. US/US renal BI IMPRESSION: Normal renal ultrasound. No stone seen.
== END 2023-09-25 14:56 | disposition home or self-care (01) ==
LOC: HO.US 14:55
PROVIDERS: PCP Internal Medicine; Visit Provider Urology
DX: N20.0 Calculus of kidney (principal)
CPT/HCPCS: 76775

== ENCOUNTER 2023-09-26 10:01 | Outpatient (REF) | payer OTHER, SELFPAY ==
[2023-09-26 11:58] LABS: Appearance Urine Cloudy; Color Urine Yellow; Glucose Urine UA Negative (Negative); Leukocyte Esterase Urine Trace (Negative); Nitrite Urine Positive (Negative); UMIC TRIGGER UACC YES; Urine Blood Negative (Negative); Urine Ketones Negative (Negative); Urine Protein Negative (Neg-Trace)
[2023-09-26 12:03] LABS: Bacteria Urine 4+ (None Seen); RBC Urine 0-2 /HPF (0-2); Squamous Epithelial Cell Urine 0-2 /HPF (0-2); UACC Culture Trigger YES
== END 2023-09-26 10:02 | disposition home or self-care (01) ==
LOC: HO.LAB 10:01
PROVIDERS: PCP Internal Medicine; Visit Provider Internal Medicine
DX: R30.0 Dysuria (principal)
CPT/HCPCS: 81001; 87086; 87088; 87186

== ENCOUNTER 2023-10-12 10:03 | Outpatient (REF) | payer OTHER, SELFPAY ==
[2023-10-12 10:42] LABS: Appearance Urine Clear; Color Urine Yellow; Glucose Urine UA Negative (Negative); Leukocyte Esterase Urine Moderate (2+) (Negative); Nitrite Urine Negative (Negative); PH 6.5 (5.0-9.0); Specific Gravity - Urine 1.015 (1.005-1.025); UMIC TRIGGER UACC YES; Urine Blood Small (1+) (Negative); Urine Ketones Negative (Negative); Urine Protein Negative (Neg-Trace)
[2023-10-12 10:47] LABS: Bacteria Urine None Seen (None Seen); Hyaline Casts Urine 0-2 /LPF (0-2); UACC Culture Trigger YES; WBC Urine >50 /HPF (0-5)
== END 2023-10-12 10:04 | disposition home or self-care (01) ==
LOC: HO.LAB 10:03
PROVIDERS: Visit Provider Internal Medicine
DX: R30.0 Dysuria (principal)
CPT/HCPCS: 81001; 87086; 87088; 87186

== ENCOUNTER 2023-10-13 15:02 | Outpatient (AMB) | payer OTHER, SELFPAY ==
--- NOTE | 2023-10-13 15:05 | A.OFFVIS_ITS ---
Intake Visit Reasons: 1Y US(09/24)Confirmed Allergies acetaminophen [From Vicodin] Allergy (Intermediate, Verified 08/03/23 14:48) Rash, Hives hydrocodone [From Vicodin] Allergy (Intermediate, Verified 08/03/23 14:48) Rash, Hives morphine [MORPHINE] Allergy (Intermediate, Verified 08/03/23 14:48) BURNING IN CHEST, shortness of breath oxycodone [From PERCOCET] Allergy (Intermediate, Verified 08/03/23 14:48) ITCHINESS pumpkin Allergy (Intermediate, Verified 08/03/23 14:48) Itching ibuprofen Adverse Reaction (Intermediate, Verified 08/03/23 14:48) Stomach Upset Medication List - Last Reconciled 10/13/23 by Salty Gerard MD amitriptyline 25 mg PO BEDTIME cyanocobalamin (vitamin B-12) 1,000 mcg subcut QMONTH 30 days diclofenac sodium 3% 1 appl topical BID PRN lidocaine 5% 1 patch topical DAILY [Multi Vitamin 1 tab PO DAILY] sulfamethoxazole-trimethoprim 800-160 mg (Bactrim DS) 1 tab PO BID 5 days syringe with needle (Syringe) As Directed HPI Comments Details: Farshad GARIBAY is a very pleasant female. She is a patient of Dr Pathak. She is seen for the following urologic conditions. 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 Urolithiasis was diagnosed 06/2017 - had gastric bypass 2015. The patient previously had kidney stones whose composition w unknown. Laboratory investigations include no recent labs. 24 Hour urine evaluation none on file. 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 03/06 , a renal ultrasound, showing no evidence of stones 03/07 , a renal ultrasound, showing no evidence of stones 03/08 , a renal ultrasound 3mm left lower pole - 09/07 renal ultrasound 3 mm left lower pole stone - 09/08 renal ultrasound small bilateral twinkling calcifications - 09/09 Current therapeutic plan will be - yearly imaging [facility] Medical History GERD (gastroesophageal reflux disease) Carpal tunnel syndrome Hypovitaminosis D B12 deficiency Anemia Kidney stones Surgical History S/P fusion of sacroiliac joint History of delivery History of surgery History of nasal surgery History of wisdom tooth extraction Gastric bypass status for obesity Family History Father High cholesterol Diabetes Mother Migraine Obesity Bipolar disorder Mental health disorder Maternal Grandfather Stroke Sister In good health Brother In good health Social History Household Members: Spouse Housing: House Alcohol intake: current Alcohol intake frequency: holidays/special occasions only Patient Tobacco Use Status: Never used Tobacco e-Cigarette/Vaping Use: Never Used Second Hand Smoke Exposure: No service: No Current occupational status: employed 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 Current occupational exposures/hazards: No Cognitive needs: No Hearing needs: No Vision needs: Yes (glasses) Female Reproductive History Menstrual Age of Menarche: 8 Review of Systems Const All systems reviewed & are unremarkable except as noted in HPI and below Reports no additional complaints Resp Reports no additional complaints GI Reports no additional complaints Reports as per HPI Musc Reports no additional complaints Physical Exam Telemedicine evaluation Appropriate responses Regular breathing rate and rhythm HEENT Head: Yes normal to inspection Ears: hearing grossly normal bilaterally Eyes General: appearance normal, both eyes and all related structures Neck Neck: Yes normal visual inspection Chest Chest palpation & inspection: normal inspection of the chest Resp Effort & Inspection: normal respiratory effort and able to speak in complete sentences Telehealth Telehealth Location of provider rendering services: practice address Location of patient: address on file Patient Identification confirmed using: Name, : Yes Telehealth method: voice only Patient verbally consented to treatment: Yes Patient verbally consented to billing insurance company: Yes Patient informed of any privacy concerns related to visit: Yes Assessment & Plan Assessment & Plan (1) Kidney stones: Code(s): N20.0 - Calculus of kidney Category: Medical Plan Twelve month follow-up ultrasound Orders: Orders US renal BI 12 Months N20.0 - Calculus of kidney Medications: Changed From sulfamethoxazole-trimethoprim 800-160 mg 1 tab PO BID 3 days 6 tabs 0RF To sulfamethoxazole-trimethoprim 800-160 mg (Bactrim DS) 1 tab PO BID 10 tabs 0RF 5 days Patient Instructions: Imaging studies, laboratory and physical exam results were discussed and reviewed in detail. No major barriers to patient understanding were identified. An opportunity to ask questions regarding the treatment plan was provided. All questions were answered. The patient expressed understanding and agreement with the above treatment plan. The patient is aware they should contact our office by phone for worsening of their current condition or the appearance of new urologic symptoms. Compliance is encouraged with any medications and followup testing that is ordered. It is a privilege to participate in the urologic care of your patient. If you have any questions or concerns regarding treatment for the above conditions, or other urologic issues, please do not hesitate to contact me. The office teleph one contact is [phone]. This note is constructed using voice recognition software. While every effort has been made to ensure accuracy patient relations representative errors may have been included. Yours sincerely, Dr Salty Gerard MD, [facility] - Urology Providers of Expert, Compassionate Care for the Genitourinary System Coding Level of Care Code Tele Est Pt Level 4 (72449) Diagnoses Kidney stones N20.0
== END 2023-10-13 15:40 | disposition home or self-care (01) ==
LOC: HO.HUSH 15:02
PROVIDERS: PCP Internal Medicine; Visit Provider Urology
DX: N20.0 Calculus of kidney (principal)
CPT/HCPCS: 99213

== ENCOUNTER → 2023-10-13 15:02 | Outpatient (BNVA) | payer OTHER, SELFPAY | PROVIDERS: PCP Internal Medicine; Visit Provider Urology ==

== ENCOUNTER 2023-11-15 14:23 | Outpatient (AMB) | payer OTHER, SELFPAY ==
--- NOTE | 2023-11-15 14:48 | AM.OFFVISNUR ---
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 Allergies acetaminophen [From Vicodin] Allergy (Intermediate, Verified 08/03/23 14:48) Rash, Hives hydrocodone [From Vicodin] Allergy (Intermediate, Verified 08/03/23 14:48) Rash, Hives morphine [MORPHINE] Allergy (Intermediate, Verified 08/03/23 14:48) BURNING IN CHEST, shortness of breath oxycodone [From PERCOCET] Allergy (Intermediate, Verified 08/03/23 14:48) ITCHINESS pumpkin Allergy (Intermediate, Verified 08/03/23 14:48) Itching ibuprofen Adverse Reaction (Intermediate, Verified 08/03/23 14:48) Stomach Upset Coding Assessment & Plan Assessment & Plan Orders: Orders AMB PPD Planted Today Z11.1 - Encounter for screening for respiratory tuberculosis Medications: New tuberculin PPD 0.1 mL intradermal ONCE 0.1 mL 0RF Z11.1 - Encounter for screening for respiratory tuberculosis
--- NOTE | 2023-11-15 14:48 | AM.OFFVISNUR ---
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 unit/0.1 mL intradermal injection solution Performing Provider: Mariela Pathak MD [facility] Administered by: Dawn Jennings RN on 11/15/23 14:49 Dose Route Admin Location Dispensed Lot Number Expiration Date NDC [employer] Consultant 0.1 mL intradermal left RA 0.1 mL [id number] 10/14/26 Coding Assessment & Plan Assessment & Plan Orders: Orders AMB PPD Planted Today Z11.1 - Encounter for screening for respiratory tuberculosis Medications: New tuberculin PPD 0.1 mL intradermal ONCE 0.1 mL 0RF Z11.1 - Encounter for screening for respiratory tuberculosis
== END 2023-11-15 14:54 | disposition home or self-care (01) ==
PROVIDERS: PCP Internal Medicine; Visit Provider Internal Medicine
DX: Z11.1 Encounter for screening for respiratory tuberculosis (principal)
CPT/HCPCS: 86580

== ENCOUNTER 2023-11-24 15:27 | Outpatient (AMB) | payer OTHER, SELFPAY ==
--- NOTE | 2023-11-24 15:28 | MHC.OFFVIS ---
Vital Signs 11/24/23 15:33 Height 5 ft 4 in Weight 213 lb BMI 36.6 BP 134/65 Blood Pressure Location Lt brachial Position Sitting Respiration 16 Pulse 111 H Pulse Source Pulse Oximeter Pulse Oximetry (%) 96 Oxygen Delivery Method Room Air Intake Visit Reasons: MRI FOLLOW UP/RESULTS Allergies acetaminophen [From Vicodin] Allergy (Intermediate, Verified 08/03/23 14:48) Rash, Hives hydrocodone [From Vicodin] Allergy (Intermediate, Verified 08/03/23 14:48) Rash, Hives morphine [MORPHINE] Allergy (Intermediate, Verified 08/03/23 14:48) BURNING IN CHEST, shortness of breath oxycodone [From PERCOCET] Allergy (Intermediate, Verified 08/03/23 14:48) ITCHINESS pumpkin Allergy (Intermediate, Verified 08/03/23 14:48) Itching ibuprofen Adverse Reaction (Intermediate, Verified 08/03/23 14:48) Stomach Upset HPI Comments Details: Patient presents back to the office today for follow-up, review recent MRI MRI reviewed, results as per below Patient continues with left sacroiliac joint pain worse with standing and sitting. Worse with lying on the affected side. Taking tizanidine at bedtime with some improvement. Unable to take during the day as it makes her sleepy. She is taking baclofen during the day. Prior: Farshad is a very pleasant 32 year old female who presents to the office today for evaluation and management of her left lower back pain. Patient had diagnostic left SIJ injection with Dr Lewis at [facility] 06/2022 with at least 80% pain relief in the hours after the procedure, she was referred here for further treatment. HX of Ifusion for left sacroiliitis 11/2019, states pain resolved for 1 year but returned after childbirth. Pain today is rated as 5/10, constant but worse in the evenings. Pain over left PSIS with radiation to left groin and into left thigh, burning pain. At times pain to the left ankle. Pain is worse with sitting or standing for extended periods of time, she is unable to lie on her left side. Unable to take NSAIDs d/t history of gastric bypass surgery, she has been taking Tylenol for the pain with minimal relief. Patient has completed PT in the past but pain persists. Patient denies recent imaging of her SIJ. Her original surgery was performed in [place] but she was told the only place that does revisions is in [place] and her insurance does not [place] providers. In terms of muscle damage condition is described as aching, shooting, hot, burning, stabbing and sharp. Pain is negatively impacting patient's general activity, normal work, sleep, walking [facility] Medical History GERD (gastroesophageal reflux disease) Carpal tunnel syndrome Hypovitaminosis D B12 deficiency Anemia Kidney stones Surgical History S/P fusion of sacroiliac joint History of delivery History of surgery History of nasal surgery History of wisdom tooth extraction Gastric bypass status for obesity Family History Father High cholesterol Diabetes Mother Migraine Obesity Bipolar disorder Mental health disorder Maternal Grandfather Stroke Sister In good health Brother In good health Social History Household Members: Spouse Housing: House Alcohol intake: current Alcohol intake frequency: holidays/special occasions only Patient Tobacco Use Status: Never used Tobacco e-Cigarette/Vaping Use: Never Used Second Hand Smoke Exposure: No service: No Current occupational status: employed 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 Answers questions appropriately. Fully engaged in examination. Skin: warm, dry, intact HEENT: Normocephalic. Hearing intact. Cardiac: External chest normal in appearance. Respiratory: No cough, audible wheezing or stridor. Abdomen: without gross distension. MS: No obvious swelling or deformities. Able to stand on bilateral tiptoes and bilateral heels.? Able to transition from sit to stand unassisted. Ambulates with bilaterally normal heel strike and toe off tender to palpation over left PSIS Douglas positive left SLR neg bilaterally Thigh thrust positive left Gaenslen positive left SI compression positive on the left Neurological: Oriented to person, place, time and situation. Thought process intact. No gait abnormalities appreciated. Psychiatric: Appropriate mood and affect. Good judgment and insight. Results Reviewed Results Reviewed: 10/31/2023 Assessment & Plan Assessment & Plan (1) Sacroiliac joint dysfunction of left side: Code(s): M53.3 - Sacrococcygeal disorders, not elsewhere classified Category: Medical Plan Farshad is a very pleasant 33 year old female who presented to the office today for follow-up left sacroiliac joint dysfunction. MRI reviewed, results as per above Amitriptyline 25mg po qhs, refill sent today Tizanidine 2 mg p.o. as needed. Refill sent today. Patient has greater than 6 months exhausted conservative therapy including PT, NSAIDs, prescription medications, topical medications, steroid injections, SI fusion all without improvement of her pain. Discussed at length the patient's diagnosis and options for treatment including diagnostic interventional testing, epidural steroid injections, peripheral nerve stimulation with Sprint, RFA and more permanent neuromodulation. Informational pamphlets provided. Patient would like to proceed with Curonix PNS trial, she is aware that this would require mental health evaluation. All questions and concerns have been answered and patient agrees with the plan. Follow up after PNS trial, sooner if needed. Medications: Changed From tizanidine Discontinue use methocarbamol. May cause drowsiness, do not drive while taking this medication. Do not take with alcohol or other EVP OPERATIONS depressants. 2 mg PO TID PRN 30 tabs 0RF muscle spasticity To tizanidine May cause drowsiness, do not drive while taking this medication. Do not take with alcohol or other EVP OPERATIONS depressants. 2 mg PO TID PRN 30 tabs 3RF muscle spasticity Refilled amitriptyline 25 mg PO BEDTIME 30 tabs 1RF Coding Level of Care Code Est Pt Level 3 (03230) Diagnoses Sacroiliac joint dysfunction of left side M53.3
[2023-11-24 15:33] VITALS: BP 134/65; PULSE 111; RESP 16; O2SAT 96; BMI 36.6
== END 2023-11-24 15:50 | disposition home or self-care (01) ==
PROVIDERS: PCP Internal Medicine; Visit Provider Registered Nurse Emergency
DX: M53.3 Sacrococcygeal disorders, not elsewhere classified (principal)
CPT/HCPCS: 99213

== ENCOUNTER → 2023-11-24 15:27 | Outpatient (BNVA) | payer OTHER, SELFPAY | PROVIDERS: PCP Internal Medicine; Visit Provider Registered Nurse Emergency | DX: M53.3 Sacrococcygeal disorders, not elsewhere classified (principal) | CPT/HCPCS: 99212 ==

== ENCOUNTER → 2024-01-16 14:54 | Outpatient (BNVA) | payer SELFPAY | PROVIDERS: PCP Internal Medicine | DX: Z02.83 Encounter for blood-alcohol and blood-drug test (principal) ==

== ENCOUNTER 2024-01-24 17:11 | Outpatient (AMB) | payer OTHER, SELFPAY ==
[2024-01-24 17:18] VITALS: BP 120/80; BMI 36.7
--- NOTE | 2024-01-24 17:18 | A.OFFPC_ITS ---
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 Accompanied by: Self / Same As Patient Allergies acetaminophen [From Vicodin] Allergy (Intermediate, Verified 01/24/24 17:25) Rash, Hives hydrocodone [From Vicodin] Allergy (Intermediate, Verified 01/24/24 17:25) Rash, Hives morphine [MORPHINE] Allergy (Intermediate, Verified 01/24/24 17:25) BURNING IN CHEST, shortness of breath oxycodone [From PERCOCET] Allergy (Intermediate, Verified 01/24/24 17:25) ITCHINESS pumpkin Allergy (Intermediate, Verified 01/24/24 17:25) Itching ibuprofen Adverse Reaction (Intermediate, Verified 01/24/24 17:25) Stomach Upset Medication List - Last Reconciled 01/24/24 by Mariela Pathak MD amitriptyline 25 mg PO BEDTIME cyanocobalamin (vitamin B-12) 1,000 mcg subcut QMONTH 30 days diclofenac sodium 3% 0.1 grams topical BID PRN lidocaine 5% 1 patch topical DAILY [Multi Vitamin 1 tab PO DAILY] semaglutide (weight loss) (Wegovy) 0.25 mg (0.5 mL) subcut QWEEK 4 weeks syringe with needle (Syringe) As Directed tizanidine 2 mg PO TID PRN Tobacco use date assessed: 08/03/23 Dental Screening Dental Screen Date: 08/03/23 HPI HPI Comments History of Present Illness Details This is a 33-year-old female that complains of her weight gain. She had bariatric surgery 2015 and last weight management visit was last year. She has been gaining weight and trying to do diet and exercise with no significant improvement. She will benefit from wegovy due to having fatigue and tiredness after her weight increased. [facility] Medical History GERD (gastroesophageal reflux disease) Carpal tunnel syndrome Hypovitaminosis D B12 deficiency Anemia Kidney stones Surgical History S/P fusion of sacroiliac joint History of delivery History of surgery History of nasal surgery History of wisdom tooth extraction Gastric bypass status for obesity Family History Father High cholesterol Diabetes Mother Migraine Obesity Bipolar disorder Mental health disorder Maternal Grandfather Stroke Sister In good health Brother In good health Social History (Updated 01/24/24 @ 17:30 by Mariela Pathak MD) Household Members: Spouse Housing: House Alcohol intake: current Alcohol intake frequency: holidays/special occasions only Alcohol type: beer Patient Tobacco Use Status: Never used Tobacco e-Cigarette/Vaping Use: Never Used Second Hand Smoke Exposure: No service: No Current occupational status: employed 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 Bassam Feldman, Steph Nichole, Rian Nunez and colleagues, with an educational christian from [employer]. Review of Systems Const All systems reviewed & are unremarkable except as noted in HPI and below Card Denies chest pain at rest, Denies chest pain with activity, Denies edema, Denies irregular heart rhythm, Denies claudication, Denies dyspnea, Denies dyspnea on exertion, Denies orthopnea, Denies paroxysmal nocturnal dyspnea and Denies slow heart rate Resp Denies cough, Denies dyspnea and Denies dyspnea on exertion Physical exam (Primary Care) Vital Signs: Last Vital Signs BP 120/80 01/24/24 17:18 BMI result Body Mass Index 36.7 Tobacco/Smoking Status: Tobacco use Status Tobacco use date assessed 08/03/23 01/24/24 17:21 Patient Tobacco Use Status Never used Tobacco 01/24/24 17:30 e-Cigarette/Vaping Use Never Used 01/24/24 17:30 Thrive Assessment: Date of Thrive Assessment Date Thrive assessed 08/03/23 01/24/24 17:21 Resp Effort & Inspection: normal respiratory effort Auscultation: clear to auscultation bilaterally Cardio Jugular venous distension: no JVD Rate: regular rate Rhythm: regular rhythm Heart sounds: S1 normal heart sound present and S2 normal heart sound present Extrem General: Yes full ROM Assessment and Plan Assessment & Plan (1) Class 2 obesity with body mass index (BMI) of 36.0 to 36.9 in adult: Code(s): E66.9 - Obesity, unspecified; Z68.36 - Body mass index [BMI] 36.0-36.9, adult Plan: Start Wegovy. BMI goal is less than 30. Orders: Orders Comprehensive [place]. Panel Fast Today E66.9 - Obesity, unspecified, Z68.36 - Body mass index [BMI] 36.0-36.9, adult Vitamin B12 and Folate Today E53.8 - Deficiency of other specified B group vitamins Lipid Panel Today E66.9 - Obesity, unspecified, E78.5 - Hyperlipidemia, unspecified, Z68.36 - Body mass index [BMI] 36.0-36.9, adult Thyroid Stimulating Hormone Today E66.9 - Obesity, unspecified, Z68.36 - Body mass index [BMI] 36.0-36.9, adult Vitamin D 25-OH Total Today E55.9 - Vitamin D deficiency, unspecified Medications: Refilled semaglutide (weight loss) (Wegovy) administer weeks 1 through 4 of therapy 0.25 mg (0.5 mL) subcut QWEEK 2 mL 0RF 4 weeks E66.9 - Obesity, unspecified Coding Level of Care Code Est Pt Level 3 (21044) Complex EM visit Add On G2211 Diagnoses Class 2 obesity with body mass index (BMI) of 36.0 to 36.9 in adult E66.9; Z68.36 Time Spent (min) 19
== END 2024-01-24 17:28 | disposition home or self-care (01) ==
PROVIDERS: PCP Internal Medicine; Visit Provider Internal Medicine
DX: E66.9 Obesity, unspecified (principal); Z68.36 Body mass index [BMI] 36.0-36.9, adult
CPT/HCPCS: 99213; G2211

== ENCOUNTER 2024-01-25 10:14 | Outpatient (REF) | payer OTHER, SELFPAY ==
[2024-01-25 11:50] LABS: Alanine Aminotransferase 12 U/L (0-31); Albumin Level 3.8 g/dL (3.5-5.0); Alkaline Phosphatase 86 U/L (39-117); Anion Gap 8 (12-20); Aspartate Amino Transferase 16 U/L (5-31); Bilirubin Total 0.3 mg/dL (0.0-1.0); Blood Urea Nitrogen 11 mg/dL (9-16); Calcium 9.2 mg/dL (8.4-10.2); Carbon Dioxide 29 mmol/L (22-29); Chloride 107 mmol/L (96-108); Cholesterol 151 mg/dL (<200); Estimated Glomerular Filt Rate > 60; Glucose Fasting 94 mg/dL (60-99); HDL Cholesterol 60 mg/dL (>40); LDL Cholesterol Calculated 80 mg/dL (<100); Potassium 3.6 mmol/L (3.3-5.1); Sodium 140 mmol/L (135-145); Total Protein 7.1 g/dL (6.5-8.0); Triglycerides 55 mg/dL (<150)
[2024-01-25 11:57] LABS: Thyroid Stimulating Hormone 1.26 uIU/mL (0.32-4.0); Vitamin D 25-OH Total 15.7 ng/mL (>30)
[2024-01-25 11:59] LABS: Appearance Urine Cloudy; Color Urine Yellow; Glucose Urine UA Negative (Negative); Leukocyte Esterase Urine Small (1+) (Negative); Nitrite Urine Positive (Negative); PH 5.5 (5.0-9.0); Specific Gravity - Urine 1.025 (1.005-1.025); UMIC TRIGGER UACC YES; Urine Blood Negative (Negative); Urine Ketones Trace mg/dL (Negative); Urine Protein Negative (Neg-Trace)
[2024-01-25 12:02] LABS: Bacteria Urine 4+ (None Seen); Hyaline Casts Urine 0-2 /LPF (0-2); RBC Urine 0-2 /HPF (0-2); UACC Culture Trigger YES; WBC Urine 21-50 /HPF (0-5)
[2024-01-25 12:14] LABS: Folate 8.6 ng/mL (> or = 4.0); Vitamin B12 319 pg/mL (200-900)
== END 2024-01-25 10:15 | disposition home or self-care (01) ==
LOC: HO.LAB 10:14
PROVIDERS: PCP Internal Medicine; Visit Provider Internal Medicine
DX: E66.9 Obesity, unspecified (principal); Z68.36 Body mass index [BMI] 36.0-36.9, adult; E53.8 Deficiency of other specified B group vitamins; E78.5 Hyperlipidemia, unspecified; E55.9 Vitamin D deficiency, unspecified
CPT/HCPCS: 36415; 80053; 80061; 81001; 82306; 82607; 82746; 84443; 87086; 87088; 87186

== ENCOUNTER 2024-03-20 12:19 | Outpatient (REF) | payer OTHER, SELFPAY ==
--- NOTE | ~2024-03-20 | XR_ITS ---
EXAMINATION: XR SHOULDER, RIGHT CLINICAL INFORMATION: Right shoulder pain. Rotator cuff strain. COMPARISON: None available. TECHNIQUE: AP and scapular Y views of the right shoulder. FINDINGS: The bones and soft tissues are normal. No fracture. Glenohumeral and acromioclavicular alignment is anatomic with normal joint space. No abnormal soft tissue calcifications. XR/XR shoulder RT min 2V IMPRESSION: Unremarkable examination. Electronically signed by: Jarocho Clayton MD 04/02/2024 08:53 PM EDT
== END 2024-03-20 12:20 | disposition home or self-care (01) ==
LOC: HO.XRAY 12:19
PROVIDERS: PCP Internal Medicine; Visit Provider Physician Assistant
DX: S46.011A Strain of muscle(s) and tendon(s) of the rotator cuff of right shoulder, initial encounter (principal)
CPT/HCPCS: 73030

== ENCOUNTER 2024-05-30 13:10 | Outpatient (AMB) | payer OTHER, SELFPAY ==
--- NOTE | 2024-05-30 13:12 | A.OFFVIS_ITS ---
Vital Signs 3 05/30/24 13:19 Height 5 ft 4 in Weight 194 lb 6 oz BMI 33.4 BP 131/62 Blood Pressure Location Rt brachial Position Sitting Pulse 96 Pulse Source Pulse Oximeter Pulse Oximetry (%) 100 Oxygen Delivery Method Room Air Intake Visit Reasons: discuss injections Intake Note: Pain today 11/26 Management Technician Required: No Accompanied by: Self / Same As Patient Allergies acetaminophen [From Vicodin] Allergy (Intermediate, Verified 05/30/24 13:20) Rash, Hives hydrocodone [From Vicodin] Allergy (Intermediate, Verified 05/30/24 13:20) Rash, Hives morphine [MORPHINE] Allergy (Intermediate, Verified 05/30/24 13:20) BURNING IN CHEST, shortness of breath oxycodone [From PERCOCET] Allergy (Intermediate, Verified 05/30/24 13:20) ITCHINESS pumpkin Allergy (Intermediate, Verified 05/30/24 13:20) Itching ibuprofen Adverse Reaction (Intermediate, Verified 05/30/24 13:20) Stomach Upset HPI Comments Details: Patient presents back to the office today for follow-up left sacroiliac joint dysfunction Continues with left SI J pain worse with standing, sitting and lying on her left side She previously underwent a diagnostic left SI joint injection with Dr. Lewis where she reported 80% pain relief with improvement in functional mobility. Has been taking tizanidine and amitriptyline at bedtime with some improvement. Also using lidocaine patches and diclofenac cream. Denies any new injury, fall, trauma. Unable to take oral nonsteroidal anti-inflammatory medications due to history of gastric bypass Prior: Patient presents back to the office today for follow-up, review recent MRI MRI reviewed, results as per below Patient continues with left sacroiliac joint pain worse with standing and sitting. Worse with lying on the affected side. Taking tizanidine at bedtime with some improvement. Unable to take during the day as it makes her sleepy. She is taking baclofen during the day. Prior: Farshad is a very pleasant 32 year old female who presents to the office today for evaluation and management of her left lower back pain. Patient had diagnostic left SIJ injection with Dr Lewis at [facility] 06/2022 with at least 80% pain relief in the hours after the procedure, she was referred here for further treatment. HX of Ifusion for left sacroiliitis 11/2019, states pain resolved for 1 year but returned after childbirth. Pain today is rated as 5/10, constant but worse in the evenings. Pain over left PSIS with radiation to left groin and into left thigh, burning pain. At times pain to the left ankle. Pain is worse with sitting or standing for extended periods of time, she is unable to lie on her left side. Unable to take NSAIDs d/t history of gastric bypass surgery, she has been taking Tylenol for the pain with minimal relief. Patient has completed PT in the past but pain persists. Patient denies recent imaging of her SIJ. Her original surgery was performed in [place] but she was told the only place that does revisions is in [place] and her insurance does not cover [facility] of [facility] providers. In terms of muscle damage condition is described as aching, shooting, hot, burning, stabbing and sharp. Pain is negatively impacting patient's general activity, normal work, sleep, walking [facility] Medical History GERD (gastroesophageal reflux disease) Carpal tunnel syndrome Hypovitaminosis D B12 deficiency Anemia Kidney stones Surgical History S/P fusion of sacroiliac joint History of delivery History of surgery History of nasal surgery History of wisdom tooth extraction Gastric bypass status for obesity Family History Father High cholesterol Diabetes Mother Migraine Obesity Bipolar disorder Mental health disorder Maternal Grandfather Stroke Sister In good health Brother In good health Social History (Updated 01/24/24 @ 17:30 by Mariela Pathak MD) Household Members: Spouse Housing: House Alcohol intake: current Alcohol intake frequency: holidays/special occasions only Alcohol type: beer Patient Tobacco Use Status: Never used Tobacco e-Cigarette/Vaping Use: Never Used Second Hand Smoke Exposure: No service: No Current occupational status: employed 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 Answers questions appropriately. Fully engaged in examination. Skin: warm, dry, intact HEENT: Normocephalic. Hearing intact. Cardiac: External chest normal in appearance. Respiratory: No cough, audible wheezing or stridor. Abdomen: without gross distension. MS: No obvious swelling or deformities. Able to stand on bilateral tiptoes and bilateral heels.? Able to transition from sit to stand unassisted. Ambulates with bilaterally normal heel strike and toe off tender to palpation over left PSIS Douglas positive left SLR neg bilaterally Thigh thrust positive left Gaenslen positive left SI compression positive on the left Neurological: Oriented to person, place, time and situation. Thought process intact. No gait abnormalities appreciated. Psychiatric: Appropriate mood and affect. Good judgment and insight. Results Reviewed Results Reviewed: 10/31/2023 Assessment & Plan Assessment & Plan (1) Sacroiliac joint dysfunction of left side: Code(s): M53.3 - Sacrococcygeal disorders, not elsewhere classified Category: Medical Plan Farshad presented back to the office today for follow-up left sacroiliac joint dysfunction Discontinue amitriptyline. New prescription for Lyrica 25 mg p.o. twice daily. Patient advised on cautions for use Continue with Tizanidine 2 mg p.o. as needed. Continue with lidocaine patches and topical diclofenac as needed for pain Patient has greater than 6 months exhausted conservative therapy including PT, NSAIDs, prescription medications, topical medications, steroid injections, SI fusion all without improvement of her pain. Will schedule for fluoroscopy guided left therapeutic SI joint injection with local anesthetic. Patient will require Ativan 1 mg oral tablet preprocedure. Also discussed at length the patient's diagnosis and options for treatment including peripheral nerve stimulation with Curonix PNS. Informational pamphlets provided. She is aware that this would require mental health evaluation, she has her own mental health provider who would facilitate this for her. She would like to wait for the PNS trial until the semester at school is completed All questions and concerns have been answered and patient agrees with the plan. Follow up after injection, sooner if needed. Medications: New 2 pregabalin (Lyrica) May cause drowsiness. No driving while taking this medication. Do not take with alcohol or other PAINTER ROUGH suppressants. 25 mg PO BID 60 caps 2RF Coding Level of Care Code Est Pt Level 3 (47327) Complex EM visit Add On G2211 Diagnoses Sacroiliac joint dysfunction of left side M53.3
[2024-05-30 13:19] VITALS: BP 131/62; PULSE 96; O2SAT 100; BMI 33.4
== END 2024-05-30 14:01 | disposition home or self-care (01) ==
PROVIDERS: PCP Internal Medicine; Visit Provider Registered Nurse Emergency
DX: M53.3 Sacrococcygeal disorders, not elsewhere classified (principal)
CPT/HCPCS: 99213; G2211

== ENCOUNTER → 2024-05-30 13:10 | Outpatient (BNVA) | payer OTHER, SELFPAY | PROVIDERS: PCP Internal Medicine; Visit Provider Registered Nurse Emergency | DX: M53.3 Sacrococcygeal disorders, not elsewhere classified (principal) | CPT/HCPCS: 99212 ==

== ENCOUNTER 2024-06-20 14:48 | Outpatient (AMB) | payer OTHER, SELFPAY ==
--- NOTE | 2024-06-20 15:01 | MHC.PC.OV ---
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 Required: No Accompanied by: Self / Same As Patient Allergies acetaminophen [From Vicodin] Allergy (Intermediate, Verified 06/20/24 15:23) Rash, Hives hydrocodone [From Vicodin] Allergy (Intermediate, Verified 06/20/24 15:23) Rash, Hives morphine [MORPHINE] Allergy (Intermediate, Verified 06/20/24 15:23) BURNING IN CHEST, shortness of breath oxycodone [From PERCOCET] Allergy (Intermediate, Verified 06/20/24 15:23) ITCHINESS pumpkin Allergy (Intermediate, Verified 06/20/24 15:23) Itching ibuprofen Adverse Reaction (Intermediate, Verified 06/20/24 15:23) Stomach Upset Medication List - Last Reconciled 06/20/24 by Mariela Pathak MD amitriptyline 25 mg PO BEDTIME cholecalciferol (vitamin D3) 50 mcg PO DAILY 90 days cyanocobalamin (vitamin B-12) 1,000 mcg subcut QMONTH 30 days diclofenac sodium 3% 0.1 grams topical BID PRN lidocaine 5% 1 patch topical DAILY [Multi Vitamin 1 tab PO DAILY] pregabalin (Lyrica) 25 mg PO BID semaglutide (weight loss) (Wegovy) 1 mg (0.5 mL) subcut Q7D 4 weeks semaglutide (weight loss) (Wegovy) 1.7 mg (0.75 mL) subcut QWEEK 4 weeks syringe with needle (Syringe) As Directed tizanidine 2 mg PO TID PRN Tobacco use date assessed: 08/03/23 Dental Screening Dental Screen Date: 06/20/24 Did you have a dental visit in the last 12 months?: Yes Did you have a dental problem in the last 6 months where you did not have access to dental care?: No Was dental information given to patient?: Patient has dentist HPI HPI Comments History of Present Illness Details The patient is a 33-year-old female presenting with chronic cough and weight management concerns. The cough has been persistent for approximately two and a half weeks, predominantly dry and occurring mainly at night. The patient suspects this may be related to allergies, as her allergy injections were halted during , and she has not resumed them due to needing a new referral. The patient has a history of nasal surgery for polyps, previously managed by an ENT. She underwent gastric bypass surgery in 2015 for obesity and has been monitoring her weight closely, noting a significant improvement since the surgery. Recent weights were recorded as 189 pounds today with a BMI of 32.5, compared to 194 pounds on May 30 with a BMI of 33.4, and 214 pounds on January 23 with a BMI of 36.7. She underwent a sacroiliac joint fusion in 2019. [facility] Medical History GERD (gastroesophageal reflux disease) Carpal tunnel syndrome Hypovitaminosis D B12 deficiency Anemia Kidney stones Surgical History S/P fusion of sacroiliac joint History of delivery History of surgery History of nasal surgery History of wisdom tooth extraction Gastric bypass status for obesity Family History Father High cholesterol Diabetes Mother Migraine Obesity Bipolar disorder Mental health disorder Maternal Grandfather Stroke Sister In good health Brother In good health Social History Household Members: Spouse Housing: House Alcohol intake: current Alcohol intake frequency: holidays/special occasions only Alcohol type: beer Patient Tobacco Use Status: Never used Tobacco e-Cigarette/Vaping Use: Never Used Second Hand Smoke Exposure: No service: No Current occupational status: employed 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 1. Little interest or pleasure in doing things: not at all 2. Feeling down, depressed, or hopeless: not at all 3. Trouble falling or staying asleep, or sleeping too much: not at all 4. Feeling tired or having little energy: not at all 5. Poor appetite or overeating: not at all 6. Feeling bad about yourself - or that you are a failure or have let yourself or your family down: not at all 7. Trouble concentrating on things, such as reading the newspaper or watching television: not at all 8. Moving or speaking so slowly that other people could have noticed. Or the opposite - being so fidgety or restless that you have been moving around a lot more than usual: not at all 9. Thoughts that you would be better off or of hurting yourself in some way: not at all Total score: 0 Depression Screening Interpretation: Negative Depression Screening Done: Yes 06484 - PHQ-9 Billing: Yes Source: Developed by Drs. Bassam Feldamn, Steph Nichole, Rian Nunez and colleagues, with an educational chritsian from [employer]. Thrive Questionnaire Date Thrive assessed: 06/20/24 I am a: Patient What is your living situation today?: I have a steady place to live Within the past 12 months, did the food you bought not last and you didn't have the money to get more?: Never true Within the past 12 months, did you worry whether your food would run out before you got money to buy more?: Never true Do you have trouble paying for medicines?: No Do you have trouble getting transportation to medical appointments?: No Do you have trouble paying your heating and electricity bill?: No Do you have trouble taking care of your child, family member or friend?: No Do you have trouble with day-to-day activities such as bathing, preparing meals, shopping, managing finances, etc.?: No Are you currently unemployed and looking for a job?: No Are you interested in more education?: No Please select the resources that you would like help with: None Currently or been in a relationship where the following occur: No concerns reported THRIVE Score: 0 AUDIT C Alcohol Use Questionnaire (AUDIT-C) 1. How often do you have a drink containing alcohol?: Monthly or less 2. How many drinks containing alcohol do you have on a typical day when you are drinking?: 1 or 2 3. How often do you have six or more drinks on one occasion?: Never Total Score: 1 Score Reviewed/Action Taken: No ESME-7 AMB Questionnaire ESME-7 Date ESME - 7 assessed: 06/20/24 Feeling nervous, anxious, or on edge: 0 = Not at all Not being able to stop or control worryin = Not at all Worrying too much about different things: 0 = Not at all Trouble relaxin = Not at all Being so restless that it is hard to sit still: 0 = Not at all Becoming easily annoyed or irritable: 0 = Not at all Feeling afraid as if something awful might happen: 0 = Not at all Total ESME-7 score (0-4 normal; 5-9 mild; 10-14 moderate; 15-21 severe): 0 Source: Developed by Drs. Bassam Feldman, Steph Nichole, Rian Nunez and colleagues, with an educational christian from [employer]. ESME-7 Assessment Billing ESME-7 Assessment Tool: ESME-7 Assessment 68720 Review of Systems Const All systems reviewed & are unremarkable except as noted in HPI and below Card Denies chest pain at rest, Denies chest pain with activity, Denies edema, Denies irregular heart rhythm, Denies claudication, Denies dyspnea, Denies dyspnea on exertion, Denies orthopnea, Denies paroxysmal nocturnal dyspnea and Denies slow heart rate Resp Denies cough, Denies dyspnea and Denies dyspnea on exertion GI Denies abdominal pain, Denies change in bowel habits, Denies excessive flatus, Denies nausea and Denies vomiting Denies urinary incontinence, Denies urinary hesitancy and Denies urinary urgency Neuro Denies behavioral changes and Denies lack of coordination Psych Denies behavioral changes Physical exam (Primary Care) Vital Signs: Last Vital Signs Pulse 104 H 06/20/24 15:03 BP 106/70 06/20/24 15:03 Pulse Ox 98 06/20/24 15:03 Oxygen Delivery Method Room Air 06/20/24 15:03 BMI result Body Mass Index 32.5 BMI Assessment/Plan discussion: High BMI High, discussed plan: lifestyle, weight reduction, dietary and physical activity Tobacco/Smoking Status: Tobacco use Status Tobacco use date assessed 08/03/23 06/20/24 15:01 Patient Tobacco Use Status Never used Tobacco 06/20/24 15:01 e-Cigarette/Vaping Use Never Used 06/20/24 15:01 PHQ-9: PHQ-9 Score PHQ-9: Total score 0 06/20/24 15:25 Depression Screening Interpretation: Negative Thrive Assessment: Date of Thrive Assessment Date Thrive assessed 06/20/24 06/20/24 15:11 Currently or been in a relationship where the following occur: No concerns reported Resp Effort & Inspection: normal respiratory effort Auscultation: clear to auscultation bilaterally Cardio Jugular venous distension: no JVD Rate: regular rate Rhythm: regular rhythm Heart sounds: S1 normal heart sound present and S2 normal heart sound present Extrem General: Yes full ROM Coding Level of Care Code Est Pt Level 3 (03885) Complex EM visit Add On G2211 Diagnoses Allergic rhinitis J30.9 Obesity E66.9 Additional Codes ESME-7 Assessment Billing - ESME-7 Assessment Tool: ESME-7 Assessment 67081 ([id number]) PHQ-9 - 31336 - PHQ-9 Billing: Yes ([id number]) Time Spent (min) 19 Assessment & Plan Assessment & Plan (1) Allergic rhinitis: Code(s): J30.9 - Allergic rhinitis, unspecified Category: Medical (2) Obesity: Code(s): E66.9 - Obesity, unspecified Category: Medical Plan - Continue monitoring weight and evaluate the effectiveness of current weight management strategies. - Refer to ENT for re-evaluation and management of potential allergic rhinitis and nasal issues. - Address the insurance-mandated medication adjustment and initiate treatment following standard dosing protocols. - Schedule fasting blood work in preparation for next month's appointment. Patient was informed and verbally consented to the use of an ambient scribe for clinic note documentation during this visit. I discussed with the patient the persistent dry cough and its possible relation to her previous history of nasal polyps and allergies. We went over the importance of resuming her allergy management, including getting a referral back to ENT. I informed her about the insurance requirements regarding her weight management medication and advised starting on the lowest dose for safety. Follow-up blood work will assess her nutritional status post-bariatric surgery. We agreed on these management plans and she is to follow up next month for her physical exam. Orders: Orders Complete Blood Count Auto Diff Today D64.9 - Anemia, unspecified Lipid Panel Today E66.9 - Obesity, unspecified, Z68.36 - Body mass index [BMI] 36.0-36.9, adult Comprehensive Met. Panel Today E66.9 - Obesity, unspecified, Z68.36 - Body mass index [BMI] 36.0-36.9, adult Vitamin D 25-OH Total Today E55.9 - Vitamin D deficiency, unspecified IRON PROFILE Today D64.9 - Anemia, unspecified Vitamin B12 and Folate Today E53.8 - Deficiency of other specified B group vitamins Referrals Ear/Nose/Throat Referral J30.9 - Allergic rhinitis, unspecified Medications: New tirzepatide (weight loss) (Zepbound) for 4 weeks 2.5 mg (0.5 mL) subcut QWEEK 4 weeks 2 mL 0RF E66.9 - Obesity, unspecified, Z68.36 - Body mass index [BMI] 36.0-36.9, adult Discontinued semaglutide (weight loss) (Zachary) Discontinued Reason: Patient Completed Course 1 mg (0.5 mL) subcut Q7D 4 weeks 2 mL 0RF amitriptyline Discontinued Reason: Patient Completed Course 25 mg PO BEDTIME 30 tabs 1RF Patient Instructions: - Continue with current medication regimen and wait for further instructions about medication adjustments. - Attend the ENT referral for evaluation of nasal and allergy issues. - Complete fasting blood work as ordered prior to the next appointment. - Maintain current dietary practices post-bariatric surgery to support weight management.
[2024-06-20 15:03] VITALS: BP 106/70; PULSE 104; O2SAT 98; BMI 32.5
== END 2024-06-20 15:54 | disposition home or self-care (01) ==
PROVIDERS: PCP Internal Medicine; Visit Provider Internal Medicine
DX: J30.9 Allergic rhinitis, unspecified (principal); E66.9 Obesity, unspecified; Z68.32 Body mass index [BMI] 32.0-32.9, adult

== ENCOUNTER 2024-08-06 10:10 | Outpatient (REF) | payer OTHER, SELFPAY ==
[2024-08-06 10:36] LABS: MANUAL DIFF FLAG NO
--- OUTSIDE RECORDS SUMMARY | 2024-08-06 11:05 | XMS_ITS | Clinical Summary ---
Author Organization [facility] Address [address] [place] [address] Care Team Providers Care Liquor Commissioner Name Role Phone Provider, Luz PARKS Primary Care Provider Un available Social History Tobacco Use Types Packs/Day Years Used Date Smoking Tobacco: Never Assessed Sex and Gender Information Value Date Recorded Sex Assigned at Not on file Gender Identity Not on file Sexual Orientation Not on file Plan of Treatment Health Maintenance Due Date Last Done Comments Hepatitis C Virus Screening 1989 HIV Screening 2002 DTaP/Tdap/Td Vaccines (1 - Tdap) 2008 Hepatitis B Vaccines (1 of 3 - 19+ 3-dose series) 2008 COVID-19 Vaccine (2023-2 5 season) 2024 HPV Vaccines Aged Out No longer eligi ble based on patient's age to complete this topic Pneumococcal Vaccine: Pediat varghese (0-5 Years) and At-Risk Patients (6 to 49 Years) Aged Out No longer eligible b ased on patient's age to complete this topic Care Teams Liquor Commissioner Relationship Specialty Start Date End Date ProviderLuz MD PCP - General 05/07/19
--- OUTSIDE RECORDS SUMMARY | 2024-08-06 11:05 | XMS_ITS | Encounter Summary ---
Author Organization [facility] Address [address] [place] [address] Care Team Providers Care Cast Shell Grinder Name Role Phone Provider, Luz PARKS Primary Care Provider Un available Encounter Details Date Type Department Care Team (Late st Contact Info) Description 06/18/[address] [facility] Neurosurgery [address] [place] [address] Dev Durant MD [address] [address] Social History Tobacco Use Types Packs/Day Years Used Date Smoking Tobacco: Never Assessed Sex and Gender Information Value Date Recorded Sex Assigned at Not on file Gender Identity Not on file Sexual Orientation Not on file documented as of this encounter Plan of Treatment Not on file documented as of this encounter Visit Diagnoses Not on filedocumented in this encounter Care Teams Cast Shell Grinder Relationship Specialty Start Date End Date ProviderLuz MD PCP - General 05/07/19 documented as of this encounter
--- OUTSIDE RECORDS SUMMARY | 2024-08-06 11:05 | XMS_ITS | Clinical Summary ---
Author Organization [employer] Address [address] [place] [address] Care Team Providers Care Regional Director Of Finance Name Role Phone Unavailable Primary Care Provider Unavailabl e Social History Tobacco Use Types Packs/Day Years Used Date Smoking Tobacco: Never Assessed Comments Unknown Sex and Gender Information Value Date Recorded Sex Assigned at Female 04/18/2022 10:20 AM EDT Legal Sex Female 10:20 AM EDT Gender Identity Not on file Sexual Orientation Straight 04/18/2022 10 :20 AM EDT Plan of Treatment Health Maintenance Due Date Last Done Comments Depression Screening 1989 Alcohol/Substance Use Screening 2001 Tobacco Screening 2001 Family Planning (PISQ) 2004 Pap Smear 2010 Cervical Cancer Screening 2019 HPV/Cotest 2019 DTaP/Tdap/Td Vaccines (8 - Td or Tdap) 10/11/2020 10/11/2010, 05/07/2008, 09/03/2001, Additional history exists COVID-19 Vaccine (2023- season) 2024 Influenza Vaccine (#1) 2024 9, 05/07/2008, 05/17/2007 Zoster Vaccines (1 of 2) 2039 RSV Patients and Patients Aged 60 years or older (1 - 1-dose 75+ series) 2064 HIB Vaccines Aged Out 10/17/1990 No longer eligi ble based on patient's age to complete this topic IPV Vaccines Completed 01/05/1994, 06/1991, 1989, Additional history exists HPV Vaccines Completed 09/08/2008, 04/19, 07/26/2007 Hepatitis B Vaccines Completed 03/10/2011, 10/11/2010, 04/08/2002, Additional history exists Hepatitis A Vaccines Aged Out No long er eligible based on patient's age to complete this topic Meningococcal Vaccine Aged Out No gerald samantha eligible based on patient's age to complete this topic Pneumococcal Vaccine: Pediatrics (0 to 5 Years) and At-Risk Patients (6 to 49) Years) Aged Out No longer eligible based on patient's age to complete this topic RSV under 20 months Aged Out No longe r eligible based on patient's age to complete this topic Rotavirus Vaccines Aged Out No longer eligible based on patient's age to complete this topic
--- OUTSIDE RECORDS SUMMARY | 2024-08-06 11:05 | XMS_ITS | Encounter Summary ---
Author Organization [facility] [employer] [facility] Address [address] [place] [address] Care Team Providers Care Bag Valver Name Role Phone Unavailable Primary Care Provider Unavailabl e Encounter Details Date Type Department Care Team (Latest Contact Info) Description 08/21/2019 Abstract C CONVERSIONS Dental, Provider, DDS Social History Tobacco Use Types Packs/Day Years Used Date Smoking Tobacco: Never Assessed Comments Unknown Sex and Gender Information Value Date Recorded Sex Assigned at Female 04/18/2022 10:20 AM EDT Legal Sex Female 10:20 AM EDT Gender Identity Not on file Sexual Orientation Straight 04/18/2022 10 :20 AM EDT documented as of this encounter Plan of Treatment Not on file documented as of this encounter Visit Diagnoses Not on filedocumented in this encounter
[2024-08-06 11:21] LABS: Basophils Percent Auto 0.6 % (0-2); Eosinophils Absolute Auto 0.1 X10*3/uL (0.0-0.4); Eosinophils Percent Auto 1.9 % (0-4); Hematocrit 38.6 % (37.0-47.0); Hemoglobin 12.2 g/dl (12.0-16.0); Imm Gran Abs Auto 0.02 X10*3/uL (0.00-0.03); Imm Gran Pct Auto 0.3 % (0.0-0.4); Lymphocytes Absolute Auto 2.1 X10*3/uL (1.2-4.9); Lymphocytes Percent Auto 30.7 % (20-40); Mean Corpuscular HGB Conc 31.6 g/dl (31.0-35.0); Mean Corpuscular Volume 88.5 fL (80.0-98.0); Mean Platelet Volume 9.9 fL (9.4-12.3); Monocytes Absolute Auto 0.6 X10*3/uL (0.1-1.2); Monocytes Percent Auto 8.2 % (2-11); Neutrophils Percent Auto 58.3 % (45-73); Platelet Count 317 X10*3/uL (160-400); Red Blood Count 4.36 X10*6/uL (4.20-5.50); Red Cell Distribution Width 13.4 % (11.0-16.0); White Blood Count 6.9 X10*3/uL (4.8-10.8)
[2024-08-06 11:26] LABS: Appearance Urine Clear; Color Urine Yellow; Glucose Urine UA Negative (Negative); Leukocyte Esterase Urine Negative (Negative); Nitrite Urine Negative (Negative); PH 5.5 (5.0-9.0); Specific Gravity - Urine >= 1.030 (1.005-1.025); Urine Blood Negative (Negative); Urine Ketones Negative (Negative); Urine Protein Negative (Neg-Trace)
[2024-08-06 12:09] LABS: Alanine Aminotransferase 9 U/L (0-31); Alkaline Phosphatase 92 U/L (39-117); Anion Gap 11 (12-20); Aspartate Amino Transferase 18 U/L (5-31); Bilirubin Total 0.4 mg/dL (0.0-1.0); Blood Urea Nitrogen 8 mg/dL (9-16); Calcium 9.1 mg/dL (8.4-10.2); Carbon Dioxide 25 mmol/L (22-29); Chloride 111 mmol/L (96-108); Cholesterol 164 mg/dL (<200); Estimated Glomerular Filt Rate > 60; Glucose Random 96 mg/dL (60-115); HDL Cholesterol 56 mg/dL (>40); Iron 78 mcg/dL (30-160); LDL Cholesterol Calculated 94 mg/dL (<100); Percent Iron Saturation 23 % (15-50); Potassium 3.9 mmol/L (3.3-5.1); Sodium 143 mmol/L (135-145); Total Iron Binding Capacity 344 mcg/dL (228-428); Total Protein 7.7 g/dL (6.5-8.0); Triglycerides 74 mg/dL (<150); Unsaturated Iron Binding 266 ug/dL
[2024-08-06 12:31] LABS: Vitamin D 25-OH Total 11.4 ng/mL (>30)
[2024-08-06 12:41] LABS: Folate 6.4 ng/mL (> or = 4.0); Vitamin B12 330 pg/mL (200-900)
== END 2024-08-06 10:11 | disposition home or self-care (01) ==
LOC: HO.LAB 10:10
PROVIDERS: PCP Internal Medicine; Visit Provider Internal Medicine
DX: D64.9 Anemia, unspecified (principal); E66.9 Obesity, unspecified; Z68.36 Body mass index [BMI] 36.0-36.9, adult; E53.8 Deficiency of other specified B group vitamins; R30.0 Dysuria; E55.9 Vitamin D deficiency, unspecified
CPT/HCPCS: 36415; 80053; 80061; 81003; 82306; 82607; 82746; 83540; 85025

== ENCOUNTER 2024-08-07 15:47 | Outpatient (AMB) | payer OTHER, SELFPAY ==
--- NOTE | 2024-08-07 15:49 | MHC.PC.OV ---
Vital Signs 08/07/24 15:52 Height 5 ft 4 in Weight 183 lb BMI 31.4 BP 122/72 Blood Pressure Location Lt brachial Position Sitting Intake Visit Reasons: Annual Exam Intake Note: Patient here for a annual physical exam Investigations Consultant Required: No Accompanied by: Self / Same As Patient Allergies acetaminophen [From Vicodin] Allergy (Intermediate, Verified 08/07/24 16:01) Rash, Hives hydrocodone [From Vicodin] Allergy (Intermediate, Verified 08/07/24 16:01) Rash, Hives morphine [MORPHINE] Allergy (Intermediate, Verified 08/07/24 16:01) BURNING IN CHEST, shortness of breath oxycodone [From PERCOCET] Allergy (Intermediate, Verified 08/07/24 16:01) ITCHINESS pumpkin Allergy (Intermediate, Verified 08/07/24 16:01) Itching ibuprofen Adverse Reaction (Intermediate, Verified 08/07/24 16:01) Stomach Upset Medication List - Last Reconciled 08/07/24 by Mariela Pathak MD cholecalciferol (vitamin D3) 50 mcg PO DAILY 90 days cyanocobalamin (vitamin B-12) 1,000 mcg subcut QMONTH 30 days diclofenac sodium 3% 0.1 grams topical BID PRN lidocaine 5% 1 patch topical DAILY [Multi Vitamin 1 tab PO DAILY] pregabalin (Lyrica) 25 mg PO BID syringe with needle (Syringe) As Directed tizanidine 2 mg PO TID PRN Tobacco use date assessed: 08/07/24 Dental Screening Dental Screen Date: 06/20/24 HPI HPI Comments History of Present Illness Details The patient is a 34-year-old female presenting for physical exam. She has difficulty sleeping and obesity. The insomnia has been a long-standing issue, exacerbated by weight gain. She reports a sleep duration of eight hours but indicates it is not restorative. 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 Previously, she has been prescribed zolpidem with good effect and is seeking to resume its use. She also deals with obesity, having undergone gastric bypass surgery in 2016. Her weight gain has been associated with increased sleep disturbances. Prior pharmacotherapy included Wegovy and Cepamorelin, although insurance coverage limitations have obstructed continued treatment. Regarding background medical history, she underwent sacroiliac fusion in 2019, a delivery, and nasal surgery. The family history is notable for her father's type 2 diabetes and hyperlipidemia, and her mother's bipolar disorder. The patient does not have a personal history of smoking but consumes alcoholic beverages, specifically beer, infrequently. - Tetanus vaccination is up to date, last administered in 2020. - Papanicolaou smear overdue; last performed three years ago. - Encouraged to ingest salmon twice weekly for cardiovascular health. - Blood work reviewed; vitamin D found to be low; supplementation initiated. - Counseling for potential Ambien (zolpidem) prescription for insomnia management. [facility] Medical History (Updated 08/07/24 @ 16:16 by Mariela Pathak MD) GERD (gastroesophageal reflux disease) Carpal tunnel syndrome Hypovitaminosis D B12 deficiency Anemia Kidney stones Surgical History S/P fusion of sacroiliac joint History of delivery History of surgery History of nasal surgery History of wisdom tooth extraction Gastric bypass status for obesity Family History Father High cholesterol Diabetes Mother Migraine Obesity Bipolar disorder Mental health disorder Maternal Grandfather Stroke Sister In good health Brother In good health Social History Household Members: Spouse Housing: House Alcohol intake: current Alcohol intake frequency: holidays/special occasions only Alcohol type: beer Patient Tobacco Use Status: Never used Tobacco e-Cigarette/Vaping Use: Never Used Second Hand Smoke Exposure: No service: No Current occupational status: employed 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 1. Little interest or pleasure in doing things: not at all 2. Feeling down, depressed, or hopeless: not at all 3. Trouble falling or staying asleep, or sleeping too much: nearly every day 4. Feeling tired or having little energy: more than half the days 5. Poor appetite or overeating: not at all 6. Feeling bad about yourself - or that you are a failure or have let yourself or your family down: not at all 7. Trouble concentrating on things, such as reading the newspaper or watching television: not at all 8. Moving or speaking so slowly that other people could have noticed. Or the opposite - being so fidgety or restless that you have been moving around a lot more than usual: not at all 9. Thoughts that you would be better off or of hurting yourself in some way: not at all Total score: 5 Depression Screening Interpretation: Positive Depression Screening Follow-up: Existing condition and Follow-up Visit Requested Depression Screening Done: Yes 81613 - PHQ-9 Billing: Yes Source: Developed by Drs. Bassam Feldman, Steph Nichole, Rian Nunez and colleagues, with an educational christian from [employer]. Thrive Questionnaire Date Thrive assessed: 08/07/24 I am a: Patient What is your living situation today?: I have a steady place to live Within the past 12 months, did the food you bought not last and you didn't have the money to get more?: Never true Within the past 12 months, did you worry whether your food would run out before you got money to buy more?: Never true Do you have trouble paying for medicines?: No Do you have trouble getting transportation to medical appointments?: No Do you have trouble paying your heating and electricity bill?: No Do you have trouble taking care of your child, family member or friend?: No Do you have trouble with day-to-day activities such as bathing, preparing meals, shopping, managing finances, etc.?: No Are you currently unemployed and looking for a job?: No Are you interested in more education?: No Please select the resources that you would like help with: None Currently or been in a relationship where the following occur: No concerns reported THRIVE Score: 0 AUDIT C Alcohol Use Questionnaire (AUDIT-C) 1. How often do you have a drink containing alcohol?: Monthly or less 2. How many drinks containing alcohol do you have on a typical day when you are drinking?: 1 or 2 3. How often do you have six or more drinks on one occasion?: Never Total Score: 1 Score Reviewed/Action Taken: No ESME-7 AMB Questionnaire ESME-7 Date ESME - 7 assessed: 06/20/24 Feeling nervous, anxious, or on edge: 1 = Several days Not being able to stop or control worryin = Several days Worrying too much about different things: 1 = Several days Trouble relaxin = Several days Being so restless that it is hard to sit still: 0 = Not at all Becoming easily annoyed or irritable: 0 = Not at all Feeling afraid as if something awful might happen: 0 = Not at all Total ESME-7 score (0-4 normal; 5-9 mild; 10-14 moderate; 15-21 severe): 4 Source: Developed by Drs. Bassam Feldman, Steph Nichole, Rian Nunez and colleagues, with an educational christian from [employer]. ESME-7 Assessment Billing ESME-7 Assessment Tool: ESME-7 Assessment 99098 Review of Systems Const All systems reviewed & are unremarkable except as noted in HPI and below Card Denies chest pain at rest, Denies chest pain with activity, Denies edema, Denies irregular heart rhythm, Denies claudication, Denies dyspnea, Denies dyspnea on exertion, Denies orthopnea, Denies paroxysmal nocturnal dyspnea and Denies slow heart rate Resp Denies cough, Denies dyspnea and Denies dyspnea on exertion GI Denies abdominal pain, Denies change in bowel habits, Denies excessive flatus, Denies nausea and Denies vomiting Denies urinary incontinence, Denies urinary hesitancy and Denies urinary urgency Musc Denies atrophy, Denies deformity and Denies limited range of motion Skin/Breast Denies bleeding lesions, Denies changing lesions and Denies rash Psych Reports abnormal sleep pattern Physical exam (Primary Care) Vital Signs: Last Vital Signs BP 122/72 08/07/24 15:52 BMI result Body Mass Index 31.4 BMI Assessment/Plan discussion: High BMI High, discussed plan: lifestyle, weight reduction, dietary and physical activity Tobacco/Smoking Status: Tobacco use Status Tobacco use date assessed 08/07/24 08/07/24 15:58 Patient Tobacco Use Status Never used Tobacco 08/07/24 15:58 e-Cigarette/Vaping Use Never Used 08/07/24 15:58 PHQ-9: PHQ-9 Score PHQ-9: Total score 5 08/07/24 15:58 Depression Screening Interpretation: Positive Depression Screening Follow-up: Existing condition and Follow-up Visit Requested Thrive Assessment: Date of Thrive Assessment Date Thrive assessed 08/07/24 08/07/24 15:58 Currently or been in a relationship where the following occur: No concerns reported [facility] Head: Yes normal to inspection, Yes normocephalic and Yes atraumatic Ears: external ears normal Eyes General: appearance normal, both eyes and all related structures Eyelids: Yes eyelids normal Conjunctivae: conjunctivae normal Neck Neck: Yes normal visual inspection and Yes supple Resp Effort & Inspection: normal respiratory effort Auscultation: clear to auscultation bilaterally Cardio Jugular venous distension: no JVD Rate: regular rate Rhythm: regular rhythm Heart sounds: S1 normal heart sound present and S2 normal heart sound present GI Inspection: Yes normal to inspection Palpation (GI): Soft to palpation and nontender Auscultation: normal bowel sounds Skin General skin exam: no rashes or lesions noted Neuro General: no focal motor deficits Extrem General: Yes full ROM Psych Appearance: grossly normal Coding Level of Care Code Est Pt Level 3 (50503) Est Pt Prev Care 18-39y(31962) Diagnoses Physical exam Z00.00 Class 1 obesity with body mass index (BMI) of 31.0 to 31.9 in adult E66.811; Z68.31 Insomnia G47.00 Additional Codes PHQ-9 - 53791 - PHQ-9 Billing: Yes ([id number]) ESME-7 Assessment Billing - ESME-7 Assessment Tool: ESME-7 Assessment 56441 ([id number]) Time Spent (min) 33 Assessment & Plan Assessment & Plan (1) Physical exam: Onset Date: ~06/17/21 Comment: Last pap 12/2020 with Madisyn. Per pt, WNL. UTD IZs. Due for eye exam, last 2 years ago, with [facility]. Due for dental exam with [facility]. Code(s): Z00.00 - Encounter for general adult medical examination without abnormal findings Category: Medical (2) Class 1 obesity with body mass index (BMI) of 31.0 to 31.9 in adult: Code(s): E66.811 - Obesity, class 1; Z68.31 - Body mass index [BMI] 31.0-31.9, adult Category: Medical (3) Insomnia: Code(s): G47.00 - Insomnia, unspecified Category: Medical Plan - Continue vitamin D supplementation to address deficiency. - A prescription for zolpidem 5 mg recommended to manage insomnia, noting prior effective use. - Advice on consuming salmon for cardiovascular health. - The patient's insurance coverage issues with [employer] discussed; no current obesity medication prescribed. - Follow up on Labs and clinical status in due course. Patient was informed and verbally consented to the use of an ambient scribe for clinic note documentation during this visit. During the consultation, I discussed the importance of maintaining appropriate vitamin D levels for overall health and addressed her sleep issues with a recommendation for zolpidem, with care taken to discuss its side effects such as the risk of embolism. I informed her that family history places her at increased risk for diabetes and cardiovascular disease, emphasizing the importance of regular exercise and a balanced diet. I advised moderation in alcohol consumption and need for regular health evaluations, including overdue cervical cancer screening. The barriers encountered with coverage for anti-obesity medications were noted, warranting future discussions for alternative options. Medications: New zolpidem 10 mg PO BEDTIME 30 days PRN 30 tabs 0RF sleep tirzepatide (weight loss) (Zepbound) 5 mg (0.5 mL) subcut QWEEK 4 weeks 2 mL 0RF E66.811 - Obesity, class 1, Z68.31 - Body mass index [BMI] 31.0-31.9, adult Patient Instructions: - Continue taking the prescribed vitamin D supplement. - Consider incorporating salmon twice a week into your diet for cardiovascular benefits. - Begin taking Ambien (zolpidem) as prescribed for insomnia and monitor for any side effects. - Contact the office if symptoms worsen or new symptoms develop. - Ensure follow-up for bloodwork and gynecological screening. - Maintain stress management techniques and prioritize exercise for overall health.
--- OUTSIDE RECORDS SUMMARY | 2024-08-07 15:50 | XMS_ITS | Encounter Summary ---
Author Organization [facility] Address [address] [place] [address] Care Team Providers Care Bridge Game Director Name Role Phone Provider, Luz PARKS Primary Care Provider Un available Encounter Details Date Type Department Care Team (Late st Contact Info) Description 06/18/2019 Scanned Document [facility] Neurosurgery [address] [place] [address] Dev Durant MD [address] [address] Social History Tobacco Use Types Packs/Day Years Used Date Smoking Tobacco: Never Assessed Sex and Gender Information Value Date Recorded Sex Assigned at Not on file Gender Identity Not on file Sexual Orientation Not on file documented as of this encounter Plan of Treatment Not on file documented as of this encounter Visit Diagnoses Not on filedocumented in this encounter Care Teams Bridge Game Director Relationship Specialty Start Date End Date ProviderLuz MD PCP - General 05/07/19 documented as of this encounter
--- OUTSIDE RECORDS SUMMARY | 2024-08-07 15:50 | XMS_ITS | Clinical Summary ---
Author Organization [employer] Address [address] [facility] 7t [place] [address] Care Team Providers Care Pig Farm Manager Name Role Phone Unavailable Primary Care Provider [...]
--- OUTSIDE RECORDS SUMMARY | 2024-08-07 15:50 | XMS_ITS | Clinical Summary ---
Author Organization [facility] Address [address] [place] [address] Care Team Providers Care Epic Trainer Name Role Phone Provider, Luz PARKS Primary [...] age to complete this topic Care Teams Epic Trainer Relationship Specialty Start Date End Date ProviderLuz MD PCP - General 05/07/19
--- OUTSIDE RECORDS SUMMARY | 2024-08-07 15:50 | XMS_ITS | Encounter Summary ---
Author Organization [facility] [facility] Address [address] [facility] 7t [place] [address] Care Team Providers Care Concrete Bucket Unloader Name Role Phone Unavailable Primary Care Provider [...]
[2024-08-07 15:52] VITALS: BP 122/72; BMI 31.4
== END 2024-08-07 16:13 | disposition home or self-care (01) ==
PROVIDERS: PCP Internal Medicine; Visit Provider Internal Medicine
DX: Z00.00 Encounter for general adult medical examination without abnormal findings (principal); E66.811 Obesity, class 1; Z68.31 Body mass index [BMI] 31.0-31.9, adult; G47.00 Insomnia, unspecified

== ENCOUNTER → 2024-08-07 15:47 | Outpatient (BNVA) | payer OTHER, SELFPAY | PROVIDERS: PCP Internal Medicine; Visit Provider Internal Medicine | DX: Z00.00 Encounter for general adult medical examination without abnormal findings (principal); E66.811 Obesity, class 1; Z68.31 Body mass index [BMI] 31.0-31.9, adult; G47.00 Insomnia, unspecified | CPT/HCPCS: 96127; 99212; 99395 ==

== ENCOUNTER 2024-10-08 14:58 | Outpatient (REF) | payer OTHER, SELFPAY ==
--- NOTE | ~2024-10-08 | US_ITS ---
EXAMINATION: ULTRASOUND RENAL, BILATERALLY. CLINICAL INFORMATION: Renal stones. COMPARISON: September 25, 2023. TECHNIQUE: Real-time ultrasound kidneys using grayscale and color Doppler technique. FINDINGS: Right kidney: 10 x 4 x 5 cm. Normal echotexture. Normal renal cortical thickness. No hydronephrosis. No solid or cystic lesion. Left kidney: 11 x 6 x 5 cm. Normal echotexture. Normal renal cortical thickness. No hydronephrosis. There is a 5 mm round anechoic lesion at the corticomedullary junction upper pole without septations or flow on color Doppler interrogation. US/US renal BI IMPRESSION: No hydronephrosis. No gross nephrolithiasis. 5 mm cyst, left kidney. Electronically signed by: Hayden Vela MD 10/09/2024 01:40 PM EDT
--- OUTSIDE RECORDS SUMMARY | 2024-10-08 17:52 | XMS_ITS | Clinical Summary ---
Author Organization [employer] Address [address] [facility] [address] [place] [address] Care Team Providers Care Merry Go Round Operator Name Role Phone Unavailable Primary Care Provider [...]
--- OUTSIDE RECORDS SUMMARY | 2024-10-08 17:52 | XMS_ITS | Encounter Summary ---
Author Organization [facility] [employer] [facility] Address [address] [facility] 7t [place] [address] Care Team Providers Care College Coach Name Role Phone Unavailable Primary Care Provider [...]
--- OUTSIDE RECORDS SUMMARY | 2024-10-08 17:52 | XMS_ITS | Clinical Summary ---
Author Organization [facility] Address [address] [place] [address] Care Team Providers Care Human Resources Coordinator Name Role Phone Provider, Luz PARKS Primary Care Provider Un available Social History Tobacco Use Types Packs/Day Years Used Date Smoking Tobacco: Never Assessed Comments Unknown Sex and Gender Information Value Date Recorded Sex Assigned at Not on file Legal Sex Female 6:34 PM EST Gender Identity Not on file Sexual Orientation [...] age to complete this topic Care Teams Human Resources Coordinator Relationship Specialty Start Date End Date ProviderLuz MD PCP - General 05/07/19
--- OUTSIDE RECORDS SUMMARY | 2024-10-08 17:52 | XMS_ITS | Encounter Summary ---
Author Organization [facility] Address [address] [place] [address] Care Team Providers Care Bleach Range Operator Name Role Phone ProviderLuz MD Primary Care Provider Un available Encounter Details Date Type Department Care Team (Late st Contact Info) Description 06/18/2019 Scanned Document [facility] Neurosurgery [place] [address] [facility] 5 [place] [address] Dev Durant MD [address] [address] Social History Tobacco Use Types Packs/Day Years [...] on filedocumented in this encounter Care Teams Bleach Range Operator Relationship Specialty Start Date End Date ProviderLuz MD PCP - General 05/07/19 documented as of this encounter
== END 2024-10-08 14:59 | disposition home or self-care (01) ==
LOC: HO.US 14:58
PROVIDERS: PCP Internal Medicine; Visit Provider Urology
DX: N20.0 Calculus of kidney (principal)
CPT/HCPCS: 76775

== ENCOUNTER → 2024-10-08 15:00 | Outpatient (BNV) | payer OTHER, SELFPAY | PROVIDERS: PCP Internal Medicine; Visit Provider Radiology Diagnostic Radiology | DX: N28.1 Cyst of kidney, acquired (principal) | CPT/HCPCS: 76775 ==

== ENCOUNTER 2024-10-11 07:03 | Day surgery (SDC) | payer OTHER, SELFPAY ==
--- OUTSIDE RECORDS SUMMARY | 2024-09-27 07:32 | XMS_ITS | Encounter Summary ---
Author Organization [facility] Address [address] [place] [address] Care Team Providers Care Speech Therapy Teacher Name Role Phone Provider, Luz PARKS Primary Care Provider Un available Encounter Details Date Type Department Care Team (Late st Contact Info) Description 06/18/2019 Scanned Document [facility] Neurosurgery [address] [place] [address] Dev Durant MD [address] [address] Social History Tobacco Use Types Packs/Day Years Used Date Smoking Tobacco: Never Assessed Sex and Gender Information Value Date Recorded Sex Assigned at Not on file Gender Identity Not on file Sexual Orientation Not on file documented as of this encounter Plan of Treatment Not on file documented as of this encounter Visit Diagnoses Not on filedocumented in this encounter Care Teams Speech Therapy Teacher Relationship Specialty Start Date End Date ProviderLuz MD PCP - General 05/07/19 documented as of this encounter
--- OUTSIDE RECORDS SUMMARY | 2024-09-27 07:32 | XMS_ITS | Clinical Summary ---
Author Organization [employer] Address [address] [facility] 7t [place] [address] Care Team Providers Care Personal Attendant Name Role Phone Unavailable Primary Care Provider [...]
--- OUTSIDE RECORDS SUMMARY | 2024-09-27 07:32 | XMS_ITS | Encounter Summary ---
Author Organization [facility] [email or web address] [facility] Address [address] [facility] 7t [place] [address] Care Team Providers Care Division Superintendent Name Role Phone Unavailable Primary Care Provider [...]
--- OUTSIDE RECORDS SUMMARY | 2024-09-27 07:32 | XMS_ITS | Clinical Summary ---
Author Organization [facility] Address [address] [place] [address] Care Team Providers Care Farmworker Turkey Farm Name Role Phone Provider, Luz PARKS Primary [...] age to complete this topic Care Teams Farmworker Turkey Farm Relationship Specialty Start Date End Date ProviderLuz MD PCP - General 05/07/19
[2024-10-09 09:27] VITALS: BMI 31.4
--- NOTE | 2024-10-10 10:17 | HO.ANESPROP2 ---
Documented by User: Leilani Herrera NP 10/10/24 10:17 HPI - Anesthesia Eval Consult details Narrative: 34yo F for Left Sacroiliac Joint Steroid Injection Anesthesia Pre-Procedure Meds Is the patient on any of the following meds?: GLP1/DPP4 PMFSH Active Problems Active Problems: All Active Problems Insomnia (Acute) Class 1 obesity with body mass index (BMI) of 31.0 to 31.9 in adult (Acute) Allergic rhinitis (Acute) Class 2 obesity with body mass index (BMI) of 36.0 to 36.9 in adult (Acute) Thoracic spine pain (Acute) Sacroiliac joint dysfunction of left side (Acute) BMI 31.0-31.9,adult (Acute) Obesity (Acute) Adjustment disorder, unspecified (Acute) Carpal tunnel syndrome of right wrist (Acute) Numbness and tingling of right arm (Acute) Numbness and tingling in left arm (Acute) Pain in right finger(s) (Acute) Coccyalgia (Acute) Immunization due (Acute) Bilateral hand numbness (Acute) Physical exam (Acute) URI (upper respiratory infection) (Acute) Earache on left (Acute) Hematuria (Acute) Left flank pain (Acute) Anemia (Acute) B12 deficiency (Acute) Physical exam (Acute ~06/17/21) Mouth ulcers (Acute) Fusion congenital, sacroiliac joint (Acute) Early stage of (Acute) Complex ovarian cyst (Acute) Myoma (Acute) Menorrhagia (Acute) Right flank pain (Acute) S/P fusion of sacroiliac joint (Acute) Gastric bypass status for obesity (Acute) GERD (gastroesophageal reflux disease) (Acute) Kidney stones (Acute) Carpal tunnel syndrome (Acute) Hypovitaminosis D (Acute) B12 deficiency (Acute) Anemia (Chronic) Past Medical History Medical History (Updated 08/07/24 @ 16:16 by Mariela Pathak MD) GERD (gastroesophageal reflux disease) Carpal tunnel syndrome Hypovitaminosis D B12 deficiency Anemia Kidney stones Family History Family History Father High cholesterol Diabetes Mother Migraine Obesity Bipolar disorder Mental health disorder Maternal Grandfather Stroke Sister In good health Brother In good health Family history of problems with anesthesia: No Surgical History Surgical History (Updated 10/09/24 @ 09:24 by Donna Durand RN) History of esophagogastroduodenoscopy (EGD) S/P fusion of sacroiliac joint History of delivery History of surgery History of nasal surgery History of wisdom tooth extraction Gastric bypass status for obesity History of Problems with Anesthesia: No Social History Social History Household Members: Spouse Housing: House Alcohol intake: current Alcohol intake frequency: does not drink Alcohol type: beer Patient Tobacco Use Status: Never used Tobacco e-Cigarette/Vaping Use: Never Used Second Hand Smoke Exposure: No Have you been hit, kicked, punched, or otherwise hurt by someone within the past year? 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 Current occupational exposures/hazards: No Cognitive needs: No Hearing needs: No Vision needs: Yes (glasses) Meds Allergies Allergy/AdvReac Type Severity Reaction Status Date / Time hydrocodone [From Vicodin] Allergy Intermediate Rash, Hives Verified 08/07/24 16:01 morphine [MORPHINE] Allergy Intermediate BURNING IN Verified 08/07/24 16:01 CHEST, shortness of breath oxycodone [From PERCOCET] Allergy Intermediate ITCHINESS Verified 08/07/24 16:01 pumpkin Allergy Intermediate Itching Verified 08/07/24 16:01 ibuprofen AdvReac Intermediate Stomach Verified 08/07/24 16:01 Upset Home Medications ?Medication ?Instructions ?Recorded ?Confirmed ?Last Taken ?Type multivitamin 1 tab PO DAILY 10/09/24 10/09/24 10/08/24 History Exam Height,Weight and Vital Signs: Height 5 ft 4 in Weight 83.007 kg Assessment and Plan Assessment Anesthesia Assessment: Chart Reviewed Final Anesthetic Review Family History of Problems with Anesthesia: No History of Problems with Anesthesia: No Documented by User: Deep Paulino MD 10/11/24 08:27 [facility] Past Medical History Medical History (Updated 08/07/24 @ 16:16 by Mariela Pathak MD) GERD (gastroesophageal reflux disease) Carpal tunnel syndrome Hypovitaminosis D B12 deficiency Anemia Kidney stones Patient : No Family History Family History Father High cholesterol Diabetes Mother Migraine Obesity Bipolar disorder Mental health disorder Maternal Grandfather Stroke Sister In good health Brother In good health Surgical History Surgical History (Updated 10/09/24 @ 09:24 by Donna Durand RN) History of esophagogastroduodenoscopy (EGD) S/P fusion of sacroiliac joint History of delivery History of surgery History of nasal surgery History of wisdom tooth extraction Gastric bypass status for obesity Social History Social History Household Members: Spouse Housing: House Alcohol intake: current Alcohol intake frequency: does not drink Alcohol type: beer Patient Tobacco Use Status: Never used Tobacco e-Cigarette/Vaping Use: Never Used Second Hand Smoke Exposure: No Have you been hit, kicked, punched, or otherwise hurt by someone within the past year? 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 Current occupational exposures/hazards: No Cognitive needs: No Hearing needs: No Vision needs: Yes (glasses) Meds Allergies Allergy/AdvReac Type Severity Reaction Status Date / Time hydrocodone [From Vicodin] Allergy Intermediate Rash, Hives Verified 08/07/24 16:01 morphine [MORPHINE] Allergy Intermediate BURNING IN Verified 08/07/24 16:01 CHEST, shortness of breath oxycodone [From PERCOCET] Allergy Intermediate ITCHINESS Verified 08/07/24 16:01 pumpkin Allergy Intermediate Itching Verified 08/07/24 16:01 ibuprofen AdvReac Intermediate Stomach Verified 08/07/24 16:01 Upset Home Medications ?Medication ?Instructions ?Recorded ?Confirmed ?Last Taken ?Type multivitamin 1 tab PO DAILY 10/09/24 10/09/24 10/08/24 History Exam Airway Mallampati Class: I TM Dist: >3cm Neck ROM: Full Loose/Missing/Broken Teeth: No Heart: ok Lungs: ok Assessment and Plan Assessment Anesthesia Assessment: Anesthesia Plan Discussed Final Anesthetic Review NPO: Yes ASA Class: III Final Preanesthetic Review: No Changes in Pt Med Stat, Meds/Allgs Chart Reviewed, Consent Obtained/Reviewed and Anes Risks/Benef Reviewed Patient Risk: Intermediate Procedure Risk: Intermediate Anesthetic Plan Anesthetic Plan: GA and Agree w/ Assess. and Plan Disposition: Standard PACU
--- NOTE | ~2024-10-11 | FL_ITS ---
EXAMINATION: XR FLUOROSCOPY WITH IMAGES CLINICAL INFORMATION: Left SI joint pain management injection. COMPARISON: November 26, 2023. TECHNIQUE: Fluoroscopy provided to: Dr. Moon Fluoroscopy time: 14.1 seconds DAP: 1.1518 Gycm2 Images: 2 FINDINGS: 2 fluoroscopic spot images obtained during left SI joint injection. Please refer to full procedural report for details. FL/FL guidance in OR IMPRESSION: Fluoroscopic guidance. Electronically signed by: Sumit Yu MD 10/14/2024 10:57 AM EDT
[2024-10-11 07:07] VITALS: BP 120/73; PULSE 92; RESP 18; TEMP 36.9; O2SAT 99; BMI 31.9
[2024-10-11] MEDS: Lactated Ringers 1,000 ML 100 ML IVCONT (07:27)
--- NOTE | 2024-10-11 08:16 | PC.NURSE ---
pt unable to void quaint ordered and drawn
[2024-10-11 08:39] LABS: HCG Quantitative < 2 mIU/mL
--- NOTE | 2024-10-11 08:41 | P.HPSUR_ITS ---
Pre-Procedural Eval Section A - 24 Hr Update-Section A only Date of Service: 10/11/24 The patient is an INPATIENT: No Changes since office visit: Yes Patient answered all questions The patient has been examined within 24 hours of the surgical procedure. The History & Physical has been completed within 30 days and I have reviewed it.: No Section B - Complete if H&P > 30 days Chief Complaint: Sacrococcygeal disorders, not elsewhere classified Details of Present Illness: As above Relevant Family History (Specify if Yes): No Relevant Social History: None Present Medications: see Short Stay [facility] assessment Medical History: No relevant PMH History of Previous Operations: Relevant previous surgery/procedure and date(s) (Sacroiliac joint fusion left) Allergies: Allergies Allergy/AdvReac Type Severity Reaction Status Date / Time hydrocodone [From Vicodin] Allergy Intermediate Rash, Hives Verified 08/07/24 16:01 morphine [MORPHINE] Allergy Intermediate BURNING IN Verified 08/07/24 16:01 CHEST, shortness of breath oxycodone [From PERCOCET] Allergy Intermediate ITCHINESS Verified 08/07/24 16:01 pumpkin Allergy Intermediate Itching Verified 08/07/24 16:01 ibuprofen AdvReac Intermediate Stomach Verified 08/07/24 16:01 Upset Review of Systems Sugical H&P ROS: Negative: Constitution, Cardiovascular, Respiratory, Neurol ogical, Psychiatric, Hem-Onc, Allergic/Immunologic, Gastrointestinal, Genitourinary, Musculoskeletal, Integumentary, Endocrine and Eyes/Ears/Nose/Throat Exam Surgical H&P Exam: Normal: HEENT, Normal: Heart, Normal: Lungs, Normal: Extremities, Normal: Abdomen, Normal: Skin and Normal: Neurological Plan Diagnosis/Plan: Unchanged I have reviewed the history and physical and performed a pertinent physical examination on my patient. No changes have occurred unless specified. Time Spent With Patient Time: Total time managing care of this patient today ___5_ minutes.
--- NOTE | 2024-10-11 09:26 | PM.OP ---
Brief Operative Note Date of Service: 10/11/24 Pre-op diagnosis: Sacroiliac joint dysfunction left, status post left SI joint fusion Post-op diagnosis: same Procedure: Therapeutic sacroiliac joint injection left Implants: None Surgeon: Jimmy Moon MD Anesthesia: GLMA Was an Slice Plug Cutter Operator used for this Procedure?: No Estimated blood loss (mL): 0 Condition: stable Disposition: PACU
--- NOTE | 2024-10-11 09:27 | W.PM.OPN ---
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 She has a history of the sacroiliac joint fusion performed from [facility], she reported that after fusion she had pain improvement for the about 1 year however after that time interval her pain came back. 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 Informed consent was thoroughly explained to the patient including risk of infection, bleeding, peripheral nerve damage. Patient expressed understanding. She was taken to the operating room and positioned prone on operating table. ASA monitors were applied and patient was induced with general anesthesia via LMA. Time-out was performed delineating name and date of of the patient, allergies of the patient, nature of the procedure, site and side of the procedure. Her lower back and upper buttocks were prepped with ChloraPrep and draped with self adhesive utility towels. C-arm was brought over the operating field and picture of the left sacroiliac joint was demonstrated on the screen. Almost entire length of the sacroiliac joint on the anterior posterior view was occupied by the titanium screws used for the fusion. Only 1 cm free of the hardware in the most lower portion of the sacroiliac joint was available for the injection. The skin was anesthetized in the projection of the joint using lidocaine 2% and ropivacaine 0.5% mixture one-to-one, after that 22 gauge 3-1/2 inch needle was inserted through the skin wheal and advanced to were the most lower portion of the sacroiliac joint. When needle entered the joint injection of the contrast was performed delineating arthrogram. No intravascular contrast spread was noted. After that solution containing ropivacaine 0.5% mixed with Decadron 10 mg total of 5 cc was injected into the needle. Upon completion of the injection needle was withdrawn. Sterile Band-Aid was applied. The patient was awakened transferred stable to PACU where she recovered uneventfully.
[2024-10-11 09:32] VITALS: BP 105/68; PULSE 78; RESP 17; TEMP 36.5; O2SAT 100
[2024-10-11 09:37] VITALS: BP 101/58; PULSE 78; RESP 17; O2SAT 100
[2024-10-11 09:42] VITALS: BP 103/60; PULSE 77; RESP 17; O2SAT 100
[2024-10-11 09:47] VITALS: BP 95/60; PULSE 66; RESP 20; O2SAT 100
[2024-10-11 10:02] VITALS: BP 104/60; PULSE 84; RESP 20; TEMP 36.6; O2SAT 100
== END 2024-10-11 10:16 | disposition home or self-care (01) ==
PROVIDERS: Anesthesiology; PCP Internal Medicine; Visit Provider Anesthesiology
PROC: 3E0U33Z Introduction of Anti-inflammatory into Joints, Percutaneous Approach (ICD-10-PCS; CPT 27096; principal; 2024-10-11 08:30)
DX: M53.3 Sacrococcygeal disorders, not elsewhere classified (principal); E55.9 Vitamin D deficiency, unspecified; D64.9 Anemia, unspecified; Z98.1 Arthrodesis status; Z98.84 Bariatric surgery status; Z79.899 Other long term (current) drug therapy; Z88.5 Allergy status to narcotic agent; Z88.6 Allergy status to analgesic agent
CPT/HCPCS: 27096; 36415; 84702; J1100; J2003; J2405; J2704; J2795; J3010; J3301; Q9967

== ENCOUNTER → 2024-10-11 07:03 | Outpatient (BNV) | payer OTHER, SELFPAY | PROVIDERS: PCP Internal Medicine; Visit Provider Anesthesiology | DX: M53.3 Sacrococcygeal disorders, not elsewhere classified (principal); Z98.1 Arthrodesis status | CPT/HCPCS: 27096 ==

== ENCOUNTER 2024-10-29 15:59 | Outpatient (AMB) | payer OTHER, SELFPAY ==
--- NOTE | 2024-10-29 15:59 | MHC.OFFVIS ---
Intake Visit Reasons: 1YR US(set) Intake Note: Patient is present via telehealth for 1 year follow up/US Urology Med: None Antibiotic Allergy: None Blood Thinner: None Allergies hydrocodone [From Vicodin] Allergy (Intermediate, Verified 10/29/24 16:11) Rash, Hives morphine [MORPHINE] Allergy (Intermediate, Verified 10/29/24 16:11) BURNING IN CHEST, shortness of breath oxycodone [From PERCOCET] Allergy (Intermediate, Verified 10/29/24 16:11) ITCHINESS pumpkin Allergy (Intermediate, Verified 10/29/24 16:11) Itching ibuprofen Adverse Reaction (Intermediate, Verified 10/29/24 16:11) Stomach Upset Medication List - Last Reconciled 10/29/24 by THIAGO Corbin cholecalciferol (vitamin D3) 50 mcg PO DAILY 90 days cyanocobalamin (vitamin B-12) 1,000 mcg subcut QMONTH 30 days multivitamin 1 tab PO DAILY pregabalin (Lyrica) 25 mg PO BID syringe with needle (Syringe) As Directed tirzepatide (weight loss) (Zepbound) 5 mg (0.5 mL) subcut QWEEK 4 weeks tizanidine 2 mg PO TID PRN zolpidem 10 mg PO BEDTIME PRN 30 days HPI Comments Details: Farshad is a pleasant 34-year-old female patient of Dr. Jolly. She has a past medical history of GERD, carpal tunnel syndrome, vitamin B12 deficiency, anemia, and nephrolithiasis. She is being followed up on today via telehealth for her history of nephrolithiasis. In discussion with the patient today she denies having had any bothersome urinary issues since her last visit. She does report having had intermittent episodes of flank pain however feels they are self-limiting after increase in hydration. Recent renal imaging results were reviewed with the patient today 10/11 6 mm left renal cysts. No hydronephrosis, renal calculi, or lesions noted. She reports to be drinking plenty of water daily. She denies urinary urgency, urinary frequency, incontinence, nocturia, hematuria, dysuria, foul smelling urine, changes to urinary stream, fever, and or chills. She is happy with her current voiding parameters. We discussed potential causes of viral cyst as well as nephrolithiasis. Will continue with surveillance monitoring. All questions were answered. She otherwise offers no other issues or concerns at this time. PREVIOUS OFFICE NOTE: Nephrolithiasis/Urolithiasis: They are here for further evaluation of nephrolithiasis - discussion of renal findings Keep up vitamin B6, use calcium supplementation at lunch and dinner to bind oxalate, maintain fluid intake. Urolithiasis was diagnosed 06/2017 - had gastric bypass 2015. The patient previously had kidney stones whose composition w unknown. Laboratory investigations include no recent labs. 24 Hour urine evaluation none on file. 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 03/06 , a renal ultrasound, showing no evidence of stones 03/07 , a renal ultrasound, showing no evidence of stones 03/08 , a renal ultrasound 3mm left lower pole - 09/07 renal ultrasound 3 mm left lower pole stone - 09/08 renal ultrasound small bilateral twinkling calcifications Current therapeutic plan will be - yearly imaging [facility] Medical History GERD (gastroesophageal reflux disease) Carpal tunnel syndrome Hypovitaminosis D B12 deficiency Anemia Kidney stones Surgical History History of esophagogastroduodenoscopy (EGD) S/P fusion of sacroiliac joint History of delivery History of surgery History of nasal surgery History of wisdom tooth extraction Gastric bypass status for obesity Family History Father High cholesterol Diabetes Mother Migraine Obesity Bipolar disorder Mental health disorder Maternal Grandfather Stroke Sister In good health Brother In good health Social History Household Members: Spouse Housing: House Alcohol intake: current Alcohol intake frequency: does not drink Alcohol type: beer Patient Tobacco Use Status: Never used Tobacco e-Cigarette/Vaping Use: Never Used Second Hand Smoke Exposure: No service: No Current occupational status: employed 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 Current occupational exposures/hazards: No Cognitive needs: No Hearing needs: No Vision needs: Yes (glasses) Female Reproductive History Menstrual Age of Menarche: 8 Review of Systems Const All systems reviewed & are unremarkable except as noted in HPI and below Physical Exam Const General: cooperative Orientation/consciousness: patient oriented x3 Resp Effort & Inspection: able to speak in complete sentences Neuro General: patient oriented x3 Psych Speech and movement: Clear speech present Attitude: cooperative Thought process: Normal thought process present Thought content: Normal thought content present Insight: Fair insight present (Psych) Judgement: Fair judgement present (Psych) Telehealth Telehealth Telehealth Platform: Telephone Location of provider rendering services: practice address Location of patient: address on file Patient Identification confirmed using: Name, : Yes Telehealth method: voice only Patient verbally consented to treatment: Yes Patient verbally consented to billing insurance company: Yes Patient informed of any privacy concerns related to visit: Yes Minutes spent on Phone/Video with Pt.: 15 Results Reviewed Results Reviewed: Date of Service: 10/08/24 Procedure(s): US renal BI FINDINGS: Right kidney: 10 x 4 x 5 cm. Normal echotexture. Normal renal cortical thickness. No hydronephrosis. No solid or cystic lesion. Left kidney: 11 x 6 x 5 cm. Normal echotexture. Normal renal cortical thickness. No hydronephrosis. There is a 5 mm round anechoic lesion at the corticomedullary junction upper pole without septations or flow on color Doppler interrogation. IMPRESSION: No hydronephrosis. No gross nephrolithiasis. 5 mm cyst, left kidney. Assessment & Plan Assessment & Plan (1) Kidney stones: Code(s): N20.0 - Calculus of kidney Category: Medical (2) Renal cyst: Code(s): N28.1 - Cyst of kidney, acquired Category: Medical Plan Recent renal imaging results reviewed with the patient today; as noted above. She reports be happy with current voiding parameters. She currently denies any bothersome urinary issues or concerns. Will continue with surveillance monitoring. We discussed importance of adequate hydration relation to nephrolithiasis as well as overall health and well-being. We discussed potential causes of nephrolithiasis as well as renal cysts. Will obtain renal ultrasound in 1 year. Follow-up in 1 year with imaging to be completed prior; or sooner with any issues, concerns, and or questions. Orders: Orders US renal BI 1 Year N20.0 - Calculus of kidney Patient Instructions: The patient had an opportunity to ask questions regarding the treatment plan. All questions were answered. Physical exam, labs, and imaging were discussed and reviewed in detail. As well as risks, benefits, and discussion of treatment choices. No major barriers to understanding were identified. The patient expressed understanding and agreement with the above treatment plan. The patient was made aware they should contact our office by phone for worsening of their current condition, the appearance of new symptoms, or with any questions or concerns. Compliance is encouraged with any medications and follow up testing that is ordered. It is a privilege to be allowed the opportunity to participate in? your urological care.? Again, if you have any questions or concerns If you have any questions or concerns please do not hesitate to contact me. The office is [phone]. This note is constructed using voice recognition software. While every effort has been made to ensure accuracy automotive sales associate errors may have been included. Yours sincerely, THIAGO Corbin Coding Level of Care Code Tele Est Pt Level 3 (11763) Diagnoses Kidney stones N20.0 Renal cyst N28.1
--- OUTSIDE RECORDS SUMMARY | 2024-10-29 16:33 | XMS_ITS | Encounter Summary ---
Author Organization [facility] Address [address] [place] [address] Care Team Providers Care Belt Fixer Name Role Phone ProviderLuz MD Primary Care Provider Un available Encounter Details Date Type Department Care Team (Late st Contact Info) Description 06/18/2019 Scanned Document [facility] [place] [address] [facility] [address] [place] [address] Dev Durant MD [address] [address] Social History Tobacco Use Types Packs/Day Years [...] on filedocumented in this encounter Care Teams Belt Fixer Relationship Specialty Start Date End Date ProviderLuz MD PCP - General 05/07/19 documented as of this encounter
--- OUTSIDE RECORDS SUMMARY | 2024-10-29 16:33 | XMS_ITS | Clinical Summary ---
Author Organization [facility] Address [address] [place] [address] Care Team Providers Care Cannery Worker Name Role Phone Provider, Luz PARKS Primary [...] age to complete this topic Care Teams Cannery Worker Relationship Specialty Start Date End Date ProviderLuz MD PCP - General 05/07/19
--- OUTSIDE RECORDS SUMMARY | 2024-10-29 16:33 | XMS_ITS | Encounter Summary ---
Author Organization [employer] Address [address] [address] [place] [address] Care Team Providers Care Binder Coverstitch Name Role Phone Unavailable Primary Care Provider [...]
--- OUTSIDE RECORDS SUMMARY | 2024-10-29 16:33 | XMS_ITS | Clinical Summary ---
Author Organization [employer] Address [address] [facility] [address] [place] [address] Care Team Providers Care Social Psychologist Name Role Phone Unavailable Primary Care Provider [...] 05/07/2008, 09/03/2001, Additional history exists COVID-19 Vaccine ( - 2023- season) 2024 Influenza Vaccine (#1) 2024 9, [...]
== END 2024-10-29 16:49 | disposition home or self-care (01) ==
LOC: HO.HUSH 15:59
PROVIDERS: PCP Internal Medicine; Visit Provider Nurse Practitioner Family
DX: N20.0 Calculus of kidney (principal); N28.1 Cyst of kidney, acquired
CPT/HCPCS: 99213

== ENCOUNTER 2024-11-13 10:05 | Outpatient (AMB) | payer OTHER, SELFPAY ==
--- NOTE | 2024-11-13 10:18 | A.OFFVIS_ITS ---
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 The patient underwent right shoulder surgery two weeks ago to remove a floating bone, which had caused significant pain and swelling in her dominant hand. Post-surgery, she reports some improvement, but pain persists. Additionally, the patient experiences sacroiliac joint pain that radiates from the groin to the ankle, particularly on the left side. This pain was initially relieved by an injection but has since returned with less intensity. The patient was informed of potential difficulties in administering the injection due to hardware in the area. She has been advised on the benefits of a peripheral nerve stimulator, but her current insurance has denied coverage. She is considering changing her insurance to access this treatment option. - Onset and Timing: Sacroiliac pain ongoing, with steroid injection one month ago. - Quality and Character: Sacroiliac pain described as shooting. - Primary Location: Sacroiliac joint. - Areas of Radiation: Sacroiliac pain radiates from the groin to the ankle on the left side. - Exacerbating Factors: Pressure on the leg - Relieving Factors: Initial relief from injection for sacroiliac pain. - Interference with Activities: Pain impacts movements involving weight-bearing on the leg. - Affect: Pain has impacted her daily activities and school schedule. - Analgesia: Injection provided initial relief for sacroiliac pain. - Adverse Effects: No side effects from medications discussed. - Activities of Daily Living: Pain affects her ability to perform certain activities; she plans to manage pain to prepare for returning to work. - Aberrant Drug-Related Behaviors: No such behaviors noted. [facility] Medical History GERD (gastroesophageal reflux disease) Carpal tunnel syndrome Hypovitaminosis D B12 deficiency Anemia Kidney stones Surgical History History of esophagogastroduodenoscopy (EGD) S/P fusion of sacroiliac joint History of delivery History of surgery History of nasal surgery History of wisdom tooth extraction Gastric bypass status for obesity Family History Father High cholesterol Diabetes Mother Migraine Obesity Bipolar disorder Mental health disorder Maternal Grandfather Stroke Sister In good health Brother In good health Social History Household Members: Spouse Housing: House Alcohol intake: current Alcohol intake frequency: does not drink Alcohol type: beer Patient Tobacco Use Status: Never used Tobacco e-Cigarette/Vaping Use: Never Used Second Hand Smoke Exposure: No service: No Current occupational status: employed 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 - Neurological: Denies any new neurological symptoms apart from pain radiation. - General: Denies any systemic symptoms such as fever or malaise. Physical Exam Vital Signs: Last Vital Signs Pulse 68 11/13/24 10:22 Resp 18 11/13/24 10:22 BP 127/64 11/13/24 10:22 Pulse Ox 99 11/13/24 10:22 General: awake, alert, oriented. Answers questions appropriately. Fully engaged in examination. Skin: warm, dry, intact HEENT: Normocephalic. Hearing intact. Cardiac: External chest normal in appearance. Respiratory: No cough, audible wheezing or stridor. Abdomen: without gross distension. MS: No obvious swelling or deformities. Able to transition from sit to stand unassisted. Ambulates with bilaterally normal heel strike and toe off Neurological: Oriented to person, place, time and situation. Thought process intact. No gait abnormalities appreciated. Psychiatric: Appropriate mood and affect. Good judgment and insight. Results Reviewed Results Reviewed: 10/31/2023 Assessment & Plan Assessment & Plan (1) Sacroiliac joint dysfunction of left side: Code(s): M53.3 - Sacrococcygeal disorders, not elsewhere classified Category: Medical (2) Chronic pain syndrome: Code(s): G89.4 - Chronic pain syndrome Category: Medical Plan We addressed the management of the patient's sacroiliac joint pain, focusing on the potential use of a peripheral nerve stimulator. Due to insurance denial, the patient is considering changing her insurance plan or appealing the decision to access this treatment. She was advised on the benefits of peripheral nerve stimulation and the necessity of confirming coverage to proceed. Meanwhile, the use of an SI belt was recommended for interim relief. If insurance changes allow, we can conduct a stimulation trial to evaluate its efficacy. The patient was informed about the recovery process and restrictions post-trial. Follow-up discussions will focus on insurance adjustments and trial scheduling. I discussed with the patient the issues of pain management related to her sacroiliac joint. We reviewed the potential benefits of a peripheral nerve stimulator for her sacroiliac pain and the challenges posed by her current insurance denial. The patient was advised to explore changing her insurance plan or appealing the denial decision. I explained the recovery process and activity restrictions associated with the stimulation trial. We also discussed the interim use of an SI belt for relief and the possibility of scheduling a stimulation trial if insurance coverage is obtained. Follow-up was recommended to address insurance changes and further treatment options. Patient was informed and verbally consented to the use of an ambient scribe for clinic note documentation during this visit. Patient Instructions: - Consider appealing the denial for peripheral nerve stimulator coverage. - Use your SI belt to help manage sacroiliac pain. - Follow activity restrictions if a stimulation trial is scheduled. - Contact your insurance to discuss coverage options. - Schedule a follow-up to discuss insurance changes and treatment plans. Coding Level of Care Code Est Pt Level 3 (42976) Complex EM visit Add On G2211 Diagnoses Sacroiliac joint dysfunction of left side M53.3 Chronic pain syndrome G89.4
[2024-11-13 10:22] VITALS: BP 127/64; PULSE 68; RESP 18; O2SAT 99
--- OUTSIDE RECORDS SUMMARY | 2024-11-13 11:03 | XMS_ITS | Clinical Summary ---
Author Organization [facility] Address [address] [place] [address] Care Team Providers Care Cambering Machine Operator Name Role Phone Provider, Luz PARKS Primary [...] age to complete this topic Care Teams Cambering Machine Operator Relationship Specialty Start Date End Date ProviderLuz MD PCP - General 05/07/19
== END 2024-11-13 10:52 | disposition home or self-care (01) ==
LOC: HO.PMC 10:06
PROVIDERS: PCP Internal Medicine; Visit Provider Registered Nurse Emergency
DX: M53.3 Sacrococcygeal disorders, not elsewhere classified (principal); G89.4 Chronic pain syndrome
CPT/HCPCS: 99213; G2211

== ENCOUNTER → 2024-11-13 10:05 | Outpatient (BNVA) | payer OTHER, SELFPAY | PROVIDERS: PCP Internal Medicine; Visit Provider Registered Nurse Emergency | DX: M53.3 Sacrococcygeal disorders, not elsewhere classified (principal); G89.4 Chronic pain syndrome | CPT/HCPCS: 99212 ==

== ENCOUNTER 2024-12-10 13:24 | Outpatient (AMB) | payer OTHER, SELFPAY ==
--- NOTE | 2024-12-10 13:44 | AM.OFFVISNUR ---
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 unit/0.1 mL intradermal injection solution Performing Provider: Mariela Pathak MD [facility] Administered by: Fadumo Rey LPN on 12/10/24 13:35 Dose Route Admin Location Dispensed Lot Number Expiration Date UTC Rn Integrated 0.1 mL intradermal right forearm 0.1 mL [id number] 07/18/27 18216-076-79 [employer] Total Dispensed Waste 0.1 mL 0 % Assessment & Plan Assessment & Plan Orders: Orders AMB PPD Planted Today Z11.1 - Encounter for screening for respiratory tuberculosis Coding
--- OUTSIDE RECORDS SUMMARY | 2024-12-10 15:26 | XMS_ITS | Clinical Summary ---
Author Organization [facility] Address [address] [place] [address] Care Team Providers Care E Merchant Name Role Phone Provider, Luz PARKS Primary [...] age to complete this topic Care Teams E Merchant Relationship Specialty Start Date End Date ProviderLuz MD PCP - General 05/07/19
== END 2024-12-10 13:45 | disposition home or self-care (01) ==
LOC: HO.HMCH 13:24
PROVIDERS: PCP Internal Medicine; Visit Provider Internal Medicine
DX: Z11.1 Encounter for screening for respiratory tuberculosis (principal)

== ENCOUNTER → 2024-12-10 13:24 | Outpatient (BNVA) | payer OTHER, SELFPAY | PROVIDERS: PCP Internal Medicine; Visit Provider Internal Medicine | DX: Z11.1 Encounter for screening for respiratory tuberculosis (principal) | CPT/HCPCS: 86580 ==

== ENCOUNTER → 2024-12-12 13:43 | Outpatient (BNVA) | payer OTHER, SELFPAY | PROVIDERS: PCP Internal Medicine; Visit Provider Internal Medicine | DX: Z13.89 Encounter for screening for other disorder (principal) ==

== ENCOUNTER 2025-03-30 14:57 | Emergency (ER) | payer OTHER, SELFPAY ==
--- OUTSIDE RECORDS SUMMARY | 2025-03-24 16:26 | XMS_ITS | Encounter Summary ---
Author Organization [facility] Address [address] [place] [address] Phone Care Team Providers Care Embroidery Assistant Name Role Phone Alberto James MD Unavailable [phone] Mariela Peralta MD Primary Care Provid er Tawanda Lewis MD Unavailable [phone] Encounter Details Date Type Department Care Team (Latest Contact Info) Description 03/24/2025 4:26 PM EDT - 03/24/2025 11:59 PM EDT Hospital Encounter [facility] [place] [address] [place] [address] [place] [address] Ekta Ernst MD [address], [address] [place] [address] [email or web address] Discharge Disposition: Home or Self Care Social History Tobacco Use Types Packs/Day Years Used Date Smoking Tobacco: Never Smokeless Tobacco: Never Alcohol Use Standard Drinks/Week Comments Not Currently 0 (1 standard drink = 0.6 oz pur e alcohol) not since Education Answer Date Recorded Are you interested in more education? Not on eric e 10/14/2022 Are you concerned about learning? Not on file 10/14/2022 No 10/14/2022 No 10/14/2022 Digital Access Answer Date Recorded No 11/12/2022 No 11/12/2022 Reliable internet access at home? Not on file 11/12/2022 Device with a working camera? Not on file Comments No Sex and Gender Information Value Date Recorded Sex Assigned at Female 11/26/2019 4:09 PM EDT Legal Sex Female 9:37 AM EDT Gender Identity Female 11/26/2019 4:09 PM EDT Sexual Orientation Straight 11/26/2019 4: 09 PM EDT documented as of this encounter Medications at Time of Discharge BIOTIN ORAL Take by mouth daily. cyanocobalamin (VITAMIN B-12) 1,000 mcg/mL injection every 30 (thirty) days. 1 fluticasone propionate (FLONASE) 50 mcg/actuation nasal spray SPRAY 2 SPRAYS INTO EACH NOSTRIL 5 lidocaine (LIDODERM) 5 % APPLY 1 PATCH TOPICALLY DAILY LEAVE ON MOST PAINFUL AREA FOR UP TO 12 HRS 5 norethindrone (MICRONOR) 0.35 mg tablet Take 1 tablet (0.35 mg total) by mouth daily. Micronor 1 tab po QD 28 tablet 12 2 pregabalin (LYRICA) 100 MG capsule 5 vitamins-DHA (DUET DHA ) 29 mg iron-1 mg -430 mg Cmpk Take 1 packet by mouth daily. pyridoxine HCl, vitamin B6, (VITAMIN B-6 ORAL) Take by mouth daily. tiZANidine (ZANAFLEX) 2 MG tablet TAKE 1 TABLET BY MOUTH 3 TIMES A DAY NEEDED FOR MUSCLE SPASTICITY 5 ZEPBOUND 7.5 mg/0.5 mL subcutaneous pen INJECT 7.5 MG (0.5 ML) SUBCUTANEOUSLY EVERY WEEK FOR 4 WEEKS 5 zolpidem (AMBIEN) 10 mg tablet TAKE 1 TABLET ORALLY BEDTIME NEEDED FOR SLEEP FOR 30 DAYS 5 documented as of this encounter Plan of Treatment Upcoming Encounters Date Type Department Care Team (Late st Contact Info) Description 04/22/2025 4:10 PM EST Office Visit [facility] [address] [place] [address] [place] [address] Gabriel Oquendo MD [address] [place] [address], [address] [address] 05/06/2025 4:40 PM EST Appointment [facility] [address] [place] [address] Leah Deleon MD [address] [place] [address], [address] [address] [email or web address] 05/07/2025 3:10 PM EST Office Visit [facility] [address] [place] [address] [place] [address] Gabriel Oquendo MD [address] [place] [address], [address] [address] documented as of this encounter Procedures Procedure Name Priority Date/Time Associated Diagnosis Comments US PELVIS TRANSABDOMINAL PLUS TRANSVAGINAL Routine 03/24/2025 5:12 PM EDT Uterine leiomyoma, unspecified location documented in this encounter Results * US PELVIS TRANSABDOMINAL PLUS TRANSVAGINAL (03/24/2025 5:12 PM EDT) Anatomical Region Laterality Modality Pelvis, Uterus/Adnexa Ultrasound 03/24/2025 5:13 PM EDT Impressions 03/25/2025 8:07 AM EDT 1. Heterogeneous uterus with multiple masses consistent with fibroids as described above. 2. The endometrium measures 9.7 mm and is without focal masses. 3. The right ovary contains a 1.4 cm cyst with internal echoes and some peripheral vascularity. It could potentially represent a corpus luteal cyst. 4. The left ovary contains two cysts as described above. The one with peripheral vascularity could represent a hemorrhagic corpus luteal cyst. The other cyst could be hemorrhagic in nature. Consider follow-up sonogram in 6 to 8 weeks to reassess these cysts. 5. There is no free fluid. Narrative 03/25/2025 8:07 AM EDT Procedure: US PELVIS TRANSABDOMINAL AND TRANSVAGINAL 03/24/2025 4:27 PM US Indications: Pelvic Pain; Uterine fibroid, symptomatic. Comparison: No relevant recent comparisons. Technique: Transabdominal sonography of the pelvis was performed. In addition, transvaginal imaging was performed to better evaluate the adnexae and ovaries. Color Doppler imaging was performed to assess vascularity. 3-D images were acquired and evaluated during image interpretation. Reported LMP: 02/24/2025 FINDINGS: Uterus: The uterus measurements acquired; 8.73 cm x 6.87 cm x 4.67 cm with volume of 146.65 ml. The uterus is anteverted in its positioning. The myometrium is heterogeneous with several masses suggestive of fibroids. Posterior right = 3.00 x 2.29 x 2.86 cm Anterior = 2.03 x 1.86 x 1.78 cm Left = 1.76 x 1.13 x 1.40 cm Left = 1.13 x 1.25 x 1.12 cm Fundal right = 1.02 x 0.70 x 1.18 cm Endometrium: The endometrium measures 0.97 cm and appears grossly normal. No endometrial masses. No fluid is identified within the endometrial canal. No focal cervical masses. Ovaries: The right ovary measures 2.74 cm x 2.28 cm x 2.82 cm with volume of 9.22 ml. Contains a complex cyst = 1.44 x 1.25 x 1.21 cm, peripheral vascularity seen. Right Adnexa: No masses seen. The left ovary measures 4.04 cm x 5.54 cm x 2.63 cm with volume of 30.82 ml. Contains two cysts. One with dense, hypoechoic internal echoes and peripheral vascularity = 2.20 x 2.83 x 2.63 cm. One with heterogeneous internal echoes and no internal echoes = 2.58 x 2.35 x 2.56 cm. Left Adnexa: No masses seen. Cul de Sac: There is no evidence of free pelvic fluid. Tech Comments: Procedure Note Gabriel Oquendo MD - 03/25/2025 Procedure: US PELVIS TRANSABDOMINAL AND TRANSVAGINAL 03/24/2025 4:27 PM US Indications: Pelvic Pain; Uterine fibroid, symptomatic. Comparison: No relevant recent comparisons. Technique: Transabdominal sonography of the pelvis was performed. Inaddition, transvaginal imaging was performed to better evaluate theadnexae and ovaries. Color Doppler imaging was performed to assessvascularity. 3-D images were acquired and evaluated during imageinterpretation. Reported LMP: 02/24/2025 FINDINGS: Uterus: The uterus measurements acquired; 8.73 cm x 6.87 cm x 4.67 cm with volumeof 146.65 ml. The uterus is anteverted in its positioning. Themyometrium is heterogeneous with several masses suggestive of fibroids. Posterior right = 3.00 x 2.29 x 2.86 cm Anterior = 2.03 x 1.86 x 1.78 cm Left = 1.76 x 1.13 x 1.40 cm Left = 1.13 x 1.25 x 1.12 cm Fundal right = 1.02 x 0.70 x 1.18 cm Endometrium: The endometrium measures 0.97 cm and appears grossly normal. Noendometrial masses. No fluid is identified within the endometrialcanal. No focal cervical masses. Ovaries: The right ovary measures 2.74 cm x 2.28 cm x 2.82 cm with volume of 9.22ml. Contains a complex cyst = 1.44 x 1.25 x 1.21 cm, peripheral vascularityseen. Right Adnexa: No masses seen. The left ovary measures 4.04 cm x 5.54 cm x 2.63 cm with volume of 30.82ml. Contains two cysts. One with dense, hypoechoic internal echoes andperipheral vascularity = 2.20 x 2.83 x 2.63 cm. One with heterogeneousinternal echoes and no internal echoes = 2.58 x 2.35 x 2.56 cm. Left Adnexa: No masses seen. Cul de Sac: There is no evidence of free pelvic fluid. Tech Comments: IMPRESSION: 1. Heterogeneous uterus with multiple masses consistent with fibroids asdescribed above. 2. The endometrium measures 9.7 mm and is without focal masses. 3. The right ovary contains a 1.4 cm cyst with internal echoes and someperipheral vascularity. It could potentially represent a corpus lutealcyst. 4. The left ovary contains two cysts as described above. The one withperipheral vascularity could represent a hemorrhagic corpus luteal cyst.The other cyst could be hemorrhagic in nature. Consider follow-upsonogram in 6 to 8 weeks to reassess these cysts. 5. There is no free fluid. us Ekta Ernst MD IMG US PELVIS Final Result documented in this encounter Visit Diagnoses Diagnosis Uterine leiomyoma, unspecified location documented in this encounter Care Teams Embroidery Assistant Relationship Specialty Start Date End Date Po, Alberto Prince MD [address] [place] [address] [place] [id number] PCP - Family Medicine Internal Medicine 07/08/19 Mariela Peralta MD [address] [place] [id number] PCP - General Internal Medicine 09/28/20 Tawanda Lewis MD [address] [facility] [place] [address] [email or web address] Referring Physician Physical Medicine and Rehabilitation 11/04/20 documented as of this encounter Additional Source Comments The information contained in this document represents components of the legal health record. It is not the complete legal health record.[facility]
--- OUTSIDE RECORDS SUMMARY | 2025-03-25 15:40 | XMS_ITS | Encounter Summary ---
Author Organization [facility] Address [address] [place] [id number] Phone Care Team Providers Care Sewage Disposal Engineer Name Role Phone Alberto James MD Unavailable [phone] Mariela Peralta MD Primary Care Provid er Tawanda Lewis MD Unavailable [phone] Reason for Visit * Reason Comments Follow-up Had US 03/24/2025 Encounter Details Date Type Department Care Team (Late st Contact Info) Description 03/25/2025 3:40 PM EDT Office Visit [facility] [address] [place] [phone] Leah Deleon MD [address] [facility], [address] [place] [phone] [email or web address] Pelvic pain (Primary Dx) Social History Tobacco Use Types Packs/Day Years [...] PM EDT documented as of this encounter Last Filed Vital Signs Vital Sign Reading Time Taken Comments Blood Pressure 114/70 03/25/2025 3:35 PM EDT Pulse - - Temperature - - Respiratory Rate - - Oxygen Saturation - - Inhaled Oxygen Concentration - - Weight - - Height - - Body Mass Index - - documented in this encounter Progress Notes * Leah Deleon MD - 03/25/2025 3:40 PM EDT Encounter Date: 03/25/2025 Chief Complaint: Chief Complaint Patient presents with Follow-up Had US 03/24/2025 Subjective: Farshad Anand is a 34 y.o. who presents for follow up of US results. Medical History Patient Active Problem List Diagnosis Hip tendonitis, right Subluxation of sacroiliac joint Gastroesophageal reflux disease Claustrophobia History of gastric bypass Fusion of sacral region of spine Request for sterilization Headache Pelvic pain Past Medical History: Diagnosis Date Adverse effect of anesthetic Claustrophobia And situation anxiety - no medication Depression Gastroesophageal reflux disease Kidney stone 2017 Spontaneously resolved Motion sickness Mild Pap smear for cervical cancer screening 01/15/2020 neg pap (HPV not done), results scanned in from [facility] Post-operative nausea and vomiting Past Surgical History: Procedure Laterality Date SECTION PRIMARY N/A 07/20/2021 Performed by Galilea Nguyen MD at [facility] L&D OR FUSION SACROILIAC JOINT Left 12/02/2019 Performed by Susana Ratliff MD, PhD at [facility] OR 1ST FLOOR GASTRIC BYPASS 2016 NASAL SEPTUM SURGERY 2018 and polyp excision ME ARTHRODESIS SI JT OPN W/OBTAINING B1 GRF INSTRMJ SI fusion ([facility]) TUBAL LIGATION Bilateral 07/20/2021 Performed by Galilea Nguyen MD at [facility] L&D OR WISDOM TOOTH EXTRACTION age 17 Social History Socioeconomic History Marital status: /Civil Union Spouse name: Not on file Number of children: Not on file Years of education: Not on file Highest education level: Not on file Occupational History Not on file Tobacco Use Smoking status: Never Smokeless tobacco: Never Vaping Use Vaping status: never used Substance and Sexual Activity Alcohol use: Not Currently Comment: not since Drug use: Never Sexual activity: Yes Partners: Male Other Topics Concern Not on file Social History Narrative 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 OB History Para Term AB Living 1 1 1 0 0 1 SAB IAB Ectopic Multiple Live Births 0 0 0 0 1 # Outcome Date GA Lbr Jamar/2nd Weight Sex Type Anes PTL Lv 1 Term 07/20/21 39w0d 3.402 kg (7 lb 8 oz) F Spinal GENO Menstrual History No LMP recorded. Current Outpatient Medications: BIOTIN ORAL, Take by mouth daily., Disp: , Rfl: , Last Dispense: Unknown (patient-reported) cyanocobalamin (VITAMIN B-12) 1,000 mcg/mL injection, every 30 (thirty) days. , Disp: , Rfl: , LastDispense: Unknown (patient-reported) diazePAM (VALIUM) 10 MG tablet, Take 1 tablet (10 mg total) by mouth once for 1 dose., Disp: 1 tablet, Rfl: 0, Last Dispense: Unknown (outside pharmacy) fluticasone propionate (FLONASE) 50 mcg/actuation nasal spray, SPRAY 2 SPRAYS INTO EACH NOSTRIL, Disp: , Rfl: , Last Dispense: Unknown (patient-reported) lidocaine (LIDODERM) 5 %, APPLY 1 PATCH TOPICALLY DAILY LEAVE ON MOST PAINFUL AREA FOR UP TO 12 HRS, Disp: , Rfl: , Last Dispense: Unknown (patient-reported) norethindrone (MICRONOR) 0.35 mg tablet, Take 1 tablet (0.35 mg total) by mouth daily. Micronor 1 tab po QD, Disp: 28 tablet, Rfl: 12, Last Dispense: Unknown (outside pharmacy) pregabalin (LYRICA) 100 MG capsule, , Disp: , Rfl: , Last Dispense: Unknown (patient-reported) vitamins-DHA (DUET DHA ) 29 mg iron-1 mg -430 mg Cmpk, Take 1 packet by mouth daily., Disp: , Rfl: , Last Dispense: Unknown (patient-reported) pyridoxine HCl, vitamin B6, (VITAMIN B-6 ORAL), Take by mouth daily., Disp: , Rfl: , Last Dispense:Unknown (patient-reported) tiZANidine (ZANAFLEX) 2 MG tablet, TAKE 1 TABLET BY MOUTH 3 TIMES A DAY NEEDED FOR MUSCLE SPASTICITY, Disp: , Rfl: , Last Dispense: Unknown (patient-reported) ZEPBOUND 7.5 mg/0.5 mL subcutaneous pen, INJECT 7.5 MG (0.5 ML) SUBCUTANEOUSLY EVERY WEEK FOR 4 WEEKS, Disp: , Rfl: , Last Dispense: Unknown (patient-reported) zolpidem (AMBIEN) 10 mg tablet, TAKE 1 TABLET ORALLY BEDTIME NEEDED FOR SLEEP FOR 30 DAYS, Disp:, Rfl: , Last Dispense: Unknown (patient-reported) Allergies Allergen Reactions Aspirin Other (See Comments) AVOIDS DUE TO GASTRIC BYPASS Nsaids (Non-Steroidal Anti-Inflammatory Drug) Other (See Comments) AVOIDS DUE TO GASTRIC BYPASS Percocet [Oxycodone-Acetaminophen] Hives Pumpkin Swelling Facial swelling Tramadol Itching Vicodin [Hydrocodone-Acetaminophen] Hives Opioids - Morphine Analogues Hives Burning sensation Adhesive Tape-Silicones Rash Objective: BP 114/70 Gen: Alert, cooperative. Well-appearing on today's exam Assessment/Plan: 34 y.o. with: Problem List Items Addressed This Visit Pelvic pain Current Assessment & Plan Pelvic US images reviewed, discussed findings of two left sided hemorrhagic appearing cysts, several small uterine fibroids Recommend repeat pelvic US in 6-8 weeks to re-assess cysts and decide on next steps in management Plan follow up after repeat imaging Relevant Orders US Pelvis Return for Next scheduled follow up. Leah Deleon MD documented in this encounter Miscellaneous Notes * Assessment & Plan Note - Leah Deleon MD - 03/25/2025 5:11 PM EDTAssociated Problem(s): Pelvic pain Pelvic US images reviewed, discussed findings of two left sided hemorrhagic appearing cysts, several small uterine fibroids Recommend repeat pelvic US in 6-8 weeks to re-assess cysts and decide on next steps in management Plan follow up after repeat imaging documented in this encounter Plan of Treatment Upcoming Encounters Date Type Department Care Team (Late st Contact Info) Description 04/22/2025 4:10 PM EST Office Visit [facility] [address] [place] [address] [place] [phone] Gabriel Oquendo MD [address] [place] [phone] [email or web address] 05/06/2025 4:40 PM EST Appointment [facility] [address] [place] [address] [place] [address] Leah Deleon MD [address] [place] [address], [address] [address] [email or web address] 05/07/2025 3:10 PM EST Office Visit [facility] [address] [place] [address] [place] [address] Gabriel Oquendo MD [address] [place] [phone] Scheduled Orders Name Type Priority Associated Diagnoses Orde r Schedule US Pelvis Imaging Routine Pelvic pain Expected: 05/20/2025, Expires: 06/25/2025 documented as of this encounter Visit Diagnoses Diagnosis Pelvic pain- Primary documented in this encounter Care Teams Sewage Disposal Engineer Relationship Specialty Start Date End Date Jacob, Alberto Prince MD [address] [place] [address] [place] [phone] PCP - Family Medicine Internal Medicine 07/08/19 Mariela Peralta MD [address] [place] [address] PCP - General Internal Medicine 09/28/20 Tawanda Lewis MD [address] [facility] [place] [address] [email or web address] Referring Physician Physical Medicine and Rehabilitation 11/04/20 documented as of this encounter Additional Source Comments The information contained in this document represents components of the legal health record. It is not the complete legal health record.[facility]
--- NOTE | ~2025-03-30 | CT_ITS ---
CLINICAL HISTORY: [address] pain [address] abdomen and pelvis with contrast Comparison: CT - CT ABDOMEN PELVIS W IV CON - 03/30/25 17:31 EDT Findings: The lung bases are clear. The gallbladder and solid organs are within normal limits. No renal stones. No bowel obstruction, pneumoperitoneum, or pneumatosis. Gastric mery. Multiple uterine fibroids. Normal appendix. No acute fracture. IMPRESSION: No acute findings. This document has been electronically signed by: Kate Perez MD on 03/30/2025 19:43:55
[2025-03-30 15:04] VITALS: BP 113/63; PULSE 95; RESP 20; TEMP 36.4; O2SAT 100; BMI 27.1
--- NOTE | 2025-03-30 15:04 | ED.GENADULT ---
HPI - General Adult General Chief complaint: Abdominal Pain Stated complaint: abd pain left sided, vomiting Time Seen by Provider: 03/30/25 16:20 Source: patient, RN notes reviewed and old records reviewed Mode of arrival: ambulatory Limitations: no limitations History of Present Illness ED Provider: CUBA Trejo HPI narrative: 34 year old female with medical history of kidney stones, anemia, B12 deficiency, carpal tunnel, GERD, s/p gastric bypass 2015, presents to the ED due to 2 weeks of left-sided abdominal pain. Patient states the abdominal pain had been intermittent but over the past 4 days abdominal pain has become constant. Patient states she has had multiple episodes of vomiting over the last 2 days. Patient reports her last bowel movement was yesterday morning and was soft in consistency, and has been passing flatus. Patient states she has not been able to eat or drink much in the last 2 days due to nausea and vomiting. Denies chest pain, SOB, difficulty breathing MD complaint: 2 weeks of abdominal pain Related Data Home Medications ?Medication ?Instructions ?Recorded ?Confirmed multivitamin 1 tab PO DAILY 10/09/24 03/21/25 hydromorphone 2 mg tablet 2 mg PO Q4-6H PRN pt 11/13/24 03/21/25 docusate sodium 100 mg capsule 100 mg PO DAILY 11/19/24 03/21/25 (Dulcolax Stool Softener (docusate)) Previous Rx's ?Medication ?Instructions ?Recorded syringe with needle 3 mL 25 gauge #90 ea 05/15/23 x 1 (Syringe) tirzepatide (weight loss) 5 mg/0.5 5 mg (0.5 mL) subcut QWEEK 4 weeks 10/20/24 mL subcutaneous pen injector #2 mL (Zepbound) nitrofurantoin macrocrystal 100 mg 100 mg PO BID 5 days #10 caps 11/22/24 capsule cyanocobalamin (vitamin B-12) 1,000 mcg subcut QMONTH 30 days #1 12/02/24 1,000 mcg/mL injection solution mL lidocaine 5 % topical patch 1 patch topical DAILY #30 ea 01/01/25 pregabalin 25 mg capsule (Lyrica) 25 mg PO BID #60 caps 01/01/25 tizanidine 2 mg tablet 2 mg PO TID PRN muscle spasticity 01/01/25 #30 tabs tirzepatide (weight loss) 7.5 7.5 mg (0.5 mL) subcut QWEEK 4 01/03/25 mg/0.5 mL subcutaneous pen weeks #2 mL injector (Zepbound) cholecalciferol (vitamin D3) 50 50 mcg PO DAILY 90 days #90 caps 03/07/25 mcg (2,000 unit) capsule tramadol 50 mg tablet 50 mg PO BID PRN pain 7 days #14 03/26/25 tabs zolpidem 10 mg tablet 10 mg PO BEDTIME PRN sleep 30 days 03/26/25 #30 tabs ondansetron HCl 4 mg tablet 4 mg PO BEDTIME PRN nausea and 03/30/25 vomiting 4 days #5 tabs Allergies Allergy/AdvReac Type Severity Reaction Status Date / Time hydrocodone (From Vicodin) Allergy Intermediate Rash, Hives Verified 03/30/25 15:06 morphine (MORPHINE) Allergy Intermediate BURNING IN Verified 03/30/25 15:06 CHEST, shortness of breath oxycodone (From PERCOCET) Allergy Intermediate ITCHINESS Verified 03/30/25 15:06 pumpkin Allergy Intermediate Itching Verified 03/30/25 15:06 ibuprofen AdvReac Intermediate Stomach Verified 03/30/25 15:06 Upset Review of Systems Review of Systems: CONST: Negative for fever, body aches and chills. HENT: Negative for neck pain/stiffness, headache, congestion, sore throat, swelling. EYES: Negative for discharge/pain or vision changes. RESP: Negative for cough/hemoptysis and shortness of breath. CV: Negative chest pain, difficulty breathing, palpitations. ABD: POS pain, nausea, vomiting. : Negative increase frequency, dysuria, blood in urine or stool. MUSC: Negative for muscle aches, edema. SKIN: Negative rash, lesions/sores. NEURO: Negative headache, dizziness, weakness. Yes all other systems are reviewed and are negative PMFSH Past Medical History Attestation statement: The following information was validated with the patient. Source: old records reviewed and nursing notes reviewed Medical History GERD (gastroesophageal reflux disease) Carpal tunnel syndrome Hypovitaminosis D B12 deficiency Anemia Kidney stones Surgical History History of esophagogastroduodenoscopy (EGD) S/P fusion of sacroiliac joint History of delivery History of surgery History of nasal surgery History of wisdom tooth extraction Gastric bypass status for obesity Family History Family History Father High cholesterol Diabetes Mother Migraine Obesity Bipolar disorder Mental health disorder Maternal Grandfather Stroke Sister In good health Brother In good health Social History Social History Household Members: Spouse Housing: House Alcohol intake: current Alcohol intake frequency: does not drink Alcohol type: beer Patient Tobacco Use Status: Never used Tobacco Smoked in Last 30 Days: No e-Cigarette/Vaping Use: Never Used Second Hand Smoke Exposure: No Use of substances other than those prescribed or required for medical reasons: No Advance Directives: No Advance Directives Information Provided: Yes Do you have a plan to hurt others: No Plan service: No Current occupational status: employed 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 HEENT: ?NC, AT. MMM. EOMI, clear conjunctiva, oropharynx clear. NECK: ?Supple without lymphadenopathy.? No stiffness or restricted ROM. HEART:? Normal rate and regular rhythm, normal S1/S2, no m/r/g LUNGS:? CTAB, moving air well. No crackles or wheezes are heard. ABDOMEN: ?Soft, nondistended, no guarding, tenderness to palpation of periumbilical area, and left upper quadrant. BACK: No CVAT, no obvious deformity. EXTREMITIES: ?Without cyanosis, clubbing or edema. NEUROLOGICAL: ?Grossly nonfocal. Alert and oriented, moving all 4 extremities. Observed to ambulate with normal gait. Skin: ?Warm and dry without any rash. Course Course Course Narrative: Rapid medical examination performed in triage by Felicia Rosales PA-C. Patient is a 34 year old assigned female at presenting to the emergency department with abdominal pain, nausea, and vomiting. Hx of gastric bypass. Detailed physical exam and review of systems are deferred to the insurance plan specialist. Labs ordered. Patient placed back in the waiting room pending room availability and results. Medications Administered Discontinued Medications Generic Name Dose Route Start Last Admin Trade Name Freq PRN Reason Stop Dose Admin Hydromorphone HCl 1 mg 03/30/25 16:50 03/30/25 16:58 Hydromorphone Hcl 1 Mg/Ml Syringe IVPUSH 03/30/25 16:51 1 mg ONCE ONE Administration Protocol Lactated Ringer's 1,000 mls @ 999 mls/hr 03/30/25 16:33 03/30/25 16:45 Lr IV 03/30/25 17:33 999 mls/hr .Q1H1M ONE Administration Iohexol 100 ml 03/30/25 17:44 03/30/25 17:45 Iohexol 350 Mg/Ml 100 Ml Infus..Btl IV 03/30/25 17:45 85 ml ONCE ONE Administration Ondansetron HCl 4 mg 03/30/25 16:33 03/30/25 16:49 Ondansetron Hcl 4 Mg/2 Ml Vial IVPUSH 03/30/25 16:34 4 mg ONCE ONE Administration Medical Decision Making Medical Decision Making MDM Narrative: 34 year old female with medical history of kidney stones, anemia, B12 deficiency, carpal tunnel, GERD, s/p gastric bypass 2015, presents to the ED due to 2 weeks of left-sided abdominal pain. Patient states the abdominal pain had been intermittent but over the past 4 days abdominal pain has become constant and now associated with nausea and vomiting. Patient is currently on her menses. Patient reports last bowel movement was yesterday and was soft in consistency and has been passing flatus. VS on initial observation-BP 108/63, pulse rate of 96, respiratory rate of 20, afebrile with oral temp of 97.5?, O2 saturation 100% on room air. On physical exam the abdomen is Soft, nondistended, no guarding, tenderness to palpation of periumbilical area, and left upper quadrant. Labs without leukocytosis/leukopenia, H&H stable, elevated chloride of 109 most likely due to vomiting, and dehydration, No electrolyte abnormality. POC glucose of 79, random serum glucose of 86. Beta HCG negative at <2. UA reveals 1+ urine protein, 2+ urine blood, trace leukocyte esterase, without evidence of urine bacteria, patient currently on her menstrual cycle 2+ urine blood most likely due to this. CT abdomen and pelvis reveals multiple uterine fibroids without acute findings. Patient with 4 days of left-sided abdominal pain, with 2 days of nausea and vomiting most likely due to viral syndrome. Labs without leukocytosis/leukopenia, patient afebrile. Patient was medicated with IV fluids, and Zofran with good effect of her nausea. Patient states she feels well enough to go home for self-care. I counseled patient to follow up with her primary care provider. Patient will be discharged with Zofran to manage nausea at home. Patient is aware of the uterine fibroids and is following her putty remover for treatment. Patient is in agreement with the plan. Differential Diagnosis Differential Diagnoses: The differential diagnosis associated with the presentation includes Gastritis Viral illness Acute abdomen Admission/Observation Consideration of admission/observation: Escalation of care including admission/observation considered Lab Data MDM Lab Attestation statement: I reviewed the patient's lab results. 03/30/25 15:46 03/30/25 15:46 Labs: Lab Results 03/30/25 03/30/25 03/30/25 Range/Units 15:46 15:52 15:54 WBC 6.8 (4.8-10.8) X10*3/uL RBC 4.24 (4.20-5.50) X10*6/uL Hgb 12.5 (12.0-16.0) g/dl Hct 38.0 (37.0-47.0) % MCV 89.6 (80.0-98.0) fL MCH 29.5 (27.0-33.0) pg MCHC 32.9 (31.0-35.0) g/dl RDW 13.1 (11.0-16.0) % Plt Count 354 D (160-400) X10*3/uL MPV 9.3 L (9.4-12.3) fL Immature Gran % (Auto) 0.1 (0.0-0.4) % Neut % (Auto) 56.4 (45-73) % Lymph % (Auto) 31.7 (20-40) % [place] % (Auto) 9.5 (2-11) % Eos % (Auto) 1.6 (0-4) % Baso % (Auto) 0.7 (0-2) % Lymph # (Auto) 2.1 (1.2-4.9) X10*3/uL [place] # (Auto) 0.6 (0.1-1.2) X10*3/uL Eos # (Auto) 0.1 (0.0-0.4) X10*3/uL Baso # (Auto) 0.1 (0.0-0.2) X10*3/uL Abs Immat Gran (auto) 0.01 (0.00-0.03) X10*3/uL Absolute Neuts (auto) 3.8 (2.0-8.3) x10*3/uL Absolute Nucleated RBC 0.000 (0.0-0.012) X10*3/uL Nucleated RBC % (auto) 0.0 (0.0-0.2) /100WBC Sodium 141 (135-145) mmol/L Potassium 4.0 (3.3-5.1) mmol/L Chloride 109 H (96-108) mmol/L Carbon Dioxide 22 (22-29) mmol/L Anion Gap 14 (12-20) BUN 11 (9-16) mg/dL Creatinine 0.76 (0.5-1.4) mg/dL Estim Creat Clear Calc 100.1 Estimated GFR > 60 POC Glucose 79 (60-115) mg/dL Random Glucose 86 (60-115) mg/dL Calcium 9.4 (8.4-10.2) mg/dL Magnesium 2.1 (1.6-2.6) mg/dL Total Bilirubin 0.5 (0.0-1.0) mg/dL AST 17 (5-31) U/L ALT 6 (0-31) U/L Alkaline Phosphatase 84 (39-117) U/L Total Protein 7.5 (6.5-8.0) g/dL Albumin 4.6 (3.5-5.0) g/dL Beta HCG, Quant < 2 mIU/mL Urine Color Dark Yellow Urine Appearance Clear Urine pH 5.5 (5.0-9.0) Ur Specific [place] >= 1.030 H (1.005-1.025) Urine Protein 30 (1+) H (Neg-Trace) mg/dL Urine Glucose (UA) Negative (Negative) mg/dL Urine Ketones 80 (Negative) mg/dL Urine Blood Moderate (2+) H (Negative) Urine Nitrite Negative (Negative) Ur Leukocyte Esterase Trace H (Negative) Urine RBC 0-2 (0-2) /HPF Urine WBC 0-5 (0-5) /HPF Ur Squamous Epith Cells 6-10 (0-2) /HPF Urine Bacteria None Seen (None Seen) Hyaline Casts 11-20 (0-2) /LPF Independent Interpretation I performed an independent interpretation of an: CT Scan Interpretation: I personally interpreted the CT abdomen and pelvis which did not reveal any acute findings, I agree with the radiologist's interpretation Radiology Impression Discussion of test interpretation with radiology: I have reviewed the radiologist's reading. Radiologist Impression: CT abdomen and pelvis Findings: The lung bases are clear. The gallbladder and solid organs are within normal limits. No renal stones. No bowel obstruction, pneumoperitoneum, or pneumatosis. Gastric mery. Multiple uterine fibroids. Normal appendix. No acute fracture. IMPRESSION: No acute findings. This document has been electronically signed by: Kate Perez MD on 03/30/2025 19:43:55 Dictated By: Kate Perez MD Signed By: <Electronically signed by Kate Perez MD in OV> 03/30/251944 External Record Review External record reviewed: Inpatient record, Office record and Outpatient record Prescription Management I considered prescription management with: Other (Toradol) I considered Toradol for abdominal pain however patient with history of gastric bypass is not a candidate Chronic Conditions Patient?s care impacted by: Other (Stones, anemia, B12 deficiency, carpal tunnel, GERD, s/p gastric bypass 2015) Discharge Plan Discharge Clinical Impression: Viral illness Patient Disposition: Home, Self-Care Additional Instructions: You were evaluated in the ED for abdominal pain. Your lab work was reassuring as there was no significant elevation in your white blood cell count indicative of infection, no evidence of anemia, no electrolyte abnormalities. Your urine had ever since of blood without evidence of bacteria, this is most likely due to you being on your menses. Your CT abdomen and pelvis did reveal multiple uterine fibroids, however was negative for any acute emergent findings. Your symptoms are most likely due to viral syndrome. Please follow up with your primary care doctor/putty remover for findings of uterine fibroids. You will be prescribed Zofran to help you manage with your nausea as you improve. Additionally, please stay hydrated with Gatorade, Pedialyte or Powerade, eat a bland diet and advance as tolerated. Please return to the emergency department if you experience fevers over 100.4?, worsening abdominal pain, inability to have a bowel movement, nausea, vomiting or any new/worsening/concerning symptoms. Prescriptions: New ondansetron HCl 4 mg tablet 4 mg PO BEDTIME PRN (Reason: nausea and vomiting) 4 Days Qty: 5 0RF No Action (DME) Syringe 3cc/25Gx1 3 mL 25 gauge x 1 syringe Qty: 90 3RF Rx Instructions: As Directed Zepbound 5 mg/0.5 mL pen injector 5 mg subcut QWEEK 28 Days Qty: 2 0RF nitrofurantoin macrocrystal 100 mg capsule 100 mg PO BID 5 Days Qty: 10 0RF Rx Instructions: must administer with a meal/food cyanocobalamin (vitamin B-12) 1,000 mcg/mL solution 1,000 mcg SUBCUT QMONTH 30 Days Qty: 1 2RF lidocaine 5 % adhesive patch,medicated 1 patch topical DAILY Qty: 30 3RF Rx Instructions: leave on most painful area for up to 12 hrs pregabalin [Lyrica] 25 mg capsule 25 mg PO BID Qty: 60 2RF Rx Instructions: May cause drowsiness. No driving while taking this medication. Do not take with alcohol or other MACHINE ASSEMBLER SUPERVISOR suppressants. tizanidine 2 mg tablet 2 mg PO TID PRN (Reason: muscle spasticity) Qty: 30 3RF Rx Instructions: May cause drowsiness, do not drive while taking this medication. Do not take with alcohol or other MACHINE ASSEMBLER SUPERVISOR depressants. Zepbound 7.5 mg/0.5 mL pen injector 7.5 mg subcut QWEEK 28 Days Qty: 2 0RF cholecalciferol (vitamin D3) 50 mcg (2,000 unit) capsule 50 mcg PO DAILY 90 Days Qty: 90 1RF tramadol 50 mg tablet 50 mg PO BID PRN (Reason: pain) 7 Days Qty: 14 0RF zolpidem 10 mg tablet 10 mg PO BEDTIME PRN (Reason: sleep) 30 Days Qty: 30 0RF docusate sodium [Dulcolax Stool Softener (dss)] 100 mg Capsule 100 mg PO DAILY multivitamin Tablet 1 tab PO DAILY hydromorphone 2 mg tablet 2 mg PO Q4-6H PRN (Reason: pt) Print Language: Telugu
--- OUTSIDE RECORDS SUMMARY | 2025-03-30 15:13 | XMS_ITS | Continuity of Care Document ---
Author Organization [place] - [facility], [facility] Address [address] [place] [address] Care Team Providers Care Dining Room Coordinator Name Role Phone MARK JAIMES Referring Provider [phone] Assessment Encounter Date Assessment Date Assessment LastModified by Organization Details LastModified Time 03/26/2025 03/26/2025 Farshad Anand is a 34-year-old female with persistent nasal symptoms and allergies to dust, grass, ragweed, mold, cockroach, and cats. I recommend resuming allergy injections to address her persistent symptoms. She should continue using Flonase as needed for nasal symptom relief. I advised her to use katx-yxi-ajdboaw antihistamines such as Claritin, Ivonne, or Zyrtec if necessary. Additionally, I will prescribe a new EpiPen to replace her one. FOLLOW-UP: The patient should follow up as needed to monitor her response to allergy injections and symptom management. [email or web address] Not available 03/26/2025 15:36:59 Plan of Treatment Reminders Order Date Submit Date Provider Last Modified By Organization Details Last Modified Time Details Appointments Allerg y new inject ion 2024 02:50P M [facility] Not available Not available Not available Establ ished 15 2025 03:30P M ALEJANDRO BEEBE PA-C Not available Not available Not available Lab None record ed. Referral None record ed. Procedures allerg en immuno therap y; multip le inject ions (PROC) 2024 025 [email or web address] Not available 03/28/2025 11:22:08 Surgeries None record ed. Imaging None record ed. Medication Orders epinep hrine 0.3 mg/0.3 mL inject ion, auto-i njecto r 2024 025 josiah [id number], [address] [facility], [place], [address], 03/26/2025 15:37:31 Patient TargetsNo targets recorded. Patient Instructions Encounter Date Encounter Id Patient Instructions Last Modified By Organization Details Last Modified Time 03/26/2025 [id number] - Resume allergy injections. - Continue using Flonase as needed. - Use hucg-cdi-aegurnn antihistamines such as Claritin, Ivonne, or Zyrtec if necessary. - Replace EpiPen with a new prescription. josiah Not available 03/26/2025 15:36:59 Please note: Parts of this encounter note have been generated by AI based on audio conversation. Patient consent was required prior to utilizing this technology. Content review was required prior to finalizing the note. josiah Not available 03/26/2025 15:37:00 Reason for Referral None Reported. Results Created Date Observation Date Name Description Value Unit Range Abnormal Flag Note LastModifiedBy Organization Detail LastModifiedTime 02/29/20 25 liz metry testi ng* No observ ation record ed. [email or web address] Not Available 2024 10:45:57 Result Notes None recorded. Problems Name Problem SNOMED Code Status Onset Date Resolution Date Notes Provider Name and Address Organization Details Recorded Time Headache 61781188 Active 2017 Facial pain NOS; Note: Date Diagnosed : 03/12/2018 11:31 AM (R51) Not Available [facility] 4 02:15:59 Migraine without aura, not refractor y 428982102 Active 2017 Migraine without aura, not intractab le, without status migrainos us; Note: Date Diagnosed : 03/12/2018 11:31 AM (G43.009) Not Available [facility] 4 02:14:52 Chronic sinusitis 29523766 Active 2017 Other chronic sinusitis ; Note: Date Diagnosed : 03/12/2018 11:31 AM (J32.8) Not Available [facility] 4 02:15:34 Deviated nasal septum 747998972 Active 2017 Deviated nasal septum; Note: Date Diagnosed : 03/12/2018 11:31 AM (J34.2) Not Available [facility] 4 02:15:30 Chronic rhinitis 13434144 Active 2017 Chronic rhinitis; Note: Date Diagnosed : 04/27/2018 3:39 PM (J31.0) Not Available [facility] 4 02:15:17 Hypertrop hy of nasal turbinate s 85806629 Active 2017 Hypertrop hy of nasal turbinate s; Note: Date Diagnosed : 8 9:08 AM (J34.3) Not Available [facility] 4 02:15:04 Disorder of nasal sinus 7752821 Active 2017 Other specified disorders of nose and nasal sinuses; Note: Date Diagnosed : 8 1:58 PM (J34.89) Not Available [facility] 4 02:15:42 Disorder of the nose 45710830 Active 2017 Other specified disorders of nose and nasal sinuses; Note: Date Diagnosed : 8 1:58 PM (J34.89) Not Available [facility] 4 02:15:42 Allergic rhinitis 45534005 Active 2020 Allergic rhinitis: Due to other allergen; Note: Date Diagnosed : 09/25/2020 11:17 AM (477.8) Allergi c rhinitis: Due to other allergen; Note: Date Diagnosed : 09/09/2020 4:48 PM (477.8) ; Start Date : 1 Allergi c rhinitis: Due to other allergen; Note: Date Diagnosed : 08/28/2020 12:43 PM (477.8) ; Start Date : Allergi c rhinitis: Due to other allergen; Note: Date Diagnosed : 08/14/2020 12:34 PM (477.8) ; Start Date : Allergi c rhinitis: Due to other allergen; Note: Date Diagnosed : 08/07/2020 11:35 AM (477.8) ; Start Date : 1 Allergi c rhinitis: Due to other allergen; Note: Date Diagnosed : 07/31/2020 10:42 AM (477.8) ; Start Date : 1 Allergi c rhinitis: Due to other allergen; Note: Date Diagnosed : 07/15/2020 1:55 PM (477.8) ; Start Date : 1 Allergi c rhinitis: Due to other allergen; Note: Date Diagnosed : 07/09/2020 2:07 PM (477.8) ; Start Date : 1 Allergi c rhinitis: Due to other allergen; Note: Date Diagnosed : 07/01/2020 3:05 PM (477.8) ; Start Date : 1 Allergi c rhinitis: Due to other allergen; Note: Date Diagnosed : 0 3:28 PM (477.8) ; Start Date : 0 Allergi c rhinitis: Due to other allergen; Note: Date Diagnosed : 0 2:01 PM (477.8) ; Start Date : 0 Allergi c rhinitis: Due to other allergen; Note: Date Diagnosed : 0 3:40 PM (477.8) ; Start Date : 0 Allergi c rhinitis: Due to other allergen; Note: Date Diagnosed : 0 10:01 AM (477.8) ; Start Date : 0 Allergi c rhinitis: Due to other allergen; Note: Date Diagnosed : 0 4:19 PM (477.8) ; Start Date : 0 Allergi c rhinitis: Due to other allergen; Note: Date Diagnosed : 03/26/2020 3:12 PM (477.8) ; Start Date : 0 Allergi c rhinitis: Due to other allergen; Note: Date Diagnosed : 03/19/2020 4:35 PM (477.8) ; Start Date : 0 Allergi c rhinitis: Due to other allergen; Note: Date Diagnosed : 03/12/2020 3:24 PM (477.8) ; Start Date : 0 Allergi c rhinitis: Due to other allergen; Note: Date Diagnosed : 03/06/2020 2:15 PM (477.8) ; Start Date : 0 Allergi c rhinitis: Due to other allergen; Note: Date Diagnosed : 02/21/2020 2:51 PM (477.8) ; Start Date : 0 Allergi c rhinitis: Due to other allergen; Note: Date Diagnosed : 02/14/2020 2:19 PM (477.8) ; Start Date : 0 Allergi c rhinitis: Due to other allergen; Note: Date Diagnosed : 01/30/2020 3:48 PM (477.8) ; Start Date : 0 Allergi c rhinitis: Due to other allergen; Note: Date Diagnosed : 01/17/2020 12:38 PM (477.8) ; Start Date : 0 Allergi c rhinitis: Due to other allergen; Note: Date Diagnosed : 11/22/2019 11:55 AM (477.8) ; Start Date : 0 Allergi c rhinitis: Due to other allergen; Note: Date Diagnosed : 11/08/2019 12:09 PM (477.8) ; Start Date : 0 Allergi c rhinitis: Due to other allergen; Note: Date Diagnosed : 09/27/2019 2:33 PM (477.8) ; Start Date : 0 Allergi c rhinitis: Due to other allergen; Note: Date Diagnosed : 09/19/2019 11:59 AM (477.8) ; Start Date : 0 Allergi c rhinitis: Due to other allergen; Note: Date Diagnosed : 09/13/2019 1:53 PM (477.8) ; Start Date : 0 Allergi c rhinitis: Due to other allergen; Note: Date Diagnosed : 09/05/2019 5:53 PM (477.8) ; Start Date : 0 Allergi c rhinitis: Due to other allergen; Note: Date Diagnosed : 08/22/2019 3:10 PM (477.8) ; Start Date : 0 Allergi c rhinitis: Due to other allergen; Note: Date Diagnosed : 08/15/2019 4:57 PM (477.8) ; Start Date : 0 Allergi c rhinitis: Due to other allergen; Note: Date Diagnosed : 08/08/2019 2:33 PM (477.8) ; Start Date : 0 Allergi c rhinitis: Due to other allergen; Note: Date Diagnosed : 07/18/2019 2:20 PM (477.8) ; Start Date : 0 Allergi c rhinitis: Due to other allergen; Note: Date Diagnosed : 07/04/2019 1:26 PM (477.8) ; Start Date : 0 Allergi c rhinitis: Due to other allergen; Note: Date Diagnosed : 06/28/ SUZY BOWMAN MD [address] [facility],[place] [address], [place], [address] , [facility] - [facility] [place] 5 15:37:08 Pain of right temporoma ndibular joint [id number] 164090 Active 2024 SUZY BOWMAN MD [address] [facility],[place] [address], [place], [address] , [facility] - [facility] [place] 5 14:32:05 Perennial allergic rhinitis 742780237 Active 2024 JANICE GONZALES [address] [facility],[place] [address], [place], [address] , [facility] - [facility] 5 10:38:40 Problem Notes None recorded. Procedures Surgical History Date Name Laterality Status Provider Name and Address Organization Details Recorded Time Allergy Testing-Full completed JANICE GONZALES [address] [facility],[place] [address], [place], [address], [facility] 02/28/2025 12:56:34 Imaging Results None recorded. Procedure Notes None recorded. Medical Equipment None Reported. Allergies Allergen ID Allergen Name Allergen Category Reaction Reaction Severity Criticality Documentation Date Start Date Code Code System Note Provider Name and Address Organization Details Recorded Time 184014 ibuprofen medicatio n Not available Not available Not available 01/14/2025 5640 RxNorm Medina diaz [place] - [facility] [place] 5 14:23:47 50830 morphine medicatio n other Not available Not available 10/31/2023 7052 RxNorm React ion: unkno wn, unspe cifie d;; Not Available [facility] 4 00:51:13 82909 acetamino phen / hydrocodo ne medicatio n other Not available Not available 10/31/2023 53919 2 RxNorm React ion: unkno wn, unspe cifie d;; Not Available [facility] 4 00:51:17 21204 acetamino phen / oxycodone medicatio n other Not available Not available 10/31/2023 65110 3 RxNorm React ion: unkno wn, unspe cifie d;; Not Available [facility] 4 00:51:25 Medications Name Sig Start Date Stop Date Status Note LastModified by Organization Details LastModified Time cyclobenz aprine 10 mg tablet 06/13 completed Medicati on ID: [id number] D uration Value: 5 Reason: () Brand Name: cycloben zaprine Send Method: E-Prescr ibed Sub s Allowed: subs OK Speci al Instruct ion: TK 1 T PO TID PRN Medi cationGe nericNam e: cycloben zaprine Not Available Not Available Not Available diclofena c 3 % topical gel PLEASE SEE ATTACHED FOR DETAILED DIRECTIO NS active Not Available Not Available No t Available vitamin A 2,400 mcg capsule 02/28 completed Medicati on ID: [id number] B rand Name: vitamin A Send Method: E-Prescr ibed Sub s Allowed: subs OK Medic ationGen ericName : vitamin A Not Available Not Available Not Available tizanidin e 2 mg tablet TAKE 1 TABLET BY MOUTH 3 TIMES A DAY NEEDED FOR MUSCLE SPASTICI TY active Not Available Not Available No t Available ciproflox acin 500 mg tablet 01/14 completed Medicati on ID: [id number] D uration Value: 10 Prescri bed By Name: Nuno Lindsey nd Name: ciproflo xacin HCl Send Method: E-Prescr ibed Sub s Allowed: subs OK Speci al Instruct ion: 1 po BID for 10 days Med icationG enericNa me: ciproflo xacin HCl Not Available Not Available Not Available sulfameth oxazole 800 mg-trimet hoprim 160 mg tablet TAKE 1 TABLET BY MOUTH TWICE A DAY FOR 5 DAYS 01/14 completed Not Available Not Available Not Available tramadol 50 mg tablet TAKE 1 TABLET ORALLY 2 TIMES A DAY NEEDED FOR PAIN FOR 7 DAYS active Not Available Not Available No t Available hydromorp jordan 2 mg tablet TAKE 1 TABLET BY MOUTH EVERY 6 HOURS FOR 7 DAYS 01/14 completed Not Available Not Available Not Available amitripty line 25 mg tablet TAKE 1 TABLET BY MOUTH AT BEDTIME 02/28 completed Not Available Not Available Not Available Protonix 40 mg intraveno us solution 01/14 completed Medicati on ID: [id number] B rand Name: Protonix Send Method: E-Prescr ibed Sub s Allowed: subs OK Medic ationGen ericName : Protonix Not Available Not Available Not Available baclofen 10 mg tablet TAKE A HALF OF A TABLET BY MOUTH 3 TIMES DAILY NEEDED 02/28 completed Not Available Not Available Not Available doxycycli ne monohydra te 100 mg capsule 1 capsule by mouth 01/14 completed Medicati on ID: [id number] D uration Value: 10 Prescri bed By Name: Nuno Lindsey nd Name: doxycycl ine monohydr ate Send Method: E-Prescr ibed Sub s Allowed: subs OK Speci al Instruct ion: hold calcium for 3 hours after taking doyxcycl ine Medi cationGe nericNam e: doxycycl ine monohydr ate Not Available Not Available Not Available cyanocoba maria elena (vit B-12) 1,000 mcg/mL injection solution INJECT 1ML SUBCUTAN EOUSLY EVERY MONTH FOR 30 DAYS active Not Available Not Available No t Available nitrofura ntoin macrocrys roe 100 mg capsule TAKE 1 CAPSULE BY MOUTH TWICE A DAY WITH MEALS 01/14 completed Not Available Not Available Not Available lidocaine 5 % topical patch APPLY 1 PATCH TOPICALL Y DAILY LEAVE ON MOST PAINFUL AREA FOR UP TO 12 HRS active Not Available Not Available No t Available Calcium-6 00 600 mg (as calcium carbonate 1,500 mg) tablet 01/14 completed Medicati on ID: [id number] B rand Name: Calcium 600 Send Method: E-Prescr ibed Sub s Allowed: subs OK Medic ationGen ericName : Calcium 600 Not Available Not Available Not Available lorazepam 1 mg tablet TAKE 1 TABLET BY MOUTH EVERY DAY FOR ANXIETY TAKE 30 MINS PRIOR TO ARRIVAL OF PROCEDUR E 01/14 completed Not Available Not Available Not Available epinephri ne 0.3 mg/0.3 mL injection , auto-inje ctor Take 1 auto by injectio n route for 180 days, for anaphyla xis. 2024 active Not Available Not Available Not Avai lable zolpidem 10 mg tablet TAKE 1 TABLET ORALLY BEDTIME NEEDED FOR SLEEP FOR 30 DAYS active Not Available Not Available No t Available multivita min capsule 2017 active Medicati on ID: [id number] B rand Name: multivit de la cruz Sen d Method: E-Prescr ibed Sub s Allowed: subs OK Medic ationGen ericName : multivit de la cruz Not Available Not Available Not Available loratadin e 10 mg tablet 1 tablet by mouth 01/14 completed Medicati on ID: [id number] D uration Value: 30 Prescri bed By Name: Nuno Lindsey nd Name: loratadi ne Send Method: E-Prescr ibed Sub s Allowed: subs OK Medic ationGen ericName : loratadi ne Not Available Not Available Not Available diazepam 5 mg tablet 12/13 completed Medicati on ID: [id number] D uration Value: 1 Reason: () Brand Name: diazepam Send Method: E-Prescr ibed Sub s Allowed: subs OK Speci al Instruct ion: TK 1 T PO 1 HOUR PRIOR TO PROCEDUR E. Medic ationGen ericName : diazepam Not Available Not Available Not Available pregabali n 25 mg capsule TAKE 1 CAPSULE BY MOUTH TWICE A DAY active Not Available Not Available No t Available Vitamin B1 02/28 completed Medicati on ID: [id number] B rand Name: vitamin b1 Send Method: E-Prescr ibed Sub s Allowed: subs OK Medic ationGen ericName : vitamin b1 Not Available Not Available Not Available BD Integra Syringe 3 mL 25 gauge x 1 FOR VITAMIN B12 DEF DIRECTED active Not Available Not Available No t Available cholecalc iferol (vitamin D3) 50 mcg (2,000 unit) capsule TAKE 1 CAPSULE BY MOUTH EVERY DAY active Not Available Not Available No t Available lidocaine -tetracai ne 7 %-7 % topical cream 06/13 completed Medicati on ID: [id number] D uration Value: 30 Reason: () Brand Name: lidocain e-tetrac zackery Sen d Method: E-Prescr ibed Sub s Allowed: subs OK Medic ationGen ericName : lidocain e-tetrac zackery Not Available Not Available Not Available Flonase Allergy Relief 50 mcg/actua tion nasal spray,terrell pension 2 sprays each nostril once daily 2024 active Not Available Not Available Not Avai lable vitamin B12 1,000 mcg-folic acid 400 mcg sublingua l lozenge 02/28 completed Medicati on ID: [id number] B rand Name: vitamin Q06-sazl c acid Sen d Method: E-Prescr ibed Sub s Allowed: subs OK Medic ationGen ericName : vitamin D77-jtza c acid Not Available Not Available Not Available Wegovy 1.7 mg/0.75 mL subcutane ous pen injector TAKE 0.75 ML SUBCUTAN EOUSLY EVERY WEEK FOR 4 WEEKS ADMINIST ER WEEKS 13 THROUGH 16 OF THERAPY 01/14 completed Not Available Not Available Not Available Wegovy 1 mg/0.5 mL subcutane ous pen injector INJECT 1MG SUBCUTAN EOUSLY EVERY 7 DAYS FOR 4 WEEKS 01/14 completed Not Available Not Available Not Available Wegovy 0.25 mg/0.5 mL subcutane ous pen injector 0.25 MG (0.5 ML) SUBCUTAN EOUSLY EVERY WEEK FOR 4 WEEKS ADMINIST ER WEEKS 1 THROUGH 4 OF THERAPY 01/14 completed Not Available Not Available Not Available Wegovy 0.5 mg/0.5 mL subcutane ous pen injector 0.5 MG (0.5 ML) SUBCUTAN EOUSLY EVERY WEEK FOR 4 WEEKS ADMINIST ER WEEKS 5 THROUGH 8 OF THERAPY 01/14 completed Not Available Not Available Not Available Zepbound 5 mg/0.5 mL subcutane ous pen injector INJECT 5 MG (0.5 ML) SUBCUTAN EOUSLY EVERY WEEK FOR 4 WEEKS 02/28 completed Not Available Not Available Not Available Zepbound 2.5 mg/0.5 mL subcutane ous pen injector INJECT 2.5 MG (0.5 ML) SUBCUTAN EOUSLY EVERY WEEK FOR 4 WEEKS FOR 4 WEEKS 02/28 completed Not Available Not Available Not Available Zepbound 7.5 mg/0.5 mL subcutane ous pen injector INJECT 7.5 MG (0.5 ML) SUBCUTAN EOUSLY EVERY WEEK FOR 4 WEEKS active Not Available Not Available No t Available Vitals Date Recorded Body height Body mass index (BMI) Body weight Systolic And Diastolic Provider Name and Address Organization Details Last Updated DateTime 03/26/2025 162.56 cm 27.5 kg/m2 47873.78 g 100/62 mm[Hg] Thu Escobar [place] - [facility] 03/26/2025 15:29:55 Social History Question Answer Notes LastModified by Organizat ion Details LastModified Time Tobacco Smoking Status Never Smoker Medina diaz [place] - [facility] 01/14/2025 14:23:26 How Many Years Have You Consumed Alcohol? 10 Information not available 01/14/2025 What Type Of Patient Resource Coordinator Do You Use? PrivateSitter [email or web address] Information not available 01/14/2025 How Many Alcoholic Drinks Do You Consume Per Day On Average? 0 [email or web address] Information not available 03/26/2025 Do You Have Any Pets? Yes [email or web address] Information not available 01/14/2025 Are You Passively Exposed To Smoke? No [email or web address] Information not available 01/14/2025 Are There Any Smokers In Your House? No Information not available 01/14/2025 Sex: Unknown Functional Status Question Answer Note LastModified by Organization Details LastModified Time How many times per week do you consume alcohol? Less than 1 time per week Inform ation not available 01/14/2025 Do you use any illicit or recreational drugs? No Information not available 01/14/2025 Do you or have you ever used any other forms of tobacco or nicotine? No [email or web address] Information not available 01/14/2025 What is your level of alcohol consumption? Occasional [email or web address] Information not available 01/14/2025 What type of noise exposure are you exposed to? noExposureToExcessiveNoise Infor mation not available 01/14/2025 Mental Status None recorded. Family History Relationship Description Onset Age of this Age Resolved Age Notes LastModified by Organization Details LastModified Time Daughter Asthma [email or web address] Not availabl e 01/14/2025 14:23:07 Father Vertigo [email or web address] Not available 01/14/2025 14:23:07 Paternal Grandmother Diabetes mellitus [email or web address] Not available 2024 14:23:07 Mother Allergy Not available 01/14/2025 14:23:07 Mother Asthma [email or web address] Not available 01/14/2025 14:23:07 Maternal Grandmother Diabetes mellitus [email or web address] Not available 2024 14:23:07 Sister Asthma [email or web address] Not available 01/14/2025 14:23:07 Sister Allergy to food [email or web address] Not available 2024 14:23:07 Maternal Grandfather Cerebrovascu lar accident 71 Not available 14:23:07 Maternal Grandfather Diabetes mellitus Not available 2024 14:23:07 Paternal Grandfather Diabetes mellitus [email or web address] Not available 2024 14:23:07 Medical History Condition Response Allergies/Hayfever Y Heart Problems N Anxiety Y Tonsil Infections N Emphysema N Migraines N Thyroid Problems N Depression N COPD N Developmental Delay N Glaucoma N Nasal or Sinus Problems Y Anemia Y Immune System Disorder N Anesthesia Complications N Heart Attack ([place]) N Other Skin Condition N Diabetes N Rhinitis N Bleeding Disorder N Food Allergy Y Hearing Loss N Arthritis Y Hyperlipidemia N Eczema N Cancer N Stroke N Dementia N Nasal polyps Y Asthma N Sleep Disorder Y High Cholesterol N GERD/Reflux Y Liver Disease N Headaches Y Fibromyalgia Y Hypertension N Speech Delay N Kidney Disease Y Gynecological HistoryNo gynecological history recorded. Obstetrics History GPAL:G 0 P 0 0 0 0 Past Encounters Encounter ID Performer Location Encounter Start Date Encounter Closed Date Diagnosis/Indication Diagnosis SNOMED-CT Code Diagnosis ICD10 Code Diagnosis IMO Codes Diagnosis Note [id number] [facility] [address] [facility] [place] [address] 02/28/2025 10:14:11 02/28/2025 12:57:21 Perennial allergic rhinitis 939758803 J30.89 [id number] SUZY BOWMAN MD [facility] [address] [place] [address] 03/26/2025 15:20:16 03/27/2025 09:28:18 Allergic rhinitis 81835425 J30.89 We also discussed the role of immunother apy. I explained that this is instituted for the most significan t of allergies and involves the introducti on of increasing ly graduated dosages of the appropriat e allergens by subcutaneo us injection to facilitate tolerance. I explained about the likelihood of some improvemen t usually within a three to six month time period provided that the patient is compliant with therapy. It may take substantia lly longer for patients with severe allergy. We spoke about the duration of therapy, which typically lasts from three to five years though at times can be indefinite . We also discussed the risk of anaphylaxi s with therapy. Use of an Epipen discussed. Health Concerns Section Related Observation LastModified by Organization Detai ls LastModified Time None Recorded Concern Status LastModified by Organization Details LastModified Time None Recorded Payers Encounter Date Sequence Insurance Name Policy Number Policy Pavon Covered Member ID Pavon Member ID Guarantor Name 03/26/2025 1 [facility] (MEDICAID HMO) GAVINO Farshad [place] [id number] Farshad Anand Notes Date Note Type Note Provider Name and Address Organization Details Recorded Time 03/26/2025 text/html Farshad Anand is a 34-year-old female who presents for evaluation of persistent nasal symptoms. She has a history of deviated septum and turbinate reduction surgery performed years ago. She previously underwent approximately two and a half years of allergy injections but discontinued them upon discovering she was . She reports ongoing nasal stuffiness and burning sensations, as well as postnasal symptoms. Allergy testing revealed sensitivities to dust, grass, ragweed, mold, cockroach, and cats. She denies having cats or cockroach exposure at home. She has been using Flonase, which provides some relief. She is no longer taking amitriptyline. Additionally, her EpiPen has . SUZY VIEYRA MD [address] [place] [address], [place], [address], [facility] - [facility] 03/26/2025 15:37:54 OBGyn Episode No OBEpisode recorded.
--- OUTSIDE RECORDS SUMMARY | 2025-03-30 15:13 | XMS_ITS | Encounter Summary ---
Author Organization [facility] Address [address] [facility] [address] [place] [phone] Phone Care Team Providers Care Rehabilitation Nurse Name Role Phone Jacob, Alberto Prince MD Unavailable [phone] Mariela Peralta MD Primary Care Provid er Tawanda Lewis MD Unavailable [phone] Encounter Details Date Type Department Care Team (Late st Contact Info) Description 07/11/2019 Ancillary Orders [facility],Outside Imaging [address] [place] [address] System, Provider Not In, [place] [address] Social History Tobacco Use Types Packs/Day Years Used Date Smoking Tobacco: Never Assessed Comments Unknown Sex and Gender Information Value Date Recorded Sex Assigned at Female 11/26/2019 4:09 PM EDT Legal Sex Female 9:37 AM EDT Gender Identity Female 11/26/2019 4:09 PM EDT Sexual Orientation Straight 11/26/2019 4: 09 PM EDT documented as of this encounter Plan of Treatment Upcoming Encounters Date Type Department Care Team (Late Contact Info) Description 04/22/2025 4:10 PM EST Office Visit [facility] [address] [place] [address] [place] [address] Gabriel Oquendo MD [address] [facility], [address] [place] [phone] 05/06/2025 4:40 PM EST Appointment [facility] [place], OB [address] [place] [address] [place] [address] Leah Deleon MD [address] [facility], [address] [place] [address] [email or web address] 05/07/2025 3:10 PM EST Office Visit [facility] [address] [place] [address] [place] [address] Gabriel Oquendo MD [address] [place] [address], [address] [address] [email or web address] documented as of this encounter Results * MRI Spine (Bone) Outside (No Interpretation) (04/19/2018 12:00 AM EDT) Narrative SYSTEMGENERATED, DOCUMENTATION - 07/11/2019 8:39 AM EST This study is for PACS storage only and not for interpretation. us Provider Not In System PhD IMG OUTSIDE IMAGING W /OUT INTERPRETATION Final Result documented in this encounter Visit Diagnoses Not on filedocumented in this encounter Additional Health Concerns Infection Onset Date Last Indicated Resolved Time COVID-19 06/27/2021 06/27/2021 07/09/2021 9:03 AM EST documented as of this encounter Care Teams Rehabilitation Nurse Relationship Specialty Start Date End Date Alberto James MD [address] [place] [phone] PCP - Family Medicine Internal Medicine 07/08/19 Mariela Peralta MD [address] [place] [address] PCP - General Internal Medicine 09/28/20 Tawanda Lewis MD [address] [place] [address], [address] [place] [address] [email or web address] Referring Physician Physical Medicine and Rehabilitation 11/04/20 documented as of this encounter Additional Source Comments The information contained in this document represents components of the legal health record. It is not the complete legal health record.[facility]
--- OUTSIDE RECORDS SUMMARY | 2025-03-30 15:13 | XMS_ITS | Encounter Summary ---
Author Organization [facility] Address [address] [place] [address] Care Team Providers Care Boiler Plant Operator Name Role Phone ProviderLuz MD Primary Care Provider Un available Encounter Details Date Type Department Care Team (Late st Contact Info) Description 06/18/2019 Scanned Document [facility] Neuro[facility] [place] [address] [facility] 5 [place] [address] Dev Durant MD [address] [address] Social History Tobacco Use Types Packs/Day Years [...] on filedocumented in this encounter Care Teams Boiler Plant Operator Relationship Specialty Start Date End Date ProviderLuz MD PCP - General 05/07/19 documented as of this encounter
--- OUTSIDE RECORDS SUMMARY | 2025-03-30 15:13 | XMS_ITS | Encounter Summary ---
Author Organization [facility] Address [address] [place] [address] [place] [phone] Phone Care Team Providers Care Hobber Name Role Phone Alberto James MD Unavailable [phone] Mariela Peralta MD Primary Care Provid er Tawanda Lewis MD Unavailable [phone] Encounter Details Date Type Department Care Team (Late st Contact Info) Description 07/08/2019 Procedure Pass [address] [place] [address] Social History Tobacco Use Types Packs/Day Years [...] Sign Reading Time Taken Comments Blood Pressure - - Pulse - - Temperature - - Respiratory Rate - - Oxygen Saturation - - Inhaled Oxygen Concentration - - Weight 63.5 kg (140 lb) 07/08/2019 5:43 PM EST Height 162.6 cm (5' 4 ) 07/08/2019 5:43 PM EST Body Mass Index 24.03 07/08/2019 5:43 PM EST documented in this encounter Plan of Treatment Upcoming Encounters Date Type Department Care Team (Late st Contact Info) Description 04/22/2025 4:10 PM EST Office Visit [facility] [address] [place] [address] [place] [address] Gabriel Oquendo MD [address] [place] [address], [address] [address] 05/06/2025 4:40 PM EST Appointment [facility] [place], OB [address] [place] [id number] Leah Deleon MD [address] [place] [phone] [email or web address] 05/07/2025 3:10 PM EST Office Visit [facility] [address] [place] [address] [place] [address] Gabriel Oquendo MD [address] [place] [phone] [email or web address] documented as of this encounter Visit Diagnoses Not on filedocumented in this encounter Additional Health Concerns Infection Onset Date Last Indicated Resolved Time COVID-19 06/27/2021 06/27/2021 07/09/2021 9:03 AM EST documented as of this encounter Care Teams Hobber Relationship Specialty Start Date End Date Alberto James MD [address] [facility] [address] [place] [phone] PCP - Family Medicine Internal Medicine 07/08/19 Mariela Peralta MD [address] [place] [address] PCP - General Internal Medicine 09/28/20 Tawanda Lewis MD 22 [facility], [address]nd [place] [address] [email or web address] Referring Physician Physical Medicine and Rehabilitation 11/04/20 documented as of this encounter Additional Source Comments The information contained in this document represents components of the legal health record. It is not the complete legal health record.[facility]
--- OUTSIDE RECORDS SUMMARY | 2025-03-30 15:13 | XMS_ITS | Encounter Summary ---
Author Organization [employer] Address [address] [facility] [address] [place] [address] Care Team Providers Care Motor Tune Up Specialist Name Role Phone Unavailable Primary Care Provider [...]
--- OUTSIDE RECORDS SUMMARY | 2025-03-30 15:13 | XMS_ITS | Clinical Summary ---
Author Organization [facility] Address [address] [place] [address] Care Team Providers Care Permit Review Assistant Name Role Phone Provider, Luz PARKS Primary [...] series) 2008 COVID-19 Vaccine (2023-2 5 season) 2025 HPV Vaccines (No Doses Required) Completed Pneumococcal Vaccine: Pediat varghese (0-5 Years) and At-Risk Patients (6 to 49 Years) Aged Out No longer eligible b ased on patient's age to complete this topic Care Teams Permit Review Assistant Relationship Specialty Start Date End Date ProviderLuz MD PCP - General 05/07/19
--- OUTSIDE RECORDS SUMMARY | 2025-03-30 15:13 | XMS_ITS | Clinical Summary ---
Author Organization [employer] Address [address] [facility] [address] [place] [address] Care Team Providers Care English Professor Name Role Phone Unavailable Primary Care Provider [...] Date Last Done Comments Depression Screening 1989 Disability Screening 1989 Alcohol/Substance Use Screening 2001 Tobacco Screening 2001 Family Planning (PISQ) 2004 Pap Smear 2010 Cervical Cancer Screening 2019 HPV/Cotest 2019 DTaP/Tdap/Td Vaccines (8 - Td or Tdap) 10/11/2020 10/11/2010, 05/07/2008, 09/03/2001, Additional history exists COVID-19 Vaccine ( season) 2025 Influenza Vaccine (#1) 2025 9, 05/07/2008, 05/17/2007 Zoster Vaccines (1 of [...] patient's age to complete this topic Meningococcal B Vaccine Aged Out No l onger eligible based on patient's age to complete this topic Meningococcal Vaccine Aged Out No gerald samantha eligible based on patient's age to complete this topic Pneumococcal Vaccine: Pediatrics (0 to 5 Years) and At-Risk Patients (6 to 49) Years Aged Out No longer eligible based on patient's age to complete this topic RSV under 20 months Aged Out No longe r eligible based on patient's age to complete this topic Rotavirus Vaccines Aged Out No longer eligible based on patient's age to complete this topic
--- OUTSIDE RECORDS SUMMARY | 2025-03-30 15:13 | XMS_ITS | Data Portability ---
Author Organization [place] - [facility], Allergy Address [address] [address] Care Team Providers Care Fire Medic Name Role Phone MARK JAIMES Referring Provider Assessment Encounter Date Assessment Date Assessment LastModified by Organization Details LastModified Time 01/14/2025 01/14/2025 Patient with prior history of septoplasty and turbinate reduction with known significant allergy presents for reevaluation of increasing congestion. She stopped immunotherapy when she was in 2020 after about 2-1/2 years. Examination shows mild turbinate hypertrophy with a straight septum. No asthma or wheezing. Right TMJ is tender. Suggest allergy testing and then resumption of immunotherapy if appropriate. Migraine and TMJ precautions discussed josiah Not available 01/14/2025 14:34:09 03/26/2025 03/26/2025 Farshad Anand is a 34-year-old female with persistent nasal symptoms and allergies to dust, grass, ragweed, mold, cockroach, and cats. I recommend resuming allergy injections to address her persistent symptoms. She should continue using Flonase as needed for nasal symptom relief. I advised her to use ttqg-ifi-zilvkyd antihistamines such as Claritin, Ivonne, or Zyrtec if necessary. Additionally, I will prescribe a new EpiPen to replace her one. FOLLOW-UP: The patient should follow up as needed to monitor her response to allergy injections and symptom management. josiah Not available 03/26/2025 15:36:59 Plan of Treatment Reminders Order Date Submit Date Provider Last Modified By Organization Details Last Modified Time Details Appointments Allerg y new inject ion 2024 02:50P M [facility] Not available Not available Not available Establ ished 15 2025 03:30P M ALEJANDRO BEEBE PA-C Not available Not available Not available Lab None record ed. Referral None record ed. Procedures allerg en immuno therap y; multip le inject ions (PROC) 2024 025 [email or web address] Not available 03/28/2025 11:22:08 spirom etry, includ ing graphi c record , total and timed vital capaci ty, expira tory flow rate measur ement( s) (PROC) 2024 025 [email or web address] Not available 01/28/2025 16:52:44 allerg y testin g, skin prick (PROC) 2024 025 [email or web address] Not available 02/12/2025 10:17:25 intrad ermal allerg y skin testin g (PROC) 2024 025 [email or web address] Not available 02/12/2025 10:17:26 pulse oximet ry (PROC) 2024 025 [email or web address] Not available 02/12/2025 10:17:26 Surgeries None record ed. Imaging None record ed. Medication Orders epinep hrine 0.3 mg/0.3 mL inject ion, auto-i njecto r 2024 025 [facility] [place][id number], [address] [facility], [place], [address], 03/26/2025 15:37:31 flutic asone propio roma 50 mcg/ac tuatio n nasal spray, suspen nathan 2024 025 [facility] [place][id number], [address], [place], [address], 01/15/2025 10:26:24 Patient TargetsNo targets recorded. Patient Instructions Encounter Date Encounter Id Patient Instructions Last Modified By Organization Details Last Modified Time 01/14/2025 [id number] Please note: Par ts of this encounter note have been generated by AI based on audio conversation. Patient consent was required prior to utilizing this technology. Content review was required prior to finalizing the note. josiah Not available 01/14/2025 14:29:22 02/28/2025 [id number] Nursing Documentation for Allergy Testing: Ordering Provider Dr. Vieyra Weight:lbs: kg: PFT Yes With Bronchodilator no approval needed to proceed with allergy testing? ok'd testing History of Asthma:No Asthma Meds: Last used: Asthma exacerbated by: Chance that : No Fear of needles: No Regular medications reviewed in Computer: No Medication allergies: Reviewed Antihistamine use: No Medications used: Food Allergies: pumpkin Any foods make your mouth feeling itchy: No If yes: History of severe reaction where had to go to ER? 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 Symptoms having: Post Nasal Drip If other: Frequency Year Round Spirometry Contraindications: Heart attack in the last 3 months: No Major surgery in last 3 months: No Detached retina(serious eye issues) in last 2 months: No Hospitilization in last month: No Proceed with PFT Yes approval needed: No Nursing Notes: Pt tolerated test well Yes Benadryl cream to test sites No Patient became syncopal-placed in supine position No Large reactions to MQT, reschedule IDT for a different date Other: Written by: Jessica Ortega [email or web address] Not available 02/28/2025 11:01:30 03/26/2025 [id number] - Resume allergy injections. - Continue using Flonase as needed. - Use lezb-dyz-rberdgf antihistamines such as Claritin, Ivonne, or Zyrtec if necessary. - Replace EpiPen with a new prescription. josiah Not available 03/26/2025 15:36:59 Please note: Par ts of this encounter note have been generated by AI based on audio conversation. Patient consent was required prior to utilizing this technology. Content review was required prior to finalizing the note. josiah Not available 03/26/2025 15:37:00 Reason for Referral None Reported. Results Created Date Observation Date Name Description Value Unit Range Abnormal Flag Note LastModifiedBy Organization Detail LastModifiedTime 02/29/20 25 liz elizabeth testi ng* No observ ation record ed. [email or web address] Not Available 2024 10:45:57 Result Notes None recorded. Problems Name Problem SNOMED Code Status Onset Date Resolution Date Notes Provider Name and Address Organization Details Recorded Time Headache 51945234 Active 2017 Facial pain NOS; Note: Date Diagnosed : 03/12/2018 11:31 AM (R51) Not Available [facility] 4 02:15:59 Migraine without aura, not refractor y 020363533 Active 2017 Migraine without aura, not intractab le, without status migrainos us; Note: Date Diagnosed : 03/12/2018 11:31 AM (G43.009) Not Available [facility] 4 02:14:52 Chronic sinusitis 44886658 Active 2017 Other chronic sinusitis ; Note: Date Diagnosed : 03/12/2018 11:31 AM (J32.8) Not Available [facility] 4 02:15:34 Deviated nasal septum 042099773 Active 2017 Deviated nasal septum; Note: Date Diagnosed : 03/12/2018 11:31 AM (J34.2) Not Available [facility] 4 02:15:30 Chronic rhinitis 77891298 Active 2017 Chronic rhinitis; Note: Date Diagnosed : 04/27/2018 3:39 PM (J31.0) Not Available [facility] 4 02:15:17 Hypertrop hy of nasal turbinate s 00026995 Active 2017 Hypertrop hy of nasal turbinate s; Note: Date Diagnosed : 8 9:08 AM (J34.3) Not Available [facility] 4 02:15:04 Disorder of nasal sinus 0830576 Active 2017 Other specified disorders of nose and nasal sinuses; Note: Date Diagnosed : 8 1:58 PM (J34.89) Not Available [facility] 4 02:15:42 Disorder of the nose 62799053 Active 2017 Other specified disorders of nose and nasal sinuses; Note: Date Diagnosed : 8 1:58 PM (J34.89) Not Available [facility] 4 02:15:42 Allergic rhinitis 19630599 Active 2020 Allergic rhinitis: Due to other allergen; Note: Date Diagnosed : 09/25/2020 11:17 AM (477.8) Allergi c rhinitis: Due to other allergen; Note: Date Diagnosed : 09/09/2020 4:48 PM (477.8) ; Start Date : 1 Allergi c rhinitis: Due to other allergen; Note: Date Diagnosed : 08/28/2020 12:43 PM (477.8) ; Start Date : 1 Allergi c rhinitis: Due to other allergen; Note: Date Diagnosed : 08/14/2020 12:34 PM (477.8) ; Start Date : 1 [...] to other allergen; Note: Date Diagnosed : SUZY BOWMAN MD [address] [place] [address],[place] [address], [address] , [facility] - [facility] 5 15:37:08 Pain of right temporoma ndibular joint [id number] 647823 Active 2024 SUZY BOWMAN MD [address] [place] [address], [address] , [facility] 5 14:32:05 Perennial allergic rhinitis 177249944 Active 2024 JESSICA ORTEGA [address], [address] , [facility] 5 10:38:40 Problem Notes None recorded. Procedures Surgical History Date Name Laterality Status Provider Name and Address Organization Details Recorded Time Allergy Testing-Full completed DORETHA GONZALES[address],[place] [address], [place], [address], [facility] 02/28/2025 12:56:34 Imaging Results None recorded. Procedure Notes None recorded. Medical Equipment None Reported. Allergies Allergen ID Allergen Name Allergen Category Reaction Reaction Severity Criticality Documentation Date Start Date Code Code System Note Provider Name and Address Organization Details Recorded Time 338758 ibuprofen medicatio n Not available Not available Not available 01/14/2025 5640 RxNorm Medina diaz [facility] 5 14:23:47 02925 morphine medicatio n other Not available Not available 10/31/2023 7052 RxNorm React ion: unkno wn, unspe cifie d;; Not Available [facility] 4 00:51:13 96760 acetamino phen / hydrocodo ne medicatio n other Not available Not available 10/31/2023 88140 2 RxNorm React ion: unkno wn, unspe cifie d;; Not Available [facility] 4 00:51:17 66099 acetamino phen / oxycodone medicatio n other Not available Not available 10/31/2023 27901 3 RxNorm React ion: unkno wn, unspe cifie d;; Not Available [facility] 4 00:51:25 Medications Name Sig Start Date Stop Date Status Note LastModified by Organization Details LastModified Time cyclobenz aprine 10 mg tablet 06/13 completed Medicati on ID: [id number] D uration Value: 5 Reason: () Brand [...] mcg capsule 02/28 completed Medicati on ID: 456340 B rand Name: vitamin A Send Method: E-Prescr ibed Sub s Allowed: subs OK Medic ationGen ericName : vitamin A Not Available Not Available Not Available tizanidin e 2 mg tablet TAKE 1 TABLET BY MOUTH 3 TIMES A DAY NEEDED FOR MUSCLE SPASTICI TY active Not Available Not Available No t Available ciproflox acin 500 mg tablet 01/14 completed Medicati on ID: 172437 D uration Value: 10 Prescri bed By [...] us solution 01/14 completed Medicati on ID: 565414 B rand Name: Protonix Send Method: E-Prescr [...] by mouth 01/14 completed Medicati on ID: [id number] D uration Value: 10 Prescri bed By [...] mg) tablet 01/14 completed Medicati on ID: 015840 B rand Name: Calcium 600 Send Method: [...] min capsule 2017 active Medicati on ID: 068893 B rand Name: multivit de la cruz Sen d Method: E-Prescr ibed Sub s Allowed: subs OK Medic ationGen ericName : multivit de la cruz Not Available Not Available Not Available loratadin e 10 mg tablet 1 tablet by mouth 01/14 completed Medicati on ID: [id number] D uration Value: 30 Prescri bed By Name: Nuno Lindsey nd Name: joya hayden Send Method: E-Prescr ibed Sub s Allowed: subs OK Medic ationGen ericName : loratadi ne Not Available Not Available Not Available diazepam 5 mg tablet 12/13 completed Medicati on ID: [id number] D uration Value: 1 Reason: () Brand [...] Vitamin B1 02/28 completed Medicati on ID: [id number] B rand Name: vitamin b1 Send Method: [...] topical cream 06/13 completed Medicati on ID: [id number] D uration Value: 30 Reason: () Brand [...] l lozenge 02/28 completed Medicati on ID: [id number] B rand Name: vitamin B09-jued c acid Sen d Method: E-Prescr ibed Sub s Allowed: subs OK Medic ationGen ericName : vitamin M92-btkb c acid Not Available Not Available Not [...] Available No t Available Vitals Date Recorded Systolic And Diastolic Provider Name and Address Organization Details Last Updated DateTime 01/14/2025 118/78 mm[Hg] SUZY VIEYRA MD [address] [place] [address],[address], [address], [place] - [facility] 01/14/2025 14:31:35 Date Recorded Body weight Body mass index (BMI) Body height Provider Name and Address Organization Details Last Updated DateTime 01/14/2025 13088.15 g 28.2 kg/m2 162.56 cm Medina Pulido [place] - [facility] 01/14/2025 14:22:38 Date Recorded Body height Body mass index (BMI) Body weight Oxygen saturation Oxygen saturation in Arterial blood by Pulse oximetry Heart rate Systolic And Diastolic Provider Name and Address Organization Details Last Updated DateTime 162.56 cm 28.2 kg/m2 81866.1 5 g 99 % 99 % 87 /min 106/69 mm[Hg] JESSICA ORTEGA, [address], [address] [place] - [facility] 10:38:23 Date Recorded Body height Body mass index (BMI) Body weight Systolic And Diastolic Provider Name and Address Organization Details Last Updated DateTime 03/26/2025 162.56 cm 27.5 kg/m2 39167.78 g 100/62 mm[Hg] Thu Escobar [place] - [facility] 03/26/2025 15:29:55 Social History Question Answer Notes LastModified by Organizat ion Details LastModified Time Tobacco Smoking Status Never Smoker Medina diaz [place] - [facility] 01/14/2025 14:23:26 How Many Years Have You Consumed Alcohol? 10 [email or web address] Information not available 01/14/2025 What Type Of Multiple Knife Edge Trimmer Operator Do You Use? PrivateSitter Information not available 01/14/2025 How Many Alcoholic Drinks Do You Consume Per Day On Average? 0 [email or web address] Information not available 03/26/2025 Do You Have Any Pets? Yes Information not available 01/14/2025 Are You Passively Exposed To Smoke? No Information not available 01/14/2025 Are There Any Smokers In Your House? No [email or web address] Information not available 01/14/2025 Sex: Unknown Functional Status Question Answer Note LastModified by Organization Details LastModified Time How many times per week do you consume alcohol? Less than 1 time per week [email or web address] Inform ation not available 01/14/2025 Do you use any illicit or recreational drugs? No [email or web address] Information not available 01/14/2025 Do you or have you ever used any other forms of tobacco or nicotine? No Information not available 01/14/2025 What is your level of alcohol consumption? Occasional [email or web address] Information not available 01/14/2025 What type of noise exposure are you exposed to? noExposureToExcessiveNoise [email or web address] Infor mation not available 01/14/2025 Mental Status None recorded. Family History Relationship Description Onset Age of this Age Resolved Age Notes LastModified by Organization Details LastModified Time Daughter Asthma Not availabl e 01/14/2025 14:23:07 Father Vertigo [email or web address] Not available 01/14/2025 14:23:07 Paternal Grandmother Diabetes mellitus [email or web address] Not available 2024 14:23:07 Mother Allergy [email or web address] Not available 01/14/2025 14:23:07 Mother Asthma Not available 01/14/2025 14:23:07 Maternal Grandmother Diabetes mellitus [email or web address] Not available 2024 14:23:07 Sister Asthma [email or web address] Not available 01/14/2025 14:23:07 Sister Allergy to food [email or web address] Not available 2024 14:23:07 Maternal Grandfather Cerebrovascu lar accident 71 [email or web address] Not available 14:23:07 Maternal Grandfather Diabetes mellitus Not available 2024 14:23:07 Paternal Grandfather Diabetes mellitus [email or web address] Not available 2024 14:23:07 Medical History Condition Response Allergies/Hayfever Y Heart Problems N Anxiety Y Tonsil Infections N Emphysema N Migraines N Thyroid Problems N Glaucoma N Depression N COPD N Developmental Delay N Nasal or Sinus Problems Y Anemia Y Immune System Disorder N Anesthesia Complications N Heart Attack ([place]) N Other Skin Condition N Diabetes N Rhinitis N Bleeding Disorder N Food Allergy Y Arthritis Y Hearing Loss N Hyperlipidemia N Cancer N Eczema N Stroke N Dementia N Nasal polyps Y Asthma N High Cholesterol N Sleep Disorder Y GERD/Reflux Y Liver Disease N Headaches Y Fibromyalgia Y Hypertension N Speech Delay N Kidney Disease Y Gynecological HistoryNo gynecological history recorded. Obstetrics History GPAL:G 0 P 0 0 0 0 Past Encounters Encounter ID Performer Location Encounter Start Date Encounter Closed Date Diagnosis/Indication Diagnosis SNOMED-CT Code Diagnosis ICD10 Code Diagnosis IMO Codes Diagnosis Note [id number] SUZY BOWMAN MD [facility] [address] [address] 01/14/2025 13:54:02 01/14/2025 14:41:03 Allergic rhinitis 94149541 J30.89 Migraine w ithout aura, not refractory 863460260 G43.009 Suspect underlying migraine headache. Suggest reduction of cheese, chocolate, citrus fruit, cold cuts, nuts, MSG and alcohol. Suggest trial of magnesium oxide 2 to 400 mg daily and riboflavin 400 mg daily. Associatio n of migraine disorders website given, migrainedi [email or web address].[email or web address] g for additional informatio n. She will contact me in a few weeks with an update. Pain of ri ght temporomandibular joint [id number] 7780754 M26.621 22771174 Warm compresses , soft diet and massage recommende d [id number] JANICE GONZALES [facility] [address] [place] [address] [place] [address] 02/28/2025 10:14:11 02/28/2025 12:57:21 Perennial allergic rhinitis 628678060 J30.89 [id number] SUZY BOWMAN MD [facility] [address] [address] 03/26/2025 15:20:16 03/27/2025 09:28:18 Allergic rhinitis 77498005 J30.89 We also discussed the role of [...] by Organization Details LastModified Time None Recorded Advance Directives Directive None Recorded Payers Insurance Date Sequence Insurance Name Policy Number Policy Pavon Covered Member ID Pavon Member ID Guarantor Name 03/23/2025 1 [facility] NET PLAN (MEDICAID HMO) GAVINO [place] [id number] Farshad Anand Notes Date Note Type Note Provider Name and Address Organization Details Recorded Time 01/14/2025 text/html The patient is a 34-year-old female presenting with increased allergy symptoms. She has a history of allergic rhinitis and underwent allergy injections for one and a half years, discontinued upon discovery. The patient reports that her symptoms worsened after stopping injections, despite past doubts about their efficacy. Current medication includes Claritin for allergy management. She additionally reports discomfort in the right ear without significant changes post deviated septum surgery. Her medical history includes chronic hip pain and a past shoulder surgery, addressed with medications such as Lidocaine patches and Tizanidine. She had notable weight changes during , followed by successful weight reduction through pharmacological management. Respiratory symptoms such as asthma are denied, maintaining a diagnosis of allergic rhinitis as the primary concern. [id number] SUZY VIEYRA MD [address] [place] [address], [address], [facility] - [facility] 01/14/2025 14:34:29 03/26/2025 text/html Farshad Anand is a 34-year-old [...] her EpiPen has . SUZY VIEYRA MD [address] [place] [address], [place], [address], [place] - [facility] 03/26/2025 15:37:54 OBGyn Episode No OBEpisode recorded.
--- OUTSIDE RECORDS SUMMARY | 2025-03-30 15:13 | XMS_ITS | Encounter Summary ---
Author Organization [facility] Address [address] [facility] [address] [place] [address] Phone Care Team Providers Care Marine Equipment Engineer Name Role Phone Alberto James MD Unavailable [phone] Mariela Peralta MD Primary Care Provid er Tawanda Lewis MD Unavailable [phone] Encounter Details Date Type Department Care Team (Late st Contact Info) Description 12/02/2019 Procedure Pass [facility] [address] [place] [address] Social History Tobacco Use Types Packs/Day Years Used Date Smoking Tobacco: Never Smokeless Tobacco: Never Alcohol Use Standard Drinks/Week Comments Yes 0 (1 standard drink = 0.6 oz pur e alcohol) Rarely - Holidays Comments No Sex and Gender Information Value [...] Office Visit [facility] [address] [place] [address] [place] [address] Gabriel Oquendo MD [address] [facility], [address] [address] [email or web address] 05/06/2025 4:40 PM EST Appointment [facility] [place], [place] [address] [place] [address] [place] [address] Leah Deleon MD [address] [place] [address], [address] [address] [email or web address] 05/07/2025 3:10 PM EST Office Visit [facility] [address] [place] [address] [place] [address] Gabriel Oquendo MD [address] [place] [id number] documented as of this encounter Visit Diagnoses Not on filedocumented in this encounter Additional Health Concerns Infection Onset Date Last Indicated Resolved Time COVID-19 06/27/2021 06/27/2021 07/09/2021 9:03 AM EST documented as of this encounter Care Teams Marine Equipment Engineer Relationship Specialty Start Date End Date Jacob, Alberto Prince MD [address] [place] [phone] PCP - Family Medicine Internal Medicine 07/08/19 Mariela Peralta MD [address] [place] [address] PCP - General Internal Medicine 09/28/20 Tawanda Lewis MD [address] [facility], 2nd [place] [address] Referring Physician Physical Medicine and Rehabilitation 11/04/20 documented as of this encounter Additional Source Comments The information contained in this document represents components of the legal health record. It is not the complete legal health record.[facility]
--- OUTSIDE RECORDS SUMMARY | 2025-03-30 15:13 | XMS_ITS | Encounter Summary ---
Author Organization [facility] Address [address] [facility] [address] [place] [address] Phone Care Team Providers Care Store Assistant Name Role Phone Alberto James MD Unavailable [phone] Mariela Peralta MD Primary Care Provid er Tawanda Lewis MD Unavailable [phone] Encounter Details Date Type Department Care Team (Late st Contact Info) Description 07/20/2021 Procedure Pass [facility] L&D Procedures [address] [place] [address] Social History Tobacco Use Types Packs/Day Years Used Date Smoking Tobacco: Never Smokeless Tobacco: Never Alcohol Use Standard Drinks/Week Comments Not Currently 0 (1 standard drink = 0.6 oz pur e alcohol) not since Comments No Sex and Gender Information Value Date Recorded Sex Assigned at Female 11/26/2019 4:09 PM EDT Legal Sex Female 9:37 AM EDT Gender Identity Female 11/26/2019 4:09 PM EDT Sexual Orientation Straight 11/26/2019 4: 09 PM EDT documented as of this encounter Functional Status * Calculated C-SSRS Risk Score (Lifetime/Recent) Answer Date of Assessment Author No Risk Indicated 07/23/2021 12:00 PM Felicia Grajeda, CONSTANTIN * [place] Suicide Severity Rating Scale (Screener/Recent Self-Report) Question Answer Date of Assessment Author 1. Wish to be (Past 1 Month) No 022 12:00 PM EST Felicia Burrows RN 2. Non-Specific Active Suici millie Thoughts (Past 1 Month) No 07/23/2021 12:00 PM Eh Grajeda RN documented as of this encounter Plan of Treatment Upcoming Encounters Date Type Department Care Team (Late st Contact Info) Description 04/22/2025 4:10 PM EST Office Visit [facility] [address] [place] [address] [place] [address] Gabriel Oquendo MD [address] [place] [phone] [email or web address] 05/06/2025 4:40 PM EST Appointment [facility] [address] [place] [address] Leah Deleon MD [address] [place] [address] [email or web address] 05/07/2025 3:10 PM EST Office Visit [facility] [address] [place] [address] [place] [address] Gabriel Oquendo MD [address] [place] [phone] documented as of this encounter Visit Diagnoses Not on filedocumented in this encounter Care Teams Store Assistant Relationship Specialty Start Date End Date Jacob, Alberto Prince MD [address] [place] [phone] PCP - Family Medicine Internal Medicine 07/08/19 Mariela Peralta MD [address] [place] [address] [phone] PCP - General Internal Medicine 09/28/20 Tawanda Lewis MD [address] [place] [address], [address] [place] [address] [email or web address] Referring Physician Physical Medicine and Rehabilitation 11/04/20 documented as of this encounter Additional Source Comments The information contained in this document represents components of the legal health record. It is not the complete legal health record.[facility]
--- OUTSIDE RECORDS SUMMARY | 2025-03-30 15:13 | XMS_ITS | Encounter Summary ---
Author Organization [facility] Address [address] [facility] [address] [place] [address] Phone Care Team Providers Care Excel Specialist Name Role Phone Jacob, Alberto Prince MD Unavailable [phone] Mariela Peralta MD Primary Care Provid er Tawanda Lewis MD Unavailable [phone] Encounter Details Date Type Department Care Team (Late st Contact Info) Description 07/11/2019 Ancillary Orders [facility]Outside Imaging [address] [place] [address] System, Provider Not In, [place] [address] Social History Tobacco Use Types Packs/Day Years [...] Description 04/22/2025 4:10 PM EST Office Visit [facility] [address] [place] [address] [place] [address] Gabriel Oquendo MD 22 [facility], [address] [place] [address] [phone] 05/06/2025 4:40 PM EST Appointment [facility] [place], OB [address] [place] [address] [place] [address] Leah Deleon MD 22 [facility], [address] [place] [address] [email or web address] 05/07/2025 3:10 PM EST Office Visit [facility] [address] [place] [address] [place] [address] Gabriel Oquendo MD [address] [place] [address], [address] [address] [email or web address] documented as of this encounter Results * MRI Pelvis (Bone) Outside (No Interpretation) (09/25/2018 12:00 AM EDT) Narrative SYSTEMGENERATED, DOCUMENTATION - 07/11/2019 8:37 AM EST This study is for PACS storage only and not for interpretation. us Provider Not In System PhD IMG OUTSIDE IMAGING W /OUT INTERPRETATION Final Result documented in this encounter Visit Diagnoses Not on filedocumented in this encounter Additional Health Concerns Infection Onset Date Last Indicated Resolved Time COVID-19 06/27/2021 06/27/2021 07/09/2021 9:03 AM EST documented as of this encounter Care Teams Excel Specialist Relationship Specialty Start Date End Date Alberto James MD [address] [place] [phone] PCP - Family Medicine Internal Medicine 07/08/19 Mariela Peralta MD [address] [place] [address] PCP - General Internal Medicine 09/28/20 Tawanda Lewis MD [address] [place] [address], [address] [place] [address] [email or web address] Referring Physician Physical Medicine and Rehabilitation 11/04/20 documented as of this encounter Additional Source Comments The information contained in this document represents components of the legal health record. It is not the complete legal health record.[facility]
--- OUTSIDE RECORDS SUMMARY | 2025-03-30 15:13 | XMS_ITS | Encounter Summary ---
Author Organization [facility] Address [address] [facility] [address] [place] [address] Phone Care Team Providers Care Manager Athletics Name Role Phone Alberto James MD Unavailable [phone] Mariela Peralta MD Primary Care Provid er Tawanda Lewis MD Unavailable [phone] Encounter Details Date Type Department Care Team (Late st Contact Info) Description 02/05/2021 Telephone [facility] [address] [place] [address] Becky Murcia, [facility] [address] [facility], [address] [place] [address] [email or web address] Social History Tobacco Use Types Packs/Day Years Used Date Smoking Tobacco: Never Smokeless Tobacco: Never Alcohol Use Standard Drinks/Week Comments Not Currently 0 (1 standard drink = 0.6 oz pur e alcohol) not since Comments Yes Sex and Gender Information Value Date Recorded Sex Assigned at Female 11/26/2019 4:09 PM EDT Legal Sex Female 9:37 AM EDT Gender Identity Female 11/26/2019 4:09 PM EDT Sexual Orientation Straight 11/26/2019 4: 09 PM EDT documented as of this encounter Plan of Treatment Upcoming Encounters Date Type Department Care Team (Late st Contact Info) Description 04/22/2025 4:10 PM EST Office Visit [facility] [address] [place] [address] [place] [address] Gabriel Oquendo MD [address] [place] [phone] 05/06/2025 4:40 PM EST Appointment [facility] [place], OB [address] [place] [address] [place] [address] Leah Deleon MD [address] [place] [address], [address] [address] [email or web address] 05/07/2025 3:10 PM EST Office Visit [facility] [address] [place] [address] [place] [address] Gabriel Oquendo MD [address] [place] [address], [address] [address] [email or web address] documented as of this encounter Visit Diagnoses Not on filedocumented in this encounter Additional Health Concerns Infection Onset Date Last Indicated Resolved Time COVID-19 06/27/2021 06/27/2021 07/09/2021 9:03 AM EST documented as of this encounter Care Teams Manager Athletics Relationship Specialty Start Date End Date Alberto James MD [address] [place] [address] Drive [address] [place] [phone] PCP - Family Medicine Internal Medicine 07/08/19 Mariela Peralta MD [address] [place] [address] PCP - General Internal Medicine 09/28/20 Tawanda Lewis MD [address] [place] [address], 2[address] [place] [address] [email or web address] Referring Physician Physical Medicine and Rehabilitation 11/04/20 documented as of this encounter Additional Source Comments The information contained in this document represents components of the legal health record. It is not the complete legal health record.[facility]
--- OUTSIDE RECORDS SUMMARY | 2025-03-30 15:13 | XMS_ITS | Encounter Summary ---
Author Organization [facility] Address [address] [facility] [address] [place] [address] Phone Care Team Providers Care Peoplesoft Hr Developer Name Role Phone Alberto James MD Unavailable [phone] Mariela Peralta MD Primary Care Provid er Tawanda Lewis MD Unavailable [phone] Encounter Details Date Type Department Care Team (Late st Contact Info) Description 12/02/2019 Procedure Pass [facility] Periop 1st floor [address] [place] [address] Social History Tobacco Use Types Packs/Day Years [...] Office Visit [facility] [address] [place] [address] [place] [address] Gabriel Oquendo MD 22 [facility], [address] [place] [address] 05/06/2025 4:40 PM EST Appointment [facility] [place], OB [address] [place] [address] [place] [address] Leah Deleon MD [address] [place] [address], [address] [place] [address] [email or web address] 05/07/2025 3:10 PM EST Office Visit [facility] [address] [place] [address] [place] [address] Gabriel Oquendo MD [address] [place] [address], [address] [address] documented as of this encounter Visit Diagnoses Not on filedocumented in this encounter Additional Health Concerns Infection Onset Date Last Indicated Resolved Time COVID-19 06/27/2021 06/27/2021 07/09/2021 9:03 AM EST documented as of this encounter Care Teams Peoplesoft Hr Developer Relationship Specialty Start Date End Date Alberto James MD [address] [place] [phone] PCP - Family Medicine Internal Medicine 07/08/19 Mariela Peralta MD [address] [place] [address] PCP - General Internal Medicine 09/28/20 Tawanda Lewis MD 22 [facility], 2nd [place] [address] Referring Physician Physical Medicine and Rehabilitation 11/04/20 documented as of this encounter Additional Source Comments The information contained in this document represents components of the legal health record. It is not the complete legal health record.[facility]
--- OUTSIDE RECORDS SUMMARY | 2025-03-30 15:13 | XMS_ITS | Clinical Summary ---
Author Organization [facility] Address [address] [facility] [facility] [address] [place] [id number] Phone Care Team Providers Care Pass Worker Name Role Phone Jacob, Alberto Prince MD Unavailable [phone] Mariela Peralta MD Primary Care Provid er Tawanda Lewis MD Unavailable [phone] Allergies Active Allergy Reactions Criticality Noted Date Comments Adhesive Tape-Silicones Rash Low 11/28/2019 Aspirin Other (See Comments) Medium 11/28/2019 AVOIDS DUE TO GASTRIC BYPASS Nsaids (Non-Steroidal Anti-Inflammatory Drug) Other (See Comments) Medium 11/28/2019 AVOIDS DUE TO GASTRIC BYPASS Opioids - Morphine Analogues Hives 12/14/2018 Burning sensation Oxycodone-Acetaminoph en Hives Medium 11/28/2019 Pumpkin Swelling Medium 11/28/2019 Facial swelling Tramadol Itching Medium 11/28/2019 Hydrocodone-Acetamino phen Hives Medium 11/28/2019 Medications vitamins-DHA (DUET DHA ) 29 mg iron-1 mg -430 mg Cmpk Take 1 packet by mouth daily. Active cyanocobalamin (VITAMIN B-12) 1,000 mcg/mL injection every 30 (thirty) days. 06/14/20 21 Active pyridoxine HCl, vitamin B6, (VITAMIN B-6 ORAL) Take by mouth daily. Active BIOTIN ORAL Take by mouth daily. Active norethindrone (MICRONOR) 0.35 mg tablet Take 1 tablet (0.35 mg total) by mouth daily. Micronor 1 tab po QD 28 tablet 12 09/04/19 22 Active diazePAM (VALIUM) 10 MG tablet Take 1 tablet (10 mg total) by mouth once for 1 dose. 1 tablet 06/08/20 23 Active fluticasone propionate (FLONASE) 50 mcg/actuation nasal spray SPRAY 2 SPRAYS INTO EACH NOSTRIL 01/15/20 25 Active lidocaine (LIDODERM) 5 % APPLY 1 PATCH TOPICALLY DAILY LEAVE ON MOST PAINFUL AREA FOR UP TO 12 HRS 01/31/20 25 Active pregabalin (LYRICA) 100 MG capsule 10/18/19 25 Active ZEPBOUND 7.5 mg/0.5 mL subcutaneous pen INJECT 7.5 MG (0.5 ML) SUBCUTANEOUSLY EVERY WEEK FOR 4 WEEKS 01/04/20 25 Active tiZANidine (ZANAFLEX) 2 MG tablet TAKE 1 TABLET BY MOUTH 3 TIMES A DAY NEEDED FOR MUSCLE SPASTICITY 01/02/20 25 Active zolpidem (AMBIEN) 10 mg tablet TAKE 1 TABLET ORALLY BEDTIME NEEDED FOR SLEEP FOR 30 DAYS 01/04/20 25 Active Active Problems Problem Noted Date Diagnosed Date Pelvic pain 03/25/2025 Assessment & Plan (03/25/2025 5:11 PM EDT): Pelvic US images reviewed, discussed findings of two left sided hemorrhagic appearing cysts, several small uterine fibroids Recommend repeat pelvic US in 6-8 weeks to re-assess cysts and decide on next steps in management Plan follow up after repeat imaging Headache 06/18/2021 Request for sterilization 06/15/2021 Overview (06/15/2021): Dec 28 - 34 weeks - Wants PPTL - is certain of decision, I reviewed, permanence, failure rate, ectopic risk and surgical risks; sometimes the logistics may preclude this happening after an SAVD - [facility] health form signed today Assessment & Plan (09/03/2021 4:18 PM EDT): Plans pills for now. Will let us know if she wants tubal Assessment & Plan (07/16/2021 11:46 AM EST): Farshad reports she has decided not to have the BTL at time of . Discussed that is fine, we will ask again in the moment to be sure but that there is no pressure to have BTL now. History of gastric bypass 12/17/2020 Overview (05/14/2021): Cannot do glucola, consider 4 times a day Blood glucose testing - [facility] for QID testing for 1-2 weeks. SEE problem blood glucose abnormal for additional information. Vitamin b 12 level ordered with intake labs: Normal. Getting regular B12 injections Assessment & Plan (04/08/2021 8:26 PM EDT): Recommended one week of QID blood glucose testing around 28 weeks to screen for GDM as she cannot complete 1hgtt due to h/o gastric bypass. Farshad accepts. Will order. Assessment & Plan (03/12/2021 11:43 AM EDT): Will need to order [facility] referral for QID testing at [place] d/t gastric bypass Assessment & Plan (02/10/2021 12:41 PM EDT): B12 level normal at intake. Getting regular injections. Fusion of sacral region of spine 12/17/2020 Overview (06/15/2021): SI fusion Pt states MD recommended PLTCS 12/17/20 - message sent to surgeon for recommendations Dr Ratliff replied that he does not recommend primary C/S, just mentioned that there could be some limitation in flexibility d/t SI fusion Jun 15 - Reminded that we must NOT flex her hip to degree tht is beyond her normal range of motion; based on her demo today, she should be able to still have SAVD as she has reasonable range of motion in lithotomy Subluxation of sacroiliac joint 04/04/2019 Hip tendonitis, right 02/08/2019 Overview (02/10/2021): Sees Dr. Lewis regularly. Has SI belt. Assessment & Plan (02/10/2021 12:35 PM EDT): Sees Dr. Lewis regularly. Has SI belt. Gastroesophageal reflux disease Overview (02/10/2021): Controlled with pepcid 2x daily Assessment & Plan (02/10/2021 12:36 PM EDT): Controlled with pepcid 2x daily Claustrophobia Resolved Problems Problem Noted Date Diagnosed Date Resolved Date Normal , unspecified trimester 07/20/2021 09/03/2021 Premature uterine contractio ns in third trimester, antepartum 05/18/2021 07/06/2021 Overview (06/27/2021): 05/17/21: observed at [facility] for regular painful contractions, cervix L/T/C and ffn neg but transferred to [facility] due to worsening contractions and some bleeding following exam. Discharged after a few hours 05/25/21 seen again with constant lower abd pain and shooting vaginal pain, no distinct ctx 05/30/21 VE 0/70%/-3 contractions irregular every 3-6 min. VE unchanged after 2 hrs. Pt discharge home w/ instructions. Will repeat growth US in 4 weeks 06/27/21 VE 0/80/-1, Contractions irregular every 2-3 min. COVID Test positive. Discussed COVID precautions and comfort measures. Advised that our nurses will check in with her periodically until she is cleared. Encouraged increase hydration. Pre-term labor s/sx discussed and when to call back Assessment & Plan (06/27/2021 2:17 PM EST): -Not in labor at this time -NST Reactive -R/o Labor no significant cervical change -UA and culture sent -COVID Test came out positive. -Discussed COVID precautions and comfort measures. -Advised that our nurses will check in with her periodically until she is cleared -Encouraged increase hydration -Pre-term labor s/sx discussed and when to call back -Rx for Ambien sent to pharmacy Assessment & Plan (06/24/2021 4:53 PM EST): Continues to have variable contractions, cervical length 3cm on US today. Reviewed that contractions have not resulted in cervical change. Discussed calling if baseline contraction pattern changes otherwise ok to manage with comfort measures. Assessment & Plan (06/01/2021 9:30 AM EST): Has been observed 5 times total without cervical change. Neg Ffn x 2. Contractions ebb and flow but are usually present. Again discussed it was reassuring that cervix is not changing and Ffn is neg, reviewed parameters for calling practice, which she feels comfortable with. Assessment & Plan (05/30/2021 4:32 PM EST): -Contractions every 5-6 min -Will send UA -IV LR bolus -Obs. for 2 hrs --Admit to CBC -Pt consented to COVID testing -Reactive NST for this GA -Cont. Monitoring - Ref Range & Units 05/25/21 1439 05/17/21201304/01/21 2044 FIBRONECTIN Negative Negative Negative Negative Specimen Collected: 05/25/21 14:39 Last Resulted: 05/25/21 16:06 -05/17/21 and 05/25/21 VE L/T/C -Neg gc/ct on 05/17 -VE closed/70%/-3 Posterior and hard -Consulted w/ MD Nguyen. No need to repeat labs. R/o labor. If not in labor Discussed pre-term warning s/sx and dc home, if in labor transfer to [facility] due to prematurity 1630: VE unchanged Discussed discharge plan w/ MD Nguyen. Will repeat US in 4 wks from the 9. Pt advised to call back if Ucs increase in intensity, VB, or decrease FM. Advised that due to fibroids her uterus may contract regularly until she delivers. Encouraged increase fluid intake Discussed warning s/sx and when to call back Assessment & Plan (05/25/2021 2:17 PM EST): Farshad is here with partner for a same-day appointment due to constant lower abdominal cramping starting at 1:30 am. Reports cramping is constant but belly has been tightening at regular intervals. Also reports random sudden sharp vaginal pains that shoot down her legs. Has had some nausea over the past two days along with loose stool, 3-5/day of stringy stool but not liquid. Vomited once. Denies fever, chills, myalgias, dysuria. Denies vaginal bleeding. NST is reactive with contractions q 2-3 min. Patient in no accute distress, mild discomfort with contractions. On SSE, cervix is LTC, no blood, fluid, or abnormal discharge in vault. Ffn collected. SVE FT/thick/high. Patient sent to CBC with her Ffn sampling due to frequency of contractions for extended monitoring and repeat SVE. CBC notified. Assessment & Plan (05/18/2021 2:35 PM EST): Farshad states that contractions have continued since she was discharged from [facility]. Contractions are around q 3 min and last 15-20 seconds. Both tightening and crampy pain with contractions. Has some dark brown spotting since exam on CBC. Has been able to sleep after sleep aid. Reviewed s/s of labor vs uterine irritability. Reviewed that ffn was negative during hospital stay and that this along with lack of cervical change is reassuring. She was advised to call with any progressive or worsening contractions, increase in bleeding, leaking of fluid. Advised to rest and hydrate well, decrease stress. Pt feels comfortable with PTL warnings. Cervix rechecked today and was L/T/C and posterior. NST (non-stress test) reactive 05/17/2021 05/18/2021 Blood glucose abnormal 05/14/202109/03 Overview (05/14/2021): Referred to [facility] for QID testing, as Kailee cannot do glucola due to h/o gastric bypass surgery. 04/30/21 - 05/12/21 , see downloads FBS:75-86 1 hour after breakfast: 73- 149 (1 number 149 after soda) 1 hour after lunch: 62 - 182 (had two above 130 at 182 and 154 after pizza and soda) 1 hour after dinner: 76 - 136 (one above 130 at 136 after pizza) Will continue to test QID for another week and f/u with [facility]. Assessment & Plan (05/18/2021 2:31 PM EST): Reviewed values from 2 weeks. All fasting values in 70s and 80s. 1hr post- prandial are almost all wnl, two elevations were noted following carbohydrate-heavy meals where she drank soda. Advised patient that her values are reassuring and recommended she avoid soda and juice, balance carbohydrate intake with fiber and protein. She can continue to test 1-2 days per week in third trimester to assess for developing insulin resistance. contractions 04/02/2021 021 Lower abdominal pain 04/01/2021 021 uterine contractions in second trimester, antepartum 04/01/2021 04/21/2021 Assessment & Plan (04/08/2021 8:25 PM EDT): Reports no additional contractions since being seen at the [facility] last week. Discussed increased risk for contractions due to fibroids and importance of calling with any concerns. UTI (urinary tract infection ) during , second trimester 04/01/2021 09/03/2021 Overview (06/01/2021): Seen at [facility] 04/01 with pain and contractions. UA suggestive of UTI. Urine culture sent. RX augmentin 875 BID x 7 days, prophylactic Urine culture result mixed. Neg urinalysis on 04/27, 05/17, 05/30 (performed with PTL workup) Assessment & Plan (04/28/2021 6:17 PM EST): -Urine culture collected yesterday at the [facility] Assessment & Plan (04/08/2021 8:24 PM EDT): Was seen at the [facility] on 04/01 with contractions, received terbutaline and IV fluids and treated for presumed UTI based on UA. Urine culture result mixed. Was seen again at the [facility] one day later, received terbutaline again. Reports she has had no additional contractions since then. 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 to held with iron, will discuss results at next appt week of May 0305/17: Hb 9.7 Anemia defined as: Hgb < 11 1st & 3rd trimester Hgb < 10.5 2nd trimester consider checking serum ferritin to confirm iron deficiency Other testing as indicated (hgb electrophoresis or iron studies) Iron deficiency anemia- begin Fe supplement: 60 mg elemental Fe daily (BID or TID if severe anemia), consider stool softener and vitamin C CBC, ferritin, in 2-6 wks consider IV iron infusion (FEREHEME 510mg on CBC or cancer center) if severe, not able to take oral iron, or not improving Heme consult if anemia severe (< 8) or etiology is unclear Assessment & Plan (07/14/2021 2:07 PM EST): Her last hemoglobin was 9.7 at the end of April. It has not been checked since that time. Therefore, we will check it today. Assessment & Plan (04/28/2021 6:18 PM EST): -CBC ordered already pt informed to go to the lab Assessment & Plan (02/10/2021 12:35 PM EDT): Saw minister assistant. Has a hard time taking iron as it causes nausea. Discussed trying floridex. She will look into that. Supervision of high-risk pre gnancy, third trimester 12/17/2020 09/03/2021 Overview (07/16/2021): CNM OB-CMI score: 0 [12/17/2020] A pos GC/Chlam neg PAP 01/15/20 NILM HPV neg Tdap 05/18/21 Flu 04/07/21 Hgb 10.0 GTT - cannot do glucola due to gastric bypass, consider QID testing 28 wk Repeat RPR NR GBS neg PPBC would like interval tubal ligation, prob POPs to bridge screening Normal FTS Assessment & Plan (07/16/2021 11:48 AM EST): Farshda is a 30 y.o. at 38w3d, phone ZACKERY today. Feeling well. Active baby. Feeling good about decision for , which is scheduled for 07/20/21. Reviewed she can still have two support people, will be able to go into OR, her mom can wait in labor room. Having lots of vaginal pressure and discomfort. Reports she was checked at last visit, closed cervix but was told head was low. Will call with any signs of labor, SROM, etc if they occur prior to planned delivery. Assessment & Plan (07/14/2021 2:10 PM EST): She notes good movement. She denies any vaginal bleeding or leakage of fluid. She continues to have intermittent painful contractions. She has had many cervical checks evaluations for these contractions and her cervix has remained unchanged. Assessment & Plan (07/06/2021 11:46 AM EST): Farshad is a 30 y.o. at 37w0d. Phone visit due to COVID positive testing. She has not had any symptoms. Farshad went to the CBC last night, reports having lots of pain, can't walk, can't sit down. Cervix closed. She has had a very uncomfortable , likely due to the fibroids. Tries to change positions, not lie down flat, does hot water bath daily to help with back/rectum pain. Has a ball and does exercises but even sitting on it hurts. Baby is very active, the more she moves, the more it hurts. Discussed she could add Epsom salts to her bath and take as many warm showers as she likes. Also floating in a pool would be helpful if she has access. Farshad states she can't continue to do this for another two weeks, she was crying during our phone call. She asked if she goes to another facility if they would induce her before 39 weeks. I explained that it is unlikely because it is contraindicated to induce before 39 weeks without a medical indication and that this doesn't qualify but if she wants to explore other institutions it is her right to do so. Discussed planning for IOL at 39 weeks. She is sure she will need a as none of the women in her family have dilated in labor. Has next appt in 10 days. Encouraged to call anytime with questions or concerns. Assessment & Plan (06/24/2021 4:55 PM EST): BPP 8/8, DAMION 12.8. Assessment & Plan (06/01/2021 9:28 AM EST): Here with her partner. Feeling OK, has continued to have regular uncomfortable contractions but is gaining comfort with knowing what her baseline is and knowing when to call. Today's visit focused on plan of care for delivery: Farshad is beginning to feel she would prefer a primary . Her reasons are a strong family history of labor dystocia, concern for fibroids making less likely, and desire to avoid unplanned . We discussed each of these and reviewed advantages of vaginal delivery with regards to risk of hemorrhage, infection, greater need for pain medication, longer recovery. She also shared today that she is sure she would like a tubal ligation for a BCM, is 100% sure she does not want another child. We discussed that this is not commonly done immediately after first delivery due to risk of regret, but she could discuss with a surgeon. After counseling she stated she felt very comfortable deferring BTL until 6+ weeks , but she was interested in discussing delivery with an MD to ensure that they agreed is still a reasonable and advisable plan. Assessment & Plan (05/18/2021 2:28 PM EST): Farshad is here with her mom. Recently discharged from [facility] following admission for contractions. See problem list. Reviewed normal GTT, CBC with anemia. She is taking iron. EPDS 12. Reports her mood has been affected by persistent discomforts of , particularly in the past week as she has been paul, but does not feel she struggles with depression. Feels well supported by mom, sister, and . Lives with extended family. Assessment & Plan (04/28/2021 6:16 PM EST): Farshad is a 30 y.o. at 27w1d states she feels well today. She states she continuous to have some LOF states its clear and mucusy. Reports its a lot less than yesterday when she went to the CBC. Denies any LOF/Vaginal bleeding/Ucs. Reports +FM -Pt advised to wear a reg. Thin pad and monitor the LOF. Warning signs discussed and when to call -Advised on leukorrhea in -Discussed FM at this [place] and [facility] -Review signs and symptoms of Pre-term Labor and when/how to contact midwives -Pt has appointment with [facility] tomorrow. -NV in 2 weeks Assessment & Plan (04/08/2021 8:28 PM EDT): Farshad is a 30 y.o. at 24w2d, here with her . Feeling okay. Active fetus. Flu shot given today. Discussed CBC and RPR at 28 weeks, ordered. Farshad expresses concern about ASAEL discrepancy, reports original ASAEL was established at [facility] but is inconsistent with what she has been told based on more recent ultrasounds. Agree to review transfer records and US reports and will send her a portal message with findings. ZACKERY in three weeks. Assessment & Plan (03/19/2021 3:06 PM EDT): Feeling pressure in lower abdomen. Denies contractions, cramping, lof, vb. Has been feeling fm. U/S today showed cx is L/T/C--Spine views WNL. Taking gummy vits. We discussed warning sx and how to contact CNM. Assessment & Plan (03/12/2021 11:42 AM EDT): Catarina is here doing well. Denies VB/LOF/Ctxs. + FM. She is still having some low abdominal cramping and increased pain with rolling over. She saw Lenore for this and feels like some of the pain is r.t fibroids. We discussed how to differentiate PTL. Recommended abdominal binder - Rx given. Anatomy survey - limited spine, otherwise normal. Repeat ordered Assessment & Plan (02/19/2021 5:12 PM EDT): Farshad is a 30yo at 17 3/7, presents for problem OB visit accompanied by her . She reports left sided abdominal pain for the past two days. Starts in the LLQ and radiates upward along the side of her abdomen. She feels it constantly but it it worse if she experiences pelvic pressure (such as from gagging or emesis) or with movement. Denies dysuria or vaginal bleeding. Has felt some flutters. Exam: No abdominal masses palpated. Mildly tender to palpation in LLQ. Negative Simpson's sign/psoas/obturator tests. FHT present via doppler FH 18cm Discussed most likely round ligament pain or other musculoskeletal cause due to uterine growth. Has h/o fibroids, reviewed we will look at them at upcoming anatomy scan. Also continues to have NVP, best controlled with Reglan. Needs new rx today, will send to pharmacy. ZACKERY and anatomy scan as scheduled in about 3 weeks. Assessment & Plan (02/10/2021 12:40 PM EDT): Farshad is doing well overall. She is still having nausea and taking reglan. When she takes the reglan she can eat and drink normally. No other questions or concerns. Anatomy scan ordered and scheduled. Assessment & Plan (12/27/2020 10:41 AM EDT): Farshad is a 30yo at 9 3/7 weeks gestation, here with her partner for problem visit for f/u after being seen in [facility] ED for NVP on 12/23. Reports she is feeling much better since received IF fluids. She states she had no vomiting yesterday or today. She still has some nausea but has h/o gastric bypass surgery so thinks it may just be baseline due to that. She has had occasional lower abdominal pain that comes and goes intermittently, not frequent. She has noticed a couple of spots in her pantyliner. US done in the ED show viable IUP. She brought the ED records, to be scanned into media folder. Encouraged to continue rest and hydration, and call with any ongoing concerning symptoms. They will be traveling to [place] next week, advised she should call with any concerns while away, reviewed how to reach configuration management administrator CNM. Has US and [facility] scheduled on 01/11. Uterine fibroid during , antepartum 1 09/03/2021 Overview (05/30/2021): 3 myomas, largest 4 cm Fibroid in Third trimester growth at 32 wks IV access in labor CBC type and screen in labor 03/19/21 U/S all fibroids increasing in size. 6 cm fibroid in RUI, Dr Oquendo recommends exam to assess whether it is obstructing baby coming down (consider in 3rd trimester) 05/30/21 -US on 05/27/21 Fibroids: Posterior RUI = 9.63 x 6.73 x 7.16 cm ( previously = 5.82 x 5.23 x 5.19 cm ) Unable to visualized whether or not it is obstructing cervix Assessment & Plan (07/14/2021 2:06 PM EST): She has had serial ultrasounds for growth of the fetus which shows that the posterior L US fibroid has increased to approximately 10 cm in maximal dimension. In addition, she has several of fibroids present, one of which is located in the right lateral region and is 7 cm in maximal dimension. There is also an anterior fibroid measuring 4-5 cm maximal dimension. Assessment & Plan (06/24/2021 4:54 PM EST): EFW 2728g (58%), posterior fibroid does not appear to be obstructing the cervix. Recommend trial of labor with for routine indications. Assessment & Plan (06/01/2021 9:31 AM EST): Growth at 38th %ile on 05/27, fibroids are larger overall. Do not seem to be blocking canal but unable to say definitively Assessment & Plan (05/30/2021 5:07 PM EST): 05/30/21 -US on 05/27/21 Fibroids: Posterior RUI = 9.63 x 6.73 x 7.16 cm ( previously = 5.82 x 5.23 x 5.19 cm ) Unable to visualized whether or not it is obstructing cervix -Repeat US in 4 wks Assessment & Plan (05/30/2021 4:33 PM EST): -US on 05/27/21 Fibroids: Posterior RUI = 9.63 x 6.73 x 7.16 cm ( previously = 5.82 x 5.23 x 5.19 cm ) Unable to visualized whether or not it is obstructing cervix -Per MD Nguyen repeat US in 4 wks from last US Assessment & Plan (05/18/2021 2:26 PM EST): U/S ordered today for growth and fibroid position. Discussed that fibroid uterus may be contributing to lower abdominal cramping. Assessment & Plan (04/28/2021 6:19 PM EST): -Pt concerned about fibroid. -Pt wondering if she gets a C/S if the MD can remove fibroid as well. -Advised that her 32 week US will give us more information Assessment & Plan (03/12/2021 11:40 AM EDT): Fibroids again seen, this time, largest 6 cm - some growth. Reviewed this is likely r/t Will repeat US at 32 weeks for growth We reviewed there is an increased risk of labor, however many patients with fibroids go to full term. Reviewed PTL s/s and when to call Status post surgery 12/02/2019 12/25/19 21 Sacroiliac subluxation, initial encounter 02/15/2019 12/17/2020 Tendonitis involving left hip abductors 12/14/2018 12/17/2020 Sacroiliitis, not elsewhere classified 12/14/2018 12/17/2020 Kidney stone 06/19/2017 12/17/2020 Overview (11/28/2019): Spontaneously resolved Motion sickness 12/17/2020 Overview (11/28/2019): Mild Encounters Date Type Department Care Team Description 03/25/2025 3:40 PM EDT Office Visit [facility] [address] [place] [address] Leah Deleon MD Pelvic pain (Primary Dx) 03/24/2025 4:26 PM EDT - 03/24/2025 11:59 PM EDT Hospital Encounter [facility] [place], OB [address] [place] [address] Ekta Ernst MD Discharge Disposition: Home or Self Care 02/19/2025 11:00 AM EDT Office Visit [facility] [address] [place] [address] Ekta Ernst MD Uterine leiomyoma, unspecified location (Primary Dx) 02/10/2025 Nurse Triage [facility] [address] [place] [address] [place] [address] Opal Delgadillo, CONSTANTIN pelvic pain from Last 3 Months Immunizations Immunization Administration Dates Next Due COVID-19 (Pre-04/10) Pfizer Vaccine, mRNA, PF 07/23/2021 DTP 12/17/1993, 2,04/19/1990,1989,1989 HPV,quadrivalent 09/08/2008,05/07/2008, 8 Hepatitis B 03/10/2011, 1,04/08/2002,2001,08/14/2001 Hib,HbOC 10/17/1990 INFLUENZA, SPLIT VIRUS, TRIV ALENT W/ PRESERVATIVE IM 04/29/2016,04/14/2009,05/07/2008,2006 Influenza Quadrivalent Prese rvative Free IM 04/07/2021,03/28/2020,06/24/2019 MMR 09/17/1994,07/20/1990 Polio - OPV 01/05/1994, 2,1989,1989 Td (adult) 5 Lf Tetanus Toxo id, PF, Adsorbed 07/02/2018 Td (adult),2 Lf Tetanus Toxo id, PF, Adsorbed 09/03/2001 Tdap 05/18/2021, 9,10/11/2010,2007 Family History Medical History Relation Comments Diabetes Father Seizures Maternal Grandparents Stroke Maternal Grandparents Fibromyalgia Mother Alzheimer's disease Unspecified Relation Status Comments Father Alive Maternal Grandparents Mother Alive Unspecified Social History Tobacco Use Types Packs/Day Years [...] Orientation Straight 11/26/2019 4: 09 PM EDT Last Filed Vital Signs Vital Sign Reading Time Taken Comments Blood Pressure 114/70 03/25/2025 3:35 PM EDT Pulse 71 12/13/2022 11:06 AM EDT Temperature 36.9 C (98.5 F) 12/13/2022 11:06 AM EDT Respiratory Rate 18 07/22/2021 5:00 PM EST Oxygen Saturation 99% 12/13/2022 11:06 AM EDT Inhaled Oxygen Concentration - - Weight 85.3 kg (188 lb) 12/13/2022 11:06 AM EDT Height 162.6 cm (5' 4 ) 02/19/2025 11:13 AM EDT Body Mass Index 32.27 12/13/2022 11:06 AM EDT Plan of Treatment Upcoming Encounters Date Type Department Care Team (Late st Contact Info) Description 04/22/2025 4:10 PM EST Office Visit [facility] [address] [place] [address] [place] [address] Gabriel Oquendo MD [address] [place] [address], [address] [place] [address] 05/06/2025 4:40 PM EST Appointment [facility] [place], OB [address] [place] [address] [place] [address] Leah Deleon MD [address] [place] [address], [address] [place] [address] [email or web address] 05/07/2025 3:10 PM EST Office Visit [facility] [address] [place] [address] [place] [address] Gabriel Oquendo MD [address] [place] [address], [address] [place] [address] [email or web address] Health Maintenance Due Date Last Done Comments DEPRESSION SCREENING 2001 SCREENING FOR DIABETES 2024 12/23/2020 PAP SMEAR 01/14/2025 01/15/2020 INFLUENZA VACCINE (#1) 2025 , 03/08/2022, 04/07/2021, Additional history exists COVID-19 VACCINE ( season) 2025 03/29/2024, 01/23/2023, 07/23/2021, Additional history exists Adult Td,Tdap Booster 05/18/2031 05/18/2021 , 07/02/2018, 07/02/2018, Additional history exists HIB VACCINES Aged Out 10/17/1990 No longer eligi ble based on patient's age to complete this topic HEPATITIS C SCREENING Completed 01/11/2021 HIV ONE-TIME SCREENING (18-65 YEARS) Completed 01/11/2021 SMOKING STATUS SCREENING (Once After 26 Yrs) Completed 06/24/2021 HEPATITIS A VACCINES Aged Out No long er eligible based on patient's age to complete this topic MENINGOCOCCAL VACCINES (ACWY) Aged Out No longer eligible based on patient's age to complete this topic MENINGOCOCCAL VACCINES (B) Aged Out N o longer eligible based on patient's age to complete this topic PNEUMOCOCCAL VACCINES (0-49 years) Aged Out No longer eligible based on patient's age to complete this topic Medical Devices Implanted Type Area Architect Marine Device Identifier Shelf Expiration Date Model / Serial / Lot Implant Ifuse 3d 7x50mm - [id number] Implanted:Qty: 1 on 12/02/2019 by Susana Ratliff MD, PhD at [facility] Left: Sacrum S [employer] 05/07/2024 7050M-90 / / [id number] Implant Ifuse 3d 7x45mm - [id number] Implanted:Qty: 1 on 12/02/2019 by Susana Ratliff MD, PhD at [facility] Left: Sacrum [employer] 02/26/2024 7045M-90 / / [id number] Implant Ifuse 3d 7x40mm - [id number] Implanted:Qty: 1 on 12/02/2019 by Susana Ratliff MD, PhD at [facility] Left: Sacrum [employer] 05/07/2024 7040M-90 / / [id number] Procedures Procedure Name Priority Date/Time Associated Diagnosis Comments US PELVIS TRANSABDOMINAL PLUS TRANSVAGINAL Routine 03/24/2025 5:12 PM EDT Uterine leiomyoma, unspecified location HEPATITIS C ANTIBODY, QUALITATIVE Routine 01/11/2021 4:16 PM EDT Need for hepatitis C screening test HM PAP SMEAR FOR RESULT ENTRY ONLY Routine 01/15/2020 from Last 3 Months or Most Recently Relevant to Health Maintenance Results * US PELVIS TRANSABDOMINAL PLUS TRANSVAGINAL [...] Ernst MD IMG US PELVIS Final Result * Hepatitis C antibody, qualitative (01/11/2021 4:16 PM EDT) HCV NON-REACTIV E NON-REACTI VE [facility] Blood 01/11/2021 4:16 PM EDT 01/11/2021 6:53 PM EDT us Ivet Farrell [facility] BLOOD ORDERABLES Final Resu lt [facility] [address] [place], [place] [id number] * PAP SMEAR FOR RESULT ENTRY ONLY (01/15/2020) us Fabiola Ramos [facility] MAINTENANCE Final Re sult from Last 3 Months or Most Recently Relevant to Health Maintenance Insurance [facility] ACO ACO ACO ACO ACO ACO ACO [place] [address] [address] [place] [address] ACO [facility] [employer] [employer] Advance Directives For more information, please contact: [phone] (9AM - 5PM [facility], Monday-Monday) Documents on File Type Date Recorded Patient Land Leasing Information Clerk Expl anation Healthcare Proxy 07/26/2021 4:52 PM * Full Code (Latest Code Status on File) Date Activated Date Inactivated Comments 07/20/2021 10:15 AM Question Answer Comments Code Status Confirmed With: Patient * Full Code Date Activated Date Inactivated Comments 07/20/2021 8:15 AM 07/20/2021 10:12 AM Question Answer Comments Code Status Confirmed With: Patient * Full Code Date Activated Date Inactivated Comments 06/27/2021 12:51 PM 07/20/2021 8:15 AM Question Answer Comments Code Status Confirmed With: Patient * Full Code Date Activated Date Inactivated Comments 06/18/2021 1:27 PM 06/27/2021 12:51 PM Question Answer Comments Code Status Confirmed With: Patient * Full Code Date Activated Date Inactivated Comments 05/30/2021 3:03 PM 06/18/2021 1:27 PM Question Answer Comments Code Status Confirmed With: Patient Care Teams Pass Worker Relationship Specialty Start Date End Date Alberto James MD [address] [place] [phone] PCP - Family Medicine Internal Medicine 07/08/19 Mariela Peralta MD [address] [place] [address] PCP - General Internal Medicine 09/28/20 Tawanda Lewis MD [address] [place] [address], 2nd [place] [address] [email or web address] Referring Physician Physical Medicine and Rehabilitation 11/04/20 Additional Source Comments The information contained in this document represents components of the legal health record. It is not the complete legal health record.[facility]
[2025-03-30 15:53] LABS: MANUAL DIFF FLAG NO
[2025-03-30 15:56] LABS: Hematocrit 38.0 % (37.0-47.0); Hemoglobin 12.5 g/dl (12.0-16.0); Imm Gran Abs Auto 0.01 X10*3/uL (0.00-0.03); Imm Gran Pct Auto 0.1 % (0.0-0.4); Lymphocytes Absolute Auto 2.1 X10*3/uL (1.2-4.9); Mean Corpuscular HGB Conc 32.9 g/dl (31.0-35.0); Mean Corpuscular Hemoglobin 29.5 pg (27.0-33.0); Mean Corpuscular Volume 89.6 fL (80.0-98.0); NRBC Abs Auto 0.000 X10*3/uL (0.0-0.012); NRBC Pct Auto 0.0 /100WBC (0.0-0.2); Platelet Count 354 X10*3/uL (160-400); Red Blood Count 4.24 X10*6/uL (4.20-5.50); White Blood Count 6.8 X10*3/uL (4.8-10.8)
[2025-03-30 16:00] LABS: Glucose, Whole Blood 79 mg/dL (60-115)
[2025-03-30 16:02] LABS: Appearance Urine Clear; Glucose Urine UA Negative (Negative); PH 5.5 (5.0-9.0); Specific Gravity - Urine >= 1.030 (1.005-1.025); UMIC TRIGGER UACC YES
[2025-03-30 16:12] VITALS: BP 108/63; PULSE 96; RESP 20; O2SAT 100
[2025-03-30 16:14] LABS: Alanine Aminotransferase 6 U/L (0-31); Albumin Level 4.6 g/dL (3.5-5.0); Alkaline Phosphatase 84 U/L (39-117); Anion Gap 14 (12-20); Aspartate Amino Transferase 17 U/L (5-31); Blood Urea Nitrogen 11 mg/dL (9-16); Calcium 9.4 mg/dL (8.4-10.2); Carbon Dioxide 22 mmol/L (22-29); Chloride 109 mmol/L (96-108); Creatinine Clr Calc Pharmacy 100.1; Estimated Glomerular Filt Rate > 60; Magnesium 2.1 mg/dL (1.6-2.6); Potassium 4.0 mmol/L (3.3-5.1); Sodium 141 mmol/L (135-145); Total Protein 7.5 g/dL (6.5-8.0)
[2025-03-30] MEDS: Lactated Ringers 1,000 ML 999 ML IV (16:45)
[2025-03-30] MEDS: iohexoL 350 MG/ML 100 ML INFUS..BTL IV (17:45)
[2025-03-30 19:05] VITALS: BP 117/69; PULSE 96; RESP 18; TEMP 36.9; O2SAT 100
[2025-03-30 21:12] VITALS: BP 112/66; PULSE 92; RESP 17; TEMP 36.9; O2SAT 99
== END 2025-03-30 21:13 | disposition home or self-care (01) ==
PROVIDERS: Physician Assistant Medical; Emergency Provider Student in an Organized Health Care Education/Training Program; PCP Internal Medicine
DX: B34.9 Viral infection, unspecified (principal); R10.9 Unspecified abdominal pain; R11.10 Vomiting, unspecified
CPT/HCPCS: 36415; 74177; 80053; 81001; 81003; 82947; 83735; 84702; 85025; 96361; 96374; 96375; 99285; J1171; J2405; J7120; Q9967

== ENCOUNTER → 2025-03-30 17:29 | Outpatient (BNV) | payer OTHER, SELFPAY | PROVIDERS: Emergency Provider Student in an Organized Health Care Education/Training Program; PCP Internal Medicine; Visit Provider Radiology Diagnostic Radiology | DX: R10.33 Periumbilical pain (principal) | CPT/HCPCS: 74177 ==

== ENCOUNTER 2025-04-07 09:08 | Day surgery (SDC) | payer OTHER, SELFPAY ==
--- OUTSIDE RECORDS SUMMARY | 2025-04-02 07:03 | XMS_ITS | Clinical Summary ---
Author Organization [facility] Address [address] [place] [address] Care Team Providers Care Features Reporter Name Role Phone Provider, Luz PARKS Primary [...] age to complete this topic Care Teams Features Reporter Relationship Specialty Start Date End Date ProviderLuz MD PCP - General 05/07/19
--- OUTSIDE RECORDS SUMMARY | 2025-04-02 07:03 | XMS_ITS | Clinical Summary ---
Author Organization [employer] Address [address] [facility] 7t [place] [address] Care Team Providers Care Plant Care Worker Name Role Phone Unavailable Primary Care Provider [...]
--- OUTSIDE RECORDS SUMMARY | 2025-04-02 07:03 | XMS_ITS | Encounter Summary ---
Author Organization [facility] Address [address] [facility] [address] [place] [address] Phone Care Team Providers Care Educator Senior Clinical Name Role Phone Jacob, Alberto Prince MD Unavailable [phone] Mariela Peralta MD Primary Care Provid er Tawanda Lewis MD Unavailable [phone] Encounter Details Date Type Department Care Team (Late st Contact Info) Description 07/11/2019 Ancillary Orders [facility],Outside Imaging [address] [place] [address] System, Provider Not In, [place] [address] Social History Tobacco Use Types Packs/Day Years [...] Description 04/22/2025 4:10 PM EST Office Visit [facility] [address] [place] [address] [place] [address] Gabriel Oquendo MD [address] [facility], [address] [place] [phone] 05/06/2025 4:40 PM EST Appointment [facility] [place], OB [address] [place] [address] [place] [address] Leah Deleon MD [address] [facility], [address] [place] [address] [email or web address] 05/07/2025 3:10 PM EST Office Visit [facility] [address] [place] [address] [place] [address] Gabriel Oquendo MD [address] [place] [address], [address] [address] [email or web address] documented as of [...] documented as of this encounter Care Teams Educator Senior Clinical Relationship Specialty Start Date End Date Alberto James MD [address] [place] [phone] PCP - Family Medicine Internal Medicine 07/08/19 Mariela Peralta MD [address] [place] [address] PCP - General Internal Medicine 09/28/20 Tawanda Lewis MD [address] [place] [address], 2[address] [place] [address] [email or web address] Referring Physician Physical Medicine and Rehabilitation 11/04/20 documented as of this encounter Additional Source Comments The information contained in this document represents components of the legal health record. It is not the complete legal health record.[facility]
--- OUTSIDE RECORDS SUMMARY | 2025-04-02 07:03 | XMS_ITS | Encounter Summary ---
Author Organization [facility] Address [address] [facility] [address] [place] [address] Phone Care Team Providers Care Charging Car Operator Name Role Phone Alberto James MD Unavailable [phone] Mariela Peralta MD Primary Care Provid er Tawanda Lewis MD Unavailable [phone] Encounter Details Date Type Department Care Team (Late st Contact Info) Description 07/20/2021 Procedure Pass [facility] [address] [place] [address] Social History Tobacco Use Types Packs/Day Years [...] 07/23/2021 12:00 PM Felicia Grajeda, CONSTANTIN * Garrett Suicide Severity Rating Scale (Screener/Recent Self-Report) Question [...] Office Visit [facility] [address] [place] [address] [place] [address] Gabriel Oquendo MD [address] [place] [address] [email or web address] 05/06/2025 4:40 PM EST Appointment [facility] [address] [place] [address] Leah Deleon MD [address] [place] [address] [email or web address] 05/07/2025 3:10 PM EST Office Visit [facility] [address] [place] [address] [place] [address] Gabriel Oquendo MD [address] [place] [address] documented as of this encounter Visit Diagnoses Not on filedocumented in this encounter Care Teams Charging Car Operator Relationship Specialty Start Date End Date Jacob, Alberto Prince MD [address] [place] [phone] PCP - Family Medicine Internal Medicine 07/08/19 Mariela Peralta MD [address] [place] [address] [phone] PCP - General Internal Medicine 09/28/20 Tawanda Lewis MD [address] [place] [address], 2nd [place] [address] [email or web address] Referring Physician Physical Medicine and Rehabilitation 11/04/20 documented as of this encounter Additional Source Comments The information contained in this document represents components of the legal health record. It is not the complete legal health record.[facility]
--- OUTSIDE RECORDS SUMMARY | 2025-04-02 07:03 | XMS_ITS | Encounter Summary ---
Author Organization [facility] Address [address] [place] [address] [place] [address] Phone Care Team Providers Care Inspector Returned Materials Name Role Phone Alberto James MD Unavailable [phone] Mariela Peralta MD Primary Care Provid er Tawanda Leiws MD Unavailable [phone] Encounter Details Date Type Department Care Team (Late st Contact Info) Description 07/08/2019 Procedure Pass [address] [place] [address] Social History Tobacco Use Types Packs/Day Years [...] Office Visit [facility] [address] [place] [address] [place] [address] Gabriel Oquendo MD [address] [place] [address], [address] [address] 05/06/2025 4:40 PM EST Appointment [facility] [place], OB [address] [place] [address] Leah Deleon MD [address] [place] [address] [email or web address] 05/07/2025 3:10 PM EST Office Visit [facility] [address] [place] [address] [place] [address] Gabriel Oquendo MD [address] [place] [address] [email or web address] documented as of this encounter Visit Diagnoses Not on filedocumented in this encounter Additional Health Concerns Infection Onset Date Last Indicated Resolved Time COVID-19 06/27/2021 06/27/2021 07/09/2021 9:03 AM EST documented as of this encounter Care Teams Inspector Returned Materials Relationship Specialty Start Date End Date Alberto James MD [address] [place] [phone] PCP - Family Medicine Internal Medicine 07/08/19 Mariela Peralta MD [address] [place] [address] PCP - General Internal Medicine 09/28/20 Tawanda Lewis MD [address] [facility], 2nd [place] [address] [email or web address] Referring Physician Physical Medicine and Rehabilitation 11/04/20 documented as of this encounter Additional Source Comments The information contained in this document represents components of the legal health record. It is not the complete legal health record.[facility]
--- OUTSIDE RECORDS SUMMARY | 2025-04-02 07:03 | XMS_ITS | Encounter Summary ---
Author Organization [facility] Address [address] [facility] [address] [place] [address] Phone Care Team Providers Care Retail Visual Merchandiser Name Role Phone Alberto James MD Unavailable [phone] Mariela Peralta MD Primary Care Provid er Tawanda Lewis MD Unavailable [phone] Encounter Details Date Type Department Care Team (Late st Contact Info) Description 12/02/2019 Procedure Pass [facility] [address] [place] [address] Social History Tobacco Use Types Packs/Day Years [...] Office Visit [facility] [address] [place] [address] [place] [address] Gabriel Oquendo MD [facility], [address] [address] 05/06/2025 4:40 PM EST Appointment [facility] [place], OB [address] [place] [address] [place] [address] Leah Deleon MD [address] [place] [address], [address] [address] [email or web address] 05/07/2025 3:10 PM EST Office Visit [facility] [address] [place] [address] [place] [address] Gabriel Oquendo MD [address] [place] [address] documented as of this encounter Visit Diagnoses Not on filedocumented in this encounter Additional Health Concerns Infection Onset Date Last Indicated Resolved Time COVID-19 06/27/2021 06/27/2021 07/09/2021 9:03 AM EST documented as of this encounter Care Teams Retail Visual Merchandiser Relationship Specialty Start Date End Date Jacob, Alberto Prince MD [address] [place] [phone] PCP - Family Medicine Internal Medicine 07/08/19 Mariela Peralta MD [address] [place] [address] PCP - General Internal Medicine 09/28/20 Tawanda Lewis MD [address] [facility], 2nd [place] [address] Referring Physician Physical Medicine and Rehabilitation 11/04/20 documented as of this encounter Additional Source Comments The information contained in this document represents components of the legal health record. It is not the complete legal health record.[facility]
--- OUTSIDE RECORDS SUMMARY | 2025-04-02 07:03 | XMS_ITS | Encounter Summary ---
Author Organization [facility] Address [address] [facility] [address] [place] [address] Phone Care Team Providers Care Riding Teacher Name Role Phone Jacob, Alberto Prince MD Unavailable [phone] Mariela Peralta MD Primary Care Provid er Tawanda Lewis MD Unavailable [phone] Encounter Details Date Type Department Care Team (Late st Contact Info) Description 07/11/2019 Ancillary Orders [facility],Outside Imaging [address] [place] [address] System, Provider Not In, [place] [address] Social History Tobacco Use Types Packs/Day Years [...] Description 04/22/2025 4:10 PM EST Office Visit [facility] [address] [place] [address] [place] [address] Gabriel Oquendo MD 22 [facility], [address] [place] [phone] 05/06/2025 4:40 PM EST Appointment [facility] [place], OB [address] [place] [address] [place] [address] Leah Deleon MD [address] [facility], [address] [place] [address] [email or web address] 05/07/2025 3:10 PM EST Office Visit [facility] [address] [place] [address] [place] [address] Gabriel Oquendo MD [address] [place] [address], [address] [address] [email or web address] documented as of [...] documented as of this encounter Care Teams Riding Teacher Relationship Specialty Start Date End Date Alberto James MD [address] [place] [phone] PCP - Family Medicine Internal Medicine 07/08/19 Mariela Peralta MD [address] [place] [address] PCP - General Internal Medicine 09/28/20 Tawanda Lewis MD [address] [place] [address], [address] [place] [address] [email or web address] Referring Physician Physical Medicine and Rehabilitation 11/04/20 documented as of this encounter Additional Source Comments The information contained in this document represents components of the legal health record. It is not the complete legal health record.[facility]
--- OUTSIDE RECORDS SUMMARY | 2025-04-02 07:03 | XMS_ITS | Encounter Summary ---
Author Organization [facility] Address [address] [facility] [address] [place] [address] Phone Care Team Providers Care Hand Tier Name Role Phone Ablerto James MD Unavailable [phone] Mariela Peralta MD Primary Care Provid er Tawanda Lewis MD Unavailable [phone] Encounter Details Date Type Department Care Team (Late st Contact Info) Description 12/02/2019 Procedure Pass [facility] 1st floor [address] [place] [address] Social History Tobacco Use Types Packs/Day Years [...] Visit [facility] [address] [place] [address] [place] [address] Gabriel Oquendo MD 22 [facility], [address] [place] [address] 05/06/2025 4:40 PM EST Appointment [facility] [place], OB [address] [place] [address] [place] [address] Leah Deleon MD [address] [place] [address], [address] [place] [address] [email or web address] 05/07/2025 3:10 PM EST Office Visit [facility] [address] [place] [address] [place] [address] Gabriel Oquendo MD [address] [place] [address], [address] [address] documented as of this encounter Visit Diagnoses Not on filedocumented in this encounter Additional Health Concerns Infection Onset Date Last Indicated Resolved Time COVID-19 06/27/2021 06/27/2021 07/09/2021 9:03 AM EST documented as of this encounter Care Teams Hand Tier Relationship Specialty Start Date End Date Alberto James MD [address] [facility] [address] [place] [phone] PCP - Family Medicine Internal Medicine 07/08/19 Mariela Peralta MD [address] [place] [address] PCP - General Internal Medicine 09/28/20 Tawanda Lewis MD [address] [facility], 2nd [place] [address] Referring Physician Physical Medicine and Rehabilitation 11/04/20 documented as of this encounter Additional Source Comments The information contained in this document represents components of the legal health record. It is not the complete legal health record.[facility]
--- OUTSIDE RECORDS SUMMARY | 2025-04-02 07:03 | XMS_ITS | Encounter Summary ---
Author Organization [facility] Address [address] [facility] [address] [place] [address] Phone Care Team Providers Care Battery Container Tester Name Role Phone Alberto James MD Unavailable Mariela Peralta MD Primary Care Provid er Tawanda Lewis MD Unavailable [phone] Encounter Details Date Type Department Care Team (Late st Contact Info) Description 02/05/2021 Telephone [facility] [address] [place] [address] Becky Murcia, [facility] [address] [facility], [address] [place] [address] [email or web address] Social History Tobacco Use Types Packs/Day Years [...] Visit [facility] [address] [place] [address] [place] [address] Gabriel Oquendo MD [address] [place] [address] 05/06/2025 4:40 PM EST Appointment [facility] [place], OB [address] [place] [address] [place] [address] Leah Deleon MD [address] [place] [address], [address] [address] [email or web address] 05/07/2025 3:10 PM EST Office Visit [facility] [address] [place] [address] [place] [address] Gabriel Oquendo MD [address] [place] [address], [address] [address] [email or web address] documented as of this encounter Visit Diagnoses Not on filedocumented in this encounter Additional Health Concerns Infection Onset Date Last Indicated Resolved Time COVID-19 06/27/2021 06/27/2021 07/09/2021 9:03 AM EST documented as of this encounter Care Teams Battery Container Tester Relationship Specialty Start Date End Date Alberto James MD [address] [place] [address] Drive [address] [place] [phone] PCP - Family Medicine Internal Medicine 07/08/19 Mariela Peralta MD [address] [place] [address] PCP - General Internal Medicine 09/28/20 Tawanda Lewis MD [address] [place] [address], 2nd [place] [address] [email or web address] Referring Physician Physical Medicine and Rehabilitation 11/04/20 documented as of this encounter Additional Source Comments The information contained in this document represents components of the legal health record. It is not the complete legal health record.[facility]
--- OUTSIDE RECORDS SUMMARY | 2025-04-02 07:03 | XMS_ITS | Data Portability ---
Author Organization MD - [facility], Allergy Address [address] [address] Care Team Providers Care Filter Tank Tender Name Role Phone MARK JAIMES Referring Provider [phone] Assessment Encounter Date Assessment Date Assessment LastModified [...] symptom relief. I advised her to use ipzs-wbi-kzxhney antihistamines such as Claritin, Ivonne, or Zyrtec [...] inject ion, auto-i njecto r 2024 025 [id number], [address] [facility], [place], [address], 03/26/2025 15:37:31 flutic asone propio roma 50 mcg/ac tuatio n nasal spray, suspen nathan 2024 025 [id number], [address], [place], [address], 01/15/2025 10:26:24 Patient TargetsNo targets recorded. Patient Instructions Encounter Date Encounter Id Patient Instructions Last Modified By Organization Details Last Modified Time 01/14/2025 [id number] Please note: Par ts of this encounter note have been generated by AI based on audio conversation. Patient consent was required prior to utilizing this technology. Content review was required prior to finalizing the note. [email or web address] Not available 01/14/2025 14:29:22 02/28/2025 [id number] Nursing Documentation for Allergy Testing: Ordering Provider [...] different date Other: Written by: Jessica Ortega [email or web address] Not available 02/28/2025 11:01:30 03/26/2025 [id number] - Resume allergy injections. - Continue using Flonase as needed. - Use uebj-vto-opbptib antihistamines such as Claritin, Ivonne, or Zyrtec [...] testi ng* No observ ation record ed. [email or web address] Not Available 2024 10:45:57 Result Notes None recorded. Problems Name Problem SNOMED Code Status Onset Date Resolution Date Notes Provider Name and Address Organization Details Recorded Time Headache 58515886 Active 2017 Facial pain NOS; Note: Date Diagnosed : 03/12/2018 11:31 AM (R51) Not Available [facility] 4 02:15:59 Migraine without aura, not refractor y 687411058 Active 2017 Migraine without aura, not intractab le, without status migrainos us; Note: Date Diagnosed : 03/12/2018 11:31 AM (G43.009) Not Available [facility] 4 02:14:52 Chronic sinusitis 02687224 Active 2017 Other chronic sinusitis ; Note: Date Diagnosed : 03/12/2018 11:31 AM (J32.8) Not Available [facility] 4 02:15:34 Deviated nasal septum 703684293 Active 2017 Deviated nasal septum; Note: Date Diagnosed : 03/12/2018 11:31 AM (J34.2) Not Available [facility] 4 02:15:30 Chronic rhinitis 24899792 Active 2017 Chronic rhinitis; Note: Date Diagnosed : 04/27/2018 3:39 PM (J31.0) Not Available [facility] 4 02:15:17 Hypertrop hy of nasal turbinate s 95899699 Active 2017 Hypertrop hy of nasal turbinate s; Note: Date Diagnosed : 8 9:08 AM (J34.3) Not Available [facility] 4 02:15:04 Disorder of nasal sinus 2978112 Active 2017 Other specified disorders of nose and nasal sinuses; Note: Date Diagnosed : 8 1:58 PM (J34.89) Not Available [facility] 4 02:15:42 Disorder of the nose 86902552 Active 2017 Other specified disorders of nose and nasal sinuses; Note: Date Diagnosed : 8 1:58 PM (J34.89) Not Available [facility] 4 02:15:42 Allergic rhinitis 26950656 Active 2020 Allergic rhinitis: Due to other [...] Note: Date Diagnosed : SUZY BOWMAN MD [address] [place] [address],[place] [address], [address] , [facility] - [facility] 5 15:37:08 Pain of right temporoma ndibular joint 05144596133 239888 Active 2024 SUZY BOWMAN MD [address] [place], [place] [address], [address] , [facility] 5 14:32:05 Perennial allergic rhinitis 067169569 Active 2024 [address]ESSICA ORTEGA [address], [address] , [facility] 5 10:38:40 Problem Notes None recorded. Procedures Surgical History Date Name Laterality Status Provider Name and Address Organization Details Recorded Time Allergy Testing-Full completed DORETHA GONZALES[address],[place] [address], [place], [address], [facility] 02/28/2025 12:56:34 Imaging Results None recorded. Procedure Notes None recorded. Medical Equipment None Reported. Allergies Allergen ID Allergen Name Allergen Category Reaction Reaction Severity Criticality Documentation Date Start Date Code Code System Note Provider Name and Address Organization Details Recorded Time 833166 ibuprofen medicatio n Not available Not available Not available 01/14/2025 5640 RxNorm Medina diaz [facility] 5 14:23:47 42292 morphine medicatio n other Not available Not available 10/31/2023 7052 RxNorm React ion: unkno wn, unspe cifie d;; Not Available [facility] 4 00:51:13 82801 acetamino phen / hydrocodo ne medicatio n other Not available Not available 10/31/2023 86675 2 RxNorm React ion: unkno wn, unspe cifie d;; Not Available [facility] 4 00:51:17 84273 acetamino phen / oxycodone medicatio n other Not available Not available 10/31/2023 75098 3 RxNorm React ion: unkno wn, unspe cifie d;; Not Available [facility] 4 00:51:25 Medications Name Sig Start Date Stop Date Status Note LastModified by Organization Details LastModified Time cyclobenz aprine 10 mg tablet 06/13 completed Medicati on ID: [id number] D uration Value: 5 Reason: () Brand [...] mcg capsule 02/28 completed Medicati on ID: 373291 B rand Name: vitamin A Send Method: E-Prescr ibed Sub s Allowed: subs OK Medic ationGen ericName : vitamin A Not Available Not Available Not Available tizanidin e 2 mg tablet TAKE 1 TABLET BY MOUTH 3 TIMES A DAY NEEDED FOR MUSCLE SPASTICI TY active Not Available Not Available No t Available ciproflox acin 500 mg tablet 01/14 completed Medicati on ID: 445790 D uration Value: 10 Prescri bed By [...] us solution 01/14 completed Medicati on ID: [id number] B rand Name: Protonix Send Method: E-Prescr [...] by mouth 01/14 completed Medicati on ID: [id number] D uration Value: 10 Prescri bed By [...] mg) tablet 01/14 completed Medicati on ID: 688956 B rand Name: Calcium 600 Send Method: [...] min capsule 2017 active Medicati on ID: 762731 B rand Name: multivit de la cruz Sen d Method: E-Prescr ibed Sub s Allowed: subs OK Medic ationGen ericName : multivit de la cruz Not Available Not Available Not Available loratadin e 10 mg tablet 1 tablet by mouth 01/14 completed Medicati on ID: [id number] D uration Value: 30 Prescri bed By Name: Nuno Lindsey nd Name: joya hayden Send Method: E-Prescr ibed Sub s Allowed: subs OK Medic ationGen ericName : loratadi ne Not Available Not Available Not Available diazepam 5 mg tablet 12/13 completed Medicati on ID: [id number] D uration Value: 1 Reason: () Brand [...] Vitamin B1 02/28 completed Medicati on ID: 884113 B rand Name: vitamin b1 Send Method: [...] topical cream 06/13 completed Medicati on ID: 534881 D uration Value: 30 Reason: () Brand [...] l lozenge 02/28 completed Medicati on ID: 265452 B rand Name: vitamin Z64-uuva c acid Sen d Method: E-Prescr ibed Sub s Allowed: subs OK Medic ationGen ericName : vitamin Y07-ckpi c acid Not Available Not Available Not [...] DateTime 01/14/2025 118/78 mm[Hg] SUZY VIEYRA MD [address] [place] [address],[address], [address], [place] - [facility] 01/14/2025 14:31:35 Date Recorded Body weight Body mass index (BMI) Body height Provider Name and Address Organization Details Last Updated DateTime 01/14/2025 45963.15 g 28.2 kg/m2 162.56 cm Medina Pulido [place] - [facility] 01/14/2025 14:22:38 Date Recorded Body height Body mass index (BMI) Body weight Oxygen saturation Oxygen saturation in Arterial blood by Pulse oximetry Heart rate Systolic And Diastolic Provider Name and Address Organization Details Last Updated DateTime 162.56 cm 28.2 kg/m2 13880.1 5 g 99 % 99 % 87 /min 106/69 mm[Hg] JESSICA ORTEGA, [address], [address] ANIKA - [facility] 10:38:23 Date Recorded Body height Body mass index (BMI) Body weight Systolic And Diastolic Provider Name and Address Organization Details Last Updated DateTime 03/26/2025 162.56 cm 27.5 kg/m2 70495.78 g 100/62 mm[Hg] Thu Escobar [place] - [facility] 03/26/2025 15:29:55 Social History Question Answer Notes LastModified by Organizat ion Details LastModified Time Tobacco Smoking Status Never Smoker Medina diaz [place] - [facility] 01/14/2025 14:23:26 How Many Years Have You Consumed Alcohol? 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 0 [email or web address] Information not available 03/26/2025 Do You Have Any Pets? Yes [email or web address] Information not available 01/14/2025 Are You Passively Exposed To Smoke? No [email or web address] Information not available 01/14/2025 Are There Any Smokers In Your House? No [email or web address] Information not available 01/14/2025 Sex: Unknown Functional Status Question Answer Note LastModified by Organization Details LastModified Time How many times per week do you consume alcohol? Less than 1 time per week [email or web address] Inform ation not available 01/14/2025 Do you use any illicit or recreational drugs? No [email or web address] Information not available 01/14/2025 Do you or have you ever used any other forms of tobacco or nicotine? No [email or web address] Information not available 01/14/2025 What is your level of alcohol consumption? Occasional [email or web address] Information not available 01/14/2025 What type of noise exposure are you exposed to? noExposureToExcessiveNoise [email or web address] Infor mation not available 01/14/2025 Mental Status None recorded. Family History Relationship Description Onset Age of this Age Resolved Age Notes LastModified by Organization Details LastModified Time Daughter Asthma Not availabl e 01/14/2025 14:23:07 Father Vertigo Not available 01/14/2025 14:23:07 Paternal Grandmother Diabetes mellitus [email or web address] Not available 2024 14:23:07 Mother Allergy [email or web address] Not available 01/14/2025 14:23:07 Mother Asthma [email or web address] Not available 01/14/2025 14:23:07 Maternal Grandmother Diabetes mellitus [email or web address] Not available 2024 14:23:07 Sister Asthma Not available 01/14/2025 14:23:07 Sister Allergy to food [email or web address] Not available 2024 14:23:07 Maternal Grandfather Cerebrovascu lar accident 71 [email or web address] Not available 14:23:07 Maternal Grandfather Diabetes mellitus [email or web address] Not available 2024 14:23:07 Paternal Grandfather Diabetes mellitus [email or web address] Not available 2024 14:23:07 Medical History Condition Response Allergies/Hayfever Y Heart Problems N Anxiety Y Tonsil Infections N Emphysema N Migraines N Thyroid Problems N Glaucoma N Depression N COPD N Developmental Delay N Nasal or Sinus Problems Y Anemia Y Immune System Disorder N Anesthesia Complications N Heart Attack (PA) N Other Skin Condition N Diabetes N [...] ICD10 Code Diagnosis IMO Codes Diagnosis Note [id number] SUZY BOWMAN MD [facility] [address] [address] 01/14/2025 13:54:02 01/14/2025 14:41:03 Allergic rhinitis 60008849 J30.89 Migraine w ithout aura, not refractory 174725886 G43.009 Suspect underlying migraine headache. Suggest reduction [...] update. Pain of ri ght temporomandibular joint 4750692927 7234514 M26.621 22399444 Warm compresses , [place] [address] JANICE GONZALES [facility] [address] [place] [address] [place] [address] 02/28/2025 10:14:11 02/28/2025 12:57:21 Perennial allergic rhinitis 939781938 J30.89 660826 [id number] SUZY BOWMAN MD [facility] [address] [address] 03/26/2025 15:20:16 03/27/2025 09:28:18 Allergic rhinitis 38475178 J30.89 We also discussed the role of [...] Pavon Member ID Guarantor Name 03/23/2025 1 [facility] HEALTH NET PLAN (MEDICAID HMO) GAVINO [place] [id number] Farshad Anand Notes Date Note Type Note [...] the primary concern. NOSE=[id number] SUZY VIEYRA MD [address] [place] [address], [address], [facility] - [facility] 01/14/2025 14:34:29 03/26/2025 text/html Farshad Anand is [...] her EpiPen has . SUZY VIEYRA MD [address] [place] [address], [place], [address], [place] - [facility] 03/26/2025 15:37:54 OBGyn Episode No OBEpisode recorded.
--- OUTSIDE RECORDS SUMMARY | 2025-04-02 07:03 | XMS_ITS | Encounter Summary ---
Author Organization [facility] Address [address] [place] [address] Care Team Providers Care Fulfillment Mail Clerk Name Role Phone ProviderLuz MD Primary Care Provider Un available Encounter Details Date Type Department Care Team (Late st Contact Info) Description 06/18/2019 Scanned Document [facility] Neurosurgery [place] [address] [facility] [address] [place] [address] Dev Durant MD [address] [address] Social History Tobacco Use Types Packs/Day Years [...] on filedocumented in this encounter Care Teams Fulfillment Mail Clerk Relationship Specialty Start Date End Date ProviderLuz MD PCP - General 05/07/19 documented as of this encounter
--- OUTSIDE RECORDS SUMMARY | 2025-04-02 07:03 | XMS_ITS | Clinical Summary ---
Author Organization [facility] Address [address] [facility] [address] [place] [address] Phone Care Team Providers Care Building Maintenance Superintendent Name Role Phone Jacob, Alberto Prince MD Unavailable [phone] Mariela Peralta MD Primary Care Provid er Tawanda Lewis MD Unavailable [phone] Allergies Active Allergy Reactions Criticality Noted Date [...] preclude this happening after an S[facility] - [facility] health form signed today Assessment [...] Blood glucose testing - [facility] for 1-2 weeks. [...] order CEDE referral for QID testing at [facility] d/t gastric bypass Assessment & Plan (02/10/2021 [...] 05/18/2021 07/06/2021 Overview (06/27/2021): 05/17/21: observed at [facility] for regular painful contractions, cervix L/T/C and ffn neg but transferred to [facility] due to worsening contractions and some bleeding [...] dc home, if in labor transfer to [facility] due to prematurity 1630: VE unchanged Discussed [...] have continued since she was discharged from [facility]. Contractions are around q 3 min and [...] additional contractions since being seen at the [facility] last week. Discussed increased risk for contractions due to fibroids and importance of calling with any concerns. UTI (urinary tract infection ) during , second trimester 04/01/2021 09/03/2021 Overview (06/01/2021): Seen at [facility] 04/01 with pain and contractions. UA suggestive of UTI. Urine culture sent. RX augmentin 875 BID x 7 days, prophylactic Urine culture result mixed. Neg urinalysis on 04/27, 05/17, 05/30 (performed with PTL workup) Assessment & Plan (04/28/2021 6:17 PM EST): -Urine culture collected yesterday at the [facility] Assessment & Plan (04/08/2021 8:24 PM EDT): Was seen at the [facility] on 04/01 with contractions, received terbutaline and IV fluids and treated for presumed UTI based on UA. Urine culture result mixed. Was seen again at the [facility] one day later, received terbutaline again. Reports she has had no additional contractions since then. 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 Has a hard time taking iron as [...] Assessment & Plan (07/16/2021 11:48 AM EST): Farshad is a 30 y.o. at 38w3d, phone [...] here with her mom. Recently discharged from [facility] following admission for contractions. See problem list. [...] in -Discussed FM at this [place] and [facility] -Review signs and symptoms of Pre-term [...] discrepancy, reports original ASAEL was established at [facility] but is inconsistent with what she [...] concerning symptoms. They will be traveling to [place] next week, advised she should call with any concerns while away, reviewed how to reach park recreation manager CNM. Has [facility] scheduled [...] Visit [facility] [address] [place] [address] Leah Deleon MD Pelvic pain (Primary Dx) 03/24/2025 4:26 PM EDT - 03/24/2025 11:59 PM EDT Hospital Encounter [facility] [place], OB [address] [place] [id number] Ekta Ernst MD Discharge Disposition: Home or Self Care 02/19/2025 11:00 AM EDT Office Visit [facility] [address] [place] [id number] Ekta Ernst MD Uterine leiomyoma, unspecified location (Primary Dx) 02/10/2025 Nurse Triage [facility] [address] [place] [address] [place] [address] Opal Delgadillo, CONSTANTIN pelvic pain from Last [...] you interested in more education? Not on eirc e 10/14/2022 Are you concerned about learning? [...] EST Office Visit [facility] [address] [place] [address] [place] [id number] Gabriel Oquendo MD [address] [place] [address], [address] [place] [address] 05/06/2025 4:40 PM EST Appointment [facility] [place], OB [address] [place] [address] [place] [address] Leah Deleon MD [address] [place] [address], [address] [place] [address] [email or web address] 05/07/2025 3:10 PM EST Office Visit [facility] [address] [place] [address] [place] [address] Gabriel Oquendo MD [address] [place] [address], [address] [place] [address] [email or web address] Health Maintenance Due Date Last Done Comments [...] this topic Medical Devices Implanted Type Area Personnel Research Psychologist Device Identifier Shelf Expiration Date Model / Serial / Lot Implant Ifuse 3d 7x50mm - [id number] Implanted:Qty: 1 on 12/02/2019 by Susana Ratliff MD, PhD at [facility] Left: Sacrum S [employer] 05/07/2024 7050M-90 / / [id number] Implant Ifuse 3d 7x45mm - [id number] Implanted:Qty: 1 on 12/02/2019 by Susana Ratliff MD, PhD at [facility] Left: Sacrum S [employer] 02/26/2024 7045M-90 / / [id number] Implant Ifuse 3d 7x40mm - [id number] Implanted:Qty: 1 on 12/02/2019 by Susana Ratliff MD, PhD at [facility] Left: Sacrum S [employer] 05/07/2024 7040M-90 / / [id number] Procedures Procedure Name Priority Date/Time Associated Diagnosis [...] PM EDT) HCV NON-REACTIV E NON-REACTI VE [facility] Blood 01/11/2021 4:16 PM EDT 01/11/2021 6:53 PM EDT us Ivet Farrell [facility] BLOOD ORDERABLES Final Resu lt [facility] [address] [place], [place] [id number] * PAP SMEAR FOR RESULT ENTRY ONLY (01/15/2020) us Fabiola Ramos [facility] HEALTH MAINTENANCE Final Re sult from Last 3 Months or Most Recently Relevant to Health Maintenance Insurance [facility] ACO ACO ACO ACO ACO ACO [place] [address] [place] [address] ACO [facility] INSURANCE Advance Directives For more information, please contact: [phone] (9AM - 5PM [facility], Monday-Monday) Documents on File Type Date Recorded Patient Saw Offbearer Expl anation Healthcare Proxy 07/26/2021 4:52 PM [...] Code Status Confirmed With: Patient Care Teams Building Maintenance Superintendent Relationship Specialty Start Date End Date Alberto James MD [address] [place] [phone] PCP - Family Medicine Internal Medicine 07/08/19 Mariela Peralta MD [address] [place] [address] PCP - General Internal Medicine 09/28/20 Tawanda Lewis MD [address] [place] [address], [address] [place] [address] [email or web address] Referring Physician Physical Medicine and Rehabilitation 11/04/20 Additional Source Comments The information contained in this document represents components of the legal health record. It is not the complete legal health record.[facility]
--- OUTSIDE RECORDS SUMMARY | 2025-04-02 07:03 | XMS_ITS | Encounter Summary ---
Author Organization [employer] Address [address] [facility] 7t [place] [address] Care Team Providers Care Job Spotter Name Role Phone Unavailable Primary Care Provider [...]
--- NOTE | 2025-04-03 10:06 | P.CONAN_ITS ---
Documented by User: Leilani Herrera NP 04/03/25 10:06 HPI - Anesthesia Eval Consult details Narrative: 34yo F for Upper Endoscopy PMFSH Active Problems Active Problems: All Active Problems Abdominal pain (Acute) Chronic pain syndrome (Acute) Renal cyst (Acute) Insomnia (Acute) Class 1 obesity with body mass index (BMI) of 31.0 to 31.9 in adult (Acute) Allergic rhinitis (Acute) Class 2 obesity with body mass index (BMI) of 36.0 to 36.9 in adult (Acute) Thoracic spine pain (Acute) Sacroiliac joint dysfunction of left side (Acute) BMI 31.0-31.9,adult (Acute) Obesity (Acute) Adjustment disorder, unspecified (Acute) Carpal tunnel syndrome of right wrist (Acute) Numbness and tingling of right arm (Acute) Numbness and tingling in left arm (Acute) Pain in right finger(s) (Acute) Coccyalgia (Acute) Immunization due (Acute) Bilateral hand numbness (Acute) Physical exam (Acute) URI (upper respiratory infection) (Acute) Earache on left (Acute) Hematuria (Acute) Left flank pain (Acute) Anemia (Acute) B12 deficiency (Acute) Physical exam (Acute ~06/17/21) Mouth ulcers (Acute) Fusion congenital, sacroiliac joint (Acute) Early stage of (Acute) Complex ovarian cyst (Acute) Myoma (Acute) Menorrhagia (Acute) Right flank pain (Acute) S/P fusion of sacroiliac joint (Acute) Gastric bypass status for obesity (Acute) GERD (gastroesophageal reflux disease) (Acute) Kidney stones (Acute) Carpal tunnel syndrome (Acute) Hypovitaminosis D (Acute) B12 deficiency (Acute) Anemia (Chronic) Past Medical History Medical History GERD (gastroesophageal reflux disease) Carpal tunnel syndrome Hypovitaminosis D B12 deficiency Anemia Kidney stones Family History Family History Father High cholesterol Diabetes Mother Migraine Obesity Bipolar disorder Mental health disorder Maternal Grandfather Stroke Sister In good health Brother In good health Family history of problems with anesthesia: No Surgical History Surgical History History of esophagogastroduodenoscopy (EGD) S/P fusion of sacroiliac joint History of delivery History of surgery History of nasal surgery History of wisdom tooth extraction Gastric bypass status for obesity History of Problems with Anesthesia: No Social History Social History Household Members: Spouse Housing: House Are you a primary behavioral health care coordinator to a significant other at home: No Do you presently have visiting nurse or other home services: No Alcohol intake: current Alcohol intake frequency: does not drink Alcohol type: beer Patient Tobacco Use Status: Never used Tobacco e-Cigarette/Vaping Use: Never Used Second Hand Smoke Exposure: No Have you been hit, kicked, punched, or otherwise hurt by someone within the past year? 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 Current occupational exposures/hazards: No Cognitive needs: No Hearing needs: No Vision needs: Yes (glasses) Meds Allergies Allergy/AdvReac Type Severity Reaction Status Date / Time hydrocodone (From Vicodin) Allergy Intermediate Rash, Hives Verified 04/07/25 09:24 morphine (MORPHINE) Allergy Intermediate BURNING IN Verified 04/07/25 09:24 CHEST, shortness of breath oxycodone (From PERCOCET) Allergy Intermediate ITCHINESS Verified 04/07/25 09:24 pumpkin Allergy Intermediate Itching Verified 04/07/25 09:24 ibuprofen AdvReac Intermediate Stomach Verified 04/07/25 09:24 Upset Home Medications ?Medication ?Instructions ?Recorded ?Confirmed ?Last Taken ?Type multivitamin 1 tab PO DAILY 10/09/2403/2010/08/24 History hydromorphone 2 mg tablet 2 mg PO Q4-6H PRN pt 5 04/07/25 Unknown History Assessment and Plan Assessment Anesthesia Assessment: Chart Reviewed Final Anesthetic Review Family History of Problems with Anesthesia: No History of Problems with Anesthesia: No Documented by User: Marlena Spencer MD 04/07/25 10:17 [facility] Past Medical History Medical History GERD (gastroesophageal reflux disease) Carpal tunnel syndrome Hypovitaminosis D B12 deficiency Anemia Kidney stones Family History Family History Father High cholesterol Diabetes Mother Migraine Obesity Bipolar disorder Mental health disorder Maternal Grandfather Stroke Sister In good health Brother In good health Surgical History Surgical History History of esophagogastroduodenoscopy (EGD) S/P fusion of sacroiliac joint History of delivery History of surgery History of nasal surgery History of wisdom tooth extraction Gastric bypass status for obesity Social History Social History Household Members: Spouse Housing: House Are you a primary behavioral health care coordinator to a significant other at home: No Do you presently have visiting nurse or other home services: No Alcohol intake: current Alcohol intake frequency: does not drink Alcohol type: beer Patient Tobacco Use Status: Never used Tobacco e-Cigarette/Vaping Use: Never Used Second Hand Smoke Exposure: No Have you been hit, kicked, punched, or otherwise hurt by someone within the past year? 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 Current occupational exposures/hazards: No Cognitive needs: No Hearing needs: No Vision needs: Yes (glasses) Meds Allergies Allergy/AdvReac Type Severity Reaction Status Date / Time hydrocodone (From Vicodin) Allergy Intermediate Rash, Hives Verified 04/07/25 09:24 morphine (MORPHINE) Allergy Intermediate BURNING IN Verified 04/07/25 09:24 CHEST, shortness of breath oxycodone (From PERCOCET) Allergy Intermediate ITCHINESS Verified 04/07/25 09:24 pumpkin Allergy Intermediate Itching Verified 04/07/25 09:24 ibuprofen AdvReac Intermediate Stomach Verified 04/07/25 09:24 Upset Home Medications ?Medication ?Instructions ?Recorded ?Confirmed ?Last Taken ?Type multivitamin 1 tab PO DAILY 10/09/2403/2010/08/24 History hydromorphone 2 mg tablet 2 mg PO Q4-6H PRN pt 5 04/07/25 Unknown History Exam Airway Mallampati Class: II TM Dist: >3cm Neck ROM: Full Loose/Missing/Broken Teeth: No Heart: RRR Lungs: CTA Assessment and Plan Final Anesthetic Review NPO: Yes ASA Class: II Final Preanesthetic Review: Meds/Allgs Chart Reviewed, Consent Obtained/Reviewed and Anes Risks/Benef Reviewed Patient Risk: Low Procedure Risk: Intermediate Anesthetic Plan Anesthetic Plan: MAC: Disposition: Standard PACU
[2025-04-07] MEDS: Lactated Ringers 1,000 ML 100 ML IVCONT (09:21)
[2025-04-07 09:37] VITALS: BMI 27.2
[2025-04-07 09:38] VITALS: BP 110/65; PULSE 112; RESP 18; TEMP 36.7; O2SAT 95
[2025-04-07 09:42] LABS: UPreg QC Valid YES
--- NOTE | 2025-04-07 09:59 | MHC.SHP ---
Pre-Procedural Eval Section A - 24 Hr Update-Section A only Date of Service: 04/07/25 The patient is an INPATIENT: No The patient has been examined within 24 hours of the surgical procedure. The History & Physical has been completed within 30 days and I have reviewed it.: Yes Section B - Complete if H&P > 30 days Chief Complaint: Bariatric surgery status Details of Present Illness: Abdominal pain Relevant Family History (Specify if Yes): No Relevant Social History: None Present Medications: None Medical History: No relevant PMH History of Previous Operations: Relevant previous surgery/procedure and date(s) (Laparoscopic gastric bypass) Allergies: Allergies Allergy/AdvReac Type Severity Reaction Status Date / Time hydrocodone (From Vicodin) Allergy Intermediate Rash, Hives Verified 04/07/25 09:24 morphine (MORPHINE) Allergy Intermediate BURNING IN Verified 04/07/25 09:24 CHEST, shortness of breath oxycodone (From PERCOCET) Allergy Intermediate ITCHINESS Verified 04/07/25 09:24 pumpkin Allergy Intermediate Itching Verified 04/07/25 09:24 ibuprofen AdvReac Intermediate Stomach Verified 04/07/25 09:24 Upset Review of Systems Sugical H&P ROS: Negative: Constitution, Cardiovascular, Respiratory, Neurological, Psychiatric, Hem-Onc, Allergic/Immunologic, Genitourinary, Musculoskeletal, Integumentary, Endocrine and Eyes/Ears/Nose/Throat and Yes, Specify: Gastrointestinal (abdominal pain and nausea) Exam Surgical H&P Exam: Normal: HEENT, Normal: Heart, Normal: Lungs, Normal: Extremities, Normal: Abdomen, Normal: Skin and Normal: Neurological Plan Diagnosis/Plan: Unchanged (EGD to assess etiology of abdominal pain in view of her history of gastric bypass. Risks of bleeding and perforation were discussed with the patient and she is in agreement with the plan.) I have reviewed the history and physical and performed a pertinent physical examination on my patient. No changes have occurred unless specified. Time Spent With Patient Time: Total time managing care of this patient today ____ minutes.
[2025-04-07 10:00] VITALS: PULSE 99
--- NOTE | 2025-04-07 10:05 | P.BOP_ITS ---
Brief Operative Note Date of Service: 04/07/25 Pre-op diagnosis: Abdominal pain and vomiting, s/p gastric bypass Post-op diagnosis: same Procedure: PROCEDURE DATE: ?04/07/2025 PREOPERATIVE DIAGNOSIS: Abdominal pain, s/p gastric bypass POSTOPERATIVE DIAGNOSIS: ?Same as above. Small diaphragmatic hernia PROCEDURE: Zvvroads-blfnol-rigdcrtlfxs with biopsies Surgeon: ?Jean Paul Bobo M.D.. Ph.D. Helicopter Utility Aircrewman: ?None ? Anesthesia: IV sedation Estimated blood loss: ?Minimal FINDINGS AND PROCEDURE: ? OPERATIVE INDICATIONS: ?The patient is a 34 year old female known to me who underwent a laparoscopic gastric bypass by me in 2016. The patient had an excellent weight loss originally but regained lately significant weight back. She was placed on Wegovy and Zepbound for the last 6 months. While on these medications she has developed LUQ abdominal pain with vomiting. The pain is constant but is exacerbated by food intake.? Based on this information I recommended an upper endoscopy to evaluate the patient's symptoms.? Risks and complications of the surgery were discussed with the patient in advance particularly the possibility of perforation or bleeding that may require surgical intervention. The patient understood the risks and was in agreement with the plan. ? PROCEDURE: After informed consent was obtained by the patient, the patient was ?transferred to the Operating Room and was placed in the supine position.? After successful induction of IV sedation, a mouth block was placed and the patient was placed in the left lateral decubitus position. An upper endoscopy was performed next, the oropharynx and esophagus appeared within the normal limits. There was a small hiatal hernia.?The z-line was smooth. The small pouch was entered, appeared to be of normal size. There was no gastritis and the gastrojejunostomy was patent. There was no anastomotic ulcer.? At that point the scope was advanced into the proximal small intestine (proximal Beth limb) for the entire length of the scope (105cm) which appeared to be normal as well. The Beth limb and the pouch were decompressed and the scope was withdrawn from the patient's mouth. The patient was awaken and was transferred in stable condition to the Recovery Room for further care. I was present and performed all steps of the procedure. There were no residents to assist with this case. Jean Paul Bobo M.D., Ph.D. Surgeon: Neto Bobo MD Anesthesia: MAC Was an Helicopter Utility Aircrewman used for this Procedure?: No Estimated blood loss (mL): 0 IV fluids (mL): 400 Urine output (mL): 0 (No Dunn to record output) Pathology: none sent Condition: stable Disposition: PACU
[2025-04-07 10:25] VITALS: BP 100/61; PULSE 116; RESP 18; TEMP 37.9; O2SAT 100
[2025-04-07 10:40] VITALS: BP 111/72; PULSE 107; RESP 18; TEMP 36.3; O2SAT 100
== END 2025-04-07 11:02 | disposition home or self-care (01) ==
PROVIDERS: Nurse Practitioner; PCP Internal Medicine; Visit Provider Surgery
PROC: 0DJ08ZZ Inspection of Upper Intestinal Tract, Via Natural or Artificial Opening Endoscopic (ICD-10-PCS; CPT 43235; principal; 2025-04-07 10:30)
DX: R10.12 Left upper quadrant pain (principal); R11.10 Vomiting, unspecified; Z79.85 Long-term (current) use of injectable non-insulin antidiabetic drugs; Z98.84 Bariatric surgery status; E66.811 Obesity, class 1; Z68.31 Body mass index [BMI] 31.0-31.9, adult; K21.9 Gastro-esophageal reflux disease without esophagitis; K44.9 Diaphragmatic hernia without obstruction or gangrene; D64.9 Anemia, unspecified; E53.8 Deficiency of other specified B group vitamins; E55.9 Vitamin D deficiency, unspecified; N20.0 Calculus of kidney; Z79.899 Other long term (current) drug therapy; Z88.5 Allergy status to narcotic agent; Z88.6 Allergy status to analgesic agent; Z98.890 Other specified postprocedural states
CPT/HCPCS: 43239; 81025; J2003; J2250; J2704

== ENCOUNTER → 2025-04-07 09:08 | Outpatient (BNV) | payer OTHER, SELFPAY | PROVIDERS: PCP Internal Medicine; Visit Provider Surgery | DX: K44.9 Diaphragmatic hernia without obstruction or gangrene (principal) | CPT/HCPCS: 43235 ==

== ENCOUNTER 2025-04-21 08:25 | Outpatient (REF) | payer OTHER, SELFPAY ==
--- NOTE | ~2025-04-21 | US_ITS ---
EXAMINATION: US ABDOMEN COMPLETE WITH LIVER ELASTOGRAPHY HISTORY: R10.9 - Unspecified abdominal pain TECHNIQUE: Real-time grayscale ultrasound imaging of the abdomen was performed and images were reviewed. COMPARISON: Correlation is made with a CT of the abdomen with contrast dated 03/30/2025. FINDINGS: Liver: The right lobe of the liver measures 12.9 cm in size. The left lobe of the liver measures 9.3 cm in size. The liver demonstrates normal homogeneous echotexture. No focal mass or intrahepatic biliary ductal dilatation is identified. There is normal hepatopedal flow in the portal vein. Ultrasound elastography of the liver was performed with 10 separate measurements of the liver parenchyma with the patient in the supine position. Measurements were obtained approximately 2 cm below Araceli's capsule and perpendicular to the capsule. The median shear wave velocity is 1.49 m/s. The interquartile range/median (IQR/median) is 0.10. Gallbladder and biliary tree: There is cholelithiasis with a possible calculus in the gallbladder neck. There is no wall thickening or pericholecystic fluid. There is no sonographic Simpson sign. The common bile duct is normal in caliber measuring 3 mm. Kidneys: The right kidney measures 9.9 cm in length. The left kidney measures 10.3 cm in length. The kidneys are unremarkable, without evidence of masses, hydronephrosis, or calculi. Pancreas: The pancreatic head and neck are unremarkable. The remainder of the pancreas is obscured by bowel gas. Spleen: The spleen is normal in size and contour, measuring 10.2 cm in length. Abdominal aorta and inferior vena cava: The visualized portions of the abdominal aorta and inferior vena cava are normal in caliber. There is no free fluid in the abdomen. US/US abdomen comp w elastography IMPRESSION: Cholelithiasis with a possible calculus in the gallbladder neck. The pancreas is suboptimally visualized. The median shear wave velocity in the liver is 1.49 m/s, corresponding to a median liver stiffness of 6.72 kPa. The IQR/median value is 0.10. This is indicative of a quality data set. Findings are indicative of a low elastography value which rules out advanced chronic liver disease in asymptomatic patients. REFERENCE: Society of Radiologists in Ultrasound Liver Stiffness Thresholds (2020): LIVER STIFFNESS THRESHOLDS: *Shear wave velocity less than 1.3 m/s (Liver Stiffness equal or less than 5 kPa): High probability of being normal. *Shear wave velocity less than 1.7 m/s (Liver Stiffness less than 9 kPa): In the absence of other known clinical signs, rules out compensated advanced chronic liver disease. *Shear wave velocity between 1.7-2.1 m/s (Liver Stiffness 9-13 kPa): Suggestive of compensated advanced chronic liver disease but need further test for confirmation. *Shear wave velocity between 2.1-2.4 m/s (Liver Stiffness 13-17 kPa): Rules in compensated advanced chronic liver disease. *Shear wave velocity greater than 2.4 m/s (Liver Stiffness over 17 kPa): Suggestive of clinically significant portal hypertension. QUALITY OF DATA SET: *IQR/Median value equal or less than 0.15 implies a quality data set. *IQR/Median value over 0.15 implies a poor quality data set. SIGNIFICANT CHANGE FROM PRIOR EXAM: Significant change if liver stiffness measurement is 10% or greater from prior exam. OTHER CONSIDERATIONS: The stage of liver fibrosis may be overestimated in the setting of acute hepatitis, liver inflammation, elevated liver function tests, hepatic vascular congestion, obstructive cholestasis, non-fasting state, and infiltrative diseases such as amyloidosis and lymphoma. In some patients with NAFLD, the liver stiffness thresholds for compensated advanced chronic liver disease may be lower. In causes other than viral hepatitis and NAFLD, liver stiffness thresholds are not well established. Electronically signed by: Bassam Matos MD 04/21/2025 09:14 AM [facility]
--- OUTSIDE RECORDS SUMMARY | 2025-04-21 08:47 | XMS_ITS | Encounter Summary ---
Author Organization [facility] Address [address] [place] [address] Care Team Providers Care Brushing Machine Operator Name Role Phone ProviderLuz MD Primary Care Provider Un available Encounter Details Date Type Department Care Team (Late st Contact Info) Description 06/18/2019 Scanned Document [facility] Neurosurgery [place] [address] [facility] 5 [place] [address] Dev Durant MD [address] [address] Social History Tobacco Use Types Packs/Day Years [...] on filedocumented in this encounter Care Teams Brushing Machine Operator Relationship Specialty Start Date End Date ProviderLuz MD PCP - General 05/07/19 documented as of this encounter
--- OUTSIDE RECORDS SUMMARY | 2025-04-21 08:47 | XMS_ITS | Clinical Summary ---
Author Organization [employer] Address [address] [facility] 7t [place] [address] Care Team Providers Care Correction Officer [place] [facility] Name Role Phone Unavailable Primary Care Provider [...]
--- OUTSIDE RECORDS SUMMARY | 2025-04-21 08:47 | XMS_ITS | Encounter Summary ---
Author Organization [facility] Address [address] [facility] [address] [place] [address] Phone Care Team Providers Care Teaching Assistant Name Role Phone Alberto James MD Unavailable Mariela Peralta MD Primary Care Provid er Tawanda Lewis MD Unavailable [phone] Encounter Details Date Type Department Care Team (Late st Contact Info) Description 12/02/2019 Procedure Pass [facility] Periop 1st floor [address] [place] [address] Social History Tobacco Use Types Packs/Day Years [...] Office Visit [facility] [address] [place] [address] [place] [address] Gabriel Oquendo MD [address] [facility], [address] [place] [address] [email or web address] 05/06/2025 4:40 PM EST Appointment [facility] [place], OB [address] [place] [address] [place] [address] Leah Deleon MD [address] [place] [address], [address] [place] [address] [email or web address] 05/07/2025 3:10 PM EST Office Visit [facility] [address] [place] [address] [place] [address] Gabriel Oquendo MD [address] [place] [address], [address] [address] documented as of this encounter Visit Diagnoses Not on filedocumented in this encounter Additional Health Concerns Infection Onset Date Last Indicated Resolved Time COVID-19 06/27/2021 06/27/2021 07/09/2021 9:03 AM EST documented as of this encounter Care Teams Teaching Assistant Relationship Specialty Start Date End Date Alberto James MD [address] [place] [phone] PCP - Family Medicine Internal Medicine 07/08/19 Mariela Peralta MD [address] [place] [address] PCP - General Internal Medicine 09/28/20 Tawanda Lewis MD [address] [facility], 2nd [place] [address] Referring Physician Physical Medicine and Rehabilitation 11/04/20 documented as of this encounter Additional Source Comments The information contained in this document represents components of the legal health record. It is not the complete legal health record.[facility]
--- OUTSIDE RECORDS SUMMARY | 2025-04-21 08:47 | XMS_ITS | Encounter Summary ---
Author Organization [employer] Address [address] [facility] 7t [place] [address] Care Team Providers Care Rheologist Name Role Phone Unavailable Primary Care Provider [...]
--- OUTSIDE RECORDS SUMMARY | 2025-04-21 08:47 | XMS_ITS | Encounter Summary ---
Author Organization [facility] Address [address] [facility] [address] [place] [address] Phone Care Team Providers Care Artificial Breeding Ranch Supervisor Name Role Phone Alberto James MD Unavailable [phone] Mariela Peralta MD Primary Care Provid er Tawanda Lewis MD Unavailable [phone] Encounter Details Date Type Department Care Team (Late st Contact Info) Description 02/05/2021 Telephone [facility] [address] [place] [address] Becky Murcia, [facility] [address] [facility], [address] [place] [address] [email or web address] Social History Tobacco Use Types Packs/Day Years [...] Office Visit [facility] [address] [place] [address] [place] [address] Gabriel Oquendo MD [address] [place] [address] 05/06/2025 4:40 PM EST Appointment [facility] [place], OB [address] [place] [address] [place] [address] Leah Deleon MD [address] [place] [address], [address] [address] [email or web address] 05/07/2025 3:10 PM EST Office Visit [facility] [address] [place] [address] [place] [address] Gabriel Oquendo MD [address] [place] [address], [address] [address] [email or web address] documented as of this encounter Visit Diagnoses Not on filedocumented in this encounter Additional Health Concerns Infection Onset Date Last Indicated Resolved Time COVID-19 06/27/2021 06/27/2021 07/09/2021 9:03 AM EST documented as of this encounter Care Teams Artificial Breeding Ranch Supervisor Relationship Specialty Start Date End Date Alberto James MD [address] [place] [address] [address] [place] [phone] PCP - Family Medicine Internal Medicine 07/08/19 Mariela Peralta MD [address] [place] [address] PCP - General Internal Medicine 09/28/20 Tawanda Lewis MD [address] [place] [address], 2nd [place] [address] [email or web address] Referring Physician Physical Medicine and Rehabilitation 11/04/20 documented as of this encounter Additional Source Comments The information contained in this document represents components of the legal health record. It is not the complete legal health record.[facility]
--- OUTSIDE RECORDS SUMMARY | 2025-04-21 08:47 | XMS_ITS | Encounter Summary ---
Author Organization [facility] Address [address] [facility] [address] [place] [address] Phone Care Team Providers Care Cytometry Technologist Name Role Phone Alberto James MD Unavailable [phone] Mariela Peralta MD Primary Care Provid er Tawanda Lewis MD Unavailable [phone] Encounter Details Date Type Department Care Team (Late st Contact Info) Description 12/02/2019 Procedure Pass [facility] [place] Rad[facility] [address] [place] [address] Social History Tobacco Use Types Packs/Day Years [...] Office Visit [facility] [address] [place] [address] [place] [address] Gabriel Oquendo MD [address] [facility], [address] [address] 05/06/2025 4:40 PM EST Appointment [facility] [place], OB [address] [place] [address] [place] [address] Leah Deleon MD [address] [place] [address], [address] [address] [email or web address] 05/07/2025 3:10 PM EST Office Visit [facility] [address] [place] [address] [place] [address] Gabriel Oquendo MD [address] [place] [address] documented as of this encounter Visit Diagnoses Not on filedocumented in this encounter Additional Health Concerns Infection Onset Date Last Indicated Resolved Time COVID-19 06/27/2021 06/27/2021 07/09/2021 9:03 AM EST documented as of this encounter Care Teams Cytometry Technologist Relationship Specialty Start Date End Date Jacob, Alberto Prince MD [address] [place] [phone] PCP - Family Medicine Internal Medicine 07/08/19 Mariela Peralta MD [address] [place] [address] PCP - General Internal Medicine 09/28/20 Tawanda Lewis MD [address] [facility], 2nd [place] [address] Referring Physician Physical Medicine and Rehabilitation 11/04/20 documented as of this encounter Additional Source Comments The information contained in this document represents components of the legal health record. It is not the complete legal health record.[facility]
--- OUTSIDE RECORDS SUMMARY | 2025-04-21 08:47 | XMS_ITS | Clinical Summary ---
Author Organization [facility] Address [address] [place] [address] Care Team Providers Care Vehicle Fare Collector Name Role Phone Provider, Luz PARKS Primary [...] age to complete this topic Care Teams Vehicle Fare Collector Relationship Specialty Start Date End Date ProviderLuz MD PCP - General 05/07/19
--- OUTSIDE RECORDS SUMMARY | 2025-04-21 08:48 | XMS_ITS | Encounter Summary ---
Author Organization [facility] Address [address] [facility] [address] [place] [address] Phone Care Team Providers Care Bean Roaster Name Role Phone Alberto James MD Unavailable [phone] Mariela Peralta MD Primary Care Provid er Tawanda Lewis MD Unavailable [phone] Encounter Details Date Type Department Care Team (Late st Contact Info) Description 07/20/2021 Procedure Pass [facility] [address] [place] [address] Social History Tobacco Use Types Packs/Day Years [...] 07/23/2021 12:00 PM Felicia Grajeda, CONSTANTIN * [place] Suicide Severity Rating Scale (Screener/Recent Self-Report) Question [...] Visit [facility] [address] [place] [address] [place] [address] Gabriel Oquendo MD [address] [place] [address] 05/06/2025 4:40 PM EST Appointment [facility] [address] [place] [address] Leah Deleon MD [address] [place] [address] [email or web address] 05/07/2025 3:10 PM EST Office Visit [facility] [address] [place] [address] [place] [address] Gabriel Oquendo MD [address] [place] [phone] documented as of this encounter Visit Diagnoses Not on filedocumented in this encounter Care Teams Bean Roaster Relationship Specialty Start Date End Date Jacob, Alberto Prince MD [address] [place] [phone] PCP - Family Medicine Internal Medicine 07/08/19 Mariela Peralta MD [address] [place] [phone] PCP - General Internal Medicine 09/28/20 Tawanda Lewis MD [address] [place] [address], 2nd [place] [address] [email or web address] Referring Physician Physical Medicine and Rehabilitation 11/04/20 documented as of this encounter Additional Source Comments The information contained in this document represents components of the legal health record. It is not the complete legal health record.[facility]
--- OUTSIDE RECORDS SUMMARY | 2025-04-21 08:48 | XMS_ITS | Encounter Summary ---
Author Organization [facility] Address [address] [facility] [address] [place] [phone] Phone Care Team Providers Care Adventure Education Teacher Name Role Phone Jacob, Alberto Prince MD Unavailable [phone] Mariela Peralta MD Primary Care Provid er Tawanda Lewis MD Unavailable [phone] Encounter Details Date Type Department Care Team (Late st Contact Info) Description 07/11/[address] [facility],Outside Imaging [address] [place] [address] System, Provider [place] In, [place] [address] Social History Tobacco Use Types Packs/Day Years [...] Description 04/22/2025 4:10 PM EST Office Visit [facility] [address] [place] [address] [place] [address] Gabriel Oquendo MD [address] [facility], [address] [place] [address] [phone] 05/06/2025 4:40 PM EST Appointment [facility] [place], OB [address] [place] [address] [place] [address] Leah Deleon MD [address] [facility], [address] [place] [address] [email or web address] 05/07/2025 3:10 PM EST Office Visit [facility] [address] [place] [address] [place] [address] Gabriel Oquendo MD [address] [place] [address], [address] [address] [email or web address] documented as of this [...] documented as of this encounter Care Teams Adventure Education Teacher Relationship Specialty Start Date End Date Alberto James MD [address] [place] [phone] PCP - Family Medicine Internal Medicine 07/08/19 Mariela Peralta MD [address] [place] [address] PCP - General Internal Medicine 09/28/20 Tawanda Lewis MD [address] [place] [address], [address] [place] [address] [email or web address] Referring Physician Physical Medicine and Rehabilitation 11/04/20 documented as of this encounter Additional Source Comments The information contained in this document represents components of the legal health record. It is not the complete legal health record.[facility]
--- OUTSIDE RECORDS SUMMARY | 2025-04-21 08:48 | XMS_ITS | Clinical Summary ---
Author Organization [facility] Address [address] [facility] [address] [place] [address] Phone Care Team Providers Care Hadoop Infrastructure Architect Name Role Phone Jacob, Alberto Prince MD Unavailable Mariela Peralta MD Primary Care Provid er Tawanda Lewis MD Unavailable [phone] Allergies Active Allergy Reactions Criticality Noted Date [...] preclude this happening after an [facility] - [facility] health form signed today Assessment & Plan [...] Blood glucose testing - [facility] for 1-2 [...] 05/18/2021 07/06/2021 Overview (06/27/2021): 05/17/21: observed at [facility] for regular painful contractions, cervix L/T/C and ffn neg but transferred to [facility] due to worsening contractions and some [...] dc home, if in labor transfer to [facility] due to prematurity 1630: VE unchanged Discussed [...] have continued since she was discharged from [facility]. Contractions are around q 3 min [...] additional contractions since being seen at the [facility] last week. Discussed increased risk for contractions due to fibroids and importance of calling with any concerns. UTI (urinary tract infection ) during , second trimester 04/01/2021 09/03/2021 Overview (06/01/2021): Seen at [facility] 04/01 with pain and contractions. UA suggestive of UTI. Urine culture sent. RX augmentin 875 BID x 7 days, prophylactic Urine culture result mixed. Neg urinalysis on 04/27, 05/17, 05/30 (performed with PTL workup) Assessment & Plan (04/28/2021 6:17 PM EST): -Urine culture collected yesterday at the [facility] Assessment & Plan (04/08/2021 8:24 PM EDT): Was seen at the [facility] on 04/01 with contractions, received terbutaline and IV fluids and treated for presumed UTI based on UA. Urine culture result mixed. Was seen again at the [facility] one day later, received terbutaline again. Reports she has had no additional contractions since then. 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 Has a hard time taking iron as [...] here with her mom. Recently discharged from [facility] following admission for contractions. See problem [...] in -Discussed FM at this [place] [facility] -Review signs and symptoms of Pre-term Labor [...] discrepancy, reports original ASAEL was established at [facility] but is inconsistent with what she has [...] visit for f/u after being seen in [facility] for NVP on 12/23. Reports she [...] concerning symptoms. They will be traveling to [place] next week, advised she should call with any concerns while away, reviewed how to reach masonry contractor administrator CNM. Has US and [facility] [...] Visit [facility] [address] [place] [address] Leah Deleon MD Pelvic pain (Primary Dx) 03/24/2025 4:26 PM EDT - 03/24/2025 11:59 PM EDT Hospital Encounter [facility] [place], OB [address] [place] [address] Ekta Ernst MD Discharge Disposition: Home or Self Care 02/19/2025 11:00 AM EDT Office Visit [facility] [address] [place] [address] Ekta Ernst MD Uterine leiomyoma, unspecified location (Primary Dx) 02/10/2025 Nurse Triage [facility] [address] [place] [address] [place] [address] Opal Delgadillo, CONSTANTIN pelvic pain from Last [...] EST Office Visit [facility] [address] [place] [address] [place] [address] Gabriel Oquendo MD [address] [place] [address], [address] [place] [address] 05/06/2025 4:40 PM EST Appointment [facility] [place], OB [address] [place] [address] [place] [address] Leah Deleon MD [address] [place] [address], [address] [place] [address] [email or web address] 05/07/2025 3:10 PM EST Office Visit [facility] [address] [place] [address] [place] [address] Gabriel Oquendo MD [address] [place] [address], [address] [place] [address] [email or web address] Health Maintenance Due Date Last Done Comments [...] this topic Medical Devices Implanted Type Area Clerical Supervisor Device Identifier Shelf Expiration Date Model / Serial / Lot Implant Ifuse 3d 7x50mm - [id number] Implanted:Qty: 1 on 12/02/2019 by Susana Ratliff MD, PhD at [facility] Left: Sacrum S [employer] 05/07/2024 7050M-90 / / [id number] Implant Ifuse 3d 7x45mm - [id number] Implanted:Qty: 1 on 12/02/2019 by Susana Ratliff MD, PhD at [facility] Left: Sacrum [employer] 02/26/2024 7045M-90 / / [id number] Implant Ifuse 3d 7x40mm - [id number] Implanted:Qty: 1 on 12/02/2019 by Susana Ratliff MD, PhD at [facility] Left: Sacrum [employer] 05/07/2024 7040M-90 / / [id number] Procedures Procedure Name Priority Date/Time Associated Diagnosis [...] PM EDT) HCV NON-REACTIV E NON-REACTI VE [facility] Blood 01/11/2021 4:16 PM EDT 01/11/2021 6:53 PM EDT us Ivet Farrell [facility] BLOOD BKR ORDERABLES Final Result [facility] [address] [place], [place] [id number] * PAP SMEAR FOR RESULT ENTRY ONLY (01/15/2020) us Fabiola Ramos [facility] HEALTH MAINTENANCE Final Re sult from Last 3 Months or Most Recently Relevant to Health Maintenance Insurance [facility] ACO ACO ACO ACO ACO ACO [place] [address] [place] [address] ACO [facility] INSURANCE Advance Directives For more information, please contact: [phone] (9AM - 5PM [facility], Monday-Monday) Documents on File Type Date Recorded Patient Director Global Medical Affairs Expl anation Healthcare Proxy 07/26/2021 4:52 PM [...] Code Status Confirmed With: Patient Care Teams Hadoop Infrastructure Architect Relationship Specialty Start Date End Date Alberto James MD [address] [place] [phone] PCP - Family Medicine Internal Medicine 07/08/19 Mariela Peralta MD [address] [place] [address] PCP - General Internal Medicine 09/28/20 Tawanda Lewis MD [address] [place] [address], 2nd [place] [address] [email or web address] Referring Physician Physical Medicine and Rehabilitation 11/04/20 Additional Source Comments The information contained in this document represents components of the legal health record. It is not the complete legal health record.[facility]
--- OUTSIDE RECORDS SUMMARY | 2025-04-21 08:48 | XMS_ITS | Encounter Summary ---
Author Organization [facility] Address [address] [place] [address] [place] [phone] Phone Care Team Providers Care Temperature Logging Operator Name Role Phone Alberto James MD Unavailable [phone] Mariela Peralta MD Primary Care Provid er Tawanda Lewis MD Unavailable [phone] Encounter Details Date Type Department Care Team (Late st Contact Info) Description 07/08/2019 Procedure Pass [address] [place] [address] Social History Tobacco Use Types Packs/Day Years [...] Office Visit [facility] [address] [place] [address] [place] [address] Gabriel Oquendo MD [address] [place] [address], [address] [address] 05/06/2025 4:40 PM EST Appointment [facility] [place], OB [address] [place] [phone] Leah Deleon MD [address] [place] [address] [email or web address] 05/07/2025 3:10 PM EST Office Visit [facility] [address] [place] [address] [place] [address] Gabriel Oquendo MD [address] [place] [address] [email or web address] documented as of this encounter Visit Diagnoses Not on filedocumented in this encounter Additional Health Concerns Infection Onset Date Last Indicated Resolved Time COVID-19 06/27/2021 06/27/2021 07/09/2021 9:03 AM EST documented as of this encounter Care Teams Temperature Logging Operator Relationship Specialty Start Date End Date Alberto James MD [address] [place] [phone] PCP - Family Medicine Internal Medicine 07/08/19 Mariela Peralta MD [address] [place] [address] PCP - General Internal Medicine 09/28/20 Tawanda Lewis MD [address] [facility], 2nd [place] [address] [email or web address] Referring Physician Physical Medicine and Rehabilitation 11/04/20 documented as of this encounter Additional Source Comments The information contained in this document represents components of the legal health record. It is not the complete legal health record.[facility]
--- OUTSIDE RECORDS SUMMARY | 2025-04-21 08:48 | XMS_ITS | Encounter Summary ---
Author Organization [facility] Address [address] [facility] [address] [place] [address] Phone Care Team Providers Care Wireless Cellular Technician Name Role Phone Jacob, Alberto Prince MD Unavailable [phone] Mariela Peralta MD Primary Care Provid er Tawanda Lewis MD Unavailable [phone] Encounter Details Date Type Department Care Team (Late st Contact Info) Description 07/11/2019 Ancillary Orders [facility],Outside Imaging [address] [place] [address] System, Provider Not In, [place] [address] Social History Tobacco Use Types Packs/Day Years [...] Description 04/22/2025 4:10 PM EST Office Visit [facility] [address] [place] [address] [place] [address] Gabriel Oquendo MD [address] [facility], [address] [place] [phone] 05/06/2025 4:40 PM EST Appointment [facility] [place], OB [address] [place] [address] [place] [address] Leah Deleon MD [address] [facility], [address] [place] [address] [email or web address] 05/07/2025 3:10 PM EST Office Visit [facility] [address] [place] [address] [place] [address] Gabriel Oquendo MD [address] [place] [address], [address] [address] [email or web address] documented as of this encounter Results * [...] documented as of this encounter Care Teams Wireless Cellular Technician Relationship Specialty Start Date End Date Alberto James MD [address] [place] [phone] PCP - Family Medicine Internal Medicine 07/08/19 Mariela Peralta MD [address] [place] [address] PCP - General Internal Medicine 09/28/20 Tawanda Lewis MD [address] [place] [address], [address] [place] [address] [email or web address] Referring Physician Physical Medicine and Rehabilitation 11/04/20 documented as of this encounter Additional Source Comments The information contained in this document represents components of the legal health record. It is not the complete legal health record.[facility]
== END 2025-04-21 08:26 | disposition home or self-care (01) ==
LOC: HO.US 08:25
PROVIDERS: PCP Internal Medicine; Visit Provider Surgery
DX: R10.9 Unspecified abdominal pain (principal)
CPT/HCPCS: 76700; 76981

== ENCOUNTER → 2025-04-21 08:32 | Outpatient (BNV) | payer OTHER, SELFPAY | PROVIDERS: PCP Internal Medicine; Visit Provider Radiology Diagnostic Radiology | DX: R10.9 Unspecified abdominal pain (principal) | CPT/HCPCS: 76700 ==

== ENCOUNTER 2025-04-23 08:35 | Outpatient (AMB) | payer OTHER, SELFPAY ==
--- OUTSIDE RECORDS SUMMARY | 2025-04-22 16:10 | XMS_ITS | Encounter Summary ---
Author Organization [facility] Address [address] [place] [address] Phone Care Team Providers Care Silk Winding Machine Operator Name Role Phone Alberto James MD Unavailable [phone] Mariela Peralta MD Primary Care Provid er Tawanda Lewis MD Unavailable [phone] Reason for Visit * Reason Comments Annual Exam US schedSurgery gall bladder 04/30 Encounter Details Date Type Department Care Team (Latest Contact Info) Description 04/22/2025 4:10 PM EST Office Visit [facility] [address] [place] [id number] Gabriel Oquendo MD [address] [place] [address], [address] [place] [address] [email or web address] Encounter for annual routine gynecological examination (Primary Dx); Screening for cervical cancer; Cysts of both ovaries; Fibroids Social History Tobacco Use Types Packs/Day Years [...] Sign Reading Time Taken Comments Blood Pressure 94/50 04/22/2025 4:09 PM EST Pulse - - Temperature - - Respiratory Rate - - Oxygen Saturation - - Inhaled Oxygen Concentration - - Weight 71.2 kg (157 lb) 04/22/2025 4:09 PM EST Height - - Body Mass Index 26.95 02/19/2025 11:13 AM EDT documented in this encounter Progress Notes * Gabriel Oquendo MD - 04/22/2025 4:10 PM EST Office note: Annual Exam Encounter Date: 04/22/2025 HPI: Farshad Anand is a 34 y.o. who presents for routine annual exam. Patient's last menstrualperiod was 03/28/2025 (exact date). She denies any significant change in her health history since her last visit to the office. However, she is scheduled to have a cholecystectomy in the near future.She is due for a Pap today. She has a history of fibroids and has had serial ultrasounds for that issue. On her last ultrasound on March 24, there were bilateral ovarian cysts that were most likely hemorrhagic in nature but a follow-up ultrasound was recommended in 6 to 8 weeks which is scheduled for May 06. She has no acute complaints today. Review of Systems - General ROS: negative Psychological ROS: negative Ophthalmic ROS: negative ENT ROS: negative Allergy and Immunology ROS: negative Hematological and Lymphatic ROS: negative Endocrine ROS: negative Breast ROS: negative for breast lumps Respiratory ROS: no cough, shortness of breath, or wheezing Cardiovascular ROS: no chest pain or dyspnea on exertion Gastrointestinal ROS: no abdominal pain, change in bowel habits, or black or bloody stools Genito-Urinary ROS: no dysuria, trouble voiding, or hematuria Musculoskeletal ROS: negative Neurological ROS: negative Dermatological ROS: negative Health Maintenance and Preventative Care: Immunization History Administered Date(s) Administered COVID-19 (Pre-04/10) Pfizer Vaccine, Bivalent 12+ 01/23/2023 COVID-19 (Pre-04/10) Pfizer Vaccine, mRNA, PF 09/15/2020, 10/06/2020, 07/23/2021 COVID-19 Pfizer Comirnaty Vaccine 12+ 03/29/2024 DTP 1989, 1989, 04/19/1990, 07/20/1991, 12/17/1993 HPV,quadrivalent 07/26/2007, 05/07/2008, 09/08/2008 Hepatitis B 08/14/2001, 09/14/2001, 04/08/2002, 10/11/2010, 03/10/2011 Hib,HbOC 10/17/1990 INFLUENZA, SPLIT VIRUS, TRIVALENT W/ PRESERVATIVE IM 05/17/2007, 05/07/2008, 04/14/2009, 04/29/2016 Influenza Quadrivalent Preservative Free IM 06/24/2019, 03/28/2020, 04/07/2021 MMR 07/20/1990, 09/17/1994 Polio - OPV 1989, 1989, 07/20/1991, 01/05/1994 Td (adult) 5 Lf Tetanus Toxoid, PF, Adsorbed 07/02/2018 Td (adult),2 Lf Tetanus Toxoid, PF, Adsorbed 09/03/2001 Tdap 05/07/2008, 10/11/2010, 07/02/2018, 05/18/2021 Obstetric and Gynecologic History OB History Para Term AB Living 1 1 1 0 0 1 SAB IAB Ectopic Multiple Live Births 0 0 0 0 1 # Outcome Date GA Lbr Jamar/2nd Weight Sex Type Anes PTL Lv 1 Term 07/20/21 39w0d 3.402 kg (7 lb 8 oz) F Spinal GENO Menstrual History Patient's last menstrual period was 03/28/2025 (exact date). Past Histories: Patient Active Problem List Diagnosis Hip tendonitis, [...] (HPV not done), results scanned in from [facility] Post-operative nausea and vomiting Past Surgical History: Procedure Laterality Date SECTION PRIMARY N/A 07/20/2021 Performed by Galilea Nguyen MD at [facility] L&D OR FUSION SACROILIAC JOINT Left 12/02/2019 Performed by Susana Ratliff MD, PhD at [facility] OR 1ST FLOOR GASTRIC BYPASS 2016 NASAL SEPTUM SURGERY 2018 and polyp excision IN ARTHRODESIS SI JT OPN W/OBTAINING B1 GRF INSTRMJ SI fusion ([facility]) TUBAL LIGATION Bilateral 07/20/2021 Performed by Galilea Nguyen MD at [facility] L&D OR WISDOM TOOTH EXTRACTION age 17 Family History Problem Relation Age of Onset Fibromyalgia Mother Diabetes Father Stroke Maternal Grandparents Seizures Maternal Grandparents Alzheimer's disease Unspecified Social History Socioeconomic History Marital status: /Civil [...] use: Never Sexual activity: Yes Partners: Male control/protection: None Other Topics Concern Not on file Social History Narrative 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 Allergies Allergen Reactions Aspirin Other (See Comments) AVOIDS DUE TO GASTRIC BYPASS Nsaids (Non-Steroidal Anti-Inflammatory Drug) Other (See Comments) AVOIDS DUE TO GASTRIC BYPASS Percocet [Oxycodone-Acetaminophen] Hives Pumpkin Swelling Facial swelling Tramadol Itching Vicodin [Hydrocodone-Acetaminophen] Hives Opioids - Morphine Analogues Hives Burning sensation Adhesive Tape-Silicones Rash Current Outpatient Medications: cyanocobalamin (VITAMIN B-12) 1,000 mcg/mL injection, every 30 (thirty) days. , Disp: , Rfl: , LastDispense: Unknown (patient-reported) fluticasone propionate (FLONASE) 50 mcg/actuation nasal spray, SPRAY 2 SPRAYS INTO EACH NOSTRIL, Disp: , Rfl: , Last Dispense: Unknown (patient-reported) lidocaine (LIDODERM) 5 %, APPLY 1 PATCH TOPICALLY DAILY LEAVE ON MOST PAINFUL AREA FOR UP TO 12 HRS, Disp: , Rfl: , Last Dispense: Unknown (patient-reported) pregabalin (LYRICA) 100 MG capsule, , Disp: , Rfl: , Last Dispense: Unknown (patient-reported) tiZANidine (ZANAFLEX) 2 MG tablet, TAKE [...] Disp:, Rfl: , Last Dispense: Unknown (patient-reported) Physical exam: Blood pressure 94/50, weight 71.2 kg (157 lb), last menstrual period 03/28/2025, not currently . Gen: Alert, cooperative. Well-appearing on today's exam HEENT: head normocephalic without obvious deformity. Normal dentition. Neck: Trachea midline. No palpable cervical lymphadenopathy noted. Thyroid normal to inspection andpalpation. Cardiovascular: regular rate and rhythm, no m/r/g Lung: clear to auscultation bilaterally, no wheezing, rhonchi, normal respiratory effort Breast: Normal appearance, no masses or tenderness, no nipple retraction or dimpling bilaterally. No axillary or supraclavicular lymphadenopathy. Abdomen: Soft,non-tender. No masses palpable, no organomegaly. No notable scarring. Extremities: no calf tenderness, discoloration or edema, atraumatic without deformity Skin: Skin color, texture, turgor normal. No rashes or lesions Psych: Mood and affect appropriate. Pelvic: External Genitalia: Normal architecture, without lesions. No inguinal lymphadenopathy. Vagina: Mucosa is pink with normal rugae. No abnormal discharge or lesions. Cervix: Normal appearance, without discharge or lesions. No cervical motion tenderness. Pap smear was obtained. Uterus: Enlarged and consistent with fibroids. Non-tender. Mobile Adnexa: No adnexal masses or tenderness bilaterally. Perianal area without lesions Assessment/Plan: 34 y.o. Problem List Items Addressed This Visit None Visit Diagnoses Encounter for annual routine gynecological examination - Primary Other than the enlarged uterus, her annual exam is unremarkable. Routine health maintenance was reviewed. Screening for cervical cancer Relevant Orders Cervical Cancer Screening Cysts of both ovaries She has a follow-up ultrasound scheduled for the ovarian cyst on May 06. Fibroids The natural history of fibroids were reviewed with the patient. They have been relatively stable onserial ultrasounds. Gabriel Oquendo MD documented in this encounter Plan of Treatment Upcoming Encounters Date Type Department Care Team (Late st Contact Info) Description 05/06/2025 4:40 PM EST Appointment [facility] [place], [address] [place] [address] Leah Deleon MD [address] [place] [address], [address] [address] [email or web address] 05/07/2025 3:10 PM EST Office Visit [facility] [address] [place] [address] [place] [address] Gabriel Oquendo MD [address] [place] [address], [address] [address] Pending Results Name Type Priority Associated Diagnoses Date /Time Cervical Cancer Screening Pathology and Cytology Routine Screening for cervical cancer 04/22/2025 4:49 PM EST Pap Test Pathology and Cytology Routine Screening for cervical cancer 04/22/2025 4:49 PM EST documented as of this encounter Visit Diagnoses Diagnosis Encounter for annual routine gynecological examination- Primary Screening for cervical cancer Screening for malignant neoplasm of the cervix Cysts of both ovaries Other and unspecified ovarian cyst Fibroids Leiomyoma of uterus, unspecified documented in this encounter Care Teams Silk Winding Machine Operator Relationship Specialty Start Date End Date Jacob, Alberto Prince MD [address] [place] [address] [address] [place] [address] PCP - Family Medicine Internal Medicine 07/08/19 Mariela Peralta MD [address] [place] [address] PCP - General Internal Medicine 09/28/20 Tawanda Lewis MD [address] [facility], [address]nd [place] [address] [email or web address] Referring Physician Physical Medicine and Rehabilitation 11/04/20 documented as of this encounter Additional Source Comments The information contained in this document represents components of the legal health record. It is not the complete legal health record.[facility]
--- OUTSIDE RECORDS SUMMARY | 2025-04-23 08:50 | XMS_ITS | Clinical Summary ---
Author Organization [employer] Address [address] [facility] 7t [place] [address] Care Team Providers Care Wet Room Worker Name Role Phone Unavailable Primary Care [...]
--- OUTSIDE RECORDS SUMMARY | 2025-04-23 08:50 | XMS_ITS | Encounter Summary ---
Author Organization [facility] Address [address] [place] [address] [place] [phone] Phone Care Team Providers Care Crosstie Inspector Name Role Phone Alberto James MD Unavailable [phone] Mariela Peralta MD Primary Care Provid er Tawanda Lewis MD Unavailable [phone] Encounter Details Date Type Department Care Team (Late st Contact Info) Description 07/08/2019 Procedure Pass [address] [place] [address] Social History Tobacco Use Types Packs/Day Years [...] EST Appointment [facility] [place], OB [address] [place] [address] [place] [address] Leah Deleon MD [address] [place] [address], [address] [place] [phone] [email or web address] 05/07/2025 3:10 PM EST Office Visit [facility] [address] [place] [address] [place] [address] Gabriel Oquendo MD [address] [place] [address], [address] [address] documented as of this encounter Visit Diagnoses Not on filedocumented in this encounter Additional Health Concerns Infection Onset Date Last Indicated Resolved Time COVID-19 06/27/2021 06/27/2021 07/09/2021 9:03 AM EST documented as of this encounter Care Teams Crosstie Inspector Relationship Specialty Start Date End Date Po, Alberto Prince MD [address] [place] [address] [place] [id number] PCP - Family Medicine Internal Medicine 07/08/19 Mariela Peralta MD [address] [place] [address] PCP - General Internal Medicine 09/28/20 Tawanda Lewis MD [address] [facility], 2nd [place] [address] Referring Physician Physical Medicine and Rehabilitation 11/04/20 documented as of this encounter Additional Source Comments The information contained in this document represents components of the legal health record. It is not the complete legal health record.[facility]
--- OUTSIDE RECORDS SUMMARY | 2025-04-23 08:50 | XMS_ITS | Clinical Summary ---
Author Organization [facility] Address [address] [place] [address] Care Team Providers Care Armhole Baster Hand Name Role Phone Provider, Luz PARKS Primary [...] age to complete this topic Care Teams Armhole Baster Hand Relationship Specialty Start Date End Date ProviderLuz MD PCP - General 05/07/19
--- OUTSIDE RECORDS SUMMARY | 2025-04-23 08:50 | XMS_ITS | Encounter Summary ---
Author Organization [facility] Address [address] [place] [address] Care Team Providers Care Director Learning Services Name Role Phone ProviderLuz MD Primary Care Provider Un available Encounter Details Date Type Department Care Team (Late st Contact Info) Description 06/18/2019 Scanned Document [facility] [place] [address] [facility] [address] [place] [address] Dev Durant MD [address] [address] Social History Tobacco Use Types Packs/Day Years [...] on filedocumented in this encounter Care Teams Director Learning Services Relationship Specialty Start Date End Date ProviderLuz MD PCP - General 05/07/19 documented as of this encounter
--- OUTSIDE RECORDS SUMMARY | 2025-04-23 08:50 | XMS_ITS | Encounter Summary ---
Author Organization [facility] Address [address] [facility] [address] [place] [address] Phone Care Team Providers Care Net Developer Consultant Name Role Phone Alberto James MD Unavailable [phone] Mariela Peralta MD Primary Care Provid er Tawanda Lewis MD Unavailable [phone] Encounter Details Date Type Department Care Team (Late st Contact Info) Description 12/02/2019 Procedure Pass BWF Periop 1st floor [address] [place] [address] Social History Tobacco Use Types Packs/Day Years [...] Department Care Team (Late Contact Info) Description 05/06/2025 4:40 PM EST Appointment [facility] [place], OB [address] [place] [address] Leah Deleon MD [address], [address] [address] [email or web address] 05/07/2025 3:10 PM EST Office Visit [facility] [address] [place] [address] Gabriel Oquendo MD [address] [facility], [address] [address] documented as of this encounter Visit Diagnoses Not on filedocumented in this encounter Additional Health Concerns Infection Onset Date Last Indicated Resolved Time COVID-19 06/27/2021 06/27/2021 07/09/2021 9:03 AM EST documented as of this encounter Care Teams Net Developer Consultant Relationship Specialty Start Date End Date Jacob, Alberto Prince MD [address] [place] [phone] PCP - Family Medicine Internal Medicine 07/08/19 Mariela Peralta MD [address] [place] [address] PCP - General Internal Medicine 09/28/20 Tawanda Lewis MD [address] [facility], 2nd [place] [address] Referring Physician Physical Medicine and Rehabilitation 11/04/20 documented as of this encounter Additional Source Comments The information contained in this document represents components of the legal health record. It is not the complete legal health record.[facility]
--- OUTSIDE RECORDS SUMMARY | 2025-04-23 08:50 | XMS_ITS | Data Portability ---
Author Organization [place] - [facility], Allergy Address [address] [address] Care Team Providers Care Clinical Massage Therapist Name Role Phone MARK JAIMES Referring Provider [phone] Assessment Encounter Date Assessment Date Assessment LastModified [...] symptom relief. I advised her to use xgdw-ith-aievwrj antihistamines such as Claritin, Ivonne, or Zyrtec [...] multip le inject ions (PROC) 2024 025 [email or web address] Not available 04/10/2025 16:15:45 spirom etry, includ ing graphi c record [...] inject ion, auto-i njecto r 2024 025 [id number], [address] [place], [address], 03/26/2025 15:37:31 flutic asone propio roma 50 mcg/ac tuatio n nasal spray, suspen nathan 2024 025 [id number], [address], [place], [address], 01/15/2025 10:26:24 Patient TargetsNo targets recorded. Patient Instructions Encounter Date Encounter Id Patient Instructions Last Modified By Organization Details Last Modified Time 01/14/2025 [id number] Please note: Par ts of this encounter note have been generated by AI based on audio conversation. Patient consent was required prior to utilizing this technology. Content review was required prior to finalizing the note. [email or web address] Not available 01/14/2025 14:29:22 02/28/2025 [id number] Nursing Documentation for Allergy Testing: Ordering Provider [...] different date Other: Written by: Jessica Ortega [email or web address] Not available 02/28/2025 11:01:30 03/26/2025 [id number] - Resume allergy injections. - Continue using Flonase as needed. - Use umbj-jap-mgwdvcv antihistamines such as Claritin, Ivonne, or Zyrtec [...] LastModifiedBy Organization Detail LastModifiedTime 02/29/20 25 liz metjanes testi ng* No observ ation record ed. [email or web address] Not Available 2024 10:45:57 Result Notes None recorded. Problems Name Problem SNOMED Code Status Onset Date Resolution Date Notes Provider Name and Address Organization Details Recorded Time Headache 25595839 Active 2017 Facial pain NOS; Note: Date Diagnosed : 03/12/2018 11:31 AM (R51) Not Available [facility] 4 02:15:59 Migraine without aura, not refractor y 258536473 Active 2017 Migraine without aura, not intractab le, without status migrainos us; Note: Date Diagnosed : 03/12/2018 11:31 AM (G43.009) Not Available [facility] 4 02:14:52 Chronic sinusitis 42456432 Active 2017 Other chronic sinusitis ; Note: Date Diagnosed : 03/12/2018 11:31 AM (J32.8) Not Available [facility] 4 02:15:34 Deviated nasal septum 762133067 Active 2017 Deviated nasal septum; Note: Date Diagnosed : 03/12/2018 11:31 AM (J34.2) Not Available [facility] 4 02:15:30 Chronic rhinitis 04575326 Active 2017 Chronic rhinitis; Note: Date Diagnosed : 04/27/2018 3:39 PM (J31.0) Not Available [facility] 4 02:15:17 Hypertrop hy of nasal turbinate s 20035111 Active 2017 Hypertrop hy of nasal turbinate s; Note: Date Diagnosed : 8 9:08 AM (J34.3) Not Available [facility] 4 02:15:04 Disorder of nasal sinus 2621158 Active 2017 Other specified disorders of nose and nasal sinuses; Note: Date Diagnosed : 8 1:58 PM (J34.89) Not Available [facility] 4 02:15:42 Disorder of the nose 57599466 Active 2017 Other specified disorders of nose and nasal sinuses; Note: Date Diagnosed : 8 1:58 PM (J34.89) Not Available [facility] 4 02:15:42 Allergic rhinitis 24972780 Active 2020 Allergic rhinitis: Due to other [...] other allergen; Note: Date Diagnosed : 06/28/ TRUMAN BOWMAN MD [address] [place] [address],[place] [address], [address] , [facility] - [facility] 5 15:37:08 Pain of right temporoma ndibular joint 96183931442 937310 Active 2024 TRUMAN BOWMAN MD [address] [address], [place], [address] , [facility] 5 14:32:05 Perennial allergic rhinitis 248862918 Active 2024 JESSICA ORTEGA [facility] 100 [facility],[place] [address], [place], [address] , [facility] 5 10:38:40 Problem Notes None recorded. Procedures Surgical History Date Name Laterality Status Provider Name and Address Organization Details Recorded Time 5 Allergy Testing-Full completed JESSICA ORTEGA [facility] 100 [facility],[place] [address], [place], [address], [facility] 02/28/2025 12:56:34 Imaging Results None recorded. Procedure Notes None recorded. Medical Equipment None Reported. Allergies Allergen ID Allergen Name Allergen Category Reaction Reaction Severity Criticality Documentation Date Start Date Code Code System Note Provider Name and Address Organization Details Recorded Time 760599 ibuprofen medicatio n Not available Not available Not available 01/14/2025 5640 RxNorm Medina diaz [facility] 5 14:23:47 96793 morphine medicatio n other Not available Not available 10/31/2023 7052 RxNorm React ion: unkno wn, unspe cifie d;; Not Available [facility] 4 00:51:13 30351 acetamino phen / hydrocodo ne medicatio n other Not available Not available 10/31/2023 25528 2 RxNorm React ion: unkno wn, unspe cifie d;; Not Available [facility] 4 00:51:17 89576 acetamino phen / oxycodone medicatio n other Not available Not available 10/31/2023 83097 3 RxNorm React ion: unkno wn, unspe cifie d;; Not Available [facility] 4 00:51:25 Medications Name Sig Start Date Stop Date Status Note LastModified by Organization Details LastModified Time cyclobenz aprine 10 mg tablet 06/13 completed Medicati on ID: [id number] D uration Value: 5 Reason: () Brand [...] mcg capsule 02/28 completed Medicati on ID: [id number] B rand Name: vitamin A Send Method: E-Prescr ibed Sub s Allowed: subs OK Medic ationGen ericName : vitamin A Not Available Not Available Not Available tizanidin e 2 mg tablet TAKE 1 TABLET BY MOUTH 3 TIMES A DAY NEEDED FOR MUSCLE SPASTICI TY active Not Available Not Available No t Available ondansetr on HCl 4 mg tablet TAKE 1 TABLET BY MOUTH AT BEDTIME NEEDED FOR NAUSEA AND VOMITING FOR 4 DAYS active Not Available Not Available No t Available ciproflox acin 500 mg tablet 01/14 completed Medicati on ID: [id number] D uration Value: 10 Prescri bed By [...] tramadol 50 mg tablet TAKE 1 TABLET BY MOUTH TWICE A DAY NEEDED FOR PAIN FOR 7 [...] us solution 01/14 completed Medicati on ID: [id number] B rand Name: Protonix Send Method: E-Prescr [...] by mouth 01/14 completed Medicati on ID: [id number] D uration Value: 10 Prescri bed By [...] mg) tablet 01/14 completed Medicati on ID: [id number] B rand Name: Calcium 600 Send Method: [...] 0.3 mg/0.3 mL injection , auto-inje ctor TAKE 1 AUTO BY INJECTIO N ROUTE FOR 180 DAYS, FOR ANAPHYLA XIS. active Not Available Not Available No t Available zolpidem 10 mg tablet TAKE 1 TABLET BY MOUTH AT BEDTIME NEEDED FOR SLEEP active Not Available Not Available No t Available multivita min capsule 2017 active Medicati on ID: [id number] B rand Name: multivit de la cruz Sen d Method: E-Prescr ibed Sub s Allowed: subs OK Medic ationGen ericName : multivit de la cruz Not Available Not Available Not Available fluticaso ne propionat e 50 mcg/actua tion nasal spray,terrell pension SPRAY 2 SPRAYS INTO EACH NOSTRIL EVERY DAY active Not Available Not Available No t Available loratadin e 10 mg tablet 1 tablet by mouth 01/14 completed Medicati on ID: [id number] D uration Value: 30 Prescri bed By Name: Truman starr M.D. Bra nd Name: loratadi ne Send Method: E-Prescr ibed Sub s Allowed: subs OK Medic ationGen ericName : loratadi ne Not Available Not Available Not Available diazepam 5 mg tablet 12/13 completed Medicati on ID: [id number] D uration Value: 1 Reason: () Brand Name: diazepam Send Method: E-Prescr ibed Sub s Allowed: subs OK Speci al Instruct ion: TK 1 T PO 1 HOUR PRIOR TO PROCEDUR E. Medic ationGen ericName : diazepam Not Available Not Available Not Available pregabali n 25 mg capsule TAKE 1 CAPSULE BY MOUTH 2 TIMES A DAY. MAY CAUSE DROWSINE SS. DO NOT DRIVE OR TAKE WITH ALCOHOL. active Not Available Not Available No t Available Vitamin B1 02/28 completed Medicati on ID: [id number] B rand Name: vitamin b1 Send Method: [...] topical cream 06/13 completed Medicati on ID: [id number] D uration Value: 30 Reason: () Brand Name: lidocain e-tetrac zackery Sen d Method: E-Prescr ibed Sub s Allowed: subs OK Medic ationGen ericName : lidocain e-tetrac zackery Not Available Not Available Not Available vitamin B12 1,000 mcg-folic acid 400 mcg sublingua l lozenge 02/28 completed Medicati on ID: [id number] B rand Name: vitamin G27-mtcb c acid Sen d Method: E-Prescr ibed Sub s Allowed: subs OK Medic ationGen ericName : vitamin J13-xlca c acid Not Available Not Available Not [...] Details Last Updated DateTime 01/14/2025 118/78 mm[Hg] TRUMAN VIEYRA MD [address], [address], [place] - [facility] 01/14/2025 14:31:35 Date Recorded Body weight Body mass index (BMI) Body height Provider Name and Address Organization Details Last Updated DateTime 01/14/2025 46530.15 g 28.2 kg/m2 162.56 cm Medina Pulido [place] - [facility] 01/14/2025 14:22:38 Date Recorded Body height Body mass index (BMI) Body weight Oxygen saturation Oxygen saturation in Arterial blood by Pulse oximetry Heart rate Systolic And Diastolic Provider Name and Address Organization Details Last Updated DateTime 162.56 cm 28.2 kg/m2 89943.1 5 g 99 % 99 % 87 /min 106/69 mm[Hg] JESSICA ORTEGA, [facility] 100 [facility] [address], [place], [address], [place] - [facility] 10:38:23 Date Recorded Body height Body mass index (BMI) Body weight Systolic And Diastolic Provider Name and Address Organization Details Last Updated DateTime 03/26/2025 162.56 cm 27.5 kg/m2 84517.78 g 100/62 mm[Hg] Thu Escobar [place] - [facility] 03/26/2025 15:29:55 Social History Question Answer Notes LastModified by Organizat ion Details LastModified Time Tobacco Smoking Status Never Smoker Medina diaz [place] - [facility] 01/14/2025 14:23:26 How Many Years Have You Consumed Alcohol? 10 [email or web address] Information not available 01/14/2025 What Type Of Card Mounter Do You Use? PrivateSitter [email or web address] Information not available 01/14/2025 How Many Alcoholic Drinks Do You Consume Per Day On Average? 0 [email or web address] Information not available 03/26/2025 Do You Have Any Pets? Yes Information not available 01/14/2025 Are You Passively Exposed To Smoke? No [email or web address] Information not available 01/14/2025 Are There Any Smokers In Your House? No Information not available 01/14/2025 Sex: Unknown Functional Status Question Answer Note LastModified by Organization Details LastModified Time How many times per week do you consume alcohol? Less than 1 time per week [email or web address] Inform ation not available 01/14/2025 Do you use any illicit or recreational drugs? No [email or web address] Information not available 01/14/2025 Do you or have you ever used any other forms of tobacco or nicotine? No [email or web address] Information not available 01/14/2025 What is your level of alcohol consumption? Occasional [email or web address] Information not available 01/14/2025 What type of noise exposure are you exposed to? noExposureToExcessiveNoise [email or web address] Infor mation not available 01/14/2025 Mental Status None recorded. Family History Relationship Description Onset Age of this Age Resolved Age Notes LastModified by Organization Details LastModified Time Daughter Asthma [email or web address] Not availabl e 01/14/2025 14:23:07 Father Vertigo [email or web address] Not available 01/14/2025 14:23:07 Paternal Grandmother Diabetes mellitus [email or web address] Not available 2024 14:23:07 Mother Allergy [email or web address] Not available 01/14/2025 14:23:07 Mother Asthma [email or web address] Not available 01/14/2025 14:23:07 Maternal Grandmother Diabetes mellitus Not available 2024 14:23:07 Sister Asthma [email or web address] Not available 01/14/2025 14:23:07 Sister Allergy to food [email or web address] Not available 2024 14:23:07 Maternal Grandfather Cerebrovascu lar accident 71 Not available 14:23:07 Maternal Grandfather Diabetes mellitus Not available 2024 14:23:07 Paternal Grandfather Diabetes mellitus [email or web address] Not available 2024 14:23:07 Medical History Condition Response Allergies/Hayfever Y Heart Problems N Anxiety Y Tonsil Infections N Emphysema N Migraines N Thyroid Problems N Glaucoma N Depression N COPD N Developmental Delay N Nasal or Sinus Problems Y Anemia Y Immune System Disorder N Anesthesia Complications N Heart Attack (IA) N Other Skin Condition N Diabetes N Rhinitis N Bleeding Disorder N Food Allergy Y Arthritis Y Hearing Loss N Hyperlipidemia N Cancer N Eczema N Stroke N Dementia N Nasal polyps Y Asthma N Sleep Disorder Y GERD/Reflux Y High Cholesterol N Liver Disease N Headaches Y Fibromyalgia Y Hypertension N Speech Delay N Kidney Disease Y Gynecological HistoryNo gynecological history recorded. Obstetrics History GPAL:G 0 P 0 0 0 0 Past Encounters Encounter ID Performer Location Encounter Start Date Encounter Closed Date Diagnosis/Indication Diagnosis SNOMED-CT Code Diagnosis ICD10 Code Diagnosis IMO Codes Diagnosis Note [id number] TRUMAN BOWMAN MD [facility] [address] [address] 01/14/2025 13:54:02 01/14/2025 14:41:03 Allergic rhinitis 84506229 J30.89 Migraine w ithout aura, not refractory 392203817 G43.009 Suspect underlying migraine headache. Suggest reduction [...] update. Pain of ri ght temporomandibular joint 2275335544 1171502 M26.621 41782806 Warm compresses , soft [place] [id number] [facility] [address] [place] [address] [address] 02/28/2025 10:14:11 02/28/2025 12:57:21 Perennial allergic rhinitis 454447594 J30.89 675589 [id number] TRUMAN BOWMAN MD [facility] [address] [address] 03/26/2025 15:20:16 03/27/2025 09:28:18 Allergic rhinitis 93623690 J30.89 We also discussed the role of [...] Pavon Member ID Guarantor Name 03/23/2025 1 [facility] - HEALTH NET PLAN (MEDICAID HMO) GAVINO [place] [id number] Farshad Anand Notes Date Note Type Note [...] allergic rhinitis as the primary concern. NOSE=[id number] TRUMAN VIEYRA MD [address] [place] [address], [address], [facility] - [facility] 01/14/2025 14:34:29 03/26/2025 text/html Farshad Anand is [...] taking amitriptyline. Additionally, her EpiPen has . TRUMAN VIEYRA MD [address] [place] [address], [phone], [facility] - [facility] 03/26/2025 15:37:54 OBGyn Episode No OBEpisode recorded.
--- OUTSIDE RECORDS SUMMARY | 2025-04-23 08:50 | XMS_ITS | Encounter Summary ---
Author Organization [facility] Address [address] [place] [address] Phone Care Team Providers Care Practice Specialist Name Role Phone Alberto James MD Unavailable [phone] Mariela Peralta MD Primary Care Provid er Tawanda Lewis MD Unavailable [phone] Encounter Details Date Type Department Care Team (Late st Contact Info) Description 12/02/2019 Procedure Pass [facility] [address] [place], [place] [id number] Social History Tobacco Use Types Packs/Day Years [...] EST Appointment [facility] [place], [place] [address] [place] [address] Leah Deleon MD [address] [facility], [address] [place] [address] [email or web address] 05/07/2025 3:10 PM EST Office Visit [facility] [address] [place] [phone] Gabriel Oquendo MD [address] [facility], [address] [place] [address] documented as of this encounter Visit Diagnoses Not on filedocumented in this encounter Additional Health Concerns Infection Onset Date Last Indicated Resolved Time COVID-19 06/27/2021 06/27/2021 07/09/2021 9:03 AM EST documented as of this encounter Care Teams Practice Specialist Relationship Specialty Start Date End Date Po, Alberto Prince MD [address] [place] [address] [place] [phone] PCP - Family Medicine Internal Medicine 07/08/19 Mariela Peralta MD [address] [place] [address] PCP - General Internal Medicine 09/28/20 Tawanda Lewis MD [address] [facility], 2nd [place] [address] Referring Physician Physical Medicine and Rehabilitation 11/04/20 documented as of this encounter Additional Source Comments The information contained in this document represents components of the legal health record. It is not the complete legal health record.[facility]
--- OUTSIDE RECORDS SUMMARY | 2025-04-23 08:50 | XMS_ITS | Encounter Summary ---
Author Organization [facility] Address [address] [facility] [address] [place] [address] Phone Care Team Providers Care Metal Moulder'S Assistant Name Role Phone Alberto James MD Unavailable [phone] Mariela Peralta MD Primary Care Provid er Tawanda Lewis MD Unavailable [phone] Encounter Details Date Type Department Care Team (Late st Contact Info) Description 02/05/2021 Telephone [facility] [address] [place] [address] Becky Murcia, [facility] [address] [facility], [address] [place] [address] [email or web address] Social History Tobacco Use Types Packs/Day Years [...] EST Appointment [facility] [place], [place] [address] [place] [address] [place] [address] Leah Deleon MD [address] [place] [address], [address] [place] [address] [email or web address] 05/07/2025 3:10 PM EST Office Visit [facility] [address] [place] [address] [place] [address] Gabriel Oquendo MD [address] [place] [address], [address] [address] documented as of this encounter Visit Diagnoses Not on filedocumented in this encounter Additional Health Concerns Infection Onset Date Last Indicated Resolved Time COVID-19 06/27/2021 06/27/2021 07/09/2021 9:03 AM EST documented as of this encounter Care Teams Metal Moulder'S Assistant Relationship Specialty Start Date End Date Po, Alberto Prince MD [address] [place] [address] Drive [address] [place] [phone] PCP - Family Medicine Internal Medicine 07/08/19 Mariela Peralta MD [address] [place] [address] PCP - General Internal Medicine 09/28/20 Tawanda Lewis MD [address] [facility], 2nd [place] [address] Referring Physician Physical Medicine and Rehabilitation 11/04/20 documented as of this encounter Additional Source Comments The information contained in this document represents components of the legal health record. It is not the complete legal health record.[facility]
--- OUTSIDE RECORDS SUMMARY | 2025-04-23 08:50 | XMS_ITS | Clinical Summary ---
Author Organization [facility] Address [address] [place] [address] [place] [address] Phone Care Team Providers Care Polymer Scientist Name Role Phone Alebrto James MD Unavailable [phone] Mariela Peralta MD Primary Care Provid er Tawanda Lewis MD Unavailable [phone] Allergies Active Allergy Reactions Criticality Noted Date [...] 11/28/2019 Hydrocodone-Acetamino phen Hives Medium 11/28/2019 Medications cyanocobalamin (VITAMIN B-12) 1,000 mcg/mL injection every 30 (thirty) days. 021 Active fluticasone propionate (FLONASE) 50 mcg/actuation nasal spray SPRAY 2 SPRAYS INTO EACH NOSTRIL 025 Active lidocaine (LIDODERM) 5 % APPLY 1 PATCH TOPICALLY DAILY LEAVE ON MOST PAINFUL AREA FOR UP TO 12 HRS 025 Active pregabalin (LYRICA) 100 MG capsule Active ZEPBOUND 7.5 mg/0.5 mL subcutaneous pen INJECT 7.5 MG (0.5 ML) SUBCUTANEOUSLY EVERY WEEK FOR 4 WEEKS Active tiZANidine (ZANAFLEX) 2 MG tablet TAKE 1 TABLET BY MOUTH 3 TIMES A DAY NEEDED FOR MUSCLE SPASTICITY 025 Active zolpidem (AMBIEN) 10 mg tablet TAKE 1 TABLET ORALLY BEDTIME NEEDED FOR SLEEP FOR 30 DAYS Active vitamins-DHA (DUET DHA ) 29 mg iron-1 mg -430 mg Cmpk Take 1 packet by mouth daily. 2024 Discontinued pyridoxine HCl, vitamin B6, (VITAMIN B-6 ORAL) Take by mouth daily. 2024 Discontinued BIOTIN ORAL Take by mouth daily. 2024 Discontinued norethindrone (MICRONOR) 0.35 mg tablet Take 1 tablet (0.35 mg total) by mouth daily. Micronor 1 tab po QD 28 tablet 12 022 2024 Discontinued diazePAM (VALIUM) 10 MG tablet Take 1 tablet (10 mg total) by mouth once for 1 dose. 1 tablet 023 2024 Discontinued Active Problems Problem Noted Date Diagnosed Date [...] preclude this happening after an [facility] - [facility] health form signed today Assessment & Plan [...] Blood glucose testing - [facility] for [...] order [facility] referral for QID testing at [place] d/t gastric bypass Assessment & Plan (02/10/2021 [...] Overview (02/10/2021): Sees Dr. Lewis regularly. Has SHELLEY shelby. Assessment & Plan (02/10/2021 12:35 PM EDT): Sees Dr. Lewis regularly. Has SHELLEY shelby. Gastroesophageal reflux disease Overview (02/10/2021): Controlled with pepcid 2x daily Assessment & Plan (02/10/2021 12:36 PM EDT): Controlled with pepcid 2x daily Claustrophobia Resolved Problems Problem Noted Date Diagnosed Date Resolved Date Normal , unspecified trimester 07/20/2021 09/03/2021 Premature uterine contractio ns in third trimester, antepartum 05/18/2021 07/06/2021 Overview (06/27/2021): 05/17/21: observed at [facility] for regular painful contractions, cervix L/T/C and ffn neg but transferred to [facility] due to worsening contractions and some [...] dc home, if in labor transfer to [facility] due to prematurity 1630: VE unchanged Discussed discharge plan w/ MD Nguyen. Will repeat US in 4 wks from the 9th. Pt advised to call back if Ucs [...] have continued since she was discharged from [facility]. Contractions are around q 3 min [...] QID for another week and f/u with CEDE. Assessment & Plan (05/18/2021 2:31 PM EST): [...] additional contractions since being seen at the [facility] last week. Discussed increased risk for contractions due to fibroids and importance of calling with any concerns. UTI (urinary tract infection ) during , second trimester 04/01/2021 09/03/2021 Overview (06/01/2021): Seen at [facility] 04/01 with pain and contractions. UA suggestive of UTI. Urine culture sent. RX augmentin 875 BID x 7 days, prophylactic Urine culture result mixed. Neg urinalysis on 04/27, 05/17, 05/30 (performed with PTL workup) Assessment & Plan (04/28/2021 6:17 PM EST): -Urine culture collected yesterday at the [facility] Assessment & Plan (04/08/2021 8:24 PM EDT): Was seen at the [facility] on 04/01 with contractions, received terbutaline and IV fluids and treated for presumed UTI based on UA. Urine culture result mixed. Was seen again at the [facility] one day later, received terbutaline again. Reports she has had no additional contractions since then. Anemia affecting in third trimester 01/12/2009/03/2021 Overview (07/06/2021): 01/11: Hb 10.3 04/29: Hb 10.0 - pt aware, has a remote sensing advisor and gets iron transfusions to held with [...] & Plan (02/10/2021 12:35 PM EDT): Saw remote sensing advisor. Has a hard time taking iron as [...] had any symptoms. Farshad went to the [facility] last night, reports having lots of pain, [...] & Plan (06/24/2021 4:55 PM EST): BPP 8/, DAMION 12.8. Assessment & Plan (06/01/2021 9:28 [...] here with her mom. Recently discharged from [facility] following admission for contractions. See problem [...] in -Discussed FM at this [place] and [facility] -Review signs and symptoms of Pre-term Labor [...] discrepancy, reports original ASAEL was established at [facility] but is inconsistent with what [...] visit for f/u after being seen in [facility] for NVP on 12/23. Reports she [...] concerning symptoms. They will be traveling to [place] next week, advised she should call with any concerns while away, reviewed how to reach train conductor CNM. Has US and [facility] scheduled on 01/11. Uterine fibroid during , antepartum 07/0109/03/2021 Overview (05/30/2021): 3 myomas, largest 4 cm [...] Encounters Date Type Department Care Team Description 04/22/2025 4:10 PM EST [facility] Visit [facility] [address] [place] [address] Gabriel Oquendo MD Encounter for annual routine gynecological examination (Primary Dx); Screening for cervical cancer; Cysts of both ovaries; Fibroids 03/25/2025 3:40 PM EDT Office Visit [facility] [address] [place] [address] [place] [address] Leah Carter MD Pelvic pain (Primary Dx) 03/24/2025 4:26 PM EDT - 03/24/2025 11:59 PM EDT Hospital Encounter [facility] [place], OB [address] [place] [address] Ekta Ernst MD Discharge Disposition: Home or Self Care 02/19/2025 11:00 AM EDT Office Visit [facility] [address] [place] [address] [place] [address] Ekta Ernst MD Uterine leiomyoma, unspecified location (Primary Dx) 02/10/2025 Nurse Triage [facility] [address] [place] [address] [place] [address] Opal Delgadillo, RN pelvic pain from Last 3 Months Immunizations [...] Pressure 94/50 04/22/2025 4:09 PM EST Pulse 71 12/13/2022 11:06 AM EDT Temperature 36.9 C (98.5 F) 12/13/2022 11:06 AM EDT Respiratory Rate 18 07/22/2021 5:00 PM EST Oxygen Saturation 99% 12/13/2022 11:06 AM EDT Inhaled Oxygen Concentration - - Weight 71.2 kg (157 lb) 04/22/2025 4:09 PM EST Height 162.6 cm (5' 4 ) 02/19/2025 11:13 AM EDT Body Mass Index 26.95 02/19/2025 11:13 AM EDT Plan of Treatment Upcoming Encounters Date Type Department Care Team (Late st Contact Info) Description 05/06/2025 4:40 PM EST Appointment [facility] [place], OB [address] [place] [address] [place] [address] Leah Deleon MD [address] [place] [address], [address] [place] [address] [email or web address] 05/07/2025 3:10 PM EST Office Visit [facility] [address] [place] [address] [place] [address] Gabriel Oquendo MD [address] [place] [address], [address] [place] [address] [email or web address] Health Maintenance Due Date Last Done Comments DEPRESSION SCREENING 2001 PNEUMOCOCCAL VACCINES (0-49 years) (1 of 2 - PCV) 2008 SCREENING FOR DIABETES 2024 12/23/2020 PAP SMEAR 01/14/2025 01/15/2020 INFLUENZA VACCINE (#1) 2025 , 03/08/2022, 04/07/2021, Additional history exists COVID-19 VACCINE ( - 2024- season) 2025 03/29/2024, 01/23/2023, 07/23/2021, Additional history exists Adult Td,Tdap Booster 05/18/2031 05/18/2021 , 07/02/2018, 07/02/2018, Additional history exists HIB VACCINES Aged Out 10/17/1990 No longer eligi ble based on patient's age to complete this topic HEPATITIS C SCREENING Completed 01/11/2021, 021 HIV ONE-TIME SCREENING (18-65 YEARS) Completed 01/11/2021 SMOKING STATUS SCREENING (Once After 26 Yrs) Completed 04/22/2025 HEPATITIS A VACCINES Aged Out No long er eligible based on patient's age to complete this topic MENINGOCOCCAL VACCINES (ACWY) Aged Out No longer eligible based on patient's age to complete this topic MENINGOCOCCAL VACCINES (B) Aged Out N o longer eligible based on patient's age to complete this topic Medical Devices Implanted Type Area Franchise Sales Manager Device Identifier Shelf Expiration Date Model / Serial / Lot Implant Ifuse 3d 7x50mm - [id number] Implanted:Qty: 1 on 12/02/2019 by Susana Ratliff MD, PhD at [facility] Left: Sacrum S [employer] 05/07/2024 7050M-90 / / [id number] Implant Ifuse 3d 7x45mm - [id number] Implanted:Qty: 1 on 12/02/2019 by Susana Ratliff MD, PhD at [facility] Left: Sacrum S [employer] 02/26/2024 7045M-90 / / [id number] Implant Ifuse 3d 7x40mm - [id number] Implanted:Qty: 1 on 12/02/2019 by Susana Ratliff MD, PhD at [facility] Left: Sacrum S [employer] 05/07/2024 7040M-90 / / [id number] Procedures Procedure Name Priority Date/Time Associated Diagnosis [...] PM EDT) HCV NON-REACTIV E NON-REACTI VE [facility] Blood 01/11/2021 4:16 PM EDT 01/11/2021 6:53 PM EDT us Ivet Farrell [facility] BLOOD BKR ORDERABLES Final Result [facility] [address] [place], [place] [id number] * PAP SMEAR FOR RESULT ENTRY ONLY (01/15/2020) Fabiola [facility] Final Re sult from Last 3 Months or Most Recently Relevant to Health Maintenance Insurance [facility] [place] [address] [place] [address] ACO ACO ACO ACO ACO [facility]CO [facility] Advance Directives For more information, please contact: [phone] (9AM - 5PM [facility], Monday-Monday) Documents on File Type Date Recorded Patient Director Of Assessment Expl anation Healthcare Proxy 07/26/2021 4:52 PM [...] Code Status Confirmed With: Patient Care Teams Polymer Scientist Relationship Specialty Start Date End Date Alberto James MD [address] [place] [phone] PCP - Family Medicine Internal Medicine 07/08/19 Mariela Peralta MD [address] [place] [address] PCP - General Internal Medicine 09/28/20 Tawanda Lewis MD [address] [facility], 2nd [place] [address] [email or web address] Referring Physician Physical Medicine and Rehabilitation 11/04/20 Additional Source Comments The information contained in this document represents components of the legal health record. It is not the complete legal health record.[facility]
--- OUTSIDE RECORDS SUMMARY | 2025-04-23 08:50 | XMS_ITS | Encounter Summary ---
Author Organization [employer] Address [address] [facility] 7t [place] [address] Care Team Providers Care Chief Vendor Quality Name Role Phone Unavailable Primary Care Provider [...]
--- OUTSIDE RECORDS SUMMARY | 2025-04-23 08:51 | XMS_ITS | Encounter Summary ---
Author Organization [facility] Address [address] [facility] [address] [place] [address] Phone Care Team Providers Care Automotive Maintenance Technician Name Role Phone Jacob, Alberto Prince MD Unavailable [phone] Mariela Peralta MD Primary Care Provid er Tawanda Lewis MD Unavailable [phone] Encounter Details Date Type Department Care Team (Late st Contact Info) Description 07/11/2019 Ancillary Orders [facility],Outside Imaging [address] [place], [place] [phone] System, Provider Not In, [place] [address] Social History Tobacco Use Types Packs/Day Years [...] Info) Description 05/06/2025 4:40 PM EST Appointment [facility] [place], OB [address] [place], [place] [phone] Leah Deleon MD [address] [facility], [address] [place] [address] [email or web address] 05/07/2025 3:10 PM EST Office Visit [facility] [address] [place] [address] Gabriel Oquendo MD [address] [facility], [address] [place] [address] documented as of this encounter Results * [...] documented as of this encounter Care Teams Automotive Maintenance Technician Relationship Specialty Start Date End Date Jacob, Alberto Prince MD [address] [place] [phone] PCP - Family Medicine Internal Medicine 07/08/19 Mariela Peralta MD [address] [place] [address] PCP - General Internal Medicine 09/28/20 Tawanda Lewis MD [address] [facility], 2nd [place] [address] Referring Physician Physical Medicine and Rehabilitation 11/04/20 documented as of this encounter Additional Source Comments The information contained in this document represents components of the legal health record. It is not the complete legal health record.[facility]
--- OUTSIDE RECORDS SUMMARY | 2025-04-23 08:51 | XMS_ITS | Encounter Summary ---
Author Organization [facility] Address [address] [facility] [address] [place] [address] Phone Care Team Providers Care Director Of Corporate Sales Name Role Phone Jacob, Alberto Prince MD Unavailable [phone] Mariela Peralta MD Primary Care Provid er Tawanda Lewis MD Unavailable [phone] Encounter Details Date Type Department Care Team (Late st Contact Info) Description 07/11/2019 Ancillary Orders [facility],Outside Imaging [address] [place], [place] [phone] System, Provider [place] In, [place] [address] Social History Tobacco Use Types Packs/Day Years [...] Info) Description 05/06/2025 4:40 PM EST Appointment [facility] [place], OB [address] [place], [place] [phone] Leah Deleon MD [address] [facility], [address] [place] [address] [email or web address] 05/07/2025 3:10 PM EST Office Visit [facility] [address] [place] [address] Gabriel Oquendo MD [address] [facility], [address] [place] [address] documented as of this encounter Results * [...] documented as of this encounter Care Teams Director Of Corporate Sales Relationship Specialty Start Date End Date Jacob, Alberto Prince MD [address] [facility] [facility] [address] [place] [phone] PCP - Family Medicine Internal Medicine 07/08/19 Mariela Peralta MD [address] [place] [address] PCP - General Internal Medicine 09/28/20 Tawanda Lewis MD [address] [facility], 2nd [place] [address] Referring Physician Physical Medicine and Rehabilitation 11/04/20 documented as of this encounter Additional Source Comments The information contained in this document represents components of the legal health record. It is not the complete legal health record.[facility]
--- OUTSIDE RECORDS SUMMARY | 2025-04-23 08:51 | XMS_ITS | Encounter Summary ---
Author Organization [facility] Address [address] [facility] [address] [place] [address] Phone Care Team Providers Care Fiscal Technician Name Role Phone Alberto James MD Unavailable [phone] Mariela Peralta MD Primary Care Provid er Tawanda Lewis MD Unavailable [phone] Encounter Details Date Type Department Care Team (Late st Contact Info) Description 07/20/2021 Procedure Pass [facility] Procedures [address] [place] [address] Social History Tobacco Use Types Packs/Day Years [...] 07/23/2021 12:00 PM Felicia Grajeda, CONSTANTIN * Garrard Suicide Severity Rating Scale (Screener/Recent Self-Report) Question [...] EST Appointment [facility] [place], OB [address] [place] [address] [place] [address] Leah Deleon MD [address] [place] [address], [address] [place] [address] [email or web address] 05/07/2025 3:10 PM EST Office Visit [facility] [address] [place] [address] [place] [address] Gabriel Oquendo MD [address] [place] [address], [address] [address] documented as of this encounter Visit Diagnoses Not on filedocumented in this encounter Care Teams Fiscal Technician Relationship Specialty Start Date End Date Alberto James MD [address] [place] [address] [address] [place] [phone] PCP - Family Medicine Internal Medicine 07/08/19 Mariela Peralta MD [address] [place] [address] PCP - General Internal Medicine 09/28/20 Tawanda Lewis MD [address] [place] [address], 2nd [place] [address] Referring Physician Physical Medicine and Rehabilitation 11/04/20 documented as of this encounter Additional Source Comments The information contained in this document represents components of the legal health record. It is not the complete legal health record.[facility]
--- NOTE | 2025-04-23 09:59 | MHC.OFFVISWM ---
Intake Visit Reasons: TV Pre Op Lap Lady 04/30/25 Allergies hydrocodone (From Vicodin) Allergy (Intermediate, Verified 04/23/25 09:59) Rash, Hives morphine (MORPHINE) Allergy (Intermediate, Verified 04/23/25 09:59) BURNING IN CHEST, shortness of breath oxycodone (From PERCOCET) Allergy (Intermediate, Verified 04/23/25 09:59) ITCHINESS pumpkin Allergy (Intermediate, Verified 04/23/25 09:59) Itching ibuprofen Adverse Reaction (Intermediate, Verified 04/23/25 09:59) Stomach Upset Medication List - Last Reconciled 04/23/25 by Neto Bobo MD cholecalciferol (vitamin D3) 50 mcg PO DAILY 90 days cyanocobalamin (vitamin B-12) 1,000 mcg subcut QMONTH 30 days lidocaine 5% 1 patch topical DAILY multivitamin 1 tab PO DAILY ondansetron 4 mg PO Q12H ondansetron HCl 4 mg PO BEDTIME PRN 4 days pregabalin (Lyrica) 25 mg PO BID syringe with needle (Syringe) As Directed tizanidine 2 mg PO TID PRN tramadol 50 mg PO BID PRN 7 days zolpidem 10 mg PO BEDTIME PRN 30 days HPI HPI TV Pre Op Lap Lady 04/30/25: Details: Start time: 9.48am, End time: 10.08am ?I spent 15 minutes speaking with the patient on the phone plus an additional 5 minutes reviewing and updating records for a total of 20 minutes HPI Comments Details: Patient has developed a mid-epigastric pain associated with nausea and food intake. Had an EGD that was normal. Abdominal US showed cholelithiasis which appears symptomatic. She is now scheduled for laparoscopic cholecystectomy. [facility] Medical History (Updated 04/23/25 @ 10:04 by Neto Bobo MD) Cholelithiasis GERD (gastroesophageal reflux disease) Carpal tunnel syndrome Hypovitaminosis D B12 deficiency Anemia Kidney stones Surgical History History of esophagogastroduodenoscopy (EGD) S/P fusion of sacroiliac joint History of delivery History of surgery History of nasal surgery History of wisdom tooth extraction Gastric bypass status for obesity Family History Father High cholesterol Diabetes Mother Migraine Obesity Bipolar disorder Mental health disorder Maternal Grandfather Stroke Sister In good health Brother In good health Social History Household Members: Spouse Housing: House Are you a primary home health care social worker to a significant other at home: No Do you presently have visiting nurse or other home services: No Alcohol intake: current Alcohol intake frequency: does not drink Alcohol type: beer Patient Tobacco Use Status: Never used Tobacco e-Cigarette/Vaping Use: Never Used Second Hand Smoke Exposure: No service: No Current occupational status: employed 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 Current occupational exposures/hazards: No Cognitive needs: No Hearing needs: No Vision needs: Yes (glasses) Female Reproductive History Menstrual Age of Menarche: 8 Telehealth Telehealth Telehealth Platform: Telephone Location of provider rendering services: practice address Location of patient: address on file Patient Identification confirmed using: Name, : Yes Telehealth method: voice only Patient verbally consented to treatment: Yes Patient verbally consented to billing insurance company: Yes Patient informed of any privacy concerns related to visit: Yes Minutes spent on Phone/Video with Pt.: 20 Assessment & Plan Assessment & Plan (1) Cholelithiasis: Code(s): K80.20 - Calculus of gallbladder without cholecystitis without obstruction Category: Medical Qualifiers: Cholelithiasis location: gallbladder Cholecystitis presence: with cholecystitis Cholecystitis acuity: acute Biliary obstruction: without biliary obstruction Qualified Code(s): K80.00 - Calculus of gallbladder with acute cholecystitis without obstruction Plan: 1. The patient was not aware of having a cholelithiasis. We also discussed that bariatric surgery may accelerate the onset of symptoms of cholelithiasis and that is why elective cholecystectomy in indicated and recommended. We discussed in detail the potential complications and their management including bleeding, bile leak, pancreatitis and major bile duct injury. We also discussed the possibility of lap-assisted ERCP if a bile duct injury occurs due to her prior history of gastric bypass. 2. Avoid any aspirin, Zepbound, Tizanidine, Lyrica, motrin, aleve, ibuprofen, advil, meloxicam. They can cause bleeding. You can use Tylenol and Tramadol. 3. Do your preoperative blood work nay day between Monday04/23/25 and Monday04/25/25. No need to fast. Orders: Orders Type and Screen Today K80.20 - Calculus of gallbladder without cholecystitis without obstruction Partial Thromboplastin Time Today K80.20 - Calculus of gallbladder without cholecystitis without obstruction Prothrombin Time INR Today K80.20 - Calculus of gallbladder without cholecystitis without obstruction Medications: New ondansetron 4 mg PO Q12H 20 tabs 0RF nausea and vomiting R11.0 - Nausea
== END 2025-04-23 10:10 | disposition home or self-care (01) ==
LOC: HO.HBS 08:35
PROVIDERS: PCP Internal Medicine; Visit Provider Surgery
DX: K80.00 Calculus of gallbladder with acute cholecystitis without obstruction (principal)
CPT/HCPCS: 99213

== ENCOUNTER 2025-04-30 08:03 | Day surgery (SDC) | payer OTHER, SELFPAY ==
[2025-04-23 16:17] LABS: INTERNATIONAL NORM RATIO 1.0 (0.9-1.1); Prothrombin Time 12.7 SEC (11.2-13.5)
[2025-04-23 16:20] LABS: Partial Thromboplastin Time 31.0 SEC (26.7-34.1)
--- NOTE | 2025-04-25 13:36 | P.CONAN_ITS ---
Documented by User: Leilani Herrera NP 04/25/25 13:39 HPI - Anesthesia Eval Consult details Narrative: 34yo F for Cholecystectomy Laparoscopic PMFSH Active Problems Active Problems: All Active Problems Cholelithiasis (Acute) Abdominal pain (Acute) Chronic pain syndrome (Acute) Renal cyst (Acute) Insomnia (Acute) Class 1 obesity with body mass index (BMI) of 31.0 to 31.9 in adult (Acute) Allergic rhinitis (Acute) Class 2 obesity with body mass index (BMI) of 36.0 to 36.9 in adult (Acute) Thoracic spine pain (Acute) Sacroiliac joint dysfunction of left side (Acute) BMI 31.0-31.9,adult (Acute) Obesity (Acute) Adjustment disorder, unspecified (Acute) Carpal tunnel syndrome of right wrist (Acute) Numbness and tingling of right arm (Acute) Numbness and tingling in left arm (Acute) Pain in right finger(s) (Acute) Coccyalgia (Acute) Immunization due (Acute) Bilateral hand numbness (Acute) Physical exam (Acute) URI (upper respiratory infection) (Acute) Earache on left (Acute) Hematuria (Acute) Left flank pain (Acute) Anemia (Acute) B12 deficiency (Acute) Physical exam (Acute ~06/17/21) Mouth ulcers (Acute) Fusion congenital, sacroiliac joint (Acute) Early stage of (Acute) Complex ovarian cyst (Acute) Myoma (Acute) Menorrhagia (Acute) Right flank pain (Acute) S/P fusion of sacroiliac joint (Acute) Gastric bypass status for obesity (Acute) GERD (gastroesophageal reflux disease) (Acute) Kidney stones (Acute) Carpal tunnel syndrome (Acute) Hypovitaminosis D (Acute) B12 deficiency (Acute) Anemia (Chronic) Past Medical History Medical History Cholelithiasis GERD (gastroesophageal reflux disease) Carpal tunnel syndrome Hypovitaminosis D B12 deficiency Anemia Kidney stones Family History Family History Father High cholesterol Diabetes Mother Migraine Obesity Bipolar disorder Mental health disorder Maternal Grandfather Stroke Sister In good health Brother In good health Family history of problems with anesthesia: No Surgical History Surgical History History of esophagogastroduodenoscopy (EGD) S/P fusion of sacroiliac joint History of delivery History of surgery History of nasal surgery History of wisdom tooth extraction Gastric bypass status for obesity History of Problems with Anesthesia: No Social History Social History Household Members: Spouse Housing: House Are you a primary health care law specialist to a significant other at home: No Do you presently have visiting nurse or other home services: No Alcohol intake: current Alcohol intake frequency: does not drink Alcohol type: beer Patient Tobacco Use Status: Never used Tobacco e-Cigarette/Vaping Use: Never Used Second Hand Smoke Exposure: No Use of substances other than those prescribed or required for medical reasons: No Have you been hit, kicked, punched, or otherwise hurt by someone within the past year? 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 Current occupational exposures/hazards: No Cognitive needs: No Hearing needs: No Vision needs: Yes (glasses) Meds Allergies Allergy/AdvReac Type Severity Reaction Status Date / Time hydrocodone (From Vicodin) Allergy Intermediate Rash, Hives Verified 04/23/25 09:59 morphine (MORPHINE) Allergy Intermediate BURNING IN Verified 04/23/25 09:59 CHEST, shortness of breath oxycodone (From PERCOCET) Allergy Intermediate ITCHINESS Verified 04/23/25 09:59 pumpkin Allergy Intermediate Itching Verified 04/23/25 09:59 ibuprofen AdvReac Intermediate Stomach Verified 04/23/25 09:59 Upset Home Medications ?Medication ?Instructions ?Recorded ?Confirmed ?Last Taken ?Type multivitamin 1 tab PO DAILY 10/09/24 11/0 11/1010/08/24 History Exam Pertinent Lab Results Pertinent Lab Results: Laboratory Tests 04/23/25 14:54 PT 12.7 INR 1.0 APTT 31.0 Blood Type A Positive Antibody Screen NEGATIVE Laboratory Tests 03/30/25 15:46 WBC 6.8 Hgb 12.5 Hct 38.0 Plt Count 354 D Sodium 141 Potassium 4.0 Chloride 109 H Carbon Dioxide 22 BUN 11 Creatinine 0.76 Assessment and Plan Assessment Anesthesia Assessment: Chart Reviewed Final Anesthetic Review Family History of Problems with Anesthesia: No History of Problems with Anesthesia: No Documented by User: Marlena Spencer MD 04/30/25 10:20 [facility] Past Medical History Medical History Cholelithiasis GERD (gastroesophageal reflux disease) Carpal tunnel syndrome Hypovitaminosis D B12 deficiency Anemia Kidney stones Family History Family History Father High cholesterol Diabetes Mother Migraine Obesity Bipolar disorder Mental health disorder Maternal Grandfather Stroke Sister In good health Brother In good health Surgical History Surgical History History of esophagogastroduodenoscopy (EGD) S/P fusion of sacroiliac joint History of delivery History of surgery History of nasal surgery History of wisdom tooth extraction Gastric bypass status for obesity Social History Social History Household Members: Spouse Housing: House Are you a primary health care law specialist to a significant other at home: No Do you presently have visiting nurse or other home services: No Alcohol intake: current Alcohol intake frequency: does not drink Alcohol type: beer Patient Tobacco Use Status: Never used Tobacco e-Cigarette/Vaping Use: Never Used Second Hand Smoke Exposure: No Use of substances other than those prescribed or required for medical reasons: No Have you been hit, kicked, punched, or otherwise hurt by someone within the past year? 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 Current occupational exposures/hazards: No Cognitive needs: No Hearing needs: No Vision needs: Yes (glasses) Meds Allergies Allergy/AdvReac Type Severity Reaction Status Date / Time hydrocodone (From Vicodin) Allergy Intermediate Rash, Hives Verified 04/23/25 09:59 morphine (MORPHINE) Allergy Intermediate BURNING IN Verified 04/23/25 09:59 CHEST, shortness of breath oxycodone (From PERCOCET) Allergy Intermediate ITCHINESS Verified 04/23/25 09:59 pumpkin Allergy Intermediate Itching Verified 04/23/25 09:59 ibuprofen AdvReac Intermediate Stomach Verified 04/23/25 09:59 Upset Home Medications ?Medication ?Instructions ?Recorded ?Confirmed ?Last Taken ?Type multivitamin 1 tab PO DAILY 10/09/2411/1010/08/24 History Exam Airway Mallampati Class: II TM Dist: >3cm Neck ROM: Full Loose/Missing/Broken Teeth: No Heart: RRR Lungs: CTA Assessment and Plan Assessment Anesthesia Assessment: Anesthesia Plan Discussed Final Anesthetic Review NPO: Yes ASA Class: II Final Preanesthetic Review: Meds/Allgs Chart Reviewed, Consent Obtained/Reviewed and Anes Risks/Benef Reviewed Patient Risk: Low Procedure Risk: Intermediate Anesthetic Plan Anesthetic Plan: GA Disposition: Standard PACU
[2025-04-30] VITALS (21 sets, daily range): BP systolic 103–125; BP diastolic 59–75; PULSE 71–92; RESP 12–20; TEMP 36.5–36.8; O2SAT 98–100; BMI 26.6
[2025-04-30 08:25] LABS: UPreg QC Valid YES
[2025-04-30] MEDS: Aprepitant 32 MG/4.4 ML VIAL IVPUSH (08:53)
[2025-04-30] MEDS: Lactated Ringers 1,000 ML 100 ML IVCONT (08:53)
--- NOTE | 2025-04-30 10:03 | P.BOP_ITS ---
Brief Operative Note Date of Service: 04/30/25 Pre-op diagnosis: Symptomatic cholelithiasis Post-op diagnosis: same Procedure: PROCEDURE DATE: 04/30/2025 PREOPERATIVE DIAGNOSIS: Symptomatic cholelithiasis, mid epigastric and right upper quadrant abdominal pain POSTOPERATIVE DIAGNOSIS: Same as above. PROCEDURE: Laparoscopic cholecystectomy Surgeon: Jean Paul Bobo M.D.. Ph.D. Home Office Claims Examiner: Linda Iverson PA-C Anesthesia: General endotracheal anesthesia Estimated blood loss: Minimal FINDINGS AND PROCEDURE: OPERATIVE INDICATIONS: The patient is a 34year old female known to me who underwent a laparoscopic cholecystectomy. The patient had remarkable weight loss so far and had a completely uneventful recovery. The patient was doing very well but has recently been complaining of persistent mid epigastric and right upper quadrant abdominal pain which is mostly postprandial. Ultrasound of the abdomen and pelvis was consistent with cholelithiasis. Based on this information we recommended laparoscopic cholecystectomy, upper endoscopy to evaluate the patient's symptoms. In addition to that the plan was also to examine the gastric bypass at the same time. Risks and complications of the surgery were discussed with the patient in advance particularly the possibility of conversion to an open surgery, bleeding, infection, obstruction, deep vein thrombosis or pulmonary embolism, bile leak or major bile duct injury that may require surgical intervention. The patient understood the risks and was in agreement with the plan. PROCEDURE: After informed consent was obtained by the patient, the patient was transferred to the Operating Room and was placed in the supine position. The patient was given preoperative antibiotics and after successful induction of general anesthesia a Dunn catheter and pneumatic compression devices were placed. The patient was then prepped and draped in the usual sterile manner and abdominal access was established with the Yehuda port to the right of the midline below the xyphoid process. The abdomen was insufflated with C02 to a pressure of 15 mmHg. A 5 mm Versi-step port was placed, slightly to the right and superior from the umbilicus. The 5 mm camera was introduced. We inspected the area where the port had been placed and there was no injury. The patient was then placed initially in a steep reverse Trendelenburg position and two 5 mm Versi-step ports at the right upper quadrant and right flank. The patient was then placed back in the supine position and we examined the bypass by retracting the transverse mesocolon and the omentum cephalad. The jejunostomy was identified, it appeared to be normal. There was no dilation of the anastomosis. The small bowel mesenteric defect was closed and there was no internal hernia. The biliopancreatic limb was traced back to the ligament of Treitz and the Valdivia's defect was completely closed as well as the mesocolic defect. I also ran the small bowel all the way to the ileocecal valve and it was normal. There were no adhesions anywhere. I did notice that the sigmoid colon was very floppy and somewhat distended and it was somewhat twisted within the small bowel loops. It was untwisted and was positioned at the left lower quadrant. This could be related with the patient's pain as well. We will monitor it after the gallbladder is removed. At that point we positioned back the transverse colon and the omentum above the small intestine and then the patient was placed in a steep reverse Trendelenburg position tilted to the left side. The gallbladder was retracted cephalad and laterally. The peritoneal attachments of the gallbladder at the triangle of Calot posteriorly and anteriorly were taken down. The cystic duct and artery were both seen. They were completely dissected free, skeletonized all the way to the infundibulum of the gallbladder . In a similar fashion we also cleaned the liver bed just behind the cystic artery to make sure there was no additional structures in this area. Once we confirmed that both structures were entering into the gallbladder and there were no other structures in the area, they were both clipped with two clips proximally, one distally and were cut in-between. We then using the electrocautery we slowly took down the gallbladder from the liver bed. Small areas of bleeding from the liver parenchyma were controlled with the cautery. After the gallbladder was completely detached from the liver bed, it was placed in an EndoCatch bag and was removed without difficulty from the xiphoid port. We then inspected the clips at the cystic duct and artery and were both in place. There was no active bleeding from the liver bed. We thoroughly irrigated the right upper quadrant and we removed all fluid until clear. At that point the patient was placed in supine position, we deflated the abdomen and we removed all ports under direct vision and no bleeding was noted from any of the port sites. The fascia of the 12 mm port was closed using a #1 Polysorb suture. 30cc Ropivacaine and 1% Lidocaine plain were used to infiltrate the fascial closure as well as all skin incisions. The wounds were irrigated with saline mixed with antibiotic solution and then the skin was closed with 4-0 Monocryl subcuticular sutures antibiotic-coated. Steri-strips and OpSites were used to cover all incisions. The patient extubated and was transferred in stable condition to the Recovery Room for further care. I was present and performed all steps of the procedure. Kandi Iverson was the graduate assistant. There were no residents to assist with this case. Jean Paul Bobo M.D., Ph.D., F.A.C.S. Surgeon: Neto Bobo MD Anesthesia: GETA, local and other (TAP block) Was an Home Office Claims Examiner used for this Procedure?: No Home Office Claims Examiner: Linda Iverson Estimated blood loss (mL): 10 IV fluids (mL): 900 Urine output (mL): 0 (No Dunn to record output) Pathology: other (Gallbladder) Condition: stable Disposition: PACU
--- NOTE | 2025-04-30 10:03 | MHC.SHP ---
Pre-Procedural Eval Section A - 24 Hr Update-Section A only Date of Service: 04/30/25 The patient is an INPATIENT: No The patient has been examined within 24 hours of the surgical procedure. The History & Physical has been completed within 30 days and I have reviewed it.: Yes Section B - Complete if H&P > 30 days Chief Complaint: Calculus of gallbladder with acute cholecystitis Relevant Family History (Specify if Yes): No Relevant Social History: None Present Medications: None Medical History: No relevant PMH History of Previous Operations: Relevant previous surgery/procedure and date(s) (Laparoscopic gastric bypass) Allergies: Allergies Allergy/AdvReac Type Severity Reaction Status Date / Time hydrocodone (From Vicodin) Allergy Intermediate Rash, Hives Verified 04/23/25 09:59 morphine (MORPHINE) Allergy Intermediate BURNING IN Verified 04/23/25 09:59 CHEST, shortness of breath oxycodone (From PERCOCET) Allergy Intermediate ITCHINESS Verified 04/23/25 09:59 pumpkin Allergy Intermediate Itching Verified 04/23/25 09:59 ibuprofen AdvReac Intermediate Stomach Verified 04/23/25 09:59 Upset Review of Systems Sugical H&P ROS: Negative: Constitution, Cardiovascular, Respiratory, Neurological, Psychiatric, Hem-Onc, Allergic/Immunologic, Gastrointestinal, Genitourinary, Musculoskeletal, Integumentary, Endocrine and Eyes/Ears/Nose/Throat Exam Surgical H&P Exam: Normal: HEENT, Normal: Heart, Normal: Lungs, Normal: Extremities, Normal: Abdomen, Normal: Skin and Normal: Neurological Plan Diagnosis/Plan: Unchanged I have reviewed the history and physical and performed a pertinent physical examination on my patient. No changes have occurred unless specified. Time Spent With Patient Time: Total time managing care of this patient today ____ minutes.
== END 2025-04-30 14:36 | disposition home or self-care (01) ==
PROVIDERS: Anesthesiology; PCP Internal Medicine; Visit Provider Surgery
PROC: 0FT44ZZ Resection of Gallbladder, Percutaneous Endoscopic Approach (ICD-10-PCS; CPT 47562; principal; 2025-04-30 10:20)
DX: K80.10 Calculus of gallbladder with chronic cholecystitis without obstruction (principal); K56.2 Volvulus; Z98.0 Intestinal bypass and anastomosis status; Z98.84 Bariatric surgery status; K21.9 Gastro-esophageal reflux disease without esophagitis; Z98.1 Arthrodesis status; D64.9 Anemia, unspecified; E55.9 Vitamin D deficiency, unspecified; E53.8 Deficiency of other specified B group vitamins; N20.0 Calculus of kidney; Z79.899 Other long term (current) drug therapy; Z88.5 Allergy status to narcotic agent; Z88.6 Allergy status to analgesic agent
CPT/HCPCS: 47562; 36415; 81025; 85610; 85730; 86850; 86900; 86901; 88304; C9145; J0131; J0690; J1100; J1171; J2003; J2250; J2405; J2704; J2795; J3010

== ENCOUNTER → 2025-04-30 08:03 | Outpatient (BNV) | payer OTHER, SELFPAY | PROVIDERS: PCP Internal Medicine; Visit Provider Surgery | DX: K81.0 Acute cholecystitis (principal); R10.11 Right upper quadrant pain; R10.13 Epigastric pain; R11.0 Nausea | CPT/HCPCS: 47562 ==

== ENCOUNTER 2025-05-06 12:29 | Outpatient (AMB) | payer OTHER, SELFPAY ==
[2025-05-06 12:44] VITALS: BP 115/64; PULSE 96; TEMP 36.3; O2SAT 97; BMI 27.2
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
--- OUTSIDE RECORDS SUMMARY | 2025-05-07 03:28 | XMS_ITS | Data Portability ---
Author Organization [place] - [facility], Allergy Address [address] [address] Care Team Providers Care Ventilation Mechanic Name Role Phone MARK JAIMES Referring Provider [...] symptom relief. I advised her to use sbpa-mgx-ryovnxo antihistamines such as Claritin, Ivonne, or Zyrtec if necessary. Additionally, I will prescribe a new EpiPen to replace her one. FOLLOW-UP: The patient should follow up as needed to monitor her response to allergy injections and symptom management. [email or web address] Not available 03/26/2025 15:36:59 05/05/2025 05/05/2025 Visit With: Chuy y Lorinser, RN Use of Antihistamines: No If yes: Vial Test Yes Change in medications: No If yes Increase in asthma symptoms No Asthma Hx If yes, inhaler use: Reaction to last injections: If yes: Allergy Symptoms: Other: Missed: Dose Aware of Vial Test Aware: Notes: [email or web address] Not available 05/05/2025 15:33:13 Plan of Treatment Reminders Order Date Submit Date Provider Last Modified By Organization Details Last Modified Time Details Appointments Establ ished- Allerg y f-up 6mon 2025 03:30P M ALEJANDRO BEEBE PA-C Not available Not available Not available Lab None record ed. Referral None record ed. Procedures allerg en immuno therap y; multip le inject ions (PROC) 2024 025 [email or web address] Not available 04/10/2025 16:15:45 spirom etry, includ [...] inject ion, auto-i njecto r 2024 025 [facility][id number], [address] [facility], [place], [address], 03/26/2025 15:37:31 flutic asone propio roma 50 mcg/ac tuatio n nasal spray, suspen nathan 2024 025 [facility] #[id number], [address] [facility], [place], [address], 01/15/2025 10:26:24 Patient TargetsNo targets recorded. Patient Instructions Encounter Date Encounter Id Patient Instructions Last Modified By Organization Details Last Modified Time 01/14/2025 [id number] Please note: Par ts of this encounter note have been generated by AI based on audio conversation. Patient consent was required prior to utilizing this technology. Content review was required prior to finalizing the note. [email or web address] Not available 01/14/2025 14:29:22 02/28/2025 [id number] Nursing Documentation for Allergy Testing: Ordering Provider [...] a different date Other: Written by: Jessica Mendoza [email or web address] Not available 02/28/2025 11:01:30 03/26/2025 [id number] - Resume allergy injections. - Continue using Flonase as needed. - Use aiwl-kja-uiqcjps antihistamines such as Claritin, Ivonne, or Zyrtec if necessary. - Replace EpiPen with a new prescription. [email or web address] Not available 03/26/2025 15:36:59 Please note: Par ts of this encounter note have been generated by AI based on audio conversation. Patient consent was required prior to utilizing this technology. Content review was required prior to finalizing the note. [email or web address] Not available 03/26/2025 15:37:00 Reason for Referral None Reported. Results Created Date Observation Date Name Description Value Unit Range Abnormal Flag Note LastModifiedBy Organization Detail LastModifiedTime 02/29/20 25 liz metry testi ng* No observ ation record ed. [email or web address] Not Available 2024 10:45:57 Result Notes None recorded. Problems Name Problem SNOMED Code Status Onset Date Resolution Date Notes Provider Name and Address Organization Details Recorded Time Headache 07574112 Active 2017 Facial pain NOS; Note: Date Diagnosed : 03/12/2018 11:31 AM (R51) Not Available [facility] 4 02:15:59 Migraine without aura, not refractor y 796869939 Active 2017 Migraine without aura, not intractab le, without status migrainos us; Note: Date Diagnosed : 03/12/2018 11:31 AM (G43.009) Not Available [facility] 4 02:14:52 Chronic sinusitis 46259310 Active 2017 Other chronic sinusitis ; Note: Date Diagnosed : 03/12/2018 11:31 AM (J32.8) Not Available [facility] 4 02:15:34 Deviated nasal septum 238806803 Active 2017 Deviated nasal septum; Note: Date Diagnosed : 03/12/2018 11:31 AM (J34.2) Not Available [facility] 4 02:15:30 Chronic rhinitis 40353364 Active 2017 Chronic rhinitis; Note: Date Diagnosed : 04/27/2018 3:39 PM (J31.0) Not Available [facility] 4 02:15:17 Hypertrop hy of nasal turbinate s 89710286 Active 2017 Hypertrop hy of nasal turbinate s; Note: Date Diagnosed : 8 9:08 AM (J34.3) Not Available [facility] 4 02:15:04 Disorder of nasal sinus 5276169 Active 2017 Other specified disorders of nose and nasal sinuses; Note: Date Diagnosed : 8 1:58 PM (J34.89) Not Available [facility] 4 02:15:42 Disorder of the nose 05990738 Active 2017 Other specified disorders of nose and nasal sinuses; Note: Date Diagnosed : 8 1:58 PM (J34.89) Not Available [facility] 4 02:15:42 Allergic rhinitis 85631564 Active 2020 Allergic rhinitis: Due to other [...] Date Diagnosed : 06/28/ TRUMAN BOWMAN MD [address], [place], [address] , [facility] - [facility] 5 15:37:08 Pain of right temporoma ndibular joint 22380608134 062417 Active 2024 TRUMAN BOWMAN MD [address], [place], [address] , [facility] - [facility] 5 14:32:05 Perennial allergic rhinitis 403062206 Active 2024 JESSICA MENDOZA [facility] [address], [facility] [place] [place], [address] , [facility] - [facility] 10:38:40 Problem Notes None recorded. Procedures Surgical History Date Name Laterality Status Provider Name and Address Organization Details Recorded Time 05/05/20 Allergy Immunotherapy Injections completed ELDA BOJORQUEZ RN [address] [facility],[place] [address], [place], [address], [facility] 05/05/2025 15:33:03 02/29/20 25 Allergy Testing-Full completed JANICE GONZALES [address] [facility] [place] [address], [place], [address], [facility] 02/28/2025 12:56:34 Imaging Results None recorded. Procedure Notes None recorded. Medical Equipment None Reported. Allergies Allergen ID Allergen Name Allergen Category Reaction Reaction Severity Criticality Documentation Date Start Date Code Code System Note Provider Name and Address Organization Details Recorded Time 890240 ibuprofen medicatio n Not available Not available Not available 01/14/2025 5640 RxNorm Medina diaz [place] - [facility] 14:23:47 644416 aspirin medicatio n other Not available [facility] 05/02/20252019 1191 RxNorm AVOID S DUE TO GASTR IC BYPAS S Not Available [facility] External Data [facility] - prod 16:25:11 691333 Non-stero idal anti-infl ammatory agent (substanc e) medicatio n other Not available [facility] 05/02/20252019 96443 5008 SNOMED AVOID S DUE TO GASTR IC BYPAS S Not Available [facility] External Data [facility] - prod 5 16:25:11 365443 Substance with morphinan structure and opioid receptor agonist mechanism of action (substanc e) medicatio n hives Not available Not available 05/02/20252018 83996 9000 SNOMED Burni ng sensa tion Not Available [facility] External Data Service - prod 5 16:25:11 018130 pumpkin seed extract food,medi cation swelling Not available [facility] 05/02/20252019 08917 1 RxNorm Facia l swell ing Not Available [facility] Data [facility] - prod 5 16:25:11 136791 tramadol medicatio n itching Not available [facility] 05/02/20252019 32902 RxNorm Not Available [facility] External Data Service - prod 5 16:25:11 575907 acetamino phen / hydrocodo ne medicatio n hives Not available [facility] 05/02/20252019 57396 2 RxNorm Not Available [facility] Data [facility] - prod 5 16:25:11 86070 morphine medicatio n other Not available Not available 10/31/2023 7052 RxNorm React ion: unkno wn, unspe cifie d;; Not Available [facility] 4 00:51:13 86041 acetamino phen / hydrocodo ne medicatio n other Not available Not available 10/31/2023 11243 2 RxNorm React ion: unkno wn, unspe cifie d;; Not Available [facility] 4 00:51:17 23105 acetamino phen / oxycodone medicatio n other Not available Not available 10/31/2023 69280 3 RxNorm React ion: unkno wn, unspe cifie d;; Not Available [facility] 4 00:51:25 Medications Name Sig Start Date Stop Date Status Note LastModified by Organization Details LastModified Time cyclobenz aprine 10 mg tablet 06/13 completed Medicati on ID: 508100 D uration Value: 5 Reason: () Brand [...] mcg capsule 02/28 completed Medicati on ID: 319510 B rand Name: vitamin A Send Method: [...] FOR NAUSEA AND VOMITING FOR 4 DAYS 05/05 completed Not Available Not Available Not Available ciproflox acin 500 mg tablet 01/14 completed Medicati on ID: 296813 D uration Value: 10 Prescri bed By [...] us solution 01/14 completed Medicati on ID: 322240 B rand Name: Protonix Send Method: E-Prescr [...] by mouth 01/14 completed Medicati on ID: 578223 D uration Value: 10 Prescri bed By [...] mg) tablet 01/14 completed Medicati on ID: 255300 B rand Name: Calcium 600 Send Method: [...] min capsule 2017 active Medicati on ID: 740933 B rand Name: multivit de [place]z [...] by mouth 01/14 completed Medicati on ID: 109125 D uration Value: 30 Prescri bed By Name: Truman starr M.D. Bra nd Name: loratadi ne Send Method: E-Prescr ibed Sub s Allowed: subs OK Medic ationGen ericName : loratadi ne Not Available Not Available Not Available diazepam 5 mg tablet 12/13 completed Medicati on ID: 483193 D uration Value: 1 Reason: () Brand [...] Vitamin B1 02/28 completed Medicati on ID: 745725 B rand Name: vitamin b1 Send Method: [...] topical cream 06/13 completed Medicati on ID: 200038 D uration Value: 30 Reason: () Brand Name: lidocain e-tetrac zackery Sen d Method: E-Prescr ibed Sub s Allowed: subs OK Medic ationGen ericName : lidocain e-tetrac zackery Not Available Not Available Not Available vitamin B12 1,000 mcg-folic acid 400 mcg sublingua l lozenge 02/28 completed Medicati on ID: 312168 B rand Name: vitamin J73-emjm c acid Sen d Method: E-Prescr ibed Sub s Allowed: subs OK Medic ationGen ericName : vitamin D88-adkq c acid Not Available Not Available Not [...] SUBCUTAN EOUSLY EVERY WEEK FOR 4 WEEKS 05/05 completed Not Available Not Available Not Available Vitals Date Recorded Systolic And Diastolic Provider Name and Address Organization Details Last Updated DateTime 01/14/2025 118/78 mm[Hg] TRUMAN VIEYRA MD [address], [address], [facility] 01/14/2025 14:31:35 Date Recorded Body weight Body mass index (BMI) Body height Provider Name and Address Organization Details Last Updated DateTime 01/14/2025 84615.15 g 28.2 kg/m2 162.56 cm Medina Pulido [place] - [facility] 01/14/2025 14:22:38 Date Recorded Body height Body mass index (BMI) Body weight Oxygen saturation Oxygen saturation in Arterial blood by Pulse oximetry Heart rate Systolic And Diastolic Provider Name and Address Organization Details Last Updated DateTime 162.56 cm 28.2 kg/m2 89992.1 5 g 99 % 99 % 87 /min 106/69 mm[Hg] JANICE GONZALES [address], [address], [place] - [facility] 10:38:23 Date Recorded Body height Body mass index (BMI) Body weight Systolic And Diastolic Provider Name and Address Organization Details Last Updated DateTime 03/26/2025 162.56 cm 27.5 kg/m2 21408.78 g 100/62 mm[Hg] Thu Escobar [facility] 03/26/2025 15:29:55 Date Recorded Body height Body mass index (BMI) Body weight Heart rate Systolic And Diastolic Provider Name and Address Organization Details Last Updated DateTime 05/05/2025 162.56 cm 26.6 kg/m2 82001.82 g 81 /min 110/73 mm[Hg] ELDA BOJORQUEZ RN [address] [place] [address], [place], [address] , [facility] 05/05/2025 15:08:05 Social History Question Answer Notes LastModified by Organizat ion Details LastModified Time Tobacco Smoking Status Never Smoker Medina diaz [facility] 01/14/2025 14:23:26 How Many Years Have You Consumed Alcohol? 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 0 [email or web address] Information not available 03/26/2025 Do You Have Any Pets? Yes [email or web address] Information not available 01/14/2025 Are You Passively Exposed To Smoke? No Information not available 01/14/2025 Are There Any Smokers In Your House? No Information not available 01/14/2025 Sex: Unknown Functional Status Question Answer Note LastModified by Organization Details LastModified Time How many times per week do you consume alcohol? Less than 1 time per week [email or web address] Inform ation not available 01/14/2025 Do you use any illicit or recreational drugs? No [email or web address] Information not available 01/14/2025 Do you or have you ever used any other forms of tobacco or nicotine? No Information not available 01/14/2025 What is your level of alcohol consumption? Occasional [email or web address] Information not available 01/14/2025 What type of noise exposure are you exposed to? noExposureToExcessiveNoise [email or web address] Infor mation not available 01/14/2025 Mental Status None recorded. Family History Relationship Description Onset Age of this Age Resolved Age Notes LastModified by Organization Details LastModified Time Daughter Asthma [email or web address] Not availabl e 01/14/2025 14:23:07 Father Vertigo Not available 01/14/2025 14:23:07 Paternal Grandmother Diabetes mellitus [email or web address] Not available 2024 14:23:07 Mother Allergy [email or web address] Not available 01/14/2025 14:23:07 Mother Asthma [email or web address] Not available 01/14/2025 14:23:07 Maternal Grandmother Diabetes mellitus [email or web address] Not available 2024 14:23:07 Sister Asthma [email or web address] Not available 01/14/2025 14:23:07 Sister Allergy to food [email or web address] Not available 2024 14:23:07 Maternal Grandfather Cerebrovascu lar accident 71 Not available 14:23:07 Maternal Grandfather Diabetes mellitus [email or web address] Not available 2024 14:23:07 Paternal Grandfather Diabetes mellitus [email or web address] Not available 2024 14:23:07 Medical History Condition Response Tonsil Infections N Emphysema N Depression N COPD N Arthritis Y Cancer N Stroke N Headaches Y Fibromyalgia Y Kidney Disease Y Heart Problems N Anxiety Y Migraines N Other Skin Condition N Rhinitis N Bleeding Disorder N Food Allergy Y Nasal polyps Y Asthma N Sleep Disorder Y GERD/Reflux Y Glaucoma N Nasal or Sinus Problems Y Anesthesia Complications N Hearing Loss N High Cholesterol N Liver Disease N Speech Delay N Allergies/Hayfever Y Thyroid Problems N Developmental Delay N Anemia Y Immune System Disorder N Heart Attack ([place]) N Diabetes N Hyperlipidemia N Eczema N Dementia N Hypertension N Gynecological HistoryNo gynecological history recorded. Obstetrics History GPAL:G 0 P 0 0 0 0 Past Encounters Encounter ID Performer Location Encounter Start Date Encounter Closed Date Diagnosis/Indication Diagnosis SNOMED-CT Code Diagnosis ICD10 Code Diagnosis IMO Codes Diagnosis Note [id number] TRUMAN BOWMAN MD [facility] [address] [address] 01/14/2025 13:54:02 01/14/2025 14:41:03 Allergic rhinitis 43712168 J30.89 Migraine w ithout aura, not refractory 523000788 G43.009 Suspect underlying migraine headache. Suggest reduction of cheese, chocolate, citrus fruit, cold cuts, nuts, MSG and alcohol. Suggest trial of magnesium oxide 2 to 400 mg daily and riboflavin 400 mg daily. Associatio n of migraine disorders website given, migrainedi [email or web address] g for additional informatio n. She will contact me in a few weeks with an update. Pain of ri ght temporomandibular joint [id number] 1256853 M26.621 76349690 Warm compresses , soft diet and massage recommende [place] [id number] JANICE GONZALES All[facility] [address] [place] [address] [address] 02/28/2025 10:14:11 02/28/2025 12:57:21 Perennial allergic rhinitis 305017496 J30.89 792157 [id number] TRUMAN BOWMAN MD [facility] [address] [facility] [place] [address] 03/26/2025 15:20:16 03/27/2025 09:28:18 Allergic rhinitis 85676688 J30.89 We also discussed the role of [...] with therapy. Use of an Epipen discussed. [id number] ELDA BOJORQUEZ RN Allergy [address] [place] [address] [place] [address] 05/05/2025 14:58:38 05/05/2025 15:34:11 Perennial allergic rhinitis 307563485 J30.89 Health Concerns Section Related Observation LastModified by Organization Detai ls LastModified Time None Recorded Concern Status LastModified by Organization Details LastModified Time None Recorded Advance Directives Directive None Recorded Payers Insurance Date Sequence Insurance Name Policy Number Policy Pavon Covered Member ID Pavon Member ID Guarantor Name 05/02/2025 1 [facility] - HEALTH NET PLAN (MEDICAID HMO) GAVINO [place] [id number] Farshad Anand Notes Date Note Type Note [...] the primary concern. NOSE=[id number] TRUMAN VIEYRA MD [address] [facility],[address], [address], [place] - [facility] 01/14/2025 14:34:29 03/26/2025 text/html Farshad Anand [...] her EpiPen has . TRUMAN VIEYRA MD [address] [facility],[place] [address], [place], [address], [facility] 03/26/2025 15:37:54 OBGyn Episode No OBEpisode recorded.
--- OUTSIDE RECORDS SUMMARY | 2025-05-07 03:28 | XMS_ITS | Continuity of Care Document ---
Author Organization [place] - [facility], Allergy Address [address] [place] [address] Care Team Providers Care Hand Candle Molder Name Role Phone MARK JAIMES Referring Provider Assessment Encounter Date Assessment Date Assessment LastModified by Organization Details LastModified Time 05/05/2025 05/05/2025 Visit With: Elda Bojorquez RN Use of Antihistamine s: No If yes: Vial Test Yes Change [...] Organization Details Last Modified Time Details Appointments [facility]- Allergy f-up 6mon 2025 03:30P M ALEJANDRO BEEBE PA-C Not available Not available Not available Lab None recorded . Referral None recorded . Procedures None recorded . Surgeries None recorded . Imaging None recorded . Medication Orders None recorded . Patient TargetsNo targets recorded. Patient InstructionsNo instructions recorded. Reason for Referral None Reported. Problems Name Problem SNOMED Code Status Onset Date Resolution Date Notes Provider Name and Address Organization Details Recorded Time Headache 08301120 Active 2017 Facial pain NOS; Note: Date Diagnosed : 03/12/2018 11:31 AM (R51) Not Available [facility] 02:15[facility]59 Migraine without aura, not refractor y 278898566 Active 2017 Migraine without aura, not intractab le, without status migrainos us; Note: Date Diagnosed : 03/12/2018 11:31 AM (G43.009) Not Available [facility] 4 02:14:52 Chronic sinusitis 56205119 Active 2017 Other chronic sinusitis ; Note: Date Diagnosed : 03/12/2018 11:31 AM (J32.8) Not Available [facility] 4 02:15:34 Deviated nasal septum 495860557 Active 2017 Deviated nasal septum; Note: Date Diagnosed : 03/12/2018 11:31 AM (J34.2) Not Available [facility] 4 02:15:30 Chronic rhinitis 73732224 Active 2017 Chronic rhinitis; Note: Date Diagnosed : 04/27/2018 3:39 PM (J31.0) Not Available [facility] 4 02:15:17 Hypertrop hy of nasal turbinate s 96715977 Active 2017 Hypertrop hy of nasal turbinate s; Note: Date Diagnosed : 8 9:08 AM (J34.3) Not Available [facility] 4 02:15:04 Disorder of nasal sinus 3146130 Active 2017 Other specified disorders of nose and nasal sinuses; Note: Date Diagnosed : 8 1:58 PM (J34.89) Not Available [facility] 4 02:15:42 Disorder of the nose 80109521 Active 2017 Other specified disorders of nose and nasal sinuses; Note: Date Diagnosed : 8 1:58 PM (J34.89) Not Available [facility] 4 02:15:42 Allergic rhinitis 30027154 Active 2020 Allergic rhinitis: Due to other allergen; Note: Date Diagnosed : 09/25/2020 11:17 AM (477.8) Allergi c rhinitis: Due to other allergen; Note: Date Diagnosed : 09/09/2020 4:48 PM (477.8) ; Start Date : Allergi [...] Note: Date Diagnosed : SUZY BOWMAN MD [address] [facility] [address], [place], [address] , [facility] - [facility] 5 15:37:08 Pain of right temporoma ndibular joint [id number] 012983 Active 2024 SUZY BOWMAN MD [address], [place], [place], [address] , [facility] - [facility] [place] 5 14:32:05 Perennial allergic rhinitis 028647128 Active [address],[facility], [place], [place], [address] , [facility] - [facility] [place] 5 10:38:40 Problem Notes None recorded. Procedures Surgical History Date Name Laterality Status Provider Name and Address Organization Details Recorded Time 05/05/20 Allergy Immunotherapy Injections completed ELDA BOJORQUEZ RN [address], [place], [address], [facility] - [facility] [place] 05/05/2025 15:33:03 02/29/20 25 Allergy Testing-Full completed VICKY MENDOZA, A [address] [facility] [address], [place], [address], [facility] - [facility] 02/28/2025 12:56:34 Imaging Results None recorded. Procedure Notes None recorded. Medical Equipment None Reported. Allergies Allergen ID Allergen Name Allergen Category Reaction Reaction Severity Criticality Documentation Date Start Date Code Code System Note Provider Name and Address Organization Details Recorded Time 948472 ibuprofen medicatio n Not available Not available Not available 01/14/2025 5640 RxNorm Medina diaz [place] - [facility] 5 14:23:47 426340 aspirin medicatio n other Not available [facility] 05/02/20252019 1191 RxNorm AVOID S DUE TO GASTR IC BYPAS S Not Available lata - External Data Service - prod 16:25:11 380571 Non-stero idal anti-infl ammatory agent (substanc e) medicatio n other Not available [facility] 05/02/20252019 14728 5008 SNOMED AVOID S DUE TO GASTR IC BYPAS S Not Available lata - External Data Service - prod 16:25:11 699606 Substance with morphinan structure and opioid receptor agonist mechanism of action (substanc e) medicatio n hives Not available Not available 05/02/20252018 16368 9000 SNOMED Burni ng sensa tion Not Available lata - External Data Service - prod 5 16:25:11 334105 pumpkin seed extract food,medi cation swelling Not available [facility] 05/02/20252019 88260 1 RxNorm Facia l swell ing Not Available lata - External Data Service - prod 16:25:11 714878 tramadol medicatio n itching Not available [facility] 05/02/20252019 00703 RxNorm Not Available lata - External Data Service - prod 16:25:11 492138 acetamino phen / hydrocodo ne medicatio n hives Not available high 05/02/20252019 76453 2 RxNorm Not Available lata - External Data Service - prod 5 16:25:11 88569 morphine medicatio n other Not available Not available 10/31/2023 7052 RxNorm React ion: unkno wn, unspe cifie d;; Not Available [facility] 4 00:51:13 26474 acetamino phen / hydrocodo ne medicatio n other Not available Not available 10/31/2023 68650 2 RxNorm React ion: unkno wn, unspe cifie d;; Not Available [facility] 4 00:51:17 51564 acetamino phen / oxycodone medicatio n other Not available Not available 10/31/2023 95390 3 RxNorm React ion: unkno wn, unspe cifie d;; Not Available [facility] 4 00:51:25 Medications Name Sig Start Date Stop Date Status Note LastModified by Organization Details LastModified Time cyclobenz aprine 10 mg tablet 06/13 completed Medicati on ID: [id number] D uration Value: 5 Reason: () Brand [...] mcg capsule 02/28 completed Medicati on ID: [id number] B rand Name: vitamin A Send Method: [...] mg tablet 01/14 completed Medicati on ID: 925283 D uration Value: 10 Prescri bed By [...] us solution 01/14 completed Medicati on ID: [id number] B rand Name: Protonix Send Method: E-Prescr [...] by mouth 01/14 completed Medicati on ID: [id number] D uration Value: 10 Prescri bed By [...] mg) tablet 01/14 completed Medicati on ID: 649181 B rand Name: Calcium 600 Send Method: [...] min capsule 2017 active Medicati on ID: 510612 B rand Name: multivit de la cruz [...] by mouth 01/14 completed Medicati on ID: [id number] D uration Value: 30 Prescri bed By Name: Nuno Lindsey nd Name: loratadi ne Send Method: E-Prescr ibed Sub s Allowed: subs OK Medic ationGen ericName : loratadi ne Not Available Not Available Not Available diazepam 5 mg tablet 12/13 completed Medicati on ID: [id number] D uration Value: 1 Reason: () Brand [...] Vitamin B1 02/28 completed Medicati on ID: 601122 B rand Name: vitamin b1 Send Method: [...] topical cream 06/13 completed Medicati on ID: [id number] D uration Value: 30 Reason: () Brand Name: lidocain e-tetrac zackery Sen d Method: E-Prescr ibed Sub s Allowed: subs OK Medic ationGen ericName : lidocain e-tetrac zackery Not Available Not Available Not Available vitamin B12 1,000 mcg-folic acid 400 mcg sublingua l lozenge 02/28 completed Medicati on ID: 417010 B rand Name: vitamin J05-gqoh c acid Sen d Method: E-Prescr ibed Sub s Allowed: subs OK Medic ationGen ericName : vitamin A81-axyg c acid Not Available Not Available Not [...] Not Available Not Available Vitals Date Recorded Body height Body mass index (BMI) Body weight Heart rate Systolic And Diastolic Provider Name and Address Organization Details Last Updated DateTime 05/05/2025 162.56 cm 26.6 kg/m2 55787.82 g 81 /min 110/73 mm[Hg] ELDA BOJORQUEZ, CONSTANTIN [address] [place] [address], [facility] [place], [address] [place] [facility] 05/05/2025 15:08:05 Social History Question Answer Notes LastModified by Organizat ion Details LastModified Time Tobacco Smoking Status Never Smoker Medina diaz [place] - [facility] 01/14/2025 14:23:26 How Many Years Have You Consumed Alcohol? 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 0 [email or web address] Information not available 03/26/2025 Do You Have Any Pets? Yes Information not available 01/14/2025 Are You Passively Exposed To Smoke? No [email or web address] Information not available 01/14/2025 Are There Any Smokers In Your House? No [email or web address] Information not available 01/14/2025 Sex: Unknown Functional Status Question Answer Note LastModified by Organization Details LastModified Time How many times per week do you consume alcohol? Less than 1 time per week [email or web address] Inform ation not available 01/14/2025 Do you use any illicit or recreational drugs? No [email or web address] Information not available 01/14/2025 Do you or have you ever used any other forms of tobacco or nicotine? No [email or web address] Information not available 01/14/2025 What is your level of alcohol consumption? Occasional [email or web address] Information not available 01/14/2025 What type of noise exposure are you exposed to? noExposureToExcessiveNoise [email or web address] Infor mation not available 01/14/2025 Mental Status None recorded. Family History Relationship Description Onset Age of this Age Resolved Age Notes LastModified by Organization Details LastModified Time Daughter Asthma [email or web address] Not availabl e 01/14/2025 14:23:07 Father Vertigo [email or web address] Not available 01/14/2025 14:23:07 Paternal Grandmother Diabetes mellitus Not available 2024 14:23:07 Mother Allergy [email or web address] Not available 01/14/2025 14:23:07 Mother Asthma [email or web address] Not available 01/14/2025 14:23:07 Maternal Grandmother Diabetes mellitus [email or web address] Not available 2024 14:23:07 Sister Asthma [email or web address] Not available 01/14/2025 14:23:07 Sister Allergy to food [email or web address] Not available 2024 14:23:07 Maternal Grandfather Cerebrovascu lar accident 71 [email or web address] Not available 14:23:07 Maternal Grandfather Diabetes mellitus [email or web address] Not available 2024 14:23:07 Paternal Grandfather Diabetes mellitus [email or web address] Not available 2024 14:23:07 Medical History Condition Response Allergies/Hayfever Y Heart Problems N Anxiety Y Tonsil Infections N Emphysema N Migraines N Thyroid Problems N Glaucoma N Developmental Delay N Depression N COPD N Nasal or Sinus Problems Y Anemia Y Immune System Disorder N Anesthesia Complications N Heart Attack (MD) N Other Skin Condition N Diabetes N [...] ICD10 Code Diagnosis IMO Codes Diagnosis Note [id number] ELDA BOJORQUEZ RN Allergy [address] [place] [address], [place] [address] 05/05/2025 14:58:38 05/05/2025 15:34:11 Perennial allergic rhinitis 481468635 J30.89 Health Concerns Section Related Observation LastModified by Organization Detai ls LastModified Time None Recorded Concern Status LastModified by Organization Details LastModified Time None Recorded Payers Encounter Date Sequence Insurance Name Policy Number Policy Pavon Covered Member ID Pavon Member ID Guarantor Name 05/05/2025 1 [facility] PL[facility] (MEDICAID HMO) G[place] [id number] Farshad Anand OBGyn Episode No OBEpisode recorded.
--- OUTSIDE RECORDS SUMMARY | 2025-05-07 03:28 | XMS_ITS | Continuity of Care Document ---
Author Organization [place] [facility], Allergy Address [address] [place] [address] Care Team Providers Care Business Consultant Name Role Phone MARK JAIMES Referring Provider [phone] Assessment No assessment recorded. Plan of Treatment Reminders Order Date Submit Date Provider Last Modified By Organization Details Last Modified Time Details Appointments [facility] 6mon 2025 03:30P M ALEJANDRO BEEBE PA-C Not available Not available Not available Lab None recorded . Referral None recorded . Procedures None recorded . Surgeries None recorded . Imaging None recorded . Medication Orders None recorded . Patient TargetsNo targets recorded. Patient Instructions Encounter Date Encounter Id Patient Instructions Last Modified By Organization Details Last Modified Time 02/28/2025 [id number] Nursing Documentation for Allergy Testing: Ordering Provider Dr. Alcantar Weight:lbs: kg: PFT Yes With Bronchodilator no DrKandi approval needed to proceed with allergy testing? [...] different date Other: Written by: Jessica Ortega [email or web address] Not available 02/28/2025 11:01:30 Reason for Referral None Reported. Results Created Date Observation Date Name Description Value Unit Range Abnormal Flag Note LastModifiedBy Organization Detail LastModifiedTime 02/29/20 25 liz metry testi ng* No observ ation record ed. [email or web address] Not Available 2024 10:45:57 Result Notes None recorded. Problems Name Problem SNOMED Code Status Onset Date Resolution Date Notes Provider Name and Address Organization Details Recorded Time Headache 10465624 Active 2017 Facial pain NOS; Note: Date Diagnosed : 03/12/2018 11:31 AM (R51) Not Available [facility] 4 02:15:59 Migraine without aura, not refractor y 274055917 Active 2017 Migraine without aura, not intractab le, without status migrainos us; Note: Date Diagnosed : 03/12/2018 11:31 AM (G43.009) Not Available [facility] 4 02:14:52 Chronic sinusitis 23479471 Active 2017 Other chronic sinusitis ; Note: Date Diagnosed : 03/12/2018 11:31 AM (J32.8) Not Available [facility] 4 02:15:34 Deviated nasal septum 324640895 Active 2017 Deviated nasal septum; Note: Date Diagnosed : 03/12/2018 11:31 AM (J34.2) Not Available [facility] 4 02:15:30 Chronic rhinitis 79474162 Active 2017 Chronic rhinitis; Note: Date Diagnosed : 04/27/2018 3:39 PM (J31.0) Not Available [facility] 4 02:15:17 Hypertrop hy of nasal turbinate s 96218411 Active 2017 Hypertrop hy of nasal turbinate s; Note: Date Diagnosed : 8 9:08 AM (J34.3) Not Available [facility] 4 02:15:04 Disorder of nasal sinus 2627665 Active 2017 Other specified disorders of nose and nasal sinuses; Note: Date Diagnosed : 8 1:58 PM (J34.89) Not Available [facility] 4 02:15:42 Disorder of the nose 70781107 Active 2017 Other specified disorders of nose and nasal sinuses; Note: Date Diagnosed : 8 1:58 PM (J34.89) Not Available [facility] 4 02:15:42 Allergic rhinitis 72675044 Active 2020 Allergic rhinitis: Due to other [...] Diagnosed : 06/28/ SUZY BOWMAN MD [address] [facility],[place] [address], [facility] [place], [address] , [facility] [place] [facility] 5 15:37:08 Pain of right temporoma ndibular joint [id number] 931100 Active 2024 SUZY BOWMAN MD [address] [facility],[place] [address], [facility] [place], [address] , [facility] [place] [facility] 5 14:32:05 Perennial allergic rhinitis 513689104 Active 2024 JANICE GONZALES [address] [facility],[place] [address], [facility] [place], [address] , [facility] [place] [facility] 5 10:38:40 Problem Notes None recorded. Procedures Surgical History Date Name Laterality Status Provider Name and Address Organization Details Recorded Time 05/05/20 25 Allergy Immunotherapy Injections completed ELDA BOJORQUEZ RN [address] [facility],[place] [address], [place], [address], [facility] [place] [facility] 05/05/2025 15:33:03 02/29/20 25 Allergy Testing-Full completed JANICE GONZALES [address] [facility],[place] [address], [place], [address], [facility] [place] [facility] 02/28/2025 12:56:34 Imaging Results None recorded. Procedure Notes None recorded. Medical Equipment None Reported. Allergies Allergen ID Allergen Name Allergen Category Reaction Reaction Severity Criticality Documentation Date Start Date Code Code System Note Provider Name and Address Organization Details Recorded Time 775948 ibuprofen medicatio n Not available Not available Not available 01/14/2025 5640 RxNorm Medina diaz [facility] 5 14:23:47 834109 aspirin medicatio n other Not available [facility] 05/02/20252019 1191 RxNorm AVOID S DUE TO GASTR IC BYPAS S Not Available [employer] - External Data Service - prod 16:25:11 119164 Non-stero idal anti-infl ammatory agent (substanc e) medicatio n other Not available high 05/02/20252019 68785 5008 SNOMED AVOID S DUE TO GASTR IC BYPAS S Not Available [employer] - prod 5 16:25:11 915063 Substance with morphinan structure and opioid receptor agonist mechanism of action (substanc e) medicatio n hives Not available Not available 05/02/20252018 79061 9000 SNOMED Burni ng sensa tion Not Available [employer] - prod 5 16:25:11 554847 pumpkin seed extract food,medi cation swelling Not available high 05/02/20252019 25782 1 RxNorm Facia l swell ing Not Available [employer] - prod 5 16:25:11 761959 tramadol medicatio n itching Not available high 05/02/20252019 25078 RxNorm Not Available [employer] - prod 5 16:25:11 017025 acetamino phen / hydrocodo ne medicatio n hives Not available high 05/02/20252019 22243 2 RxNorm Not Available [employer] - prod 5 16:25:11 11887 morphine medicatio n other Not available Not available 10/31/2023 7052 RxNorm React ion: unkno wn, unspe cifie d;; Not Available [facility] 4 00:51:13 65310 acetamino phen / hydrocodo ne medicatio n other Not available Not available 10/31/2023 91763 2 RxNorm React ion: unkno wn, unspe cifie d;; Not Available [facility] 4 00:51:17 81712 acetamino phen / oxycodone medicatio n other Not available Not available 10/31/2023 92815 3 RxNorm React ion: unkno wn, unspe cifie d;; Not Available [facility] 4 00:51:25 Medications Name Sig Start Date Stop Date Status Note LastModified by Organization Details LastModified Time cyclobenz aprine 10 mg tablet 06/13 completed Medicati on ID: [id number] D uration Value: 5 Reason: () Brand Name: tiara zaprine Send Method: E-Prescr ibed Sub s Allowed: subs OK Speci al Instruct ion: TK 1 T PO TID PRN Medi cationGe nericNam e: cycloben zaprine Not Available Not Available Not Available diclofena c 3 % topical gel PLEASE SEE ATTACHED FOR DETAILED DIRECTIO NS active Not Available Not Available No t Available vitamin A 2,400 mcg capsule 02/28 completed Medicati on ID: 448185 B rand Name: vitamin A Send Method: [...] mg tablet 01/14 completed Medicati on ID: 930475 D uration Value: 10 Prescri bed By Name: Nuno Lindsey nd Name: ciproflo xacin HCl Send Method: E-Prescr ibed Sub s Allowed: subs OK Speci al Instruct ion: 1 po BID for 10 days Med ication enericNa me: ciproflo xacin HCl Not Available [...] us solution 01/14 completed Medicati on ID: 343705 B rand Name: Protonix Send Method: E-Prescr [...] by mouth 01/14 completed Medicati on ID: 669795 D uration Value: 10 Prescri bed By [...] mg) tablet 01/14 completed Medicati on ID: 681641 B rand Name: Calcium 600 Send Method: [...] min capsule 2017 active Medicati on ID: 781558 B rand Name: multivit de la cruz [...] by mouth 01/14 completed Medicati on ID: 351751 D uration Value: 30 Prescri bed By Name: Nuno Lindsey nd Name: loratadi ne Send Method: E-Prescr ibed Sub s Allowed: subs OK Medic ationGen ericName : loratadi ne Not Available Not Available Not Available diazepam 5 mg tablet 12/13 completed Medicati on ID: 622850 D uration Value: 1 Reason: () Brand [...] Vitamin B1 02/28 completed Medicati on ID: 439932 B rand Name: vitamin b1 Send Method: [...] topical cream 06/13 completed Medicati on ID: 841859 D uration Value: 30 Reason: () Brand Name: lidocain e-tetrac zackery Sen d Method: E-Prescr ibed Sub s Allowed: subs OK Medic ationGen ericName : lidocain e-tetrac zackery Not Available Not Available Not Available vitamin B12 1,000 mcg-folic acid 400 mcg sublingua l lozenge 02/28 completed Medicati on ID: 316894 B rand Name: vitamin V89-eqff c acid Sen d Method: E-Prescr ibed Sub s Allowed: subs OK Medic ationGen ericName : vitamin J70-bhsi c acid Not Available Not Available Not [...] Last Updated DateTime 162.56 cm 28.2 kg/m2 88057.1 5 g 99 % 99 % 87 /min 106/69 mm[Hg] JESSICA ORTEGA, FORMERLY [facility], 1928–1983 [address] [address], [place], [address], [place] [facility] 10:38:23 Social History Question Answer Notes LastModified by Organizat ion Details LastModified Time Tobacco Smoking Status Never Smoker Medina diaz [place] [facility] 01/14/2025 14:23:26 How Many Years Have You Consumed Alcohol? 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 0 [email or web address] Information not available 03/26/2025 Do You Have Any Pets? Yes [email or web address] Information not available 01/14/2025 Are You Passively Exposed To Smoke? No [email or web address] Information not available 01/14/2025 Are There Any Smokers In Your House? No [email or web address] Information not available 01/14/2025 Sex: Unknown Functional Status Question Answer Note LastModified by Organization Details LastModified Time How many times per week do you consume alcohol? Less than 1 time per week Inform ation not available 01/14/2025 Do you use any illicit or recreational drugs? No [email or web address] Information not available 01/14/2025 Do you or have you ever used any other forms of tobacco or nicotine? No [email or web address] Information not available 01/14/2025 What is your level of alcohol consumption? Occasional [email or web address] Information not available 01/14/2025 What type of noise exposure are you exposed to? noExposureToExcessiveNoise [email or web address] Infor mation not available 01/14/2025 Mental Status None recorded. Family History Relationship Description Onset Age of this Age Resolved Age Notes LastModified by Organization Details LastModified Time Daughter Asthma [email or web address] Not availabl e 01/14/2025 14:23:07 Father Vertigo [email or web address] Not available 01/14/2025 14:23:07 Paternal Grandmother Diabetes mellitus [email or web address] Not available 2024 14:23:07 Mother Allergy [email or web address] Not available 01/14/2025 14:23:07 Mother Asthma Not available 01/14/2025 14:23:07 Maternal Grandmother Diabetes mellitus [email or web address] Not available 2024 14:23:07 Sister Asthma [email or web address] Not available 01/14/2025 14:23:07 Sister Allergy to food [email or web address] Not available 2024 14:23:07 Maternal Grandfather Cerebrovascu lar accident 71 [email or web address] Not available 14:23:07 Maternal Grandfather Diabetes mellitus Not available 2024 14:23:07 Paternal Grandfather Diabetes mellitus [email or web address] Not available 2024 14:23:07 Medical History Condition Response Allergies/Hayfever Y Heart Problems N Anxiety Y Tonsil Infections N Emphysema N Migraines N Thyroid Problems N Depression N COPD N Developmental Delay N Glaucoma N Nasal or Sinus Problems Y Anemia Y Immune System Disorder N Anesthesia Complications N Heart Attack (AL) N Other Skin Condition N Diabetes N [...] ICD10 Code Diagnosis IMO Codes Diagnosis Note [id number] JANICE GONZALES Allergy [address] [facility] [address] [place] [address] 02/28/2025 10:14:11 02/28/2025 12:57:21 Perennial allergic rhinitis [id number] J30.89 415507 Health Concerns Section Related Observation LastModified by Organization Detai ls LastModified Time None Recorded Concern Status LastModified by Organization Details LastModified Time None Recorded Payers Encounter Date Sequence Insurance Name Policy Number Policy Pavon Covered Member ID Pavon Member ID Guarantor Name 02/28/2025 1 [facility] NET PLAN (MEDICAID HMO) GAVINO [place] [id number] Farshad Anand OBGyn Episode No OBEpisode recorded.
--- OUTSIDE RECORDS SUMMARY | 2025-05-07 03:28 | XMS_ITS | Continuity of Care Document ---
Author Organization [place] - [facility], [facility] Address [address] [place] [address] Care Team Providers Care Special Class Welder Name Role Phone MARK JAIMES Referring Provider [phone] Assessment Encounter Date Assessment Date Assessment LastModified by Organization Details LastModified Time 03/26/2025 03/26/2025 Farshad Anand is a 34-year-old female with persistent nasal symptoms and allergies to dust, grass, ragweed, mold, cockroach, and cats. I recommend resuming allergy injections to address her persistent symptoms. She should continue using Flonase as needed for nasal symptom relief. I advised her to use xvjn-env-htnttpw antihistamines such as Claritin, Ivonne, or Zyrtec [...] multip le inject ions (PROC) 2024 025 [email or web address] Not available 04/10/2025 16:15:45 Surgeries None record ed. Imaging None record ed. Medication Orders epinep hrine 0.3 mg/0.3 mL inject ion, auto-i njecto r 2024 025 [email or web address] [id number], [address] [facility], [place], [address], 03/26/2025 15:37:31 Patient TargetsNo targets recorded. Patient Instructions Encounter Date Encounter Id Patient Instructions Last Modified By Organization Details Last Modified Time 03/26/2025 [id number] - Resume allergy injections. - Continue using Flonase as needed. - Use eccy-qyi-nnkckob antihistamines such as Claritin, Ivonne, or Zyrtec [...] testi ng* No observ ation record ed. [email or web address] Not Available 2024 10:45:57 Result Notes None recorded. Problems Name Problem SNOMED Code Status Onset Date Resolution Date Notes Provider Name and Address Organization Details Recorded Time Headache 91662404 Active 2017 Facial pain NOS; Note: Date Diagnosed : 03/12/2018 11:31 AM (R51) Not Available [facility] 4 02:15:59 Migraine without aura, not refractor y 931290028 Active 2017 Migraine without aura, not intractab le, without status migrainos us; Note: Date Diagnosed : 03/12/2018 11:31 AM (G43.009) Not Available [facility] 4 02:14:52 Chronic sinusitis 92651807 Active 2017 Other chronic sinusitis ; Note: Date Diagnosed : 03/12/2018 11:31 AM (J32.8) Not Available [facility] 4 02:15:34 Deviated nasal septum 557299407 Active 2017 Deviated nasal septum; Note: Date Diagnosed : 03/12/2018 11:31 AM (J34.2) Not Available [facility] 4 02:15:30 Chronic rhinitis 83781047 Active 2017 Chronic rhinitis; Note: Date Diagnosed : 04/27/2018 3:39 PM (J31.0) Not Available [facility] 4 02:15:17 Hypertrop hy of nasal turbinate s 01195873 Active 2017 Hypertrop hy of nasal turbinate s; Note: Date Diagnosed : 8 9:08 AM (J34.3) Not Available [facility] 4 02:15:04 Disorder of nasal sinus 2612790 Active 2017 Other specified disorders of nose and nasal sinuses; Note: Date Diagnosed : 8 1:58 PM (J34.89) Not Available [facility] 4 02:15:42 Disorder of the nose 51191682 Active 2017 Other specified disorders of nose and nasal sinuses; Note: Date Diagnosed : 8 1:58 PM (J34.89) Not Available [facility] 4 02:15:42 Allergic rhinitis 16328592 Active 2020 Allergic rhinitis: Due to other [...] Diagnosed : 06/28/ SUZY BOWMAN MD [address] [facility],[place] [address], [place], [address] , [facility] - [facility] 5 15:37:08 Pain of right temporoma ndibular joint [id number] 717333 Active 2024 SUZY BOWMAN MD [address] [facility],[place] [address], [place], [address] , [facility] - [facility] 5 14:32:05 Perennial allergic rhinitis 088378122 Active 2024 JANICE GONZALES [address] [facility],[place] [address], [place], [address] , [facility] 5 10:38:40 Problem Notes None recorded. Procedures Surgical History Date Name Laterality Status Provider Name and Address Organization Details Recorded Time 05/05/20 25 Allergy Immunotherapy Injections completed ELDA BOJORQUEZ RN [address] [facility],[address], [address], [facility] 05/05/2025 15:33:03 02/29/20 25 Allergy Testing-Full completed JANICE GONZALES [address] [facility],[address], [address], [facility] 02/28/2025 12:56:34 Imaging Results None recorded. Procedure Notes None recorded. Medical Equipment None Reported. Allergies Allergen ID Allergen Name Allergen Category Reaction Reaction Severity Criticality Documentation Date Start Date Code Code System Note Provider Name and Address Organization Details Recorded Time 457696 ibuprofen medicatio n Not available Not available Not available 01/14/2025 5640 RxNorm Medina diaz [place] - [facility] 5 14:23:47 954902 aspirin medicatio n other Not available high 05/02/20252019 1191 RxNorm AVOID S DUE TO GASTR IC BYPAS S Not Available [employer] - External Data Service - prod 5 16:25:11 761992 Non-stero idal anti-infl ammatory agent (substanc e) medicatio n other Not available high 05/02/20252019 04008 5008 SNOMED AVOID S DUE TO GASTR IC BYPAS S Not Available [facility] - External Data Service - prod 5 16:25:11 891452 Substance with morphinan structure and opioid receptor agonist mechanism of action (substanc e) medicatio n hives Not available Not available 05/02/20252018 17670 9000 SNOMED Burni ng sensa tion Not Available [facility] - External Data Service - prod 5 16:25:11 645785 pumpkin seed extract food,medi cation swelling Not available high 05/02/20252019 58450 1 RxNorm Facia l swell ing Not Available lata [employer] External Data Service - prod 5 16:25:11 985809 tramadol medicatio n itching Not available [facility] 05/02/20252019 91127 RxNorm Not Available [employer] - External Data Service - prod 5 16:25:11 260222 acetamino phen / hydrocodo ne medicatio n hives Not available high 05/02/20252019 31993 2 RxNorm Not Available [employer] Data Service - prod 5 16:25:11 01873 morphine medicatio n other Not available Not available 10/31/2023 7052 RxNorm React ion: unkno wn, unspe cifie d;; Not Available [facility] 4 00:51:13 71497 acetamino phen / hydrocodo ne medicatio n other Not available Not available 10/31/2023 26078 2 RxNorm React ion: unkno wn, unspe cifie d;; Not Available [facility] 4 00:51:17 08249 acetamino phen / oxycodone medicatio n other Not available Not available 10/31/2023 58695 3 RxNorm React ion: unkno wn, unspe cifie d;; Not Available [facility] 4 00:51:25 Medications Name Sig Start Date Stop Date Status Note LastModified by Organization Details LastModified Time cyclobenz aprine 10 mg tablet 06/13 completed Medicati on ID: [id number] D uration Value: 5 Reason: () Brand Name: tiara woodallrine Send Method: E-Prescr ibed Sub s Allowed: subs OK Speci al Instruct ion: TK 1 T PO TID PRN Medi cationGe nericNam e: cycloben zaprine Not Available Not Available Not Available diclofena c 3 % topical gel PLEASE SEE ATTACHED FOR DETAILED DIRECTIO NS active Not Available Not Available No t Available vitamin A 2,400 mcg capsule 02/28 completed Medicati on ID: 984384 B rand Name: vitamin A Send Method: [...] mg tablet 01/14 completed Medicati on ID: 952712 D uration Value: 10 Prescri bed By [...] us solution 01/14 completed Medicati on ID: 915021 B rand Name: Protonix Send Method: E-Prescr [...] by mouth 01/14 completed Medicati on ID: 794486 D uration Value: 10 Prescri bed By [...] mg) tablet 01/14 completed Medicati on ID: 902263 B rand Name: Calcium 600 Send Method: [...] min capsule 2017 active Medicati on ID: 976655 B rand Name: multivit de la cruz [...] by mouth 01/14 completed Medicati on ID: [id number] D uration Value: 30 Prescri bed By Name: Nuno Lindsey nd Name: loratadi ne Send Method: E-Prescr ibed Sub s Allowed: subs OK Medic ationGen ericName : loratadi ne Not Available Not Available Not Available diazepam 5 mg tablet 12/13 completed Medicati on ID: 841264 D uration Value: 1 Reason: () Brand [...] Vitamin B1 02/28 completed Medicati on ID: 351847 B rand Name: vitamin b1 Send Method: [...] topical cream 06/13 completed Medicati on ID: [id number] D uration Value: 30 Reason: () Brand Name: lidocain e-tetrac zackery Sen d Method: E-Prescr ibed Sub s Allowed: subs OK Medic ationGen ericName : lidocain e-tetrac zackery Not Available Not Available Not Available vitamin B12 1,000 mcg-folic acid 400 mcg sublingua l lozenge 02/28 completed Medicati on ID: 776643 B rand Name: vitamin H83-hgfa c acid Sen d Method: E-Prescr ibed Sub s Allowed: subs OK Medic ationGen ericName : vitamin P03-jfqz c acid Not Available Not Available Not [...] Updated DateTime 03/26/2025 162.56 cm 27.5 kg/m2 67249.78 g 100/62 mm[Hg] Thu Escobar [place] - [facility] 03/26/2025 15:29:55 Social History Question Answer Notes LastModified by Organizat ion Details LastModified Time Tobacco Smoking Status Never Smoker Medina diaz [place] - [facility] 01/14/2025 14:23:26 How Many Years Have You Consumed Alcohol? 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 0 [email or web address] Information not available 03/26/2025 Do You Have Any Pets? Yes [email or web address] Information not available 01/14/2025 Are You Passively [...] use any illicit or recreational drugs? No [email or web address] Information not available 01/14/2025 Do you or have you ever used any other forms of tobacco or nicotine? No [email or web address] Information not available 01/14/2025 What is your level of alcohol consumption? Occasional [email or web address] Information not available 01/14/2025 What type of noise exposure are you exposed to? noExposureToExcessiveNoise Infor mation not available 01/14/2025 Mental Status None recorded. Family History Relationship Description Onset Age of this Age Resolved Age Notes LastModified by Organization Details LastModified Time Daughter Asthma [email or web address] Not availabl e 01/14/2025 14:23:07 Father Vertigo Not available 01/14/2025 14:23:07 Paternal Grandmother Diabetes mellitus [email or web address] Not available 2024 14:23:07 Mother Allergy Not available 01/14/2025 14:23:07 Mother Asthma Not available 01/14/2025 14:23:07 Maternal Grandmother Diabetes mellitus Not available 2024 14:23:07 Sister Asthma Not available 01/14/2025 14:23:07 Sister Allergy to food [email or web address] Not available 2024 14:23:07 Maternal Grandfather Cerebrovascu lar accident 71 Not available 14:23:07 Maternal Grandfather Diabetes mellitus Not available 2024 14:23:07 Paternal Grandfather Diabetes mellitus [email or web address] Not available 2024 14:23:07 Medical History Condition Response Allergies/Hayfever Y Heart Problems N Anxiety Y Tonsil Infections N Emphysema N Migraines N Thyroid Problems N Glaucoma N Developmental Delay N Depression N COPD N Nasal or Sinus Problems Y Anemia Y Immune System Disorder N Anesthesia Complications N Heart Attack (VT) N Other Skin Condition N Diabetes N [...] ICD10 Code Diagnosis IMO Codes Diagnosis Note [id number] JANICE GONZALES [facility] [address] [facility] [address] [address] [place] [address] 02/28/2025 10:14:11 02/28/2025 12:57:21 Perennial allergic rhinitis 992145291 J30.89 [id number] SUZY BOWMAN MD [facility] [place] [address] [facility] [place] [address] 03/26/2025 15:20:16 03/27/2025 09:28:18 Allergic rhinitis 33850807 J30.89 We also discussed the role of [...] Pavon Member ID Guarantor Name 03/26/2025 1 [facility] - HEALTH NET PLAN (MEDICAID HMO) GAVINO Farshad [place] [id number] Farshad Anand Notes Date Note Type Note [...] her EpiPen has . SUZY VIEYRA MD [address] [place] [address], [address], [facility] - [facility] 03/26/2025 15:37:54 OBGyn Episode No OBEpisode recorded.
== END 2025-05-06 13:23 | disposition home or self-care (01) ==
LOC: HO.HBS 12:30
PROVIDERS: PCP Internal Medicine; Visit Provider Physician Assistant Surgical
DX: E66.3 Overweight (principal); Z68.27 Body mass index [BMI] 27.0-27.9, adult; Z98.84 Bariatric surgery status; Z90.49 Acquired absence of other specified parts of digestive tract
CPT/HCPCS: 99024

== ENCOUNTER → 2025-05-06 12:29 | Outpatient (BNVA) | payer OTHER, SELFPAY | PROVIDERS: PCP Internal Medicine; Visit Provider Physician Assistant Surgical | DX: Z98.84 Bariatric surgery status (principal); Z90.49 Acquired absence of other specified parts of digestive tract | CPT/HCPCS: 99212 ==

== ENCOUNTER 2025-06-16 11:29 | Outpatient (AMB) | payer OTHER, SELFPAY ==
--- NOTE | 2025-06-16 10:37 | MHC.OFFVISWM ---
VS Expanded 06/16/25 11:37 BP 116/63 Blood Pressure Location Rt brachial Blood Pressure Position Sitting Pulse 91 Pulse Source Pulse Oximeter Temp 97.6 F Temperature Source Temporal Artery Scan Pulse Oximetry 100 Oxygen Delivery Method Room Air Height 5 ft 3.5 in Weight 155 lb 8 oz BMI 27.1 Body Fat % 31.9 Body Fat Mass 49.6 Fat Free Mass 106.0 Visceral Fat Rating 5.0 Body Water % 48.9 Body Water Mass 76.0 Muscle Mass/Score 100.8 Basal Metabolic Rate/Score 1,452 Intake Visit Reasons: (OV) s/p Lap Lady 04/30/25 Allergies hydrocodone (From Vicodin) Allergy (Intermediate, Verified 06/16/25 11:40) Rash, Hives morphine (MORPHINE) Allergy (Intermediate, Verified 06/16/25 11:40) BURNING IN CHEST, shortness of breath oxycodone (From PERCOCET) Allergy (Intermediate, Verified 06/16/25 11:40) ITCHINESS pumpkin Allergy (Intermediate, Verified 06/16/25 11:40) Itching ibuprofen Adverse Reaction (Intermediate, Verified 06/16/25 11:40) Stomach Upset Medication List - Last Reconciled 06/16/25 by Nadiya Reina, DREAD cholecalciferol (vitamin D3) 50 mcg PO DAILY 90 days cyanocobalamin (vitamin B-12) 1,000 mcg subcut QMONTH 30 days docusate sodium 100 mg PO BID PRN lidocaine 5% 1 patch topical DAILY multivitamin 1 tab PO DAILY ondansetron 4 mg PO Q12H ondansetron HCl 4 mg PO BEDTIME PRN 4 days polyethylene glycol 3350 (Miralax) 17 grams PO DAILY PRN pregabalin (Lyrica) 25 mg PO BID syringe with needle (Syringe) As Directed tizanidine 2 mg PO TID PRN tramadol 50 mg PO BID PRN 7 days zolpidem 10 mg PO BEDTIME PRN 30 days HPI Comments Details: 34?year old woman is s/p lap lady 04/30/2025. s/p GBP 09/16/[address] Bobo No complaints of nausea, emesis, or reflux. Chronic constipation, up to 5-6 days without BM. This is her baseline. Even greasy foods post-op do not cause diarrhea. Colace or miralax prn to have BM at times. Reports the left sided abdominal pain is similar to pre-op, it's not as severe and comes and goes, but is still there. She reached out to Dr. Ramirez and he adjusted her meal plan. Pain is in the left middle to lower quadrant. 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[employer] [employer] Medical History Cholelithiasis GERD (gastroesophageal reflux disease) Carpal tunnel syndrome Hypovitaminosis D B12 deficiency Anemia Kidney stones Surgical History History of esophagogastroduodenoscopy (EGD) S/P fusion of sacroiliac joint History of delivery History of surgery History of nasal surgery History of wisdom tooth extraction Gastric bypass status for obesity Family History Father High cholesterol Diabetes Mother Migraine Obesity Bipolar disorder Mental health disorder Maternal Grandfather Stroke Sister In good health Brother In good health Social History (Updated 06/16/25 @ 11:49 by Deep Nieto [place]) Household Members: Spouse Housing: House Are you a primary day care center director to a significant other at home: No Do you presently have visiting nurse or other home services: No Alcohol intake: current Alcohol intake frequency: does not drink Comment: medicated prior to d/c with tramadol Patient Tobacco Use Status: Never used Tobacco e-Cigarette/Vaping Use: Never Used Second Hand Smoke Exposure: No service: No Current occupational status: employed 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 Mild tenderness to palpation on left side in the middle and lower quadrant, no tenderness to LUQ. Lap incisions well healed. Neuro General: patient oriented x3 Assessment & Plan Assessment & Plan (1) Hx laparoscopic cholecystectomy: Code(s): Z90.49 - Acquired absence of other specified parts of digestive tract Category: Surgical Plan: Plan: - Continue high protein meal plan - Previously discussed intraoperative finding of redundant colon at splenic flexure,. Her pain is mostly in the middle/lower quadrant. She has chronic constipation, only 1-2 BM per week, and even greasy foods do not cause loose stools. Recommend trying daily softener such as colace or miralax for a more regular BM routine. Will continue to monitor pt's LLQ discomfort. She has never had a colonoscopy. - Recommend exercise as tolerated, but this is difficult due to her hip issues - Made separate appt to discuss excess skin in her arms. She is very close to goal BMI < 27, goal weight would be 153 lbs or less. Follow up: 6 weeks for a 3 month post op visit Medications: New docusate sodium 100 mg PO BID PRN 60 caps 2RF constipation polyethylene glycol 3350 (Miralax) 17 grams PO DAILY PRN 510 grams 2RF constipation
[2025-06-16 11:37] VITALS: BP 116/63; PULSE 91; TEMP 36.4; O2SAT 100; BMI 27.1
--- OUTSIDE RECORDS SUMMARY | 2025-06-16 13:29 | XMS_ITS | Encounter Summary ---
Author Organization [facility] Address [address] [facility] [address] [place] [address] Phone Care Team Providers Care Cogeneration Operator Name Role Phone Alberto James MD Unavailable [phone] Mariela Peralta MD Primary Care Provid er Tawanda Lewis MD Unavailable [phone] Encounter Details Date Type Department Care Team (Late st Contact Info) Description 07/20/2021 Procedure Pass [facility] L&D Procedures [address] [place] [address] Social History Tobacco Use Types Packs/Day Years [...] on filedocumented in this encounter Care Teams Cogeneration Operator Relationship Specialty Start Date End Date Alberto James MD [address] [place] [address] PCP - Family Medicine Internal Medicine 07/08/19 Mariela Peralta MD [address] [place] [address] PCP - General Internal Medicine 09/28/20 Tawanda Lewis MD [address] [facility]nd [place] [address] [email or web address] Referring Physician Physical Medicine and Rehabilitation 11/04/20 documented as of this encounter Additional Source Comments The information contained in this document represents components of the legal health record. It is not the complete legal health record.[facility]
--- OUTSIDE RECORDS SUMMARY | 2025-06-16 13:29 | XMS_ITS | Encounter Summary ---
Author Organization [facility] Address [address] [facility] [address] [place] [address] Phone Care Team Providers Care Manager Discovery Name Role Phone Alberto James MD Unavailable [phone] Mariela Peralta MD Primary Care Provid er Tawanda Lewis MD Unavailable [phone] Encounter Details Date Type Department Care Team (Late st Contact Info) Description 07/11/2019 Ancillary Orders [facility],Outside Imaging [address] [place], [place] [id number] System, Provider Not In, [place] [address] Social History Tobacco Use Types Packs/Day Years [...] on file documented as of this encounter Results * [...] as of this encounter Care Teams Manager Discovery Relationship Specialty Start Date End Date Alberto James MD [address] [facility] [address] [place] [address] PCP - Family Medicine Internal Medicine 07/08/19 Mariela Peralta MD [address] [place] [address] PCP - General Internal Medicine 09/28/20 Tawanda Lewis MD [address] [facility] [place] [address] [email or web address] Referring Physician Physical Medicine and Rehabilitation 11/04/20 documented as of this encounter Additional Source Comments The information contained in this document represents components of the legal health record. It is not the complete legal health record.[facility]
--- OUTSIDE RECORDS SUMMARY | 2025-06-16 13:29 | XMS_ITS | Clinical Summary ---
Author Organization [facility] Address [address] [place] [address] Phone Care Team Providers Care Polymerization Kettle Operator Name Role Phone Alberto James MD Unavailable [phone] Mariela Peralta MD Primary Care Provid er Tawanda Lewis MD Unavailable [phone] Allergies Active Allergy Reactions Criticality Noted Date [...] mcg/mL injection every 30 (thirty) days. 1 Active fluticasone propionate (FLONASE) 50 mcg/actuation nasal spray SPRAY 2 SPRAYS INTO EACH NOSTRIL 5 Active lidocaine (LIDODERM) 5 % APPLY 1 PATCH TOPICALLY DAILY LEAVE ON MOST PAINFUL AREA FOR UP TO 12 HRS 5 Active pregabalin (LYRICA) 100 MG capsule 5 Active tiZANidine (ZANAFLEX) 2 MG tablet TAKE 1 TABLET BY MOUTH 3 TIMES A DAY NEEDED FOR MUSCLE SPASTICITY 5 Active zolpidem (AMBIEN) 10 mg tablet TAKE 1 TABLET ORALLY BEDTIME NEEDED FOR SLEEP FOR 30 DAYS 5 Active traMADoL (ULTRAM) 50 mg tablet Take 50 mg by mouth every 6 (six) hours as needed for pain (specific location in comments) (once a day as needed). Active Active Problems Problem Noted Date Diagnosed [...] logistics may preclude this happening after an [facility] health [facility] signed today Assessment & [...] Blood glucose testing - referral sent to [facility]/[place] for QID testing for 1-2 weeks. [...] order CEDE referral for QID testing at [place] d/t gastric bypass Assessment & Plan (02/10/2021 [...] 05/18/2021 07/06/2021 Overview (06/27/2021): 05/17/21: observed at [facility] for regular painful contractions, cervix L/T/C and ffn neg but transferred to [facility] due to worsening contractions and some bleeding [...] - Ref Range & Units 05/25/21 1439 05/17/21201304/01/214 FIBRONECTIN Negative Negative Negative Negative Specimen Collected: 05/25/21 14:39 Last Resulted: 05/25/21 16:06 -05/17/21 and 05/25/21 VE L/T/C -Neg gc/ct on 05/17 -VE closed/70%/-3 Posterior and hard -Consulted w/ MD Nguyen. No need to repeat labs. R/o labor. If not in labor Discussed pre-term warning s/sx and dc home, if in labor transfer to [facility] due to prematurity 1630: VE unchanged Discussed [...] have continued since she was discharged from [facility]. Contractions are around q 3 min and [...] QID for another week and f/u with [facility]. Assessment & Plan (05/18/2021 2:31 PM EST): [...] assess for developing insulin resistance. contractions 04/02/2021 Lower abdominal pain 04/01/2021 021 uterine contractions in second trimester, antepartum 04/01/2021 04/21/2021 Assessment & Plan (04/08/2021 8:25 PM EDT): Reports no additional contractions since being seen at the [facility] last week. Discussed increased risk for contractions due to fibroids and importance of calling with any concerns. UTI (urinary tract infection ) during , second trimester 04/01/2021 09/03/2021 Overview (06/01/2021): Seen at [facility] 04/01 with pain and contractions. UA suggestive of UTI. Urine culture sent. RX augmentin 875 BID x 7 days, prophylactic Urine culture result mixed. Neg urinalysis on 04/27, 05/17, 05/30 (performed with PTL workup) Assessment & Plan (04/28/2021 6:17 PM EST): -Urine culture collected yesterday at the [facility] Assessment & Plan (04/08/2021 8:24 PM EDT): Was seen at the [facility] on 04/01 with contractions, received terbutaline and IV fluids and treated for presumed UTI based on UA. Urine culture result mixed. Was seen again at the [facility] one day later, received terbutaline again. Reports she has had no additional contractions since then. 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 Has a hard time taking iron as [...] symptoms. Farshad went to the [facility] last night, reports having lots of pain, [...] here with her mom. Recently discharged from [facility] following admission for contractions. See problem list. [...] in -Discussed FM at this [place] and [facility] -Review signs and symptoms of Pre-term [...] discrepancy, reports original ASAEL was established at [facility] but is inconsistent with what she has [...] after being seen in [facility] for NVP on 12/23. Reports she [...] concerns while away, reviewed how to reach correctional nurse CN. Has US and [facility] scheduled on [...] Encounters Date Type Department Care Team Description 05/07/2025 3:10 PM EST Office Visit [facility] [address] [place] [address] [place] [address] Gabriel Oquendo MD Cysts of both ovaries (Primary Dx) 05/06/2025 4:39 PM EST - 05/06/2025 11:59 PM EST Hospital Encounter [facility] [place], OB [address] [place] [address] [place] [address] Leah Carter MD Discharge Disposition: Home or Self Care 04/22/2025 4:10 PM EST Office Visit [facility] [address] [place] [address] [place] [address] Gabriel Oquendo MD Encounter for annual routine gynecological examination (Primary Dx); Screening for cervical cancer; Cysts of both ovaries; Fibroids 03/25/2025 3:40 PM EDT Office Visit [facility] [address] [place] [address] Leah Carter MD Pelvic pain (Primary Dx) 03/24/2025 4:26 PM EDT - 03/24/2025 11:59 PM EDT Hospital Encounter [facility] [place], [place] [address] [place] [address] Ekta Ernst MD Discharge Disposition: Home or Self Care from Last 3 Months Immunizations Immunization Administration [...] Sign Reading Time Taken Comments Blood Pressure 116/74 05/07/2025 3:10 PM EST Pulse 71 12/13/2022 11:06 AM EDT Temperature 36.9 C (98.5 F) 12/13/2022 11:06 AM EDT Respiratory Rate 18 07/22/2021 5:00 PM EST Oxygen Saturation 99% 12/13/2022 11:06 AM EDT Inhaled Oxygen Concentration - - Weight 71.2 kg (157 lb) 05/07/2025 3:10 PM EST Height 162.6 cm (5' 4 ) 02/19/2025 11:13 AM EDT Body Mass Index 26.95 02/19/2025 11:13 AM EDT Plan of Treatment Health Maintenance Due Date Last Done Comments DEPRESSION SCREENING 2001 SCREENING FOR DIABETES 2024 12/23/2020 INFLUENZA VACCINE (#1) 2025 , 03/08/2022, 04/07/2021, Additional history exists COVID-19 VACCINE ( season) 2025 03/29/2024, 01/23/2023, 07/23/2021, Additional history exists PAP SMEAR 04/22/2030 04/22/2025, 01/15/2020 Adult Td,Tdap Booster 05/18/2031 05/18/2021 , 07/02/2018, 07/02/2018, Additional history exists HIB VACCINES Aged Out 10/17/1990 No longer eligi ble based on patient's age to complete this topic HEPATITIS C SCREENING Completed 01/11/2021, 021 HIV ONE-TIME SCREENING (18-65 YEARS) Completed 01/11/2021 SMOKING STATUS SCREENING (Once After 26 Yrs) Completed 05/07/2025 HEPATITIS A VACCINES Aged Out No long [...] this topic Medical Devices Implanted Type Area Assurance Engineer Device Identifier Shelf Expiration Date Model / Serial / Lot Implant Ifuse 3d 7x50mm - [id number] Implanted:Qty: 1 on 12/02/2019 by Susana Ratliff MD, PhD at [facility] Left: Sacrum [employer] 05/07/2024 7050M-90 / / [id number] Implant Ifuse 3d 7x45mm - [id number] Implanted:Qty: 1 on 12/02/2019 by Susana Ratliff MD, PhD at [facility] Left: Sacrum [employer] 02/26/2024 7045M-90 / / [id number] Implant Ifuse 3d 7x40mm - [id number] Implanted:Qty: 1 on 12/02/2019 by Susana Ratliff MD, PhD at [facility] Left: Sacrum [employer] 05/07/2024 7040M-90 / / [id number] Procedures Procedure Name Priority Date/Time Associated Diagnosis Comments US PELVIS TRANSVAGINAL ONLY Routine 05/06/2025 4:57 PM EST Pelvic pain PAP TEST Routine 04/22/2025 4:49 PM EST Screening for cervical cancer CERVICAL CANCER SCREENING Routine 04/22/2025 4:49 PM EST Screening for cervical cancer GENETIC PROBE AMPLIFICATION FOR HUMAN PAPILLOMAVIRUS Routine 04/22/2025 4:49 PM EST Screening for cervical cancer US PELVIS TRANSABDOMINAL PLUS TRANSVAGINAL Routine 03/24/2025 5:12 PM EDT Uterine leiomyoma, unspecified location HEPATITIS C ANTIBODY, QUALITATIVE Routine 01/11/2021 4:16 PM EDT Need for hepatitis C screening test from Last 3 Months or Most Recently Relevant to Health Maintenance Results * US PELVIS TRANSVAGINAL ONLY (05/06/2025 4:57 PM EST) Anatomical Region Laterality Modality Pelvis, Uterus/Adnexa Ultrasound 05/06/2025 5:05 PM EST Impressions 05/06/2025 5:26 PM EST 1. Heterogeneous uterus with several masses consistent with fibroids as previously described on the films from March 2025. 2. The endometrium measures 3.6 mm and appears grossly normal with no focal masses. 3. The right ovary appears grossly normal. 4. The left ovary contains a cyst as described above which has decreased in size compared to previous films. The second cyst has resolved. 5. There is no free fluid. Narrative 05/06/2025 5:26 PM EST Procedure: US PELVIS TRANSVAGINAL ONLY 05/06/2025 4:40 PM US Indications: Follow up left ovarian cysts on 03/2025 US. Comparison: No relevant recent comparisons. Technique: Transabdominal sonography of the pelvis was performed. In addition, transvaginal imaging was performed to better evaluate the adnexae and ovaries. Color Doppler imaging was performed to assess vascularity. No 3-D images were acquired. FINDINGS: Uterus: The uterus measurements acquired; 4.00 cm x 6.77 cm x 4.54 cm with volume of 89.80 ml. The uterus is anteverted in its positioning. The myometrium is heterogeneous with few stable masses suggestive of fibroids. Endometrium: The endometrium measures 0.36 cm and appears grossly normal. No endometrial masses. No fluid is identified within the endometrial canal. No focal cervical masses. Ovaries: The right ovary measures 2.66 cm x 2.22 cm x 1.87 cm with volume of 5.78 ml. Appears grossly normal Right Adnexa: No masses seen. The left ovary measures 3.98 cm x 2.75 cm x 2.61 cm with volume of 14.96 ml. Only one cyst with dense echoes is seen today, decreased in size from prior scan, measures 1.8 x 1.4 1.6 cm (prev 2.6 x 2.4 x 2.6 cm) Left Adnexa: No masses seen. Cul de Sac: There is no evidence of free pelvic fluid. Tech Comments: Procedure Note Gabriel Oquendo MD - 05/06/2025 Procedure: US PELVIS TRANSVAGINAL ONLY 05/06/2025 4:40 PM US Indications: Follow up left ovarian cysts on 03/2025 US. Comparison: No relevant recent comparisons. Technique: Transabdominal sonography of the pelvis was performed. Inaddition, transvaginal imaging was performed to better evaluate theadnexae and ovaries. Color Doppler imaging was performed to assessvascularity. No 3-D images were acquired. FINDINGS: Uterus: The uterus measurements acquired; 4.00 cm x 6.77 cm x 4.54 cm with volumeof 89.80 ml. The uterus is anteverted in its positioning. Themyometrium is heterogeneous with few stable masses suggestive of fibroids. Endometrium: The endometrium measures 0.36 cm and appears grossly normal. Noendometrial masses. No fluid is identified within the endometrialcanal. No focal cervical masses. Ovaries: The right ovary measures 2.66 cm x 2.22 cm x 1.87 cm with volume of 5.78ml. Appears grossly normal Right Adnexa: No masses seen. The left ovary measures 3.98 cm x 2.75 cm x 2.61 cm with volume of 14.96ml. Only one cyst with dense echoes is seen today, decreased in size fromprior scan, measures 1.8 x 1.4 1.6 cm (prev 2.6 x 2.4 x 2.6 cm) Left Adnexa: No masses seen. Cul de Sac: There is no evidence of free pelvic fluid. Tech Comments: IMPRESSION: 1. Heterogeneous uterus with several masses consistent with fibroids aspreviously described on the films from March 2025. 2. The endometrium measures 3.6 mm and appears grossly normal with nofocal masses. 3. The right ovary appears grossly normal. 4. The left ovary contains a cyst as described above which has decreasedin size compared to previous films. The second cyst has resolved. 5. There is no free fluid. Leah Deleon MD [facility] US PELVIS Final Result * Human Papillomavirus (HPV), Nucleic Acid Amplification (04/22/2025 4:49 PM EST) HPV 16 Negative 05/05/2025 11:03 AM [facility] HPV 18 Negative 05/05/2025 11:03 AM [facility] HPV 45 Negative 05/05/2025 11:03 AM [facility] HPV 31 Negative 05/05/2025 11:03 AM [facility] HPV 51 Negative 05/05/2025 11:03 AM [facility] HPV 52 Negative 05/05/2025 11:03 AM [facility] HPV 33, 58 Negative 05/05/2025 11:03 AM [facility] HPV 35, 39, 68 Negative 05/05/2025 11:03 AM [facility] HPV 56, 59, 66 Negative 05/05/2025 11:03 AM [facility] HPV Disclaimer: Performed by real-time polymerase chain reaction (PCR) at [facility], [address] [place] [address] using the FDA-approved [employer] Onclarity HPV Assay with extended genotyping. Uses of the assay in scenarios other than those approved by the FDA should be considered off-label use. The accuracy and precision of this test for all other off-label specimen sources has been verified in the Cytopathology Laboratory of the [facility] and has not been cleared or approved by the U.S. Food and Drug Administration. Clinical correlation is advised. The assay assesses the E6/E7 DNA target and utilizes human beta globin as an internal control. Cytology and HPV testing are screening assays and should not be used as the sole means of detecting cancer. False-positives and false-negatives can occur. 05/05/2025 11:03 AM [facility] Pap Collection (Cervix) 04/22/2025 4:49 PM EST 04/23/2025 9:26 AM EST Gabriel Oquendo MD LAB GENERAL ORDERABLES Final Result [facility] [address] [place] [address] * Pap Test (04/22/2025 4:49 PM EST) Final Diagnosis A. PAP TEST: CERVIX SPECIMEN ADEQUACY: Satisfactory for evaluation; transformation zone present. INTERPRETATION: Negative For Intraepithelial Lesion or Malignancy. HPV RESULTS: HPV 16: Negative HPV 18: Negative HPV 45: Negative HPV 31: Negative HPV 51: Negative HPV 52: Negative HPV 33, 58: Negative HPV 35, 39, 68: Negative HPV 56, 59, 66: Negative 05/05/2025 11:03 AM [facility] at 1103 EST Pap Methodology This specimen was successfully pre-screened using the [employer] Media[employer] Imaging System. Selected mckeon from the multiple tube winding machine operator were reviewed by a Buyer Grain. If indicated, this case was reviewed by a Pathologist. The Pap test is a screening test primarily for detecting cervical Squamous Cell Carcinoma and its precursors. The test has an inherent but low probability of error, with liquid-based methods having a reported false negative rate of about 2%. Regular sampling and follow-up of unexplained clinical signs and symptoms are recommended to minimize false negative results. 05/05/2025 11:03 AM [facility] Clinical History ICD-10: Screening for cervical cancer 05/05/2025 11:03 AM [facility] LMP? Exact Date 05/05/2025 11:03 AM [facility] LMP 03/28/2025 05/05/2025 11:03 AM [facility] Gross Description A. PAP TEST: CERVIX: 1 Preservcyt vial received labeled with two patient identifiers. 1 ThinPrep slide prepared. 05/05/2025 11:03 AM [facility] A. Adequacy Satisfactory for evaluation; transformation zone present. 05/05/2025 11:03 AM [facility] A. Interpretation Negative For Intraepithelial Lesion or Malignancy. 05/05/2025 11:03 AM [facility] Pap Collection (Cervix) 04/22/2025 4:49 PM EST 04/22/2025 4:49 PM EST us Gabriel Oquendo MD LAB CYTOLOGY ORDERABLES Final Result [facility] [address] [place] [address] * US PELVIS TRANSABDOMINAL PLUS TRANSVAGINAL (03/24/2025 [...] PM EDT) HCV NON-REACTIV E NON-REACTI VE [facility] Blood 01/11/2021 4:16 PM EDT 01/11/2021 6:53 PM EDT us Ivet Farrell CN LAB BLOOD BKR ORDERABLES Final Result [facility] [address] [place] [address] from Last 3 Months or Most Recently Relevant to Health Maintenance Insurance ACO ACO ACO ACO ACO ACO ACO [employer] [place] [address] [place] [address] [place] [address] [place] [address] INSURANCE Advance Directives For more information, please contact: [phone] (9AM - 5PM [facility], Monday-Monday) Documents on File Type Date Recorded Patient Concrete Crusher Loader Operator Expl anation Healthcare Proxy 07/26/2021 4:52 PM [...] Code Status Confirmed With: Patient Care Teams Polymerization Kettle Operator Relationship Specialty Start Date End Date Po, Alberto Prince MD 2 [facility] [address] [place] [phone] PCP - Family Medicine Internal Medicine 07/08/19 Mariela Peralta MD [address] [place] [address] PCP - General Internal Medicine 09/28/20 Tawanda Lewis MD 22 [facility], 2nd [place] [address] [email or web address] Referring Physician Physical Medicine and Rehabilitation 11/04/20 Additional Source Comments The information contained in this document represents components of the legal health record. It is not the complete legal health record.[facility]
--- OUTSIDE RECORDS SUMMARY | 2025-06-16 13:29 | XMS_ITS | Encounter Summary ---
Author Organization [facility] Address [address] [place] [address] [place] [address] Phone Care Team Providers Care Relay Motorman Name Role Phone Alberto James MD Unavailable [phone] Mariela Peralta MD Primary Care Provid er Tawanda Lewis MD Unavailable [phone] Encounter Details Date Type Department Care Team (Late st Contact Info) Description 07/08/2019 Procedure Pass [address] [place] [address] Social History Tobacco Use Types Packs/Day Years [...] documented in this encounter Plan of Treatment Not on file documented as of this encounter Visit Diagnoses Not on filedocumented in this encounter Additional Health Concerns Infection Onset Date Last Indicated Resolved Time COVID-19 06/27/2021 06/27/2021 07/09/2021 9:03 AM EST documented as of this encounter Care Teams Relay Motorman Relationship Specialty Start Date End Date Alberto James MD 2 [facility] [address] [place] [phone] PCP - Family Medicine Internal Medicine 07/08/19 Mariela Peralta MD [address] [place] [address] PCP - General Internal Medicine 09/28/20 Tawanda Lewis MD 22 [facility], 2nd [place] [address] Referring Physician Physical Medicine and Rehabilitation 11/04/20 documented as of this encounter Additional Source Comments The information contained in this document represents components of the legal health record. It is not the complete legal health record.[facility]
--- OUTSIDE RECORDS SUMMARY | 2025-06-16 13:29 | XMS_ITS | Encounter Summary ---
Author Organization [facility] Address [address] [facility] [address] [place] [address] Phone Care Team Providers Care Grassroots Organizer Name Role Phone Alberto James MD Unavailable [phone] Mariela Peralta MD Primary Care Provid er Tawanda Lewis MD Unavailable Encounter Details Date Type Department Care Team (Late st Contact Info) Description 12/02/2019 Procedure Pass [facility] Periop 1st floor [address] [place] [address] Social History Tobacco Use Types Packs/Day Years [...] documented as of this encounter Care Teams Grassroots Organizer Relationship Specialty Start Date End Date Alberto James MD [address] [place] [address] [address] [place] [address] PCP - Family Medicine Internal Medicine 07/08/19 Mariela Peralta MD [address] [place] [address] PCP - General Internal Medicine 09/28/20 Tawanda Lewis MD 22 [facility], 2nd [place] [address] [email or web address] Referring Physician Physical Medicine and Rehabilitation 11/04/20 documented as of this encounter Additional Source Comments The information contained in this document represents components of the legal health record. It is not the complete legal health record.[facility]
--- OUTSIDE RECORDS SUMMARY | 2025-06-16 13:29 | XMS_ITS | Encounter Summary ---
Author Organization [employer] Address [address] [facility] 7t [place] [address] Care Team Providers Care Glue Bone Drier Name Role Phone Unavailable Primary Care Provider [...]
--- OUTSIDE RECORDS SUMMARY | 2025-06-16 13:29 | XMS_ITS | Encounter Summary ---
Author Organization [facility] Address [address] [facility] [address] [place] [address] Phone Care Team Providers Care Radio Interference Supervisor Name Role Phone Alberto James MD Unavailable [phone] Mariela Peralta MD Primary Care Provid er Tawanda Lewis MD Unavailable [phone] Encounter Details Date Type Department Care Team (Late st Contact Info) Description 12/02/2019 Procedure Pass [facility] Rad[facility] [address] [place] [address] Social History Tobacco Use Types Packs/Day Years [...] documented as of this encounter Care Teams Radio Interference Supervisor Relationship Specialty Start Date End Date Alberto James MD 2 [facility] [address] [place] [address] PCP - Family Medicine Internal Medicine 07/08/19 Mariela Peralta MD [address] [place] [address] PCP - General Internal Medicine 09/28/20 Tawanda Lewis MD 22 [facility], 2nd [place] [address] [email or web address] Referring Physician Physical Medicine and Rehabilitation 11/04/20 documented as of this encounter Additional Source Comments The information contained in this document represents components of the legal health record. It is not the complete legal health record.[facility]
--- OUTSIDE RECORDS SUMMARY | 2025-06-16 13:29 | XMS_ITS | Clinical Summary ---
Author Organization [id number] Address [address] [facility] 7t [place] [address] Care Team Providers Care Silhouette Artist Name Role Phone Unavailable Primary Care Provider [...]
--- OUTSIDE RECORDS SUMMARY | 2025-06-16 13:29 | XMS_ITS | Encounter Summary ---
Author Organization [facility] Address [address] [facility] [address] [place] [address] Phone Care Team Providers Care Cruise Guide Name Role Phone Alberto James MD Unavailable [phone] Mariela Peralta MD Primary Care Provid er Tawanda Lewis MD Unavailable [phone] Encounter Details Date Type Department Care Team (Late st Contact Info) Description 02/05/2021 Telephone [facility] Obstetrics and Gynecology Clinic [address] [place] [address] Becky Murcia, RICHARD [address] [facility], [address] [place] [address] [email or web address] Social History Tobacco Use Types Packs/Day Years [...] documented as of this encounter Care Teams Cruise Guide Relationship Specialty Start Date End Date Alberto James MD 2 [facility] [address] [place] [address] PCP - Family Medicine Internal Medicine 07/08/19 Mariela Peralta MD [address] [place] [address] PCP - General Internal Medicine 09/28/20 Tawanda Lewis MD 22 [facility], 2nd [place] [address] Referring Physician Physical Medicine and Rehabilitation 11/04/20 documented as of this encounter Additional Source Comments The information contained in this document represents components of the legal health record. It is not the complete legal health record.[facility]
--- OUTSIDE RECORDS SUMMARY | 2025-06-16 13:29 | XMS_ITS | Encounter Summary ---
Author Organization [facility] Address [address] [facility] [address] [place] [id number] Phone Care Team Providers Care Credit Control Manager Name Role Phone Alberto James MD Unavailable [phone] Mariela Peralta MD Primary Care Provid er Tawanda Lewis MD Unavailable [phone] Encounter Details Date Type Department Care Team (Late st Contact Info) Description 07/11/2019 Ancillary Orders [facility],Outside Imaging [address] [place], [place] [id number] System, Provider Not In, [place] [address] Social History Tobacco Use Types Packs/Day Years [...] documented as of this encounter Care Teams Credit Control Manager Relationship Specialty Start Date End Date Alberto James MD [address] [facility] [address] [place] [address] PCP - Family Medicine Internal Medicine 07/08/19 Mariela Peralta MD [address] [place] [id number] PCP - General Internal Medicine 09/28/20 Tawanda Lewis MD [address] [facility] [place] [address] [email or web address] Referring Physician Physical Medicine and Rehabilitation 11/04/20 documented as of this encounter Additional Source Comments The information contained in this document represents components of the legal health record. It is not the complete legal health record[facility]
== END 2025-06-16 12:13 | disposition home or self-care (01) ==
LOC: HO.HBS 11:30
PROVIDERS: PCP Internal Medicine; Visit Provider Nurse Practitioner
DX: E66.3 Overweight (principal); Z68.27 Body mass index [BMI] 27.0-27.9, adult; Z90.49 Acquired absence of other specified parts of digestive tract
CPT/HCPCS: 99024

== ENCOUNTER → 2025-06-16 11:29 | Outpatient (BNVA) | payer OTHER, SELFPAY | PROVIDERS: PCP Internal Medicine; Visit Provider Nurse Practitioner | DX: Z48.815 Encounter for surgical aftercare following surgery on the digestive system (principal); Z90.49 Acquired absence of other specified parts of digestive tract; K59.09 Other constipation; R10.32 Left lower quadrant pain | CPT/HCPCS: 99212 ==